=== PATIENT | male | born 1955 | race Caucasian/White ===

== ENCOUNTER 2021-07-27 14:03 | Emergency (ER) | payer MEDICARE ==
[2021-07-27] MEDS ORDERED: Sodium Chloride 0.9% 1000 ML 1,000 ML IV STA ×2 (14:43→17:10)
[2021-07-27] MEDS ORDERED: Zofran 4 MG/2 ML VIAL IV ONE (14:43)
--- NOTE | 2021-07-27 14:43 | ERPHSYRPT ---
- History of Present Illness Time Seen by Provider: 07/27/21 14:43 Historian: patient Exam Limitations: no limitations Physician History: This is a 66-year-old male with a history of hypertension and who has known Crohn's disease and is a patient of Dr. Varghese Bunn out of [facility] in [facility]. He presents with 1 week history of retching nausea and diarrhea. He had old antibiotics which he took for couple days but his symptoms did not improve. He has not seen a animal attendants and trainers in quite some time. He is not on any preventive Crohn's disease medication because it is so expensive. Patient denies chest pain. He denies shortness of breath. Timing/Duration: week(s) (1) Activities at Onset: none Abdominal Pain Onset Location: RLQ, LLQ Pain Radiation: no radiation Severity of Pain-Max: moderate Severity of Pain-Current: moderate Modifying Factors: Improves With: other (Nausea and diarrhea) Associated Symptoms: diarrhea, loss of appetite, nausea, No chest pain, No shortness of breath, No vomiting Previous symptoms: same symptoms as today, other (Same symptoms he has had in the distant past.) Allergies/Adverse Reactions: shellfish derived Allergy (Verified 07/27/21 14:52) Hives Home Medications: Amlodipine Besylate 10 mg PO DAILY 07/27/21 [History] Diazepam 5 mg [Valium 5 MG] 5 mg PO DAILY 07/27/21 [History] Metoprolol Tartrate 25 mg [Lopressor 25MG Tab] 25 mg PO STAT 07/27/21 [History] Travel Risk - International Travel Have you traveled outside of the country in past 3 weeks: No - Coronavirus Screening Are you exhibiting any of the following symptoms?: No Close contact with a COVID-19 positive Pt in past 14-21 Days: No - Vaccine Status Have you recieved a Covid-19 vaccination: No - Review of Systems Constitutional: No Symptoms Eyes: No Symptoms Ears, Nose, & Throat: No Symptoms Respiratory: No Symptoms Cardiac: No Symptoms Abdominal/Gastrointestinal: Abdominal Pain, Nausea, Diarrhea, No Vomiting Genitourinary Symptoms: No Symptoms Musculoskeletal: No Symptoms Skin: No Symptoms Neurological: No Symptoms Psychological: No Symptoms Endocrine: No Symptoms Hematologic/Lymphatic: No Symptoms Immunological/Allergic: No Symptoms All Other Systems: Reviewed and Negative - Past Medical History Pertinent Past Medical History: Yes - Nursing Vital Signs Nursing Vital Signs: Initial Vital Signs Temperature 97.3 F 07/27/21 14:44 Pulse Rate 100 H 07/27/21 14:44 Respiratory Rate 20 07/27/21 14:44 Blood Pressure 105/55 07/27/21 14:44 O2 Sat by Pulse Oximetry 96 07/27/21 14:44 Pain Scale Pain Intensity 6 - Physical Exam General Appearance: mild distress, alert, anxiety Eye Exam: PERRL/EOMI, eyes nml inspection Ears, Nose, Throat Exam: normal ENT inspection, moist mucous membranes Neck Exam: normal inspection, non-tender, supple, full range of motion Respiratory Exam: normal breath sounds, lungs clear, airway intact, No chest tenderness, No respiratory distress Cardiovascular Exam: regular rate/rhythm, normal heart sounds, normal peripheral pulses Gastrointestinal/Abdomen Exam: soft, normal bowel sounds, tenderness (Bilateral lower quadrants), guarding (Bilateral lower quadrants) Rectal Exam: not done Back Exam: normal inspection, normal range of motion, No CVA tenderness, No vertebral tenderness Extremity Exam: normal inspection, normal range of motion, pelvis stable Neurologic Exam: alert, oriented x 3, cooperative, net wpf developer II-XII nml as tested, normal mood/affect, nml cerebellar function, nml station & gait Skin Exam: normal color, warm, dry O2 Delivery: Room Air - Course Nursing assessment & vital signs reviewed: Yes Ordered Tests: Active Orders 24 hr Category Date Time Status IV Insertion STAT Care 07/27/21 14:43 Active ABDOMEN AND PELVIS W/0 CONTRAS [CT] Stat Exams 07/27/21 14:43 Taken AMYLASE Stat Lab 07/27/21 15:00 Completed CBC W DIFF Stat Lab 07/27/21 15:00 Completed CMP Stat Lab 07/27/21 15:00 Completed CULTURE,URINE Stat Lab 07/27/21 14:52 Received LIPASE Stat Lab 07/27/21 15:00 Completed Lactic Acid Stat Lab 07/27/21 15:00 Completed Lactic Acid Stat Lab 07/27/21 17:05 Completed UA W/RFX UR CULTURE Stat Lab 07/27/21 14:52 Completed Medication Summary Discontinued Medications Generic Name Dose Route Start Last Admin Trade Name Freq PRN Reason Stop Dose Admin Methylprednisolone Sodium 0 mg 07/27/21 19:26 Succinate 125 mg/ Sterile IV 07/27/21 19:27 Water 2 ml STAT ONE Hydromorphone HCl 1 mg 07/27/21 14:56 07/27/21 15:30 Hydromorphone 1 Mg/1ml Inj 1 Mg/Ml Syringe IV 07/27/21 14:57 1 mg STAT ONE Administration Hydromorphone HCl Confirm 07/27/21 15:29 Hydromorphone 1 Mg/1ml Inj 1 Mg/Ml Syringe Administered 07/27/21 15:30 Dose 1 mg .ROUTE .STK-MED ONE Hydromorphone HCl 1 mg 07/27/21 18:05 Hydromorphone 1 Mg/1ml Inj 1 Mg/Ml Syringe IV 07/27/21 18:06 STAT ONE Hydromorphone HCl Confirm 07/27/21 19:06 Hydromorphone 1 Mg/1ml Inj 1 Mg/Ml Syringe Administered 07/27/21 19:07 Dose 1 mg .ROUTE .STK-MED ONE Sodium Chloride 1,000 mls @ 999 mls/hr 07/27/21 14:43 07/27/21 16:39 Sodium Chloride 0.9% 1000 Ml IV 07/27/21 15:43 Infused .Q1H1M STA Infusion Sodium Chloride Confirm 07/27/21 15:29 Sodium Chloride 0.9% 1000 Ml Administered 07/27/21 15:30 Dose 1,000 mls @ ud .ROUTE .STK-MED ONE Potassium Chloride 20 meq in 100 mls @ 50 mls/hr 07/27/21 16:30 07/27/21 18:02 Potassium Chloride 20 Meq In Water 100ml IV 07/27/21 18:29 50 mls/hr STAT ONE Administration Levofloxacin/Dextrose 500 mg in 100 mls @ 100 mls/hr 07/27/21 16:33 Levofloxacin 500mg/100ml D5w IV 07/27/21 17:32 STAT STA Sodium Chloride 1,000 mls @ 999 mls/hr 07/27/21 17:10 07/27/21 19:33 Sodium Chloride 0.9% 1000 Ml IV 07/27/21 18:10 Infused .Q1H1M STA Infusion Sodium Chloride Confirm 07/27/21 17:34 Sodium Chloride 0.9% 1000 Ml Administered 07/27/21 17:35 Dose 1,000 mls @ ud .ROUTE .STK-MED ONE Potassium Chloride Confirm 07/27/21 17:34 Potassium Chloride 20 Meq In Water 100ml Administered 07/27/21 17:35 Dose 100 mls @ ud IV .STK-MED ONE Ondansetron HCl 4 mg 07/27/21 14:43 07/27/21 15:30 Ondansetron Hcl 4 Mg/2 Ml Vial IV 07/27/21 14:44 4 mg STAT ONE Administration Ondansetron HCl Confirm 07/27/21 15:29 Ondansetron Hcl 4 Mg/2 Ml Vial Administered 07/27/21 15:30 Dose 4 mg .ROUTE .STK-MED ONE Potassium Chloride 20 meq 07/27/21 16:30 07/27/21 18:01 Potassium Chloride 10 Meq Tablet PO 07/27/21 16:31 20 meq STAT ONE Administration Potassium Chloride Confirm 07/27/21 17:34 Potassium Chloride 10 Meq Tablet Administered 07/27/21 17:35 Dose 20 meq PO .STK-MED ONE Lab/Rad Data: Laboratory Result Diagrams 07/27/21 15:00 07/27/21 15:00 Laboratory Results 07/27/21 07/27/21 07/27/21 Range/Units 17:05 15:00 15:00 WBC (4.0-10.5) K/mm3 RBC (4.1-5.6) M/mm3 Hgb (12.5-18.0) gm/dl Hct (42-50) % MCV (78-100) fl MCH (26-32) pg MCHC (32-36) g/dl RDW (11.5-14.0) % Plt Count (150-450) K/mm3 MPV (7.5-11.0) fl Gran % (36.0-66.0) % Eos # (Auto) (0-0.5) Absolute Lymphs (auto) (1.0-4.6) Absolute Monos (auto) (0.0-1.3) Lymphocytes % (24.0-44.0) % Monocytes % (0.0-12.0) % Eosinophils % (0.00-5.0) % Basophils % (0.0-0.4) % Absolute Granulocytes (1.4-6.9) Basophils # (0-0.4) Sodium 138 (137-145) mmol/L Potassium 2.9 L* (3.5-5.1) mmol/L Chloride 102 (98-107) mmol/L Carbon Dioxide 22 (22-30) mmol/L Anion Gap 17.2 H (5-15) MEQ/L BUN 12 (9-20) mg/dL Creatinine 1.06 (0.66-1.25) mg/dL Estimated GFR > 60.0 ML/MIN Glucose 161 H (74-106) mg/dL Lactic Acid 1.6 2.1 H (0.4-2.0) Calcium 8.4 (8.4-10.2) mg/dL Total Bilirubin 2.10 H (0.2-1.3) mg/dL AST 21 (17-59) U/L ALT 13 (0-50) U/L Alkaline Phosphatase 77 (38-126) U/L Serum Total Protein 7.1 (6.3-8.2) g/dL Albumin 4.1 (3.5-5.0) g/dL Amylase 52 (30-110) U/L Lipase 96 (23-300) U/L Urine Color (YELLOW) Urine Appearance (CLEAR) Urine pH (5-6) Ur Specific Grundy (1.005-1.025) Urine Protein (Negative) Urine Ketones (NEGATIVE) Urine Blood (0-5) Hardy/ul Urine Nitrite (NEGATIVE) Urine Bilirubin (NEGATIVE) Urine Urobilinogen (0-1) mg/dL Ur Leukocyte Esterase (NEGATIVE) Urine WBC (Auto) (0-5) /HPF Urine RBC (Auto) (0-2) /HPF U Hyaline Cast (Auto) (0-2) /LPF U Epithel Cells (Auto) (FEW) /HPF Urine Bacteria (Auto) (NEGATIVE) /HPF Urine Mucus (Auto) (NEGATIVE) /HPF Urine Culture Reflexed (NO) Urine Glucose (NEGATIVE) mg/dL 07/27/21 07/27/21 Range/Units 15:00 14:52 WBC 14.5 H (4.0-10.5) K/mm3 RBC 4.39 (4.1-5.6) M/mm3 Hgb 15.6 (12.5-18.0) gm/dl Hct 45.5 (42-50) % MCV 103.6 H (78-100) fl MCH 35.5 H (26-32) pg MCHC 34.3 (32-36) g/dl RDW 13.8 (11.5-14.0) % Plt Count 169 (150-450) K/mm3 MPV 11.4 H (7.5-11.0) fl Gran % 81.0 H (36.0-66.0) % Eos # (Auto) 0.28 (0-0.5) Absolute Lymphs (auto) 1.87 (1.0-4.6) Absolute Monos (auto) 0.60 (0.0-1.3) Lymphocytes % 12.9 L (24.0-44.0) % Monocytes % 4.1 (0.0-12.0) % Eosinophils % 1.9 (0.00-5.0) % Basophils % 0.1 (0.0-0.4) % Absolute Granulocytes 11.74 H (1.4-6.9) Basophils # 0.02 (0-0.4) Sodium (137-145) mmol/L Potassium (3.5-5.1) mmol/L Chloride (98-107) mmol/L Carbon Dioxide (22-30) mmol/L Anion Gap (5-15) MEQ/L BUN (9-20) mg/dL Creatinine (0.66-1.25) mg/dL Estimated GFR ML/MIN Glucose (74-106) mg/dL Lactic Acid (0.4-2.0) Calcium (8.4-10.2) mg/dL Total Bilirubin (0.2-1.3) mg/dL AST (17-59) U/L ALT (0-50) U/L Alkaline Phosphatase (38-126) U/L Serum Total Protein (6.3-8.2) g/dL Albumin (3.5-5.0) g/dL Amylase (30-110) U/L Lipase (23-300) U/L Urine Color GAIL (YELLOW) Urine Appearance SLIGHTLY CLOUDY (CLEAR) Urine pH 5.0 (5-6) Ur Specific Grundy 1.020 (1.005-1.025) Urine Protein 100 (Negative) Urine Ketones NEGATIVE (NEGATIVE) Urine Blood NEGATIVE (0-5) Hardy/ul Urine Nitrite NEGATIVE (NEGATIVE) Urine Bilirubin NEGATIVE (NEGATIVE) Urine Urobilinogen NEGATIVE (0-1) mg/dL Ur Leukocyte Esterase MODERATE (NEGATIVE) Urine WBC (Auto) 6-10 (0-5) /HPF Urine RBC (Auto) 0-2 (0-2) /HPF U Hyaline Cast (Auto) 11-25 (0-2) /LPF U Epithel Cells (Auto) RARE (FEW) /HPF Urine Bacteria (Auto) RARE (NEGATIVE) /HPF Urine Mucus (Auto) SLIGHT (NEGATIVE) /HPF Urine Culture Reflexed YES (NO) Urine Glucose NEGATIVE (NEGATIVE) mg/dL - Progress Progress: improved, pain not gone completely, re-examined Progress Note: 07/27/21 19:49 CAT scan of the abdomen pelvis without contrast shows large and small bowel loop with fluid leveling. Ileus versus enterocolitis with a tiny amount of ascites present. Medical decision making: I recommend the patient be admitted into the hospital. Patient is refusing admission and does not want to be transferred. I reviewed with him the reasoning to admitted into the hospital including his low blood pressure, low potassium level, intra-abdominal findings on CAT scan, and improved ways to provide him pain control. He would also receive intravenous fluids. Patient is refusing. He understands that there is a risk of worsening condition including possible . He does not want to be admitted into or transferred to a hospital. Patient will still be treated as an outpatient. But he will need to sign an AMA form. He will do so. Counseled pt/family regarding: lab results, diagnosis, need for follow-up, rad results - Departure Departure Disposition: AMA Clinical Impression: Enterocolitis, Hypokalemia, Hypotension, Leukocytosis Condition: Fair Critical Care Time: Yes Critical Care Time(excluding separately billable procedures): Critical 75-104 mins Referrals: DOCTOR,NO FAMILY [Primary Care Provider] - Additional Instructions: Take all your medications as prescribed. Follow-up with your primary care physician and animal attendants and trainers for further management. Return to the emergency department if symptoms worsen. Follow-up with outpatient lab on 07/29/2021 to recheck your potassium level. Prescriptions: Ondansetron ODT 4 MG [Zofran Odt 4 mg] 4 mg PO Q6H PRN PRN #10 tablet PRN Reason: Vomiting Ciprofloxacin [Cipro 500 MG] 500 mg PO BID #14 tablet Metronidazole 500 mg [Flagyl 500 MG] 500 mg PO TID #21 tablet Hydrocodone/APAP 5/325 [[place] 5/325 mg] 1 each PO Q12H PRN #6 tablet MDD 2 PRN Reason: Pain
[2021-07-27] MEDS ORDERED: Hydromorphone 1 mg/ml Injection IV ONE ×2 (14:56→18:05)
[2021-07-27 15:07] LABS: Appearance SLIGHTLY CLOUDY (CLEAR); Bacteria RARE /HPF (NEGATIVE); Bilirubin NEGATIVE (NEGATIVE); Blood NEGATIVE Ery/ul (0-5); Epithelial Cells RARE /HPF (FEW); Glucose NEGATIVE (NEGATIVE); Ketones NEGATIVE (NEGATIVE); Leukocyte Esterase MODERATE (NEGATIVE); Mucus SLIGHT /HPF (NEGATIVE); Nitrite NEGATIVE (NEGATIVE); Protein,Urine Dip 100 (Negative); RBC 0-2 /HPF (0-2); Urobilinogen NEGATIVE mg/dL (0-1)
[2021-07-27 15:10] LABS: Absolute Neutrophil Ct (ANC) 11.74 (1.4-6.9); BASOPHIL % 0.1 % (0.0-0.4); Basophil (Absolute #) 0.02 (0-0.4); Eosinophil % 1.9 % (0.00-5.0); Eosinophil (Absolute #) 0.28 (0-0.5); Hematocrit 45.5 % (42-50); Hemoglobin 15.6 gm/dl (12.5-18.0); Lymphocyte (Absolute #) 1.87 (1.0-4.6); Lymphocytes % 12.9 % (24.0-44.0); Mean Cell Volume 103.6 fl (78-100); Mean Corpuscular Hemoglobin 35.5 pg (26-32); Mean Corpuscular Hgb Concent. 34.3 g/dl (32-36); Mean Platelet Volume 11.4 fl (7.5-11.0); Monocytes % 4.1 % (0.0-12.0); Platelet Count 169 K/mm3 (150-450); Red Blood Count 4.39 M/mm3 (4.1-5.6); Red Cell Distribution Width 13.8 % (11.5-14.0); White Blood Count 14.5 K/mm3 (4.0-10.5)
[2021-07-27 15:15] LABS: ALBUMIN 4.1 g/dL (3.5-5.0); ALKALINE PHOSPHATASE 77 U/L (38-126); AMYLASE 52 U/L (30-110); ANION GAP 17.2 MEQ/L (5-15); BLOOD UREA NITROGEN 12 mg/dL (9-20); CHLORIDE 102 mmol/L (98-107); Calcium 8.4 mg/dL (8.4-10.2); Carbon Dioxide 22 mmol/L (22-30); Creatinine 1 1.06 mg/dL (0.66-1.25); EST GLOMERULAR FILTRATION RATE > 60.0 ML/MIN; Glucose 161 mg/dL (74-106); LIPASE 96 U/L (23-300); SGOT/AST 21 U/L (17-59); SGPT/ALT 13 U/L (0-50); SODIUM 138 mmol/L (137-145); Total Protein 7.1 g/dL (6.3-8.2)
[2021-07-27 15:19] LABS: Potassium 2.9 mmol/L (3.5-5.1)
[2021-07-27] MEDS ORDERED: Hydromorphone 1 mg/ml Injection ONE ×2 (15:29→19:06)
[2021-07-27] MEDS ORDERED: Sodium Chloride 0.9% 1000 ML 1,000 ML ONE ×2 (15:29→17:34)
[2021-07-27] MEDS ORDERED: Zofran 4 MG/2 ML VIAL ONE (15:29)
[2021-07-27] MEDS ORDERED: Klor Con 10 MEQ PO ONE ×2 (16:30→17:34)
[2021-07-27] MEDS ORDERED: POTASSIUM CHLORIDE 20 mEq IN WATER 100ML 20 MEQ/100 ML BAG IV ONE (16:30)
[2021-07-27] MEDS ORDERED: Levofloxacin 500MG/100ML D5W 500 MG/100 ML BAG IV STA (16:33)
[2021-07-27] MEDS ORDERED: POTASSIUM CHLORIDE 20 mEq IN WATER 100ML 100 ML IV ONE (17:34)
[2021-07-27] MEDS ORDERED: solu-MEDROL 125 MG, Sterile H2O 10 ml 2 ML IV ONE ×2 (19:26)
[2021-07-27] MEDS ORDERED: Levofloxacin 250MG Tablet PO ONE (19:58)
[2021-07-27] MEDS ORDERED: Flagyl 500 MG PO ONE (20:00)
[2021-07-27] MEDS ORDERED: NORCO 5/325 MG PO ONE (20:01)
[2021-07-27] MEDS ORDERED: NORCO 5/325 MG ONE (20:12)
[2021-07-27] MEDS ORDERED: Levofloxacin 250MG Tablet ONE (20:12)
[2021-07-27] MEDS ORDERED: Flagyl 500 MG ONE (20:12)
[2021-07-27] MEDS ORDERED: solu-MEDROL ONE (20:12)
[2021-07-27 20:17] VITALS: BP 126/68; PULSE 84; O2SAT 97
--- NOTE | 2021-07-27 23:09 | XRAY ---
Indication: Nausea, vomiting, diarrhea. Multiple contiguous axial images obtained through the abdomen and pelvis without contrast. Comparison: None Lung bases are clear of infiltrate and effusion. Heart is not enlarged. Noncontrasted stomach and bowel loops appear nonobstructed. Mild uniformly fluid distended small and large bowel loops with mild bowel wall thickening and fluid leveling, ileus versus enterocolitis. Normal appendix. Minimal descending and sigmoid colonic diverticulosis. Mild fatty liver with tiny perihepatic fluid. No walled off fluid collection or free air. Remaining liver, gallbladder, pancreas, spleen, adrenal glands, kidneys, ureters, and bladder are unremarkable for noncontrast exam. Mild scattered aortoiliac calcifications without AAA. Osseous structures demonstrate mild osteopenia, mild multilevel thoracolumbar degenerative spondylosis, and L1/L2 Schmorl nodes. No ventral or inguinal hernias. Impression: 1. Mild fluid distended small and large bowel loops with bowel wall thickening and fluid leveling, ileus versus enterocolitis. 2. Incidental fatty liver with tiny perihepatic fluid, colonic diverticulosis, and chronic bony findings.
== END 2021-07-27 20:38 | disposition home or self-care (01) ==
LOC: ED 14:03
DX: K52.9 Noninfective gastroenteritis and colitis, unspecified (principal); E87.6 Hypokalemia; I95.9 Hypotension, unspecified; D72.829 Elevated white blood cell count, unspecified; I10 Essential (primary) hypertension; K50.90 Crohn's disease, unspecified, without complications; Z79.899 Other long term (current) drug therapy
CPT/HCPCS: 36000; 36415; 74176; 80053; 81001; 82150; 83605; 83690; 85025; 87086; 96360; 96361; 96374; 96375; 99285; 99291; 99292; J1170; J2405; J2930; J3480; A9270-GY

== ENCOUNTER 2022-03-12 12:47 | Emergency (ER) | payer MEDICARE ==
[2022-03-12 12:56] VITALS: BP 153/80; PULSE 80; O2SAT 98
--- NOTE | 2022-03-12 13:22 | ERPHSYRPT ---
- History of Present Illness Time Seen by Provider: 03/12/22 12:55 Source: patient Patient Subjective Stated Complaint: Pt states "There is something in my left ear. I can hear it and it moves every now and then." Triage Nursing Assessment: Pt presented alert and oriented X 3, skin pwd Pt ambulates with an upright steady gait, able to speak in clear full sentenecs pt in no apparent respiratory distress. pt has what appears to be a black scab or something noted in ear canal. Physician History: This is a 67-year-old white male who presents with concerned that there may be a bug/insect in his left ear. At 9 AM this morning he noticed what he thought was buzzing in his left ear and he is sensing this periodically. Timing/Duration: abrupt onset, this morning Severity: mild ENT Location: ear (L) Prearrival Treatment: no prearrival treatment Modifying Factors: Improves With: activity Associated Symptoms: ear pain (L) Allergies/Adverse Reactions: shellfish derived Allergy (Verified 07/27/21 14:52) Hives Home Medications: Amlodipine Besylate 10 mg PO DAILY 07/27/21 [History] Diazepam 5 mg [Valium 5 MG] 5 mg PO DAILY 07/27/21 [History] Metoprolol Tartrate 25 mg [Lopressor 25MG Tab] 25 mg PO STAT 07/27/21 [History] Hx Tetanus, Diphtheria Vaccination/Date Given: No Hx Influenza Vaccination/Date Given: No Hx Pneumococcal Vaccination/Date Given: No Immunizations Up to Date: Yes Travel Risk - International Travel Have you traveled outside of the country in past 3 weeks: No - Coronavirus Screening Are you exhibiting any of the following symptoms?: No Close contact with a COVID-19 positive Pt in past 14-21 Days: No - Vaccine Status Have you recieved a Covid-19 vaccination: No Drill Operator Automatic: Moderna - Vaccination Dates Date of 2cond Vaccination (if applicable): february - Review of Systems Constitutional: No Symptoms Eyes: No Symptoms Ears, Nose, & Throat: Hearing Changes (Left ear) Respiratory: No Symptoms Cardiac: No Symptoms Abdominal/Gastrointestinal: No Symptoms Genitourinary Symptoms: No Symptoms Musculoskeletal: No Symptoms Skin: No Symptoms Neurological: No Symptoms Psychological: No Symptoms Endocrine: No Symptoms Hematologic/Lymphatic: No Symptoms Immunological/Allergic: No Symptoms All Other Systems: Reviewed and Negative - Past Medical History Pertinent Past Medical History: Yes Cardiac History: Hypertension GI Medical History: Crohns Disease Psycho-Social History: Anxiety Other Medical History: crohns - Past Surgical History Past Surgical History: Yes Musculoskeletal: Orthopedic Surgery Other Surgical History: R ankle, colonoscopy - Social History Smoking Status: Current every day smoker How long have you smoked: 17 yo Exposure to second hand smoke: No Drug Use: none Patient Lives Alone: Yes - Nursing Vital Signs Nursing Vital Signs: Initial Vital Signs Temperature 98.0 F 03/12/22 12:52 Pulse Rate 80 03/12/22 12:52 Respiratory Rate 20 03/12/22 12:52 Blood Pressure 153/80 03/12/22 12:52 O2 Sat by Pulse Oximetry 98 03/12/22 12:52 Pain Scale Pain Intensity 0 - Physical Exam General Appearance: no apparent distress, alert, anxiety Eye Exam: bilateral eye: normal inspection, PERRL, EOMI Ear Exam: right ear: canal normal, left ear: foreign body (Cerumen in the left ear canal), bilateral ear: auricle normal, TM normal Nasal Exam: normal inspection Throat Exam: normal, No dental tenderness Neck Exam: normal inspection, non-tender, supple, full range of motion Cardiovascular/Respiratory Exam: chest non-tender, no respiratory distress Abdominal Exam: non-tender Neurologic Exam: alert, oriented x 3, cooperative, tin plater II-XII nml as tested, normal mood/affect, nml cerebellar function, nml station & gait Skin Exam: normal color, warm, dry SpO2 Interpretation: normal SpO2: 98 O2 Delivery: Room Air - Course Nursing assessment & vital signs reviewed: Yes - Progress Progress: improved Counseled pt/family regarding: diagnosis, need for follow-up - Departure Departure Disposition: Home Clinical Impression: Excessive cerumen in left ear canal Condition: Stable Critical Care Time: No Referrals: DOCTOR,NO FAMILY [Primary Care Provider] - Follow up/PCP as directed Additional Instructions: Follow-up with bear keeper if symptoms persist. May use [id number] Debrox or Cerumenex for persistent symptoms
== END 2022-03-12 13:44 | disposition home or self-care (01) ==
LOC: ED 12:47
DX: H61.22 Impacted cerumen, left ear (principal); H92.02 Otalgia, left ear; I10 Essential (primary) hypertension; Z72.0 Tobacco use; Z79.899 Other long term (current) drug therapy
CPT/HCPCS: 99283

== ENCOUNTER 2022-06-03 16:06 | Emergency (ER) | payer MEDICARE ==
[2022-06-03 17:27] LABS: Appearance CLEAR (CLEAR); Bilirubin NEGATIVE (NEGATIVE); Dipstick done @ ? MAIN LAB; Glucose NEGATIVE (NEGATIVE); Ketones NEGATIVE (NEGATIVE); Nitrite NEGATIVE (NEGATIVE); Ph 5.5 (5-6); Protein,Urine Dip TRACE (Negative); RBC NEGATIVE Ery/ul (0-5); Specific Gravity 1.025 (1.005-1.025); Urobilinogen 0.2 mg/dL (0-1)
[2022-06-03 17:28] LABS: Mucus SLIGHT /HPF (NEGATIVE); Urine Cultured Indicated? NO
[2022-06-03] MEDS ORDERED: Hydromorphone 1 mg/ml Injection IV ONE (18:27)
[2022-06-03] MEDS ORDERED: Zofran 4 MG/2 ML VIAL IV ONE (18:27)
--- NOTE | 2022-06-03 18:27 | ERPHSYRPT ---
<WILBUR JENSEN - Last Filed: 06/03/22 19:40> - History of Present Illness Historian: patient Exam Limitations: no limitations Patient Subjective Stated Complaint: C/O abdominal pain with N/V, diarrhea for the past 3 days. NO fevers. Triage Nursing Assessment: Patient ambulated back to ED without difficulties. He is alert and oriented. No SOB noted. Abdomen is large and round. No increased pain with palpation. Skin tone normal witha purple tent to nose. Timing/Duration: day(s) (2) Activities at Onset: none Quality: dullness Abdominal Pain Onset Location: RLQ, LLQ, suprapubic Pain Radiation: no radiation Severity of Pain-Max: moderate Severity of Pain-Current: moderate Modifying Factors: Improves With: nothing Associated Symptoms: denies symptoms Previous symptoms: recently seen, recently treated Hx Tetanus, Diphtheria Vaccination/Date Given: Yes Hx Influenza Vaccination/Date Given: No Hx Pneumococcal Vaccination/Date Given: No Immunizations Up to Date: Yes <GREGG ABRAHAM - Last Filed: 06/04/22 20:46> - History of Present Illness Time Seen by Provider: 06/03/22 16:30 Physician History: This is a 67 year-old gentleman denting to the ED for evaluation of abdominal pain for the past 2 days He says with abdominal pain is located in his lower abdomen, 5/10, aggravating or relieving factors, non radiating -Dates that he has had some sweats and chills. Denies noticing any fever -History of Crohn's disease, that he had a Crohn's flare about 5 months ago and was on antibiotics -He said he has been nauseous, vomiting x 1 today, has had 2 loose stools -Denies any recent antibiotic use/urinary symptoms. Having regular bowel movements - has no other complaints (GREGG ABRAHAM) Allergies/Adverse Reactions: shellfish derived Allergy (Verified 06/03/22 17:12) Hives Home Medications: Amlodipine Besylate 10 mg PO DAILY 07/27/21 [History] Diazepam 5 mg [Valium 5 MG] 5 mg PO DAILY 07/27/21 [History] Metoprolol Tartrate 25 mg [Lopressor 25MG Tab] 25 mg PO STAT 07/27/21 [History] Travel Risk - International Travel Have you traveled outside of the country in past 3 weeks: No - Coronavirus Screening Are you exhibiting any of the following symptoms?: Yes Symptoms: Vomiting/Diarrhea Close contact with a COVID-19 positive Pt in past 14-21 Days: No - Vaccine Status Have you recieved a Covid-19 vaccination: Yes Medical Coding Technician: Moderna - Vaccination Dates Date of 2cond Vaccination (if applicable): february Comment: 2021 <GREGG ABRAHAM - Last Filed: 06/04/22 20:46> - Review of Systems Constitutional: Chills, Fatigue, Night Sweats Eyes: No Symptoms Ears, Nose, & Throat: No Symptoms, No Ear Pain, No Sinus Drainage Respiratory: No Symptoms, No Cough, No Dyspnea on Exertion (FORD), No Wheezing Cardiac: No Symptoms Abdominal/Gastrointestinal: Abdominal Pain, Nausea, Vomiting, Diarrhea, No Constipation, No Hematemesis, No Hematochezia, No Appetite Changes Genitourinary Symptoms: No Symptoms Musculoskeletal: No Symptoms Skin: No Symptoms, No Cellulitis Neurological: No Symptoms, No Dizziness Psychological: No Symptoms Endocrine: No Symptoms Hematologic/Lymphatic: No Symptoms Immunological/Allergic: No Symptoms All Other Systems: Reviewed and Negative <GREGG ABRAHAM - Last Filed: 06/04/22 20:46> - Past Medical History Pertinent Past Medical History: Yes Cardiac History: Hypertension GI Medical History: Crohns Disease Psycho-Social History: Anxiety, Depression 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 - Past Surgical History Past Surgical History: Yes Musculoskeletal: Orthopedic Surgery Other Surgical History: R ankle, colonoscopy - Social History Smoking Status: Current every day smoker How long have you smoked: 17 yo Exposure to second hand smoke: No Drug Use: none Patient Lives Alone: Yes <GREGG ABRAHAM - Last Filed: 06/04/22 20:46> - Physical Exam General Appearance: no apparent distress Eye Exam: PERRL/EOMI, eyes nml inspection Ears, Nose, Throat Exam: normal ENT inspection, TMs normal, pharynx normal Neck Exam: normal inspection, non-tender, supple, full range of motion Respiratory Exam: normal breath sounds, lungs clear, No respiratory distress Cardiovascular Exam: regular rate/rhythm, normal heart sounds, normal peripheral pulses Gastrointestinal/Abdomen Exam: soft, tenderness (RLQ, LLQ, suprapubic) Rectal Exam: deferred Back Exam: normal inspection, No CVA tenderness, No vertebral tenderness Extremity Exam: normal inspection Neurologic Exam: alert, oriented x 3, cooperative Skin Exam: normal color Lymphatic Exam: No adenopathy SpO2 Interpretation: normal SpO2: 98 O2 Delivery: Room Air <GREGG ABRAHAM - Last Filed: 06/04/22 20:46> - Nursing Vital Signs Nursing Vital Signs: Initial Vital Signs Pulse Rate 94 H 06/03/22 16:07 Respiratory Rate 18 06/03/22 16:07 Blood Pressure 138/93 06/03/22 16:07 O2 Sat by Pulse Oximetry 98 06/03/22 16:07 Pain Scale Pain Intensity 9 - CT Exams Abdomen/Pelvis CT Interpretation: Tele-radiologist Report (CT scan shows several loops of nondilated gas and fluid-filled small bowel with mild wall thickening of the terminal ileum and minimal adjacent fat stranding most compatible with an infec tious inflammatory enteritis since this patient has a history of Crohn's disease that represents probably a flare), Other <WILBUR JENSEN - Last Filed: 06/03/22 19:40> Ordered Tests: Medication Summary Discontinued Medications Generic Name Dose Route Start Last Admin Trade Name Abdielq PRN Reason Stop Dose Admin Hydrocodone Bitart/Acetaminophen 2 tab 06/03/22 20:38 06/03/22 20:40 Hydrocodone/Apap 5/325 Mg Tablet PO 06/03/22 20:39 2 tab SENT HOME W/ PATIENT ONE Administration Hydrocodone Bitart/Acetaminophen Confirm 06/03/22 20:39 Hydrocodone/Apap 5/325 Mg Tablet Administered 06/03/22 20:40 Dose 2 tab .ROUTE .STK-MED ONE Methylprednisolone Sodium 0 mg 06/03/22 19:38 06/03/22 19:46 Succinate 125 mg/ Sterile IV 06/03/22 19:39 125 mg Water 2 ml STAT ONE Administration Hydromorphone HCl 1 mg 06/03/22 18:27 06/03/22 19:11 Hydromorphone 1 Mg/1ml Inj 1 Mg/Ml Syringe IV 06/03/22 18:28 1 mg STAT ONE Administration Hydromorphone HCl Confirm 06/03/22 19:01 Hydromorphone 1 Mg/1ml Inj 1 Mg/Ml Syringe Administered 06/03/22 19:02 Dose 1 mg .ROUTE .STK-MED ONE Sodium Chloride 1,000 mls @ 100 mls/hr 06/03/22 18:30 06/03/22 19:11 Sodium Chloride 0.9% 1000 Ml IV 07/03/22 18:29 100 mls/hr .Q10H MARIELY Administration Metronidazole 500 mg in 100 mls @ 200 mls/hr 06/03/22 19:39 06/03/22 20:46 Flagyl 500 Mg Ivpb IV 06/03/22 20:08 Infused STAT STA Infusion Metronidazole Confirm 06/03/22 19:41 Flagyl 500 Mg Ivpb Administered 06/03/22 19:42 Dose 500 mg in 100 mls @ ud IV .STK-MED ONE Sodium Chloride Confirm 06/03/22 19:01 Sodium Chloride 0.9% 1000 Ml Administered 06/03/22 19:02 Dose 1,000 mls @ ud .ROUTE .STK-MED ONE Methylprednisolone Sodium Succinate Confirm 06/03/22 19:41 Methylprednis Sod Succ 125 Mg/2 Ml Vial Administered 06/03/22 19:42 Dose 125 mg .ROUTE .STK-MED ONE Ondansetron HCl 4 mg 06/03/22 18:27 06/03/22 19:11 Ondansetron Hcl 4 Mg/2 Ml Vial IV 06/03/22 18:28 4 mg STAT ONE Administration Ondansetron HCl Confirm 06/03/22 19:01 Ondansetron Hcl 4 Mg/2 Ml Vial Administered 06/03/22 19:02 Dose 4 mg .ROUTE .STK-MED ONE Sterile Water Confirm 06/03/22 19:41 Water For Injection,Sterile 10 Ml Vial Administered 06/03/22 19:42 Dose 10 ml IJ .STK-MED ONE Lab/Rad Data: Laboratory Result Diagrams 06/03/22 18:45 06/03/22 18:45 Laboratory Results 06/03/22 06/03/22 06/03/22 Range/Units 18:47 18:45 18:45 WBC (4.0-10.5) x10^3/uL RBC (4.1-5.6) x10^6/uL Hgb (12.5-18.0) g/dL Hct (42-50) % MCV (78-100) fL MCH (26-32) pg MCHC (32-36) g/dL RDW (11.5-14.0) % Plt Count (150-450) x10^3/uL MPV (7.5-11.0) fL Gran % (36.0-66.0) % Immature Gran % (Auto) (0.00-0.4) % Nucleat RBC Rel Count (0.00-0.1) % Eos # (Auto) (0-0.5) x10^3/uL Immature Gran # (Auto) (0.00-0.03) x10^3u/L Absolute Lymphs (auto) (1.0-4.6) x10^3/uL Absolute Monos (auto) (0.0-1.3) x10^3/uL Absolute Nucleated RBC (0.00-0.01) x10^3u/L Lymphocytes % (24.0-44.0) % Monocytes % (0.0-12.0) % Eosinophils % (0.00-5.0) % Basophils % (0.0-0.4) % Absolute Granulocytes (1.4-6.9) x10^3/uL Basophils # (0-0.4) x10^3/uL Sodium 132 L (137-145) mmol/L Potassium 3.4 L (3.5-5.1) mmol/L Chloride 98 (98-107) mmol/L Carbon Dioxide 25 (22-30) mmol/L Anion Gap 13.3 (5-15) MEQ/L BUN 13 (9-20) mg/dL Creatinine 1.01 (0.66-1.25) mg/dL Estimated GFR > 60.0 ML/MIN Glucose 126 H (74-106) mg/dL Lactic Acid 1.6 (0.4-2.0) Calcium 9.0 (8.4-10.2) mg/dL Total Bilirubin 2.00 H (0.2-1.3) mg/dL AST 22 (17-59) U/L ALT 13 (0-50) U/L Alkaline Phosphatase 128 H (38-126) U/L Serum Total Protein 7.5 (6.3-8.2) g/dL Albumin 3.9 (3.5-5.0) g/dL Lipase 132 (23-300) U/L Urinalys Dipstick Clnc Urine Color (YELLOW) Urine Appearance (CLEAR) Urine pH (5-6) Ur Specific Bruce (1.005-1.025) POC Urine Protein Conf (Negative) Urine Ketones (NEGATIVE) Urine Nitrite (NEGATIVE) Urine Bilirubin (NEGATIVE) Urine Urobilinogen (0-1) mg/dL Urine Leukocytes (NEGATIVE) Urine WBC (Auto) (0-5) /HPF Urine RBC (Auto) (0-2) /HPF U Hyaline Cast (Auto) (0-2) /LPF U Epithel Cells (Auto) (FEW) /HPF Urine Bacteria (Auto) (NEGATIVE) /HPF Urine RBC (0-5) Hardy/ul Urine Mucus (Auto) (NEGATIVE) /HPF Ur Culture Indicated? Urine Glucose (NEGATIVE) mg/dL 06/03/22 06/03/22 Range/Units 18:45 17:04 WBC 10.6 H (4.0-10.5) x10^3/uL RBC 4.71 (4.1-5.6) x10^6/uL Hgb 17.4 (12.5-18.0) g/dL Hct 49.0 (42-50) % MCV 104.0 H (78-100) fL MCH 36.9 H (26-32) pg MCHC 35.5 (32-36) g/dL RDW 14.2 H (11.5-14.0) % Plt Count 181 (150-450) x10^3/uL MPV 10.3 (7.5-11.0) fL Gran % 68.4 H (36.0-66.0) % Immature Gran % (Auto) 0.6 H (0.00-0.4) % Nucleat RBC Rel Count 0.0 (0.00-0.1) % Eos # (Auto) 0.18 (0-0.5) x10^3/uL Immature Gran # (Auto) 0.06 H (0.00-0.03) x10^3u/L Absolute Lymphs (auto) 2.40 (1.0-4.6) x10^3/uL Absolute Monos (auto) 0.65 (0.0-1.3) x10^3/uL Absolute Nucleated RBC 0.00 (0.00-0.01) x10^3u/L Lymphocytes % 22.6 L (24.0-44.0) % Monocytes % 6.1 (0.0-12.0) % Eosinophils % 1.7 (0.00-5.0) % Basophils % 0.6 (0.0-0.4) % Absolute Granulocytes 7.25 H (1.4-6.9) x10^3/uL Basophils # 0.06 (0-0.4) x10^3/uL Sodium (137-145) mmol/L Potassium (3.5-5.1) mmol/L Chloride (98-107) mmol/L Carbon Dioxide (22-30) mmol/L Anion Gap (5-15) MEQ/L BUN (9-20) mg/dL Creatinine (0.66-1.25) mg/dL Estimated GFR ML/MIN Glucose (74-106) mg/dL Lactic Acid (0.4-2.0) Calcium (8.4-10.2) mg/dL Total Bilirubin (0.2-1.3) mg/dL AST (17-59) U/L ALT (0-50) U/L Alkaline Phosphatase (38-126) U/L Serum Total Protein (6.3-8.2) g/dL Albumin (3.5-5.0) g/dL Lipase (23-300) U/L Urinalys Dipstick Clnc MAIN LAB Urine Color DARK YELLOW (YELLOW) Urine Appearance CLEAR (CLEAR) Urine pH 5.5 (5-6) Ur Specific Bruce 1.025 (1.005-1.025) POC Urine Protein Conf TRACE (Negative) Urine Ketones NEGATIVE (NEGATIVE) Urine Nitrite NEGATIVE (NEGATIVE) Urine Bilirubin NEGATIVE (NEGATIVE) Urine Urobilinogen 0.2 (0-1) mg/dL Urine Leukocytes NEGATIVE (NEGATIVE) Urine WBC (Auto) 3-5 (0-5) /HPF Urine RBC (Auto) NONE (0-2) /HPF U Hyaline Cast (Auto) 11-25 (0-2) /LPF U Epithel Cells (Auto) NONE (FEW) /HPF Urine Bacteria (Auto) NONE (NEGATIVE) /HPF Urine RBC NEGATIVE (0-5) Hardy/ul Urine Mucus (Auto) SLIGHT (NEGATIVE) /HPF Ur Culture Indicated? NO Urine Glucose NEGATIVE (NEGATIVE) mg/dL - Progress Progress: improved <MANSHIP,WILBUR - Last Filed: 06/03/22 19:40> <GREGG ABRAHAM - Last Filed: 06/04/22 20:46> - Progress Progress Note: 06/03/22 19:19 This is a 67-year-old patient presenting to the ED for evaluation of abdominal pain. She had an IV line was established, IV fluid hydration initiated given mild tachycardia on arrival, and was given a shot of Dilaudid along with Zofran Labs have been ordered and are pending at this time. Has been transferred to Dr. Jensen at time of shift change. Discussed the case in detail with him. 06/04/22 20:45 (GREGG ABRAHAM) - Departure Departure Disposition: Home Critical Care Time: No <WILBUR JENSEN - Last Filed: 06/03/22 19:40> <GREGG ABRAHAM - Last Filed: 06/04/22 20:46> - Departure Clinical Impression: Crohn's disease Condition: Stable Referrals: DOCTOR,NO FAMILY [Primary Care Provider] - Follow up/PCP as directed Instructions: Crohn's Disease (DC) Prescriptions: Hydrocodone/Acetaminophen [Hydrocodone-Acetamin 5-325 mg] 1 tab PO Q6HPRN PRN 3 Days #12 tablet MDD 4 PRN Reason: Pain Prednisone 10 mg [Deltasone 10 mg] 10 mg PO TID #20 tablet Metronidazole 500 mg [Flagyl 500 MG] 500 mg PO TID #21 tablet
[2022-06-03] MEDS ORDERED: Sodium Chloride 0.9% 1000 ML 1,000 ML IV SCH (18:30)
[2022-06-03 18:48] LABS: Absolute Neutrophil Ct (ANC) 7.25 x10^3/uL (1.4-6.9); Basophil (Absolute #) 0.06 x10^3/uL (0-0.4); Eosinophil % 1.7 % (0.00-5.0); Eosinophil (Absolute #) 0.18 x10^3/uL (0-0.5); Hemoglobin 17.4 g/dL (12.5-18.0); Lymphocytes % 22.6 % (24.0-44.0); Mean Corpuscular Hemoglobin 36.9 pg (26-32); Mean Corpuscular Hgb Concent. 35.5 g/dL (32-36); Mean Platelet Volume 10.3 fL (7.5-11.0); Monocyte (Absolute #) 0.65 x10^3/uL (0.0-1.3); Monocytes % 6.1 % (0.0-12.0); Neutrophil % 68.4 % (36.0-66.0); Platelet Count 181 x10^3/uL (150-450); Red Blood Count 4.71 x10^6/uL (4.1-5.6); Red Cell Distribution Width 14.2 % (11.5-14.0); White Blood Count 10.6 x10^3/uL (4.0-10.5)
[2022-06-03] MEDS ORDERED: Zofran 4 MG/2 ML VIAL ONE (19:01)
[2022-06-03] MEDS ORDERED: Sodium Chloride 0.9% 1000 ML 1,000 ML ONE (19:01)
[2022-06-03] MEDS ORDERED: Hydromorphone 1 mg/ml Injection ONE (19:01)
[2022-06-03 19:06] LABS: ALBUMIN 3.9 g/dL (3.5-5.0); ALKALINE PHOSPHATASE 128 U/L (38-126); ANION GAP 13.3 MEQ/L (5-15); BLOOD UREA NITROGEN 13 mg/dL (9-20); CHLORIDE 98 mmol/L (98-107); Carbon Dioxide 25 mmol/L (22-30); Creatinine 1 1.01 mg/dL (0.66-1.25); EST GLOMERULAR FILTRATION RATE > 60.0 ML/MIN; Glucose 126 mg/dL (74-106); Potassium 3.4 mmol/L (3.5-5.1); SGOT/AST 22 U/L (17-59); SGPT/ALT 13 U/L (0-50); SODIUM 132 mmol/L (137-145); Total Protein 7.5 g/dL (6.3-8.2)
[2022-06-03] MEDS ORDERED: solu-MEDROL 125 MG, Sterile H2O 10 ml 2 ML IV ONE ×2 (19:38)
[2022-06-03] MEDS ORDERED: FLAGYL 500 MG IVPB 500 MG/100 ML BAG IV STA (19:39)
[2022-06-03] MEDS ORDERED: FLAGYL 500 MG IVPB 500 MG/100 ML BAG IV ONE (19:41)
[2022-06-03] MEDS ORDERED: solu-MEDROL ONE (19:41)
[2022-06-03] MEDS ORDERED: Sterile H2O 10 ml IJ ONE (19:41)
[2022-06-03 20:16] VITALS: BP 142/107; PULSE 92
[2022-06-03] MEDS ORDERED: NORCO 5/325 MG PO ONE (20:38)
[2022-06-03] MEDS ORDERED: NORCO 5/325 MG ONE (20:39)
--- NOTE | 2022-06-04 10:20 | XRAY ---
Exam: CT of the abdomen and pelvis without IV contrast from 06/03/2022. CTDI: 11.24 mGy Comparison: CT of the abdomen and pelvis without IV contrast from 07/27/2021. Indication: 67-year-old male with lower abdominal pain and generalized abdominal pain; history of Crohn's disease and colitis. Technique: Non-IV contrast axial images were obtained through the abdomen and pelvis. Reconstructed coronal and sagittal images were created and reviewed. No oral contrast was given. Findings: The CT proposal coordinator image reveals diffuse prominence of the small bowel which appears upper normal in caliber. Scattered colonic gas is seen to the level of the rectum. The visualized lung bases are clear. There is a suggestion of a minimal hiatal hernia. Some coronary vascular calcification is seen on the right. Evaluation of the solid organs is limited without the use of IV contrast. With this limitation in mind, the liver appears of normal size and reveals no gross mass or intrahepatic biliary duct distention. The gallbladder is mildly distended and reveals no dense calcifications within it. The spleen is not enlarged. I believe there is a small splenule located anterior laterally on axial image #19. No focal splenic mass is seen. The pancreas appears unremarkable. I cannot exclude a tiny low-attenuation right adrenal adenoma on axial image #21. This is unchanged from 07/27/2021. Otherwise, the adrenal glands appear unremarkable. The kidneys appear of average size and reveal no calculi or hydronephrosis. The ureters are normal in diameter and reveal no ureterolith. No obvious renal mass is seen. Moderate atherosclerotic vascular calcification is seen within the abdominal aorta and bilateral iliac artery branches including the common femoral arteries. No abdominal aortic aneurysm or abnormal retroperitoneal lymphadenopathy is seen. No free intraperitoneal air or ventral abdominal wall hernia is seen. A mild amount of fluid is seen within the stomach lumen. I again note mild generalized small bowel prominence with scattered air-fluid levels. There appears to be some bowel wall thickening at the level of the terminal ileum within the right lower quadrant with adjacent stranding of the surrounding fat. This is suggestive of infectious or inflammatory enteritis. The appendix appears unremarkable. Nondilated colon is seen containing some scattered intraluminal fluid, likely secondary to diarrhea. There is minimal diverticulosis within the descending colon and proximal sigmoid colon. No pelvic mass or abnormal pelvic lymphadenopathy is seen. The urinary bladder reveals an apparent 2.4 cm x 2.1 cm diverticulum arising from the left posterior lateral margin of the urinary bladder representing no change. Otherwise, the urinary bladder appears unremarkable.. There is no free intraperitoneal fluid. The seminal vesicles and prostate gland reveal no significant abnormality. A few scattered calcified phleboliths are seen within the lower pelvis on each side of midline. Moderate vascular calcification is seen within the iliac arteries and common femoral arteries. The skeleton reveals no acute fracture or aggressive bone lesion. There is mild facet joint arthropathy at L3-L4, left greater than right. Marked bilateral L4-L5 and L5-S1 facet joint arthropathy is seen. There is minimal loss of the anterior vertebral body height of L1 which I believe is unchanged. Schmorl's nodes are seen within the anterior aspect of the superior vertebral endplates of both the L1 and L2 representing no change. Minimal vacuum disc phenomena is seen at T10-T11 and T11-T12. Moderate vertebral endplate spurring is seen within the lower thoracic spine and upper lumbar spine. Impression: 1. Abnormal bowel gas pattern with scattered fluid leveling within both small bowel and colon. In addition, there is a suggestion of some bowel wall thickening within the terminal ileum with adjacent increased attenuation of the peritoneal fat suggesting infectious/inflammatory enteritis at this level. Fluid leveling within the colon is likely due to a diarrheal state. 2. Normal appendix. 3. Minimal diverticulosis within the descending colon and proximal sigmoid colon. 4. I again see an uncomplicated diverticulum adjacent to the left posterior lateral margin of the urinary bladder. 5. Minimal hiatal hernia, tiny stable right adrenal gland adenoma, and moderate atherosclerotic vascular disease are seen. 6. Skeletal findings, as discussed above. These findings are stable.
[2022-06-04 20:46] VITALS: O2SAT 98
== END 2022-06-03 20:48 | disposition home or self-care (01) ==
LOC: ED 16:06
DX: K50.90 Crohn's disease, unspecified, without complications (principal); R10.30 Lower abdominal pain, unspecified; R11.2 Nausea with vomiting, unspecified; R19.7 Diarrhea, unspecified; I10 Essential (primary) hypertension; Z72.0 Tobacco use; Z79.899 Other long term (current) drug therapy; Z79.891 Long term (current) use of opiate analgesic; Z79.52 Long term (current) use of systemic steroids
CPT/HCPCS: 36415; 74176; 80053; 81015; 83605; 83690; 85025; 87040; 96365; 96374; 96375; 99284; J1170; J2405; J2930; A9270-GY

== ENCOUNTER 2022-06-04 20:34 | Observation (INO) | payer MEDICARE ==
[2022-06-04] MEDS ORDERED: MORPHINE SULFATE 4 MG INJ IV ONE (21:32)
[2022-06-04] MEDS ORDERED: Sodium Chloride 0.9% 1000 ML 1,000 ML ONE (21:39)
[2022-06-04] MEDS ORDERED: MORPHINE SULFATE 4 MG INJ ONE (21:39)
[2022-06-04 21:40] LABS: INFLUENZA A NEGATIVE (NEGATIVE); INFLUENZA B NEGATIVE (NEGATIVE); RESPIRATORY SYNCTIAL VIRUS NEGATIVE (Negative); SARS-CoV-2 Xpert Express NEGATIVE (NEGATIVE)
[2022-06-04] MEDS ORDERED: Zofran 4 MG/2 ML VIAL IV ONE (21:40)
[2022-06-04] MEDS ORDERED: Zofran 4 MG/2 ML VIAL ONE (21:40)
[2022-06-04] MEDS ORDERED: Sodium Chloride 0.9% 1000 ML 1,000 ML IV SCH (21:45)
[2022-06-04 21:55] LABS: Absolute Neutrophil Ct (ANC) 10.35 x10^3/uL (1.4-6.9); Basophil (Absolute #) 0.02 x10^3/uL (0-0.4); Eosinophil % 0.3 % (0.00-5.0); Eosinophil (Absolute #) 0.04 x10^3/uL (0-0.5); Hematocrit 43.8 % (42-50); Lymphocyte (Absolute #) 2.12 x10^3/uL (1.0-4.6); Lymphocytes % 15.8 % (24.0-44.0); Mean Cell Volume 107.6 fL (78-100); Mean Corpuscular Hemoglobin 36.9 pg (26-32); Mean Corpuscular Hgb Concent. 34.2 g/dL (32-36); Mean Platelet Volume 10.1 fL (7.5-11.0); Monocyte (Absolute #) 0.82 x10^3/uL (0.0-1.3); Monocytes % 6.1 % (0.0-12.0); Platelet Count 182 x10^3/uL (150-450); Red Blood Count 4.07 x10^6/uL (4.1-5.6); Red Cell Distribution Width 14.6 % (11.5-14.0); White Blood Count 13.4 x10^3/uL (4.0-10.5)
[2022-06-04 22:17] LABS: ALBUMIN 3.6 g/dL (3.5-5.0); ALKALINE PHOSPHATASE 109 U/L (38-126); ANION GAP 10.1 MEQ/L (5-15); BLOOD UREA NITROGEN 13 mg/dL (9-20); CHLORIDE 100 mmol/L (98-107); Calcium 8.8 mg/dL (8.4-10.2); Carbon Dioxide 28 mmol/L (22-30); Creatinine 1 0.71 mg/dL (0.66-1.25); EST GLOMERULAR FILTRATION RATE > 60.0 ML/MIN; Glucose 127 mg/dL (74-106); LIPASE 153 U/L (23-300); Potassium 3.6 mmol/L (3.5-5.1); SGOT/AST 19 U/L (17-59); SGPT/ALT 12 U/L (0-50); SODIUM 134 mmol/L (137-145); Total Protein 6.7 g/dL (6.3-8.2)
[2022-06-04] MEDS ORDERED: Levofloxacin 500MG/100ML D5W 500 MG/100 ML BAG IV STA (23:26)
[2022-06-04] MEDS ORDERED: FLAGYL 500 MG IVPB 500 MG/100 ML BAG IV STA (23:26)
[2022-06-04] MEDS ORDERED: Levofloxacin 500MG/100ML D5W 500 MG/100 ML BAG IV ONE (23:29)
[2022-06-04] MEDS ORDERED: FLAGYL 500 MG IVPB 500 MG/100 ML BAG IV ONE (23:29)
--- NOTE | 2022-06-04 23:37 | ERPHSYRPT ---
- History of Present Illness Time Seen by Provider: 06/04/22 20:45 Historian: patient Exam Limitations: no limitations Patient Subjective Stated Complaint: pt states he has abdominal pain and has had it since 4 days ago, states he was here in er yesterday and was diagnosed with exhaserbation of crohn's disease, states he did not have money to roller picker his meds and is still having abdominal pain. Triage Nursing Assessment: pt is alert and oriented, states he has pain in lower abdoman that he rates as 8/10 Physician History: Patient is a 67-year-old male with a history of Crohn's colitis presents to our ED for evaluation of abdominal pain. Patient was in our ED yesterday for the same. He was diagnosed with a Crohn's flareup. Patient was advised hospitalization but patient declined. Patient was discharged home with home medications. Patient has not picked up his medications as he states he has no money. Patient's abdominal pain has been ongoing for approximately 4 days. Symptoms are mild to moderate in intensity. No specific worsening improving factors. No trauma. No nausea or vomiting. No fever. Patient states pain today is the same as it was yesterday however he is here because the pain has no t improving. Patient voices no other complaints or concerns at this time. Portions of this note were created with voice recognition technology. There may be grammatical, spelling, punctuation or sound alike errors Timing/Duration: day(s) (4 days) Activities at Onset: none Quality: aching Abdominal Pain Onset Location: periumbilical Pain Radiation: no radiation Severity of Pain-Max: moderate Severity of Pain-Current: mild Modifying Factors: Improves With: palpation Associated Symptoms: denies symptoms Previous symptoms: same symptoms as today Allergies/Adverse Reactions: shellfish derived Allergy (Verified 06/03/22 17:12) Hives Home Medications: Amlodipine Besylate 10 mg PO DAILY 07/27/21 [History] Diazepam 5 mg [Valium 5 MG] 5 mg PO DAILY 07/27/21 [History] Metoprolol Tartrate 25 mg [Lopressor 25MG Tab] 25 mg PO STAT 07/27/21 [History] Hx Tetanus, Diphtheria Vaccination/Date Given: Yes Hx Influenza Vaccination/Date Given: No Hx Pneumococcal Vaccination/Date Given: No Travel Risk - International Travel Have you traveled outside of the country in past 3 weeks: No - Coronavirus Screening Are you exhibiting any of the following symptoms?: No Close contact with a COVID-19 positive Pt in past 14-21 Days: No - Vaccine Status Have you recieved a Covid-19 vaccination: Yes [employer]: Moderna - Vaccination Dates Date of 2cond Vaccination (if applicable): unknown - Review of Systems Constitutional: No Symptoms, No Fever, No Chills Eyes: No Symptoms Ears, Nose, & Throat: No Symptoms Respiratory: No Symptoms, No Cough, No Dyspnea Cardiac: No Symptoms, No Chest Pain, No Edema, No Syncope Abdominal/Gastrointestinal: No Symptoms, No Abdominal Pain, No Nausea, No Vomiting, No Diarrhea Genitourinary Symptoms: No Symptoms, No Dysuria Musculoskeletal: No Symptoms, No Back Pain, No Neck Pain Skin: No Symptoms, No Rash Neurological: No Symptoms, No Dizziness, No Focal Weakness, No Sensory Changes Psychological: No Symptoms Endocrine: No Symptoms Hematologic/Lymphatic: No Symptoms Immunological/Allergic: No Symptoms All Other Systems: Reviewed and Negative - Past Medical History Pertinent Past Medical History: Yes Cardiac History: Hypertension GI Medical History: Crohns Disease Psycho-Social History: Anxiety, Depression 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 - Past Surgical History Past Surgical History: Yes Musculoskeletal: Orthopedic Surgery Other Surgical History: R ankle, colonoscopy - Social History Smoking Status: Current every day smoker How long have you smoked: 17 yo Exposure to second hand smoke: No Drug Use: none Patient Lives Alone: Yes - Nursing Vital Signs Nursing Vital Signs: Initial Vital Signs Temperature 96.9 F 06/04/22 20:38 Respiratory Rate 18 06/04/22 20:38 Blood Pressure 150/87 06/04/22 20:38 O2 Sat by Pulse Oximetry 97 06/04/22 20:38 Pain Scale Pain Intensity 2 - Physical Exam General Appearance: no apparent distress, alert Eye Exam: PERRL/EOMI, eyes nml inspection Ears, Nose, Throat Exam: normal ENT inspection, TMs normal, pharynx normal, moist mucous membranes Neck Exam: normal inspection, non-tender, supple, full range of motion Respiratory Exam: normal breath sounds, lungs clear, airway intact, No chest tenderness, No respiratory distress Cardiovascular Exam: regular rate/rhythm, normal heart sounds, normal peripheral pulses Gastrointestinal/Abdomen Exam: soft, other (Periumbilical tenderness. Overlying soft tissue intact. No signs of trauma. Hypoactive bowel sounds), No tenderness, No mass, No guarding Back Exam: normal inspection, normal range of motion, No CVA tenderness, No vertebral tenderness Extremity Exam: normal inspection, normal range of motion, pelvis stable Neurologic Exam: alert, oriented x 3, cooperative, normal mood/affect, nml cerebellar function, sensation nml, No motor deficits Skin Exam: normal color, warm, dry Lymphatic Exam: No adenopathy SpO2 Interpretation: normal SpO2: 95 O2 Delivery: Room Air - Course Nursing assessment & vital signs reviewed: Yes Ordered Tests: Active Orders 24 hr Category Date Time Status IV Insertion STAT Care 06/04/22 21:32 Active CBC W DIFF Stat Lab 06/04/22 21:50 Completed CMP Stat Lab 06/04/22 21:50 Completed LIPASE Stat Lab 06/04/22 21:50 Completed TROPONIN Q4H Lab 06/04/22 21:50 Completed TROPONIN Q4H Lab 06/05/22 01:45 Ordered TROPONIN Q4H Lab 06/05/22 05:45 Ordered Transfer Order Routine Transfer 06/04/22 Ordered Medication Summary Generic Name Dose Route Start Last Admin Trade Name Freq PRN Reason Stop Dose Admin Sodium Chloride 1,000 mls @ 100 mls/hr 06/04/22 21:45 06/04/22 21:42 Sodium Chloride 0.9% 1000 Ml IV 07/04/22 21:44 100 mls/hr .Q10H MARIELY Administration Levofloxacin/Dextrose 500 mg in 100 mls @ 100 mls/hr 06/04/22 23:26 Levofloxacin 500mg/100ml D5w IV 06/05/22 00:25 STAT STA Metronidazole 500 mg in 100 mls @ 200 mls/hr 06/04/22 23:26 Flagyl 500 Mg Ivpb IV 06/04/22 23:55 STAT STA Discontinued Medications Generic Name Dose Route Start Last Admin Trade Name Freq PRN Reason Stop Dose Admin Morphine Sulfate 4 mg 06/04/22 21:32 06/04/22 21:42 Morphine Sulfate 4 Mg/Ml Injection IV 06/04/22 21:33 4 mg STAT ONE Administration Morphine Sulfate Confirm 06/04/22 21:39 Morphine Sulfate 4 Mg/Ml Injection Administered 06/04/22 21:40 Dose 4 mg .ROUTE .STK-MED ONE Ondansetron HCl 4 mg 06/04/22 21:40 06/04/22 21:42 Ondansetron Hcl 4 Mg/2 Ml Vial IV 06/04/22 21:41 4 mg STAT ONE Administration Ondansetron HCl Confirm 06/04/22 21:40 Ondansetron Hcl 4 Mg/2 Ml Vial Administered 06/04/22 21:41 Dose 4 mg .ROUTE .STK-MED ONE Lab/Rad Data: Laboratory Result Diagrams 06/04/22 21:50 06/04/22 21:50 Laboratory Results 06/04/22 06/04/22 06/04/22 Range/Units 21:50 21:50 21:50 WBC 13.4 H (4.0-10.5) x10^3/uL RBC 4.07 L (4.1-5.6) x10^6/uL Hgb 15.0 (12.5-18.0) g/dL Hct 43.8 (42-50) % MCV 107.6 H (78-100) fL MCH 36.9 H (26-32) pg MCHC 34.2 (32-36) g/dL RDW 14.6 H (11.5-14.0) % Plt Count 182 (150-450) x10^3/uL MPV 10.1 (7.5-11.0) fL Gran % 77.0 H (36.0-66.0) % Immature Gran % (Auto) 0.7 H (0.00-0.4) % Nucleat RBC Rel Count 0.0 (0.00-0.1) % Eos # (Auto) 0.04 (0-0.5) x10^3/uL Immature Gran # (Auto) 0.09 H (0.00-0.03) x10^3u/L Absolute Lymphs (auto) 2.12 (1.0-4.6) x10^3/uL Absolute Monos (auto) 0.82 (0.0-1.3) x10^3/uL Absolute Nucleated RBC 0.00 (0.00-0.01) x10^3u/L Lymphocytes % 15.8 L (24.0-44.0) % Monocytes % 6.1 (0.0-12.0) % Eosinophils % 0.3 (0.00-5.0) % Basophils % 0.1 (0.0-0.4) % Absolute Granulocytes 10.35 H (1.4-6.9) x10^3/uL Basophils # 0.02 (0-0.4) x10^3/uL Sodium 134 L (137-145) mmol/L Potassium 3.6 (3.5-5.1) mmol/L Chloride 100 (98-107) mmol/L Carbon Dioxide 28 (22-30) mmol/L Anion Gap 10.1 (5-15) MEQ/L BUN 13 (9-20) mg/dL Creatinine 0.71 (0.66-1.25) mg/dL Estimated GFR > 60.0 ML/MIN Glucose 127 H (74-106) mg/dL Calcium 8.8 (8.4-10.2) mg/dL Total Bilirubin 1.60 H (0.2-1.3) mg/dL AST 19 (17-59) U/L ALT 12 (0-50) U/L Alkaline Phosphatase 109 (38-126) U/L Troponin I < 0.012 (0.000-0.034) ng/mL Serum Total Protein 6.7 (6.3-8.2) g/dL Albumin 3.6 (3.5-5.0) g/dL Lipase 153 (23-300) U/L Influenza Type A Ag (NEGATIVE) Influenza Type B Ag (NEGATIVE) RSV (PCR) (Negative) SARS-CoV-2 (PCR) (NEGATIVE) 06/04/22 Range/Units 21:01 WBC (4.0-10.5) x10^3/uL RBC (4.1-5.6) x10^6/uL Hgb (12.5-18.0) g/dL Hct (42-50) % MCV (78-100) fL MCH (26-32) pg MCHC (32-36) g/dL RDW (11.5-14.0) % Plt Count (150-450) x10^3/uL MPV (7.5-11.0) fL Gran % (36.0-66.0) % Immature Gran % (Auto) (0.00-0.4) % Nucleat RBC Rel Count (0.00-0.1) % Eos # (Auto) (0-0.5) x10^3/uL Immature Gran # (Auto) (0.00-0.03) x10^3u/L Absolute Lymphs (auto) (1.0-4.6) x10^3/uL Absolute Monos (auto) (0.0-1.3) x10^3/uL Absolute Nucleated RBC (0.00-0.01) x10^3u/L Lymphocytes % (24.0-44.0) % Monocytes % (0.0-12.0) % Eosinophils % (0.00-5.0) % Basophils % (0.0-0.4) % Absolute Granulocytes (1.4-6.9) x10^3/uL Basophils # (0-0.4) x10^3/uL Sodium (137-145) mmol/L Potassium (3.5-5.1) mmol/L Chloride (98-107) mmol/L Carbon Dioxide (22-30) mmol/L Anion Gap (5-15) MEQ/L BUN (9-20) mg/dL Creatinine (0.66-1.25) mg/dL Estimated GFR ML/MIN Glucose (74-106) mg/dL Calcium (8.4-10.2) mg/dL Total Bilirubin (0.2-1.3) mg/dL AST (17-59) U/L ALT (0-50) U/L Alkaline Phosphatase (38-126) U/L Troponin I (0.000-0.034) ng/mL Serum Total Protein (6.3-8.2) g/dL Albumin (3.5-5.0) g/dL Lipase (23-300) U/L Influenza Type A Ag NEGATIVE (NEGATIVE) Influenza Type B Ag NEGATIVE (NEGATIVE) RSV (PCR) NEGATIVE (Negative) SARS-CoV-2 (PCR) NEGATIVE (NEGATIVE) - Progress Progress: improved Progress Note: Patient reassessed. Pain improved. We did not repeat the CAT scan as he had a CAT scan performed yesterday. Work-up reveals a mild leukocytosis. Cipro Flagyl administered. Case discussed with who excepts admission to observation. Plan of care discussed with patient. He agrees to admission at [facility] for further evaluation and treatment. Portions of this note were created with voice recognition technology. There may be grammatical, spelling, punctuation or sound alike errors 06/04/22 23:[address] Willem Will see patient in: hospital (observation) Counseled pt/family regarding: lab results, diagnosis, rad results - Departure Departure Disposition: Observation Clinical Impression: Enteritis, Abdominal pain, Leukocytosis Condition: Stable Critical Care Time: No Referrals: LEILANI ATKINS MD [Primary Care Provider] - Follow up/PCP as directed
[2022-06-05] MEDS: Sodium Chloride 0.9% 1000 ML 1,000 ML IV SCH ×2 (00:54→07:38)
[2022-06-05] MEDS: MORPHINE SULFATE 4 MG INJ IV PRN ×2 (01:55→07:38)
[2022-06-05] MEDS: FLAGYL 500 MG IVPB 500 MG/100 ML BAG IV SCH ×2 (05:19→07:28)
[2022-06-05 05:21] LABS: Absolute Neutrophil Ct (ANC) 6.35 x10^3/uL (1.4-6.9); Basophil (Absolute #) 0.03 x10^3/uL (0-0.4); Eosinophil % 0.9 % (0.00-5.0); Eosinophil (Absolute #) 0.09 x10^3/uL (0-0.5); Hematocrit 41.1 % (42-50); Hemoglobin 13.9 g/dL (12.5-18.0); Lymphocyte (Absolute #) 2.74 x10^3/uL (1.0-4.6); Lymphocytes % 27.9 % (24.0-44.0); Mean Cell Volume 109.3 fL (78-100); Mean Corpuscular Hgb Concent. 33.8 g/dL (32-36); Mean Platelet Volume 10.5 fL (7.5-11.0); Monocyte (Absolute #) 0.55 x10^3/uL (0.0-1.3); Monocytes % 5.6 % (0.0-12.0); Neutrophil % 64.8 % (36.0-66.0); Platelet Count 155 x10^3/uL (150-450); Red Blood Count 3.76 x10^6/uL (4.1-5.6); White Blood Count 9.8 x10^3/uL (4.0-10.5)
[2022-06-05 05:23] LABS: ALBUMIN 3.2 g/dL (3.5-5.0); ALKALINE PHOSPHATASE 83 U/L (38-126); ANION GAP 9.9 MEQ/L (5-15); BLOOD UREA NITROGEN 11 mg/dL (9-20); CHLORIDE 100 mmol/L (98-107); Calcium 8.1 mg/dL (8.4-10.2); Carbon Dioxide 27 mmol/L (22-30); Creatinine 1 0.74 mg/dL (0.66-1.25); EST GLOMERULAR FILTRATION RATE > 60.0 ML/MIN; Glucose 165 mg/dL (74-106); Potassium 3.2 mmol/L (3.5-5.1); SGOT/AST 20 U/L (17-59); SGPT/ALT 13 U/L (0-50); SODIUM 134 mmol/L (137-145)
[2022-06-05 07:13] VITALS: O2SAT 95
[2022-06-05] MEDS ORDERED: OXYCODONE-ACETAMINOPHEN 10-325 PO PRN (09:45)
[2022-06-05] MEDS ORDERED: Zestril 20 MG PO SCH (10:00)
[2022-06-05] MEDS ORDERED: Valium 5 MG PO SCH (10:00)
[2022-06-05] MEDS ORDERED: Lopressor 25MG Tab PO SCH (10:00)
[2022-06-05 11:27] VITALS: BP 101/58; PULSE 49
[2022-06-05] MEDS ORDERED: FLAGYL 500 MG IVPB 500 MG/100 ML BAG IV SCH (12:00)
--- NOTE | 2022-06-05 17:36 | PCM.SSS ---
History of Present Illness - Chief Complaint Chief Complaint: c/o abdominal pain for 1-2 days History of Present Illness: is a 67 year old male.with a history of Crohn's colitis presents to our ED for evaluation of abdominal pain. Patient was in our ED yesterday for the same. He was diagnosed with a Crohn's flareup. Patient was advised hospitalization but patient declined. Patient was discharged home with home medications. Patient has not picked up his medications as he states he has no money. Patient's abdominal pain has been ongoing for approximately 4 days. Symptoms are mild to moderate in intensity. No specific worsening improving factors. No trauma. No nausea or vomiting. No fever. Patient states pain today is the same as it was yesterday however he is here because the pain has not improving. Patient voices no other complaints or concerns at this time. Timing/Duration: day(s) (4 days) Activities at Onset: none Quality: aching Abdominal Pain Onset Location: periumbilical Pain Radiation: no radiation Severity of Pain-Max: moderate Severity of Pain-Current: mild Modifying Factors: Improves With: palpation Associated Symptoms: denies symptoms Previous symptoms: same symptoms as today - Review of Systems Constitutional: No Fever, No Chills Eyes: No Symptoms Ears, Nose, & Throat: No Symptoms Respiratory: No Cough, No Short Of Breath Cardiac: No Chest Pain, No Edema, No Syncope Abdominal/Gastrointestinal: Abdominal Pain, Nausea, Vomiting, Diarrhea Genitourinary Symptoms: No Dysuria Musculoskeletal: No Back Pain, No Neck Pain Skin: No Rash Neurological: No Dizziness, No Focal Weakness, No Sensory Changes Psychological: No Symptoms Endocrine: No Symptoms Hematologic/Lymphatic: No Symptoms Immunological/Allergic: No Symptoms Medications & Allergies Home Medications: Home Medication List Diazepam 5 mg [Valium 5 MG] 5 mg PO DAILY 07/27/21 [History Confirmed 06/05/22] Metoprolol Tartrate 25 mg [Lopressor 25MG Tab] 25 mg PO DAILY 07/27/21 [History Confirmed 06/05/22] Lisinopril 20 mg [Zestril 20 MG] 40 mg PO DAILY 06/05/22 [History Confirmed 06/05/22] Metronidazole 500 mg [Flagyl 500 MG] 500 mg PO TID #21 tablet 06/05/22 [Rx] Oxycodone / APAP 10/325 mg [Oxycodone-Acetaminophen 10-325] 1 tab PO TID PRN 06/05/22 [History Confirmed 06/05/22] Allergies/Adverse Reactions: Allergies Allergy/AdvReac Type Severity Reaction Status Date / Time shellfish derived Allergy Hives Verified 06/05/22 00:59 - Past Medical History Past Medical History: Yes Neurological History: No Pertinent History ENT History: No Pertinent History Cardiac History: Hypertension Respiratory History: No Pertinent History Endocrine Medical History: No Pertinent History Musculoskelatal History: Fractures GI Medical History: Crohns Disease History: No Pertinent History Pyscho-Social History: Anxiety, Depression Male Reproductive Disorders: No Pertinent History Comment: 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 - Past Surgical History Past Surgical History: Yes Neuro Surgical History: No Pertinent History Cardiac History: No Pertinent History Respiratory Surgery: No Pertinent History GI Surgical History: No Pertinent History Genitourinary Surgical Hx: No Pertinent History Musculskeletal Surgical Hx: Orthopedic Surgery Male Surgical History: No Pertinent History Other Surgical History: R ankle, colonoscopy - Social History Smoking Status: Current every day smoker How long have you smoked: 48 years Exposure to second hand smoke: No Alcohol: None Drug Use: none - Physical Exam Vital Signs: Vital Signs - 24 hr Temp Pulse Resp BP BP Pulse Ox 06/05/22 11:26 98.0 F 49 L 16 101/58 95 06/05/22 07:13 98.6 F 82 16 128/68 95 06/05/22 04:00 97.1 F 52 L 20 103/64 94 L 06/05/22 01:06 97.3 F 75 20 132/82 93 L 06/05/22 00:22 71 18 111/72 95 06/04/22 23:40 95 06/04/22 23:06 87 18 148/91 95 06/04/22 21:50 89 18 171/105 95 06/04/22 20:38 96.9 F 18 150/87 97 General Appearance: no apparent distress, alert Neurologic Exam: alert, oriented x 3, cooperative, normal mood/affect, nml cerebellar function, nml station & gait, sensation nml, No motor deficits Eye Exam: PERRL/EOMI, eyes nml inspection Ears, Nose, Throat Exam: normal ENT inspection, TMs normal, pharynx normal, moist mucous membranes Neck Exam: normal inspection, non-tender, supple, full range of motion Respiratory Exam: normal breath sounds, lungs clear, No respiratory distress Cardiovascular Exam: regular rate/rhythm, normal heart sounds, normal peripheral pulses Gastrointestinal/Abdomen Exam: soft, normal bowel sounds, No tenderness, No mass Back Exam: normal inspection, normal range of motion, No CVA tenderness, No vertebral tenderness Extremity Exam: normal inspection, normal range of motion, pelvis stable Skin Exam: normal color, warm, dry, No rash Lymphatic Exam: No adenopathy Results - Labs Lab/Micro Results: Lab Results-Last 24 Hours 06/04/22 06/04/22 06/04/22 Range/Units 21:01 21:50 21:50 WBC 13.4 H (4.0-10.5) x10^3/uL RBC 4.07 L (4.1-5.6) x10^6/uL Hgb 15.0 (12.5-18.0) g/dL Hct 43.8 (42-50) % MCV 107.6 H (78-100) fL MCH 36.9 H (26-32) pg MCHC 34.2 (32-36) g/dL RDW 14.6 H (11.5-14.0) % Plt Count 182 (150-450) x10^3/uL MPV 10.1 (7.5-11.0) fL Gran % 77.0 H (36.0-66.0) % Immature Gran % (Auto) 0.7 H (0.00-0.4) % Nucleat RBC Rel Count 0.0 (0.00-0.1) % Eos # (Auto) 0.04 (0-0.5) x10^3/uL Immature Gran # (Auto) 0.09 H (0.00-0.03) x10^3u/L Absolute Lymphs (auto) 2.12 (1.0-4.6) x10^3/uL Absolute Monos (auto) 0.82 (0.0-1.3) x10^3/uL Absolute Nucleated RBC 0.00 (0.00-0.01) x10^3u/L Lymphocytes % 15.8 L (24.0-44.0) % Monocytes % 6.1 (0.0-12.0) % Eosinophils % 0.3 (0.00-5.0) % Basophils % 0.1 (0.0-0.4) % Absolute Granulocytes 10.35 H (1.4-6.9) x10^3/uL Basophils # 0.02 (0-0.4) x10^3/uL Sodium 134 L (137-145) mmol/L Potassium 3.6 (3.5-5.1) mmol/L Chloride 100 (98-107) mmol/L Carbon Dioxide 28 (22-30) mmol/L Anion Gap 10.1 (5-15) MEQ/L BUN 13 (9-20) mg/dL Creatinine 0.71 (0.66-1.25) mg/dL Estimated GFR > 60.0 ML/MIN Glucose 127 H (74-106) mg/dL Calcium 8.8 (8.4-10.2) mg/dL Total Bilirubin 1.60 H (0.2-1.3) mg/dL AST 19 (17-59) U/L ALT 12 (0-50) U/L Alkaline Phosphatase 109 (38-126) U/L Troponin I (0.000-0.034) ng/mL Serum Total Protein 6.7 (6.3-8.2) g/dL Albumin 3.6 (3.5-5.0) g/dL Lipase 153 (23-300) U/L Influenza Type A Ag NEGATIVE (NEGATIVE) Influenza Type B Ag NEGATIVE (NEGATIVE) RSV (PCR) NEGATIVE (Negative) SARS-CoV-2 (PCR) NEGATIVE (NEGATIVE) 06/04/22 06/05/22 06/05/22 Range/Units 21:50 01:51 04:58 WBC (4.0-10.5) x10^3/uL RBC (4.1-5.6) x10^6/uL Hgb (12.5-18.0) g/dL Hct (42-50) % MCV (78-100) fL MCH (26-32) pg MCHC (32-36) g/dL RDW (11.5-14.0) % Plt Count (150-450) x10^3/uL MPV (7.5-11.0) fL Gran % (36.0-66.0) % Immature Gran % (Auto) (0.00-0.4) % Nucleat RBC Rel Count (0.00-0.1) % Eos # (Auto) (0-0.5) x10^3/uL Immature Gran # (Auto) (0.00-0.03) x10^3u/L Absolute Lymphs (auto) (1.0-4.6) x10^3/uL Absolute Monos (auto) (0.0-1.3) x10^3/uL Absolute Nucleated RBC (0.00-0.01) x10^3u/L Lymphocytes % (24.0-44.0) % Monocytes % (0.0-12.0) % Eosinophils % (0.00-5.0) % Basophils % (0.0-0.4) % Absolute Granulocytes (1.4-6.9) x10^3/uL Basophils # (0-0.4) x10^3/uL Sodium (137-145) mmol/L Potassium (3.5-5.1) mmol/L Chloride (98-107) mmol/L Carbon Dioxide (22-30) mmol/L Anion Gap (5-15) MEQ/L BUN (9-20) mg/dL Creatinine (0.66-1.25) mg/dL Estimated GFR ML/MIN Glucose (74-106) mg/dL Calcium (8.4-10.2) mg/dL Total Bilirubin (0.2-1.3) mg/dL AST (17-59) U/L ALT (0-50) U/L Alkaline Phosphatase (38-126) U/L Troponin I < 0.012 < 0.012 < 0.012 (0.000-0.034) ng/mL Serum Total Protein (6.3-8.2) g/dL Albumin (3.5-5.0) g/dL Lipase (23-300) U/L Influenza Type A Ag (NEGATIVE) Influenza Type B Ag (NEGATIVE) RSV (PCR) (Negative) SARS-CoV-2 (PCR) (NEGATIVE) 06/05/22 06/05/22 Range/Units 04:58 04:58 WBC 9.8 (4.0-10.5) x10^3/uL RBC 3.76 L (4.1-5.6) x10^6/uL Hgb 13.9 (12.5-18.0) g/dL Hct 41.1 L (42-50) % MCV 109.3 H (78-100) fL MCH 37.0 H (26-32) pg MCHC 33.8 (32-36) g/dL RDW 15.0 H (11.5-14.0) % Plt Count 155 (150-450) x10^3/uL MPV 10.5 (7.5-11.0) fL Gran % 64.8 (36.0-66.0) % Immature Gran % (Auto) 0.5 H (0.00-0.4) % Nucleat RBC Rel Count 0.0 (0.00-0.1) % Eos # (Auto) 0.09 (0-0.5) x10^3/uL Immature Gran # (Auto) 0.05 H (0.00-0.03) x10^3u/L Absolute Lymphs (auto) 2.74 (1.0-4.6) x10^3/uL Absolute Monos (auto) 0.55 (0.0-1.3) x10^3/uL Absolute Nucleated RBC 0.00 (0.00-0.01) x10^3u/L Lymphocytes % 27.9 (24.0-44.0) % Monocytes % 5.6 (0.0-12.0) % Eosinophils % 0.9 (0.00-5.0) % Basophils % 0.3 (0.0-0.4) % Absolute Granulocytes 6.35 (1.4-6.9) x10^3/uL Basophils # 0.03 (0-0.4) x10^3/uL Sodium 134 L (137-145) mmol/L Potassium 3.2 L (3.5-5.1) mmol/L Chloride 100 (98-107) mmol/L Carbon Dioxide 27 (22-30) mmol/L Anion Gap 9.9 (5-15) MEQ/L BUN 11 (9-20) mg/dL Creatinine 0.74 (0.66-1.25) mg/dL Estimated GFR > 60.0 ML/MIN Glucose 165 H (74-106) mg/dL Calcium 8.1 L (8.4-10.2) mg/dL Total Bilirubin 1.20 (0.2-1.3) mg/dL AST 20 (17-59) U/L ALT 13 (0-50) U/L Alkaline Phosphatase 83 (38-126) U/L Troponin I (0.000-0.034) ng/mL Serum Total Protein 6.0 L (6.3-8.2) g/dL Albumin 3.2 L (3.5-5.0) g/dL Lipase (23-300) U/L Influenza Type A Ag (NEGATIVE) Influenza Type B Ag (NEGATIVE) RSV (PCR) (Negative) SARS-CoV-2 (PCR) (NEGATIVE) Assessment/Plan (1) Enteritis Status: Resolved Assessment & Plan: Chief Complaint Diagnosis Crohn's Disease Allergies Allergy/AdvReac Type Severity Reaction Status Date / Time shellfish derived Allergy Hives Verified 06/05/22 00:59 Vital Signs (Last 24 hours) Temp Pulse Resp BP BP Pulse Ox 06/05/22 11:26 98.0 F 49 L 16 101/58 95 06/05/22 07:13 98.6 F 82 16 128/68 95 06/05/22 04:00 97.1 F 52 L 20 103/64 94 L 06/05/22 01:06 97.3 F 75 20 132/82 93 L 06/05/22 00:22 71 18 111/72 95 06/04/22 23:40 95 06/04/22 23:06 87 18 148/91 95 06/04/22 21:50 89 18 171/105 95 06/04/22 20:38 96.9 F 18 150/87 97 Home Medications Medication Instructions Recorded Confirmed Last Taken Type Lisinopril 20 mg [Zestril 20 40 mg PO DAILY 06/05/22 06/05/22 06/04/22 10:00 History MG] Metronidazole 500 mg [Flagyl 500 mg PO TID #21 tablet 06/05/22 Unknown Rx 500 MG] Oxycodone / APAP 10/325 mg 1 tab PO TID PRN 06/05/22 06/05/22 06/04/22 10:00 History [Oxycodone-Acetaminophen 10-325] Current Medications Discontinued Medications Generic Name Dose Route Start Last Admin Trade Name Freq PRN Reason Stop Dose Admin Diazepam 5 mg 06/05/22 10:00 06/05/22 09:56 Diazepam 5 Mg Tablet PO 07/05/22 09:59 5 mg DAILY MARIELY Administration Sodium Chloride 1,000 mls @ 100 mls/hr 06/04/22 21:45 06/04/22 21:42 Sodium Chloride 0.9% 1000 Ml IV 07/04/22 21:44 100 mls/hr .Q10H MARIELY Administration Levofloxacin/Dextrose 500 mg in 100 mls @ 100 mls/hr 06/04/22 23:26 06/04/22 23:39 Levofloxacin 500mg/100ml D5w IV 06/05/22 00:25 100 mls/hr STAT STA 100 mls/hr Administration Metronidazole 500 mg in 100 mls @ 200 mls/hr 06/04/22 23:26 06/04/22 23:31 Flagyl 500 Mg Ivpb IV 06/04/22 23:55 200 mls/hr STAT STA 200 mls/hr Administration Levofloxacin/Dextrose Confirm 06/04/22 23:29 Levofloxacin 500mg/100ml D5w Administered 06/04/22 23:30 Dose 500 mg in 100 mls @ ud IV .STK-MED ONE Metronidazole Confirm 06/04/22 23:29 Flagyl 500 Mg Ivpb Administered 06/04/22 23:30 Dose 500 mg in 100 mls @ ud IV .STK-MED ONE Sodium Chloride Confirm 06/04/22 21:39 Sodium Chloride 0.9% 1000 Ml Administered 06/04/22 21:40 Dose 1,000 mls @ ud .ROUTE .STK-MED ONE Sodium Chloride 1,000 mls @ 100 mls/hr 06/05/22 00:47 06/05/22 07:38 Sodium Chloride 0.9% 1000 Ml IV 07/05/22 00:46 100 mls/hr .Q10H MARIELY Administration Levofloxacin/Dextrose 500 mg in 100 mls @ 100 mls/hr 06/05/22 22:00 Levofloxacin 500mg/100ml D5w IV 07/05/22 21:59 Q24H22 MARIELY Metronidazole 500 mg in 100 mls @ 200 mls/hr 06/05/22 00:47 06/05/22 07:28 Flagyl 500 Mg Ivpb IV 07/05/22 00:46 Not Given Q6HT MARIELY Metronidazole 500 mg in 100 mls @ 200 mls/hr 06/05/22 12:00 06/05/22 11:26 Flagyl 500 Mg Ivpb IV 07/05/22 11:59 200 mls/hr Q6HT MARIELY Administration Lisinopril 40 mg 06/05/22 10:00 06/05/22 09:56 Lisinopril 20 Mg Tablet PO 07/05/22 09:59 40 mg DAILY MARIELY Administration Metoprolol Tartrate 25 mg 06/05/22 10:00 06/05/22 09:56 Metoprolol Tartrate 25 Mg Tab PO 07/05/22 09:59 25 mg DAILY MARIELY Administration Morphine Sulfate 4 mg 06/04/22 21:32 06/04/22 21:42 Morphine Sulfate 4 Mg/Ml Injection IV 06/04/22 21:33 4 mg STAT ONE Administration Morphine Sulfate Confirm 06/04/22 21:39 Morphine Sulfate 4 Mg/Ml Injection Administered 06/04/22 21:40 Dose 4 mg .ROUTE .STK-MED ONE Morphine Sulfate 4 mg 06/05/22 00:47 06/05/22 07:38 Morphine Sulfate 4 Mg/Ml Injection IV 06/10/22 00:46 4 mg Q4H PRN PRN Administration PAIN Ondansetron HCl 4 mg 06/04/22 21:40 06/04/22 21:42 Ondansetron Hcl 4 Mg/2 Ml Vial IV 06/04/22 21:41 4 mg STAT ONE Administration Ondansetron HCl Confirm 06/04/22 21:40 Ondansetron Hcl 4 Mg/2 Ml Vial Administered 06/04/22 21:41 Dose 4 mg .ROUTE .STK-MED ONE Oxycodone/Acetaminophen 1 tab 06/05/22 09:45 Oxycodone / Apap 10/325 Mg 1 Tablet PO 06/10/22 09:44 TID PRN PRN Intake & Output (Last 24 hours) 06/03/22 06/04/22 06/05/22 06/06/22 11:59 11:59 11:59 11:59 Intake Total 1541 480 Output Total 750 850 Balance 791 -370 Weight 87 kg Laboratory Results (Last 24 hours) 06/05/22 06/05/22 06/05/22 04:58 04:58 04:58 WBC 9.8 RBC 3.76 L Hgb 13.9 Hct 41.1 L MCV 109.3 H MCH 37.0 H MCHC 33.8 RDW 15.0 H Plt Count 155 MPV 10.5 Gran % 64.8 Immature Gran % (Auto) 0.5 H Nucleat RBC Rel Count 0.0 Eos # (Auto) 0.09 Immature Gran # (Auto) 0.05 H Absolute Lymphs (auto) 2.74 Absolute Monos (auto) 0.55 Absolute Nucleated RBC 0.00 Lymphocytes % 27.9 Monocytes % 5.6 Eosinophils % 0.9 Basophils % 0.3 Absolute Granulocytes 6.35 Basophils # 0.03 Sodium 134 L Potassium 3.2 L Chloride 100 Carbon Dioxide 27 Anion Gap 9.9 BUN 11 Creatinine 0.74 Estimated GFR > 60.0 Glucose 165 H Calcium 8.1 L Total Bilirubin 1.20 AST 20 ALT 13 Alkaline Phosphatase 83 Troponin I < 0.012 Serum Total Protein 6.0 L Albumin 3.2 L Lipase Influenza Type A Ag Influenza Type B Ag RSV (PCR) SARS-CoV-2 (PCR) 06/05/22 06/04/22 06/04/22 01:51 21:50 21:50 WBC RBC Hgb Hct MCV MCH MCHC RDW Plt Count MPV Gran % Immature Gran % (Auto) Nucleat RBC Rel Count Eos # (Auto) Immature Gran # (Auto) Absolute Lymphs (auto) Absolute Monos (auto) Absolute Nucleated RBC Lymphocytes % Monocytes % Eosinophils % Basophils % Absolute Granulocytes Basophils # Sodium 134 L Potassium 3.6 Chloride 100 Carbon Dioxide 28 Anion Gap 10.1 BUN 13 Creatinine 0.71 Estimated GFR > 60.0 Glucose 127 H Calcium 8.8 Total Bilirubin 1.60 H AST 19 ALT 12 Alkaline Phosphatase 109 Troponin I < 0.012 < 0.012 Serum Total Protein 6.7 Albumin 3.6 Lipase 153 Influenza Type A Ag Influenza Type B Ag RSV (PCR) SARS-CoV-2 (PCR) 06/04/22 06/04/22 21:50 21:01 WBC 13.4 H RBC 4.07 L Hgb 15.0 Hct 43.8 MCV 107.6 H MCH 36.9 H MCHC 34.2 RDW 14.6 H Plt Count 182 MPV 10.1 Gran % 77.0 H Immature Gran % (Auto) 0.7 H Nucleat RBC Rel Count 0.0 Eos # (Auto) 0.04 Immature Gran # (Auto) 0.09 H Absolute Lymphs (auto) 2.12 Absolute Monos (auto) 0.82 Absolute Nucleated RBC 0.00 Lymphocytes % 15.8 L Monocytes % 6.1 Eosinophils % 0.3 Basophils % 0.1 Absolute Granulocytes 10.35 H Basophils # 0.02 Sodium Potassium Chloride Carbon Dioxide Anion Gap BUN Creatinine Estimated GFR Glucose Calcium Total Bilirubin AST ALT Alkaline Phosphatase Troponin I Serum Total Protein Albumin Lipase Influenza Type A Ag NEGATIVE Influenza Type B Ag NEGATIVE RSV (PCR) NEGATIVE SARS-CoV-2 (PCR) NEGATIVE Orders (Last 24 hours) Category Date Time Status Up With Assistance ROUTINE Activity 06/05/22 00:47 Completed Code Status Order ROUTINE Care 06/05/22 00:47 Completed IV Care Q6H Care 06/05/22 00:47 Completed IV Insertion STAT Care 06/04/22 21:[address] in Observation ROUTINE Care 06/05/22 00:47 Completed Telemetry q6h Care 06/05/22 00:47 Completed Pharmacy Stock Clerk/Discharge Plan ROUTINE Cons 06/05/22 10:00 Completed Clear Liquid Diet 06/05/22 Breakfast Completed House Regular Diet Diet 06/05/22 Lunch Completed Discharge Routine Discharge 06/05/22 Ordered CBC W DIFF AM.LAB Lab 06/05/22 04:58 Completed CBC W DIFF Stat Lab 06/04/22 21:50 Completed CMP AM.LAB Lab 06/05/22 04:58 Completed CMP Stat Lab 06/04/22 21:50 Completed COVID/FLU/RSV Panel Stat Lab 06/04/22 21:01 Completed LIPASE Stat Lab 06/04/22 21:50 Completed TROPONIN Q4H Lab 06/04/22 21:50 Completed TROPONIN Q4H Lab 06/05/22 01:51 Completed TROPONIN Q4H Lab 06/05/22 04:58 Completed Diazepam 5 mg [Valium 5 MG] Med 06/05/22 10:00 Discontinued 5 mg PO DAILY Levofloxacin [Levofloxacin 500MG/100ML D5W] Med 06/05/22 22:00 Discontinued 500 mg in 100 ml IV Q24H22 Levofloxacin [Levofloxacin 500MG/100ML D5W] Med 06/04/22 23:26 Discontinued 500 mg in 100 ml IV STAT Levofloxacin [Levofloxacin 500MG/100ML D5W] Med 06/04/22 23:29 Discontinued 500 mg in 100 ml IV UD Lisinopril 20 mg [Zestril 20 MG] Med 06/05/22 10:00 Discontinued 40 mg PO DAILY Metoprolol Tartrate 25 mg [Lopressor 25MG Tab] Med 06/05/22 10:00 Discon tinued 25 mg PO DAILY Metronidazole 500 mg Premix [Flagyl 500 mg Ivpb] Med 06/05/22 00:47 D iscontinued 500 mg in 100 ml IV Q6HT Metronidazole 500 mg Premix [Flagyl 500 mg Ivpb] Med 06/05/22 12:00 Discontinued 500 mg in 100 ml IV Q6HT Metronidazole 500 mg Premix [Flagyl 500 mg Ivpb] Med 06/04/22 23:26 Discontinued 500 mg in 100 ml IV STAT Metronidazole 500 mg Premix [Flagyl 500 mg Ivpb] Med 06/04/22 23:29 Discontinued 500 mg in 100 ml IV UD Morphine Sulfate 4 mg Inj Med 06/04/22 21:39 Discontinued 4 mg .ROUTE .STK-MED ONE Morphine Sulfate 4 mg Inj Med 06/05/22 00:47 Discontinued 4 mg IV Q4H PRN PRN Morphine Sulfate 4 mg Inj Med 06/04/22 21:32 Discontinued 4 mg IV STAT ONE NaCl 0.9% 1000 ml [Sodium Chloride 0.9% 1000 ML] 1,000 Med 06/04/22 21:39 Discontinued ml .ROUTE UD NaCl 0.9% 1000 ml [Sodium Chloride 0.9% 1000 ML] 1,000 Med 06/04/22 21:45 Discontinued ml IV 100 mls/hr NaCl 0.9% 1000 ml [Sodium Chloride 0.9% 1000 ML] 1,000 Med 06/05/22 00:47 Discontinued ml IV 100 mls/hr Ondansetron HCl 4 mg/2 ml [Zofran 4 MG/2 ML VIAL] Med 06/04/22 21:40 Discontinued 4 mg .ROUTE .STK-MED ONE Ondansetron HCl 4 mg/2 ml [Zofran 4 MG/2 ML VIAL] Med 06/04/22 21:40 Discontinued 4 mg IV STAT ONE Oxycodone / APAP 10/325 mg [Oxycodone-Acetaminophen Med 06/05/22 09:45 Discontinued 10-325] 1 tab PO TID PRN PRN Smoking Cessation Education ONCE RT 06/05/22 02:00 Completed Patient Care Notes (Last 24 hours) 06/05/22 01:41 Nursing Note by Aletha Maciel Pt refused telemetry. Initialized on 06/05/22 01:41 - END OF NOTE Doing much better. Will D/C home Code(s): K52.9 - NONINFECTIVE GASTROENTERITIS AND COLITIS, UNSPECIFIED (2) Abdominal pain Status: Acute Qualifiers: Abdominal location: generalized Qualified Code(s): R10.84 - Generalized abdominal pain Code(s): R10.9 - UNSPECIFIED ABDOMINAL PAIN (3) Crohn's disease Status: Chronic Qualifiers: Gastrointestinal tract location: small and large intestine Digestive disease complication type: without complication Qualified Code(s): K50.80 - Crohn's disease of both small and large intestine without complications Code(s): K50.90 - CROHN'S DISEASE, UNSPECIFIED, WITHOUT COMPLICATIONS Hospital Summary - Hospital Course Hospital Course: Chief Complaint Diagnosis Crohn's Disease Allergies Allergy/AdvReac Type Severity Reaction Status Date / Time shellfish derived Allergy Hives Verified 06/05/22 00:59 Vital Signs (Last 24 hours) Temp Pulse Resp BP BP Pulse Ox 06/05/22 11:26 98.0 F 49 L 16 101/58 95 06/05/22 07:13 98.6 F 82 16 128/68 95 06/05/22 04:00 97.1 F 52 L 20 103/64 94 L 06/05/22 01:06 97.3 F 75 20 132/82 93 L 06/05/22 00:22 71 18 111/72 95 06/04/22 23:40 95 06/04/22 23:06 87 18 148/91 95 06/04/22 21:50 89 18 171/105 95 06/04/22 20:38 96.9 F 18 150/87 97 Home Medications Medication Instructions Recorded Confirmed Last Taken Type Lisinopril 20 mg [Zestril 20 40 mg PO DAILY 06/05/22 06/05/22 06/04/22 10:00 History MG] Metronidazole 500 mg [Flagyl 500 mg PO TID #21 tablet 06/05/22 Unknown Rx 500 MG] Oxycodone / APAP 10/325 mg 1 tab PO TID PRN 06/05/22 06/05/22 06/04/22 10:00 History [Oxycodone-Acetaminophen 10-325] Current Medications Discontinued Medications Generic Name Dose Route Start Last Admin Trade Name Kasey PRN Reason Stop Dose Admin Diazepam 5 mg 06/05/22 10:00 06/05/22 09:56 Diazepam 5 Mg Tablet PO 07/05/22 09:59 5 mg DAILY MARIELY Administration Sodium Chloride 1,000 mls @ 100 mls/hr 06/04/22 21:45 06/04/22 21:42 Sodium Chloride 0.9% 1000 Ml IV 07/04/22 21:44 100 mls/hr .Q10H MARIELY Administration Levofloxacin/Dextrose 500 mg in 100 mls @ 100 mls/hr 06/04/22 23:26 06/04/22 23:39 Levofloxacin 500mg/100ml D5w IV 06/05/22 00:25 100 mls/hr STAT STA 100 mls/hr Administration Metronidazole 500 mg in 100 mls @ 200 mls/hr 06/04/22 23:26 06/04/22 23:31 Flagyl 500 Mg Ivpb IV 06/04/22 23:55 200 mls/hr STAT STA 200 mls/hr Administration Levofloxacin/Dextrose Confirm 06/04/22 23:29 Levofloxacin 500mg/100ml D5w Administered 06/04/22 23:30 Dose 500 mg in 100 mls @ ud IV .STK-MED ONE Metronidazole Confirm 06/04/22 23:29 Flagyl 500 Mg Ivpb Administered 06/04/22 23:30 Dose 500 mg in 100 mls @ ud IV .STK-MED ONE Sodium Chloride Confirm 06/04/22 21:39 Sodium Chloride 0.9% 1000 Ml Administered 06/04/22 21:40 Dose 1,000 mls @ ud .ROUTE .STK-MED ONE Sodium Chloride 1,000 mls @ 100 mls/hr 06/05/22 00:47 06/05/22 07:38 Sodium Chloride 0.9% 1000 Ml IV 07/05/22 00:46 100 mls/hr .Q10H MARIELY Administration Levofloxacin/Dextrose 500 mg in 100 mls @ 100 mls/hr 06/05/22 22:00 Levofloxacin 500mg/100ml D5w IV 07/05/22 21:59 Q24H22 [facility] Metronidazole 500 mg in 100 mls @ 200 mls/hr 06/05/22 00:47 06/05/22 07:28 Flagyl 500 Mg Ivpb IV 07/05/22 00:46 Not Given Q6HT MARIELY Metronidazole 500 mg in 100 mls @ 200 mls/hr 06/05/22 12:00 06/05/22 11:26 Flagyl 500 Mg Ivpb IV 07/05/22 11:59 200 mls/hr Q6HT MARIELY Administration Lisinopril 40 mg 06/05/22 10:00 06/05/22 09:56 Lisinopril 20 Mg Tablet PO 07/05/22 09:59 40 mg DAILY MARIELY Administration Metoprolol Tartrate 25 mg 06/05/22 10:00 06/05/22 09:56 Metoprolol Tartrate 25 Mg Tab PO 07/05/22 09:59 25 mg DAILY MARIELY Administration Morphine Sulfate 4 mg 06/04/22 21:32 06/04/22 21:42 Morphine Sulfate 4 Mg/Ml Injection IV 06/04/22 21:33 4 mg STAT ONE Administration Morphine Sulfate Confirm 06/04/22 21:39 Morphine Sulfate 4 Mg/Ml Injection Administered 06/04/22 21:40 Dose 4 mg .ROUTE .STK-MED ONE Morphine Sulfate 4 mg 06/05/22 00:47 06/05/22 07:38 Morphine Sulfate 4 Mg/Ml Injection IV 06/10/22 00:46 4 mg Q4H PRN PRN Administration PAIN Ondansetron HCl 4 mg 06/04/22 21:40 06/04/22 21:42 Ondansetron Hcl 4 Mg/2 Ml Vial IV 06/04/22 21:41 4 mg STAT ONE Administration Ondansetron HCl Confirm 06/04/22 21:40 Ondansetron Hcl 4 Mg/2 Ml Vial Administered 06/04/22 21:41 Dose 4 mg .ROUTE .STK-MED ONE Oxycodone/Acetaminophen 1 tab 06/05/22 09:45 Oxycodone / Apap 10/325 Mg 1 Tablet PO 06/10/22 09:44 TID PRN PRN Intake & Output (Last 24 hours) 06/03/22 06/04/22 06/05/22 06/06/22 11:59 11:59 11:59 11:59 Intake Total 1541 480 Output Total 750 850 Balance 791 -370 Weight 87 kg Laboratory Results (Last 24 hours) 06/05/22 06/05/22 06/05/22 04:58 04:58 04:58 WBC 9.8 RBC 3.76 L Hgb 13.9 Hct 41.1 L MCV 109.3 H MCH 37.0 H MCHC 33.8 RDW 15.0 H Plt Count 155 MPV 10.5 Gran % 64.8 Immature Gran % (Auto) 0.5 H Nucleat RBC Rel Count 0.0 Eos # (Auto) 0.09 Immature Gran # (Auto) 0.05 H Absolute Lymphs (auto) 2.74 Absolute Monos (auto) 0.55 Absolute Nucleated RBC 0.00 Lymphocytes % 27.9 Monocytes % 5.6 Eosinophils % 0.9 Basophils % 0.3 Absolute Granulocytes 6.35 Basophils # 0.03 Sodium 134 L Potassium 3.2 L Chloride 100 Carbon Dioxide 27 Anion Gap 9.9 BUN 11 Creatinine 0.74 Estimated GFR > 60.0 Glucose 165 H Calcium 8.1 L Total Bilirubin 1.20 AST 20 ALT 13 Alkaline Phosphatase 83 Troponin I < 0.012 Serum Total Protein 6.0 L Albumin 3.2 L Lipase Influenza Type A Ag Influenza Type B Ag RSV (PCR) SARS-CoV-2 (PCR) 06/05/22 06/04/22 06/04/22 01:51 21:50 21:50 WBC RBC Hgb Hct MCV MCH MCHC RDW Plt Count MPV Gran % Immature Gran % (Auto) Nucleat RBC Rel Count Eos # (Auto) Immature Gran # (Auto) Absolute Lymphs (auto) Absolute Monos (auto) Absolute Nucleated RBC Lymphocytes % Monocytes % Eosinophils % Basophils % Absolute Granulocytes Basophils # Sodium 134 L Potassium 3.6 Chloride 100 Carbon Dioxide 28 Anion Gap 10.1 BUN 13 Creatinine 0.71 Estimated GFR > 60.0 Glucose 127 H Calcium 8.8 Total Bilirubin 1.60 H AST 19 ALT 12 Alkaline Phosphatase 109 Troponin I < 0.012 < 0.012 Serum Total Protein 6.7 Albumin 3.6 Lipase 153 Influenza Type A Ag Influenza Type B Ag RSV (PCR) SARS-CoV-2 (PCR) 06/04/22 06/04/22 21:50 21:01 WBC 13.4 H RBC 4.07 L Hgb 15.0 Hct 43.8 MCV 107.6 H MCH 36.9 H MCHC 34.2 RDW 14.6 H Plt Count 182 MPV 10.1 Gran % 77.0 H Immature Gran % (Auto) 0.7 H Nucleat RBC Rel Count 0.0 Eos # (Auto) 0.04 Immature Gran # (Auto) 0.09 H Absolute Lymphs (auto) 2.12 Absolute Monos (auto) 0.82 Absolute Nucleated RBC 0.00 Lymphocytes % 15.8 L Monocytes % 6.1 Eosinophils % 0.3 Basophils % 0.1 Absolute Granulocytes 10.35 H Basophils # 0.02 Sodium Potassium Chloride Carbon Dioxide Anion Gap BUN Creatinine Estimated GFR Glucose Calcium Total Bilirubin AST ALT Alkaline Phosphatase Troponin I Serum Total Protein Albumin Lipase Influenza Type A Ag NEGATIVE Influenza Type B Ag NEGATIVE RSV (PCR) NEGATIVE SARS-CoV-2 (PCR) NEGATIVE Orders (Last 24 hours) Category Date Time Status Up With Assistance ROUTINE Activity 06/05/22 00:47 Completed Code Status Order ROUTINE Care 06/05/22 00:47 Completed IV Care Q6H Care 06/05/22 00:47 Completed IV Insertion STAT Care 06/04/22 21:[address] in Observation ROUTINE Care 06/05/22 00:47 Completed Telemetry q6h Care 06/05/22 00:47 Completed Pharmacy Stock Clerk/Discharge Plan ROUTINE Cons 06/05/22 10:00 Completed Clear Liquid Diet 06/05/22 Breakfast Completed House Regular Diet Diet 06/05/22 Lunch Completed Discharge Routine Discharge 06/05/22 Ordered CBC W DIFF AM.LAB Lab 06/05/22 04:58 Completed CBC W DIFF Stat Lab 06/04/22 21:50 Completed CMP AM.LAB Lab 06/05/22 04:58 Completed CMP Stat Lab 06/04/22 21:50 Completed COVID/FLU/RSV Panel Stat Lab 06/04/22 21:01 Completed LIPASE Stat Lab 06/04/22 21:50 Completed TROPONIN Q4H Lab 06/04/22 21:50 Completed TROPONIN Q4H Lab 06/05/22 01:51 Completed TROPONIN Q4H Lab 06/05/22 04:58 Completed Diazepam 5 mg [Valium 5 MG] Med 06/05/22 10:00 Discontinued 5 mg PO DAILY Levofloxacin [Levofloxacin 500MG/100ML D5W] Med 06/05/22 22:00 Discontinued 500 mg in 100 ml IV Q24H22 Levofloxacin [Levofloxacin 500MG/100ML D5W] Med 06/04/22 23:26 Discontinued 500 mg in 100 ml IV STAT Levofloxacin [Levofloxacin 500MG/100ML D5W] Med 06/04/22 23:29 Discontinued 500 mg in 100 ml IV UD Lisinopril 20 mg [Zestril 20 MG] Med 06/05/22 10:00 Discontinued 40 mg PO DAILY Metoprolol Tartrate 25 mg [Lopressor 25MG Tab] Med 06/05/22 10:00 Discontinued 25 mg PO DAILY Metronidazole 500 mg Premix [Flagyl 500 mg Ivpb] Med 06/05/22 00:47 Discontinued 500 mg in 100 ml IV Q6HT Metronidazole 500 mg Premix [Flagyl 500 mg Ivpb] Med 06/05/22 12:00 Discontinued 500 mg in 100 ml IV Q6HT Metronidazole 500 mg Premix [Flagyl 500 mg Ivpb] Med 06/04/22 23:26 Discontinued 500 mg in 100 ml IV STAT Metronidazole 500 mg Premix [Flagyl 500 mg Ivpb] Med 06/04/22 23:29 Discontin ued 500 mg in 100 ml IV UD Morphine Sulfate 4 mg Inj Med 06/04/22 21:39 Discontinued 4 mg .ROUTE .STK-MED ONE Morphine Sulfate 4 mg Inj Med 06/05/22 00:47 Discontinued 4 mg IV Q4H PRN PRN Morphine Sulfate 4 mg Inj Med 06/04/22 21:32 Discontinued 4 mg IV STAT ONE NaCl 0.9% 1000 ml [Sodium Chloride 0.9% 1000 ML] 1,000 Med 06/04/22 21:39 Discontinued ml .ROUTE UD NaCl 0.9% 1000 ml [Sodium Chloride 0.9% 1000 ML] 1,000 Med 06/04/22 21:45 Disc ontinued ml IV 100 mls/hr NaCl 0.9% 1000 ml [Sodium Chloride 0.9% 1000 ML] 1,000 Med 06/05/22 00:47 Discontinued ml IV 100 mls/hr Ondansetron HCl 4 mg/2 ml [Zofran 4 MG/2 ML VIAL] Med 06/04/22 21:40 Discontinued 4 mg .ROUTE .STK-MED ONE Ondansetron HCl 4 mg/2 ml [Zofran 4 MG/2 ML VIAL] Med 06/04/22 21:40 Discontinued 4 mg IV STAT ONE Oxycodone / APAP 10/325 mg [Oxycodone-Acetaminophen Med 06/05/22 09:45 Discontinued 10-325] 1 tab PO TID PRN PRN Smoking Cessation Education ONCE RT 06/05/22 02:00 Completed Patient Care Notes (Last 24 hours) 06/05/22 01:41 Nursing Note by Aletha Maciel Pt refused telemetry. Initialized on 06/05/22 01:41 - END OF NOTE - Vitals & Intake/Output Vital Signs: Vital Signs Temperature 98.0 F 06/05/22 11:26 Pulse Rate 49 L 06/05/22 11:26 Respiratory Rate 16 06/05/22 11:26 Blood Pressure 101/58 06/05/22 11:26 O2 Sat by Pulse Oximetry 95 06/05/22 11:26 Intake & Output: Intake & Output 06/03/22 06/04/22 06/05/22 06/06/22 11:59 11:59 11:59 11:59 Intake Total 1541 480 Output Total 750 850 Balance 791 -370 Weight 87 kg - Lab Result Diagrams: 06/05/22 04:58 06/05/22 04:58 Lab Results-Last 24 Hrs: Lab Results-Last 24 Hours 06/04/22 06/04/22 06/04/22 Range/Units 21:01 21:50 21:50 WBC 13.4 H (4.0-10.5) x10^3/uL RBC 4.07 L (4.1-5.6) x10^6/uL Hgb 15.0 (12.5-18.0) g/dL Hct 43.8 (42-50) % MCV 107.6 H (78-100) fL MCH 36.9 H (26-32) pg MCHC 34.2 (32-36) g/dL RDW 14.6 H (11.5-14.0) % Plt Count 182 (150-450) x10^3/uL MPV 10.1 (7.5-11.0) fL Gran % 77.0 H (36.0-66.0) % Immature Gran % (Auto) 0.7 H (0.00-0.4) % Nucleat RBC Rel Count 0.0 (0.00-0.1) % Eos # (Auto) 0.04 (0-0.5) x10^3/uL Immature Gran # (Auto) 0.09 H (0.00-0.03) x10^3u/L Absolute Lymphs (auto) 2.12 (1.0-4.6) x10^3/uL Absolute Monos (auto) 0.82 (0.0-1.3) x10^3/uL Absolute Nucleated RBC 0.00 (0.00-0.01) x10^3u/L Lymphocytes % 15.8 L (24.0-44.0) % Monocytes % 6.1 (0.0-12.0) % Eosinophils % 0.3 (0.00-5.0) % Basophils % 0.1 (0.0-0.4) % Absolute Granulocytes 10.35 H (1.4-6.9) x10^3/uL Basophils # 0.02 (0-0.4) x10^3/uL Sodium 134 L (137-145) mmol/L Potassium 3.6 (3.5-5.1) mmol/L Chloride 100 (98-107) mmol/L Carbon Dioxide 28 (22-30) mmol/L Anion Gap 10.1 (5-15) MEQ/L BUN 13 (9-20) mg/dL Creatinine 0.71 (0.66-1.25) mg/dL Estimated GFR > 60.0 ML/MIN Glucose 127 H (74-106) mg/dL Calcium 8.8 (8.4-10.2) mg/dL Total Bilirubin 1.60 H (0.2-1.3) mg/dL AST 19 (17-59) U/L ALT 12 (0-50) U/L Alkaline Phosphatase 109 (38-126) U/L Troponin I (0.000-0.034) ng/mL Serum Total Protein 6.7 (6.3-8.2) g/dL Albumin 3.6 (3.5-5.0) g/dL Lipase 153 (23-300) U/L Influenza Type A Ag NEGATIVE (NEGATIVE) Influenza Type B Ag NEGATIVE (NEGATIVE) RSV (PCR) NEGATIVE (Negative) SARS-CoV-2 (PCR) NEGATIVE (NEGATIVE) 06/04/22 06/05/22 06/05/22 Range/Units 21:50 01:51 04:58 WBC (4.0-10.5) x10^3/uL RBC (4.1-5.6) x10^6/uL Hgb (12.5-18.0) g/dL Hct (42-50) % MCV (78-100) fL MCH (26-32) pg MCHC (32-36) g/dL RDW (11.5-14.0) % Plt Count (150-450) x10^3/uL MPV (7.5-11.0) fL Gran % (36.0-66.0) % Immature Gran % (Auto) (0.00-0.4) % Nucleat RBC Rel Count (0.00-0.1) % Eos # (Auto) (0-0.5) x10^3/uL Immature Gran # (Auto) (0.00-0.03) x10^3u/L Absolute Lymphs (auto) (1.0-4.6) x10^3/uL Absolute Monos (auto) (0.0-1.3) x10^3/uL Absolute Nucleated RBC (0.00-0.01) x10^3u/L Lymphocytes % (24.0-44.0) % Monocytes % (0.0-12.0) % Eosinophils % (0.00-5.0) % Basophils % (0.0-0.4) % Absolute Granulocytes (1.4-6.9) x10^3/uL Basophils # (0-0.4) x10^3/uL Sodium (137-145) mmol/L Potassium (3.5-5.1) mmol/L Chloride (98-107) mmol/L Carbon Dioxide (22-30) mmol/L Anion Gap (5-15) MEQ/L BUN (9-20) mg/dL Creatinine (0.66-1.25) mg/dL Estimated GFR ML/MIN Glucose (74-106) mg/dL Calcium (8.4-10.2) mg/dL Total Bilirubin (0.2-1.3) mg/dL AST (17-59) U/L ALT (0-50) U/L Alkaline Phosphatase (38-126) U/L Troponin I < 0.012 < 0.012 < 0.012 (0.000-0.034) ng/mL Serum Total Protein (6.3-8.2) g/dL Albumin (3.5-5.0) g/dL Lipase (23-300) U/L Influenza Type A Ag (NEGATIVE) Influenza Type B Ag (NEGATIVE) RSV (PCR) (Negative) SARS-CoV-2 (PCR) (NEGATIVE) 06/05/22 06/05/22 Range/Units 04:58 04:58 WBC 9.8 (4.0-10.5) x10^3/uL RBC 3.76 L (4.1-5.6) x10^6/uL Hgb 13.9 (12.5-18.0) g/dL Hct 41.1 L (42-50) % MCV 109.3 H (78-100) fL MCH 37.0 H (26-32) pg MCHC 33.8 (32-36) g/dL RDW 15.0 H (11.5-14.0) % Plt Count 155 (150-450) x10^3/uL MPV 10.5 (7.5-11.0) fL Gran % 64.8 (36.0-66.0) % Immature Gran % (Auto) 0.5 H (0.00-0.4) % Nucleat RBC Rel Count 0.0 (0.00-0.1) % Eos # (Auto) 0.09 (0-0.5) x10^3/uL Immature Gran # (Auto) 0.05 H (0.00-0.03) x10^3u/L Absolute Lymphs (auto) 2.74 (1.0-4.6) x10^3/uL Absolute Monos (auto) 0.55 (0.0-1.3) x10^3/uL Absolute Nucleated RBC 0.00 (0.00-0.01) x10^3u/L Lymphocytes % 27.9 (24.0-44.0) % Monocytes % 5.6 (0.0-12.0) % Eosinophils % 0.9 (0.00-5.0) % Basophils % 0.3 (0.0-0.4) % Absolute Granulocytes 6.35 (1.4-6.9) x10^3/uL Basophils # 0.03 (0-0.4) x10^3/uL Sodium 134 L (137-145) mmol/L Potassium 3.2 L (3.5-5.1) mmol/L Chloride 100 (98-107) mmol/L Carbon Dioxide 27 (22-30) mmol/L Anion Gap 9.9 (5-15) MEQ/L BUN 11 (9-20) mg/dL Creatinine 0.74 (0.66-1.25) mg/dL Estimated GFR > 60.0 ML/MIN Glucose 165 H (74-106) mg/dL Calcium 8.1 L (8.4-10.2) mg/dL Total Bilirubin 1.20 (0.2-1.3) mg/dL AST 20 (17-59) U/L ALT 13 (0-50) U/L Alkaline Phosphatase 83 (38-126) U/L Troponin I (0.000-0.034) ng/mL Serum Total Protein 6.0 L (6.3-8.2) g/dL Albumin 3.2 L (3.5-5.0) g/dL Lipase (23-300) U/L Influenza Type A Ag (NEGATIVE) Influenza Type B Ag (NEGATIVE) RSV (PCR) (Negative) SARS-CoV-2 (PCR) (NEGATIVE) - Procedures and Test Procedures and Tests throughout Hospitalization: Therapy Orders & Screens 06/05/22 02:00 Smoking Cessation Education ONCE Comment: Diagnosis: Crohn's Disease Smoking Status: Current every day smoker How long have you smoked: 48 years Have you smoked in the past 12 months: Yes Approximately how many cigarettes per day: 20 Do you dip or chew tobacco: No - Discharge Discharge Date: 06/05/22 Disposition: Home, Self-Care Condition: Stable Prescriptions: New Metronidazole 500 mg [Flagyl 500 MG] 500 mg PO TID #21 tablet Continue Metoprolol Tartrate 25 mg [Lopressor 25MG Tab] 25 mg PO DAILY Diazepam 5 mg [Valium 5 MG] 5 mg PO DAILY Lisinopril 20 mg [Zestril 20 MG] 40 mg PO DAILY Oxycodone / APAP 10/325 mg [Oxycodone-Acetaminophen 10-325] 1 tab PO TID PRN Instructions: Inflammatory Bowel Disease (DC) Follow up with: LEILANI ATKINS MD [Primary Care Provider] - 07/01/22 10:45 am (keep follow- up appt ) Forms: Discharge Instructions
[2022-06-05] MEDS ORDERED: Levofloxacin 500MG/100ML D5W 500 MG/100 ML BAG IV SCH (22:00)
== END 2022-06-05 14:10 | disposition home or self-care (01) ==
LOC: ED 20:34 → MED SURG 06-05 00:45
PROVIDERS: ADMIT General Practice; ATTEND General Practice
DX: K52.9 Noninfective gastroenteritis and colitis, unspecified (principal); R10.84 Generalized abdominal pain; K50.80 Crohn's disease of both small and large intestine without complications; I10 Essential (primary) hypertension; Z72.0 Tobacco use; Z79.899 Other long term (current) drug therapy; Z20.828 Contact with and (suspected) exposure to other viral communicable diseases
CPT/HCPCS: 0241U; 36000; 36415; 80053; 83690; 84484; 85025; 96365; 96368; 96374; 96375; 99284; G0378; J1956; J2270; J2405; A9270-GY

== ENCOUNTER 2022-06-30 07:45 | Emergency (ER) | payer MEDICARE ==
[2022-06-30] MEDS ORDERED: Zofran 4 MG/2 ML VIAL IV ONE (08:06)
[2022-06-30] MEDS ORDERED: Sodium Chloride 0.9% 1000 ML 1,000 ML IV STA (08:06)
[2022-06-30] MEDS ORDERED: MORPHINE SULFATE 4 MG INJ IV ONE ×2 (08:06→10:03)
--- NOTE | 2022-06-30 08:09 | ERPHSYRPT ---
- History of Present Illness Time Seen by Provider: 06/30/22 07:54 Historian: patient Exam Limitations: no limitations Patient Subjective Stated Complaint: abd pain, NVD Triage Nursing Assessment: pt to ED c/o abd pain and NVD after eating chickfila yesterday. states "I started getting the poopies and dry hieving, I couldn't finish it all." reports 8/10 abd pain at this time. reports hx chron's disease. also reports having this same issues 3 weeks ago, which lasted for 3 days at that time. LBM this am, loose. emesis x 1 this am. doctors appt with pcp tomorrow Physician History: 67 years old male with history of Crohn's disease presented in the ER with chief complaint of lower abdominal pain with nausea vomiting and diarrhea since yesterday. Patient reported he was eating [employer] sandwich and started to h ave urge for defecation and later on started dry heaving. Since then he is having multiple episodes of nonprojectile, nonbilious vomiting without hematemesis. Also having loose stool without hematochezia. Abdominal pain is more in the lower abdomen without any significant aggravating or relieving factors. Reports having similar symptoms almost 3 weeks ago. No fever or chills reported. Timing/Duration: yesterday, intermittent, sudden, worse Activities at Onset: other (eating) Quality: sharpness Abdominal Pain Onset Location: RLQ, LLQ Pain Radiation: no radiation Severity of Pain-Max: severe Severity of Pain-Current: moderate Modifying Factors: Improves With: nothing Associated Symptoms: diarrhea, nausea, vomiting Previous symptoms: same symptoms as today Allergies/Adverse Reactions: shellfish derived Allergy (Verified 06/05/22 00:59) Hives Home Medications: Diazepam 5 mg [Valium 5 MG] 5 mg PO DAILY 07/27/21 [History] Metoprolol Tartrate 25 mg [Lopressor 25MG Tab] 25 mg PO DAILY 07/27/21 [History] Lisinopril 20 mg [Zestril 20 MG] 40 mg PO DAILY 06/05/22 [History] Oxycodone / APAP 10/325 mg [Oxycodone-Acetaminophen 10-325] 1 tab PO TID PRN 06/05/22 [History] Hx Tetanus, Diphtheria Vaccination/Date Given: Yes Hx Influenza Vaccination/Date Given: No Hx Pneumococcal Vaccination/Date Given: No Immunizations Up to Date: No Travel Risk - International Travel Have you traveled outside of the country in past 3 weeks: No - Coronavirus Screening Are you exhibiting any of the following symptoms?: Yes Symptoms: Vomiting/Diarrhea Close contact with a COVID-19 positive Pt in past 14-21 Days: No - Vaccine Status Have you recieved a Covid-19 vaccination: Yes 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 - Vaccination Dates Date of 2cond Vaccination (if applicable): unknown - Review of Systems Constitutional: Fatigue, Weakness Eyes: No Symptoms Ears, Nose, & Throat: No Symptoms Respiratory: No Symptoms Cardiac: No Symptoms Abdominal/Gastrointestinal: Abdominal Pain, Nausea, Vomiting, Diarrhea Genitourinary Symptoms: No Symptoms Musculoskeletal: Arthralgias Skin: No Symptoms Neurological: No Symptoms Psychological: No Symptoms Endocrine: No Symptoms Hematologic/Lymphatic: No Symptoms - Past Medical History Pertinent Past Medical History: Yes Neurological History: No Pertinent History ENT History: No Pertinent History Cardiac History: Hypertension Respiratory History: No Pertinent History Endocrine Medical History: No Pertinent History Musculoskeletal History: Fractures GI Medical History: Crohns Disease History: No Pertinent History Psycho-Social History: Anxiety, Depression Male Reproductive Disorders: No Pertinent History 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 - Past Surgical History Past Surgical History: Yes Neuro Surgical History: No Pertinent History Cardiac: No Pertinent History Respiratory: No Pertinent History Gastrointestinal: No Pertinent History Genitourinary: No Pertinent History Musculoskeletal: Orthopedic Surgery Male Surgical History: No Pertinent History Other Surgical History: R ankle, colonoscopy - Social History Smoking Status: Current every day smoker How long have you smoked: 48 years Exposure to second hand smoke: No Drug Use: none Patient Lives Alone: Yes - Nursing Vital Signs Nursing Vital Signs: Initial Vital Signs Temperature 97.2 F 06/30/22 07:52 Pulse Rate 85 06/30/22 07:52 Respiratory Rate 18 06/30/22 07:52 Blood Pressure 166/107 06/30/22 07:52 O2 Sat by Pulse Oximetry 99 06/30/22 07:52 Pain Scale Pain Intensity 8 - Physical Exam General Appearance: no apparent distress, alert Eye Exam: PERRL/EOMI Ears, Nose, Throat Exam: normal ENT inspection Neck Exam: normal inspection, supple, full range of motion Respiratory Exam: normal breath sounds, lungs clear Cardiovascular Exam: regular rate/rhythm, normal heart sounds Gastrointestinal/Abdomen Exam: soft, normal bowel sounds, tenderness (Lower abdomen) Back Exam: normal inspection, normal range of motion Extremity Exam: normal inspection, normal range of motion Neurologic Exam: alert, oriented x 3, cooperative Skin Exam: normal color SpO2 Interpretation: normal SpO2: 99 O2 Delivery: Room Air Ordered Tests: Active Orders 24 hr Category Date Time Status IV Insertion STAT Care 06/30/22 08:06 Active NPO (ED) STAT Care 06/30/22 08:06 Active ABDOMEN AND PELVIS W/0 CONTRAS [CT] Stat Exams 06/30/22 08:23 Taken CBC W DIFF Stat Lab 06/30/22 08:00 Completed CMP Stat Lab 06/30/22 08:00 Completed LIPASE Stat Lab 06/30/22 08:00 Completed UA W/RFX CULTURE Stat Lab 06/30/22 08:08 Completed Medication Summary Discontinued Medications Generic Name Dose Route Start Last Admin Trade Name Abdielq PRN Reason Stop Dose Admin Methylprednisolone Sodium 0 mg 06/30/22 10:02 Succinate 125 mg/ Sterile IV 06/30/22 10:03 Water 2 ml STAT ONE Sodium Chloride 1,000 mls @ 999 mls/hr 06/30/22 08:06 06/30/22 09:58 Sodium Chloride 0.9% 1000 Ml IV 06/30/22 09:06 Infused .Q1H1M STA Infusion Sodium Chloride Confirm 06/30/22 08:11 Sodium Chloride 0.9% 1000 Ml Administered 06/30/22 08:12 Dose 1,000 mls @ ud .ROUTE .STK-MED ONE Morphine Sulfate 4 mg 06/30/22 08:06 06/30/22 08:11 Morphine Sulfate 4 Mg/Ml Injection IV 06/30/22 08:07 4 mg STAT ONE Administration Morphine Sulfate Confirm 06/30/22 08:11 Morphine Sulfate 4 Mg/Ml Injection Administered 06/30/22 08:12 Dose 4 mg .ROUTE .STK-MED ONE Morphine Sulfate 4 mg 06/30/22 10:03 Morphine Sulfate 4 Mg/Ml Injection IV 06/30/22 10:04 STAT ONE Morphine Sulfate Confirm 06/30/22 10:03 Morphine Sulfate 4 Mg/Ml Injection Administered 06/30/22 10:04 Dose 4 mg .ROUTE .STK-MED ONE Ondansetron HCl 4 mg 06/30/22 08:06 06/30/22 08:11 Ondansetron Hcl 4 Mg/2 Ml Vial IV 06/30/22 08:07 4 mg STAT ONE Administration Ondansetron HCl Confirm 06/30/22 08:11 Ondansetron Hcl 4 Mg/2 Ml Vial Administered 06/30/22 08:12 Dose 4 mg .ROUTE .STK-MED ONE Lab/Rad Data: Laboratory Result Diagrams 06/30/22 08:00 06/30/22 08:00 Laboratory Results 06/30/22 06/30/22 06/30/22 Range/Units 08:08 08:00 08:00 WBC 10.1 (4.0-10.5) x10^3/uL RBC 3.77 L (4.1-5.6) x10^6/uL Hgb 14.1 (12.5-18.0) g/dL Hct 40.5 L (42-50) % MCV 107.4 H (78-100) fL MCH 37.4 H (26-32) pg MCHC 34.8 (32-36) g/dL RDW 13.5 (11.5-14.0) % Plt Count 117 L (150-450) x10^3/uL MPV 11.5 H (7.5-11.0) fL Gran % 78.6 H (36.0-66.0) % Immature Gran % (Auto) 0.7 H (0.00-0.4) % Nucleat RBC Rel Count 0.0 (0.00-0.1) % Eos # (Auto) 0.01 (0-0.5) x10^3/uL Immature Gran # (Auto) 0.07 H (0.00-0.03) x10^3u/L Absolute Lymphs (auto) 1.64 (1.0-4.6) x10^3/uL Absolute Monos (auto) 0.41 (0.0-1.3) x10^3/uL Absolute Nucleated RBC 0.00 (0.00-0.01) x10^3u/L Lymphocytes % 16.3 L (24.0-44.0) % Monocytes % 4.1 (0.0-12.0) % Eosinophils % 0.1 (0.00-5.0) % Basophils % 0.2 (0.0-0.4) % Absolute Granulocytes 7.90 H (1.4-6.9) x10^3/uL Basophils # 0.02 (0-0.4) x10^3/uL Sodium 136 L (137-145) mmol/L Potassium 4.0 (3.5-5.1) mmol/L Chloride 101 (98-107) mmol/L Carbon Dioxide 29 (22-30) mmol/L Anion Gap 10.2 (5-15) MEQ/L BUN 8 L (9-20) mg/dL Creatinine 0.57 L (0.66-1.25) mg/dL Estimated GFR > 60.0 ML/MIN Glucose 147 H (74-106) mg/dL Calcium 9.1 (8.4-10.2) mg/dL Total Bilirubin 2.50 H (0.2-1.3) mg/dL AST 49 (17-59) U/L ALT 23 (0-50) U/L Alkaline Phosphatase 97 (38-126) U/L Serum Total Protein 7.4 (6.3-8.2) g/dL Albumin 4.1 (3.5-5.0) g/dL Lipase 127 (23-300) U/L Urinalys Dipstick Clnc MAIN LAB Urine Color DARK YELLOW (YELLOW) Urine Appearance CLEAR (CLEAR) Urine pH 6.5 (5-6) Ur Specific [place] 1.025 (1.005-1.025) POC Urine Protein Conf TRACE (Negative) Urine Ketones NEGATIVE (NEGATIVE) Urine Nitrite NEGATIVE (NEGATIVE) Urine Bilirubin SMALL (NEGATIVE) Urine Urobilinogen 4 (0-1) mg/dL Urine Leukocytes NEGATIVE (NEGATIVE) Urine WBC (Auto) NONE (0-5) /HPF Urine RBC (Auto) NONE (0-2) /HPF U Epithel Cells (Auto) NONE (FEW) /HPF Urine Bacteria (Auto) NONE (NEGATIVE) /HPF Urine RBC NEGATIVE (0-5) Hardy/ul Urine Mucus (Auto) SLIGHT (NEGATIVE) /HPF Ur Culture Indicated? NO Urine Glucose NEGATIVE (NEGATIVE) mg/dL - Progress Progress: improved Progress Note: 06/30/22 10:03 Is given fluids along with symptomatic treatment for pain and nausea, on reevaluation feeling better. Has normal white count, chemistries grossly unremarkable except for total bili of 2.5 but his bili normally runs around 2. CT abdomen pelvis showed some changes consistent with cirrhosis and findings of colitis which I believe is inflammatory. Given a dose of Solu-Medrol in here and continue with steroids and also give Zofran to use as needed to go home. Discussed signs symptoms of worsening needing return to ER which he seems understanding. Counseled pt/family regarding: lab results, diagnosis, need for follow-up, abelardo sullivan - Departure Departure Disposition: Home Clinical Impression: Crohn's disease, Enterocolitis Condition: Stable Critical Care Time: No Referrals: LEILANI ATKINS MD [Primary Care Provider] - Follow up/PCP as directed (1-2 days for reevaluation) Instructions: Crohn's Disease in Adults Additional Instructions: Take Tylenol as needed. Follow-up with primary care for reevaluation. Also need follow-up with GI for further evaluation. Return to ER for worsening abdominal pain, nausea vomiting diarrhea etc. Prescriptions: Prednisone 20 mg [Deltasone 20 mg] 60 mg PO DAILY 5 Days #15 tablet Ondansetron ODT 4 MG [Zofran Odt 4 mg] 1 ea PO QIDPRN PRN #7 tablet PRN Reason: n/v
[2022-06-30] MEDS ORDERED: MORPHINE SULFATE 4 MG INJ ONE ×2 (08:11→10:03)
[2022-06-30] MEDS ORDERED: Sodium Chloride 0.9% 1000 ML 1,000 ML ONE (08:11)
[2022-06-30] MEDS ORDERED: Zofran 4 MG/2 ML VIAL ONE (08:11)
[2022-06-30 08:20] LABS: Basophil (Absolute #) 0.02 x10^3/uL (0-0.4); Eosinophil % 0.1 % (0.00-5.0); Eosinophil (Absolute #) 0.01 x10^3/uL (0-0.5); Hematocrit 40.5 % (42-50); Hemoglobin 14.1 g/dL (12.5-18.0); Lymphocyte (Absolute #) 1.64 x10^3/uL (1.0-4.6); Lymphocytes % 16.3 % (24.0-44.0); Mean Cell Volume 107.4 fL (78-100); Mean Corpuscular Hemoglobin 37.4 pg (26-32); Mean Corpuscular Hgb Concent. 34.8 g/dL (32-36); Mean Platelet Volume 11.5 fL (7.5-11.0); Monocyte (Absolute #) 0.41 x10^3/uL (0.0-1.3); Monocytes % 4.1 % (0.0-12.0); Neutrophil % 78.6 % (36.0-66.0); Platelet Count 117 x10^3/uL (150-450); Red Blood Count 3.77 x10^6/uL (4.1-5.6); Red Cell Distribution Width 13.5 % (11.5-14.0); White Blood Count 10.1 x10^3/uL (4.0-10.5)
[2022-06-30 08:22] LABS: Appearance CLEAR (CLEAR); Bilirubin SMALL (NEGATIVE); Glucose NEGATIVE (NEGATIVE); Ketones NEGATIVE (NEGATIVE); Mucus SLIGHT /HPF (NEGATIVE); Ph 6.5 (5-6); RBC NEGATIVE Ery/ul (0-5); Specific Gravity 1.025 (1.005-1.025)
[2022-06-30 08:23] LABS: Dipstick done @ ? MAIN LAB; Nitrite NEGATIVE (NEGATIVE); Protein,Urine Dip TRACE (Negative); Urine Cultured Indicated? NO; Urobilinogen 4 mg/dL (0-1)
[2022-06-30 08:26] LABS: ALBUMIN 4.1 g/dL (3.5-5.0); ALKALINE PHOSPHATASE 97 U/L (38-126); ANION GAP 10.2 MEQ/L (5-15); BLOOD UREA NITROGEN 8 mg/dL (9-20); CHLORIDE 101 mmol/L (98-107); Calcium 9.1 mg/dL (8.4-10.2); Carbon Dioxide 29 mmol/L (22-30); Creatinine 1 0.57 mg/dL (0.66-1.25); EST GLOMERULAR FILTRATION RATE > 60.0 ML/MIN; Glucose 147 mg/dL (74-106); LIPASE 127 U/L (23-300); SGOT/AST 49 U/L (17-59); SGPT/ALT 23 U/L (0-50); SODIUM 136 mmol/L (137-145); Total Protein 7.4 g/dL (6.3-8.2)
[2022-06-30] MEDS ORDERED: solu-MEDROL 125 MG, Sterile H2O 10 ml 2 ML IV ONE ×2 (10:02)
[2022-06-30 10:08] VITALS: O2SAT 99
[2022-06-30] MEDS ORDERED: Sterile H2O 10 ml IJ ONE (10:27)
[2022-06-30] MEDS ORDERED: solu-MEDROL ONE (10:27)
[2022-06-30 10:39] VITALS: BP 123/94; PULSE 77
--- NOTE | 2022-06-30 19:47 | XRAY ---
Indication: Pelvic pain, vomiting, and diarrhea. Multiple contiguous axial images obtained through the abdomen and pelvis without contrast. Comparison: June 03, 2022 Lung bases clear. Heart not enlarged. Again small hiatal hernia. Noncontrasted stomach and bowel loops appear nonobstructed with normal appendix. Again mild sigmoid diverticulosis without diverticulitis and mild fatty liver. No free fluid/air. Remaining liver, gallbladder, pancreas, spleen, adrenal glands, kidneys, ureters, and bladder appear unremarkable for noncontrast exam. There remains mild scattered aortoiliac calcifications without AAA. Osseous structures intact again with osteopenia, mild/moderate degenerative changes throughout the thoracolumbar spine, and L1/L5 Schmorl nodes. Impression: 1. Again small hiatal hernia, sigmoid diverticulosis, fatty liver, arteriosclerotic disease, and chronic bony findings. 2. Remaining CT abdomen/pelvis without contrast exam is negative. Comment: Preliminary interpretation made by C. No critical discrepancy.
== END 2022-06-30 10:54 | disposition home or self-care (01) ==
LOC: ED 07:45
DX: K50.90 Crohn's disease, unspecified, without complications (principal); K52.9 Noninfective gastroenteritis and colitis, unspecified; R11.2 Nausea with vomiting, unspecified; R10.30 Lower abdominal pain, unspecified; I10 Essential (primary) hypertension; Z72.0 Tobacco use; Z79.891 Long term (current) use of opiate analgesic; Z79.899 Other long term (current) drug therapy; Z79.52 Long term (current) use of systemic steroids
CPT/HCPCS: 36000; 36415; 74176; 80053; 81015; 83690; 85025; 96374; 96375; 96376; 99284; J2270; J2405; J2930

== ENCOUNTER 2023-03-04 21:00 | Emergency (ER) | payer MEDICARE ==
--- NOTE | 2023-03-04 21:09 | ERPHSYRPT ---
- History of Present Illness Time Seen by Provider: 03/04/23 21:08 Historian: patient Exam Limitations: no limitations Physician History: This 68-year-old white male patient has a history of Crohn's disease, hypertension, as well as anxiety/depression and cirrhosis. He began having some flank pain yesterday and worsened today. He took Valium a couple of times a day thinking that would help with back spasms but it did not help his pain. He does have oxycodone at home but he did not take any of that because he did not want to mix the oxycodone with the Valium. Patient states he has been urinating fine. He has had no diarrhea. He denies chest pain and he denies shortness of breath. He has no history of ureteral stones. Patient states he has not fallen or suffered any trauma to his back. His brother is in the waiting room. He has a ride home if he requires 1. Patient states he has no abdominal pain Timing/Duration: yesterday, worse Quality: aching Abdominal Pain Onset Location: flank (Bilateral) Pain Radiation: no radiation Severity of Pain-Max: moderate Severity of Pain-Current: moderate Modifying Factors: Improves With: nothing Associated Symptoms: back, No chest pain, No diarrhea, No nausea, No neck pain, No shortness of breath, No vomiting Previous symptoms: same symptoms as today (May be a few years ago but not r ecent) Allergies/Adverse Reactions: shellfish derived Allergy (Verified 03/04/23 21:05) Hives Home Medications: Diazepam 5 mg [Valium 5 MG] 5 mg PO DAILY 07/27/21 [History] Metoprolol Tartrate 25 mg [Lopressor 25MG Tab] 25 mg PO DAILY 07/27/21 [History] Lisinopril 20 mg [Zestril 20 MG] 40 mg PO DAILY 06/05/22 [History] Oxycodone / APAP 10/325 mg [Oxycodone-Acetaminophen 10-325] 1 tab PO TID PRN 06/05/22 [History] Hx Tetanus, Diphtheria Vaccination/Date Given: Yes Hx Influenza Vaccination/Date Given: No Hx Pneumococcal Vaccination/Date Given: No Travel Risk - International Travel Have you traveled outside of the country in past 3 weeks: No - Coronavirus Screening Are you exhibiting any of the following symptoms?: No Close contact with a COVID-19 positive Pt in past 14-21 Days: No - Vaccine Status Have you recieved a Covid-19 vaccination: Yes 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: 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 - Vaccination Dates Date of 2cond Vaccination (if applicable): unknown - Review of Systems Constitutional: No Symptoms Eyes: No Symptoms Ears, Nose, & Throat: No Symptoms Respiratory: No Symptoms Cardiac: No Symptoms Abdominal/Gastrointestinal: No Symptoms Genitourinary Symptoms: Flank Pain (Bilateral) Musculoskeletal: No Symptoms Skin: No Symptoms Neurological: No Symptoms Psychological: No Symptoms Endocrine: No Symptoms Hematologic/Lymphatic: No Symptoms Immunological/Allergic: No Symptoms All Other Systems: Reviewed and Negative - Past Medical History Pertinent Past Medical History: Yes Neurological History: No Pertinent History ENT History: No Pertinent History Cardiac History: Hypertension Respiratory History: No Pertinent History Endocrine Medical History: No Pertinent History Musculoskeletal History: Fractures GI Medical History: Crohns Disease History: No Pertinent History Psycho-Social History: Anxiety, Depression Male Reproductive Disorders: No Pertinent History 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 - Past Surgical History Past Surgical History: Yes Neuro Surgical History: No Pertinent History Cardiac: No Pertinent History Respiratory: No Pertinent History Gastrointestinal: No Pertinent History Genitourinary: No Pertinent History Musculoskeletal: Orthopedic Surgery Male Surgical History: No Pertinent History Other Surgical History: R ankle, colonoscopy - Social History Smoking Status: Current every day smoker How long have you smoked: 48 years Exposure to second hand smoke: No Drug Use: none Patient Lives Alone: Yes - Nursing Vital Signs Nursing Vital Signs: Initial Vital Signs Temperature 97.2 F 03/04/23 21:07 Pulse Rate 85 03/04/23 21:07 Respiratory Rate 18 03/04/23 21:07 Blood Pressure 186/105 03/04/23 21:07 O2 Sat by Pulse Oximetry 97 03/04/23 21:07 Pain Scale Pain Intensity 7 - Physical Exam General Appearance: no apparent distress, alert, anxiety Eye Exam: PERRL/EOMI, eyes nml inspection Ears, Nose, Throat Exam: normal ENT inspection, moist mucous membranes Neck Exam: normal inspection, non-tender, supple, full range of motion Respiratory Exam: normal breath sounds, lungs clear, No chest tenderness, No respiratory distress, No airway intact Cardiovascular Exam: regular rate/rhythm, normal heart sounds, normal peripheral pulses Gastrointestinal/Abdomen Exam: soft, normal bowel sounds, No tenderness Rectal Exam: not done Back Exam: normal inspection, normal range of motion, CVA tenderness (Bilateral), No vertebral tenderness Extremity Exam: normal inspection, normal range of motion, pelvis stable Neurologic Exam: alert, oriented x 3, cooperative, panelboard tank pumper II-XII nml as tested, normal mood/affect, nml cerebellar function, nml station & gait, sensation nml Skin Exam: normal color, warm, dry Lymphatic Exam: No adenopathy SpO2 Interpretation: normal O2 Delivery: Room Air - Course Nursing assessment & vital signs reviewed: Yes Ordered Tests: Active Orders 24 hr Category Date Time Status IV Insertion STAT Care 03/04/23 21:16 Active ABDOMEN AND PELVIS W/0 CONTRAS [CT] Stat Exams 03/04/23 21:16 Taken AMYLASE Stat Lab 03/04/23 21:13 Completed CBC W DIFF Stat Lab 03/04/23 21:13 Completed CMP Stat Lab 03/04/23 21:13 Completed LIPASE Stat Lab 03/04/23 21:13 Completed UA W/RFX UR CULTURE Stat Lab 03/04/23 21:59 Completed Medication Summary Generic Name Dose Route Start Last Admin Trade Name Freq PRN Reason Stop Dose Admin Sodium Chloride 1,000 mls @ 100 mls/hr 03/04/23 21:30 03/04/23 21:22 Sodium Chloride 0.9% 1000 Ml IV 04/03/23 21:29 100 mls/hr .Q10H MARIELY Administration Discontinued Medications Generic Name Dose Route Start Last Admin Trade Name Freq PRN Reason Stop Dose Admin Hydromorphone HCl 1 mg 03/04/23 21:16 03/04/23 21:22 Hydromorphone 1 Mg/1ml Inj IV 03/04/23 21:17 1 mg STAT ONE Administration Hydromorphone HCl Confirm 03/04/23 21:19 Hydromorphone 1 Mg/1ml Inj Administered 03/04/23 21:20 Dose 1 mg .ROUTE .STK-MED ONE Hydromorphone HCl 0.5 mg 03/04/23 22:35 03/04/23 22:41 Hydromorphone 1 Mg/1ml Inj IV 03/04/23 22:36 0.5 mg STAT ONE Administration Hydromorphone HCl Confirm 03/04/23 22:40 Hydromorphone 1 Mg/1ml Inj Administered 03/04/23 22:41 Dose 1 mg .ROUTE .STK-MED ONE Ondansetron HCl 4 mg 03/04/23 21:16 03/04/23 21:22 Ondansetron Hcl 4 Mg/2 Ml Vial IV 03/04/23 21:17 4 mg STAT ONE Administration Ondansetron HCl Confirm 03/04/23 21:19 Ondansetron Hcl 4 Mg/2 Ml Vial Administered 03/04/23 21:20 Dose 4 mg .ROUTE .STK-MED ONE Lab/Rad Data: Laboratory Result Diagrams 03/04/23 21:13 03/04/23 21:13 Laboratory Results 03/04/23 03/04/23 03/04/23 Range/Units 21:59 21:13 21:13 WBC 8.1 (4.0-10.5) x10^3/uL RBC 5.10 (4.1-5.6) x10^6/uL Hgb 18.6 H (12.5-18.0) g/dL Hct 54.7 H (42-50) % MCV 107.3 H (78-100) fL MCH 36.5 H (26-32) pg MCHC 34.0 (32-36) g/dL RDW 13.0 (11.5-14.0) % Plt Count 203 (150-450) x10^3/uL MPV 10.9 (7.5-11.0) fL Gran % 78.1 H (36.0-66.0) % Immature Gran % (Auto) 0.2 (0.00-0.4) % Nucleat RBC Rel Count 0.0 (0.00-0.1) % Eos # (Auto) 0.09 (0-0.5) x10^3/uL Immature Gran # (Auto) 0.02 (0.00-0.03) x10^3u/L Absolute Lymphs (auto) 1.10 (1.0-4.6) x10^3/uL Absolute Monos (auto) 0.52 (0.0-1.3) x10^3/uL Absolute Nucleated RBC 0.00 (0.00-0.01) x10^3u/L Lymphocytes % 13.6 L (24.0-44.0) % Monocytes % 6.4 (0.0-12.0) % Eosinophils % 1.1 (0.00-5.0) % Basophils % 0.6 (0.0-0.4) % Absolute Granulocytes 6.30 (1.4-6.9) x10^3/uL Basophils # 0.05 (0-0.4) x10^3/uL Sodium 137 (137-145) mmol/L Potassium 3.9 (3.5-5.1) mmol/L Chloride 97 L (98-107) mmol/L Carbon Dioxide 28 (22-30) mmol/L Anion Gap 15.4 H (5-15) MEQ/L BUN 7 L (9-20) mg/dL Creatinine 0.61 L (0.66-1.25) mg/dL Estimated GFR > 60.0 ML/MIN Glucose 139 H (74-106) mg/dL Calcium 9.5 (8.4-10.2) mg/dL Total Bilirubin 1.50 H (0.2-1.3) mg/dL AST 32 (17-59) U/L ALT 18 (0-50) U/L Alkaline Phosphatase 186 H (38-126) U/L Serum Total Protein 8.6 H (6.3-8.2) g/dL Albumin 4.4 (3.5-5.0) g/dL Amylase 75 (30-110) U/L Lipase 74 (23-300) U/L Urine Color Yellow (Yellow) Urine Appearance Clear (Clear) Urine pH 8.0 (4.6-8.0) Ur Specific [place] 1.010 (1.005-1.030) Urine Protein Trace A (Negative) Urine Glucose (UA) Negative (Negative) mg/dL Urine Ketones Negative (Negative) Urine Blood Negative (Negative) Urine Nitrite Negative (Negative) Urine Bilirubin Negative (Negative) Urine Urobilinogen 0.2 (0.2) mg/dL Ur Leukocyte Esterase Negative (Negative) U Hyaline Cast (Auto) NONE SEEN (0-2) /LPF Urine Microscopic RBC 0-2 (0-5) /HPF Urine Microscopic WBC 0-2 (0-5) /HPF Ur Epithelial Cells None Seen (None Seen) /HPF Urine Bacteria None Seen (None Seen) /HPF Urine Culture Reflexed NO (NO) - Progress Progress: improved, pain not gone completely Progress Note: 03/04/23 23:02 CAT scan of the abdomen pelvis shows rectal wall thickening, proctitis versus malignancy. In addition there is a new but remote loss of height L2 fracture. This patient has medical issues of moderate complexity. The level of complexity and the work-up performed is based on the review of the patient's past medical history, review of the patient's medication list, review of the patient's drug allergy list, history present illness and physical findings on examination. The work-up includes a urinalysis, CBC, CMP, amylase, lipase and CT scan of the abdomen pelvis. We placed an intravenous line and provided the patient with intravenous normal saline solution, Zofran, and Dilaudid pain medicine. I reviewed the results of the above work-up. Patient has either proctitis or possible rectal malignancy. The patient does have a history of Crohn's disease. He will be given a prescription for Cipro and Flagyl and prednisone for home. Patient has oxycodone at home and he will not require any other narcotic medication for pain for home. Patient needs to follow-up with his primary care provider for referral to either general surgeon or union carpenter for endoscopy. Counseled pt/family regarding: lab results, diagnosis, need for follow-up, rad results Medical Desision Making - Diagnostic Testing Diagnostic test were ordered, analyzed, and reviewed by me: Yes Radiological Interpretation: Reviewed by me, Teleradiologist Report - Risk of complications The pt has a mod risk of morbidity or mortality based on: Need for prescription drug management - Departure Departure Disposition: Home Clinical Impression: Proctitis, Lumbar compression fracture Condition: Stable Critical Care Time: No Referrals: LEILANI ATKINS MD [Primary Care Provider] - Follow up/PCP as directed Additional Instructions: Drink plenty of fluids. Take your medication as prescribed. Use your oxycodone pain medicine as prescribed. Follow-up with your primary care provider tomorrow, 03/05/2023 for further evaluation management. Prescriptions: Ciprofloxacin [Cipro 500 MG] 500 mg PO BID #14 tablet Prednisone 10 mg [Deltasone 10 mg] 10 mg PO TID #12 tablet Metronidazole 500 mg [Flagyl 500 MG] 500 mg PO TID #21 tablet
[2023-03-04] MEDS ORDERED: Hydromorphone 1 mg/ml Injection IV ONE ×2 (21:16→22:35)
[2023-03-04] MEDS ORDERED: Zofran 4 MG/2 ML VIAL IV ONE (21:16)
[2023-03-04] MEDS ORDERED: Zofran 4 MG/2 ML VIAL ONE (21:19)
[2023-03-04] MEDS ORDERED: Hydromorphone 1 mg/ml Injection ONE ×2 (21:19→22:40)
[2023-03-04] MEDS ORDERED: Sodium Chloride 0.9% 1000 ML 1,000 ML ONE (21:19)
[2023-03-04] MEDS ORDERED: Sodium Chloride 0.9% 1000 ML 1,000 ML IV SCH (21:30)
[2023-03-04 21:58] LABS: BASOPHIL % 0.6 % (0.0-0.4); Basophil (Absolute #) 0.05 x10^3/uL (0-0.4); Eosinophil % 1.1 % (0.00-5.0); Eosinophil (Absolute #) 0.09 x10^3/uL (0-0.5); Hematocrit 54.7 % (42-50); Hemoglobin 18.6 g/dL (12.5-18.0); IMMATURE GRAN # 0.02 x10^3u/L (0.00-0.03); IMMATURE GRAN % 0.2 % (0.00-0.4); Lymphocytes % 13.6 % (24.0-44.0); Mean Cell Volume 107.3 fL (78-100); Mean Corpuscular Hemoglobin 36.5 pg (26-32); Mean Platelet Volume 10.9 fL (7.5-11.0); Monocyte (Absolute #) 0.52 x10^3/uL (0.0-1.3); Monocytes % 6.4 % (0.0-12.0); Neutrophil % 78.1 % (36.0-66.0); Platelet Count 203 x10^3/uL (150-450); White Blood Count 8.1 x10^3/uL (4.0-10.5)
[2023-03-04 22:11] LABS: ALBUMIN 4.4 g/dL (3.5-5.0); ALKALINE PHOSPHATASE 186 U/L (38-126); AMYLASE 75 U/L (30-110); ANION GAP 15.4 MEQ/L (5-15); BLOOD UREA NITROGEN 7 mg/dL (9-20); CHLORIDE 97 mmol/L (98-107); Calcium 9.5 mg/dL (8.4-10.2); Carbon Dioxide 28 mmol/L (22-30); Creatinine 1 0.61 mg/dL (0.66-1.25); EST GLOMERULAR FILTRATION RATE > 60.0 ML/MIN; Glucose 139 mg/dL (74-106); LIPASE 74 U/L (23-300); Potassium 3.9 mmol/L (3.5-5.1); SGOT/AST 32 U/L (17-59); SGPT/ALT 18 U/L (0-50); SODIUM 137 mmol/L (137-145); Total Protein 8.6 g/dL (6.3-8.2)
[2023-03-04 22:14] LABS: Appearance Clear (Clear); Bacteria None Seen /HPF (None Seen); Bilirubin Negative (Negative); Blood Negative (Negative); Epithelial Cells None Seen /HPF (None Seen); Glucose, Urine Negative (Negative); Hyaline Casts NONE SEEN /LPF (0-2); Ketones Negative (Negative); Leukocyte Esterase Negative (Negative); Nitrite Negative (Negative); Protein,Urine Dip Trace (Negative); RBC 0-2 /HPF (0-5); Urobilinogen 0.2 mg/dL (0.2); WBC 0-2 /HPF (0-5)
[2023-03-04 22:28] LABS: ADD URINE CULTURE? NO (NO)
[2023-03-04] MEDS ORDERED: Levofloxacin 500 MG Tablet PO ONE (23:08)
[2023-03-04] MEDS ORDERED: Flagyl 500 MG PO ONE (23:08)
[2023-03-04] MEDS ORDERED: solu-MEDROL 120 MG, Sterile H2O 10 ml 1 ML IV STA ×2 (23:09)
[2023-03-04] MEDS ORDERED: Sterile H2O 10 ml IJ ONE (23:15)
[2023-03-04] MEDS ORDERED: Flagyl 500 MG ONE (23:15)
[2023-03-04] MEDS ORDERED: Levofloxacin 500 MG Tablet ONE (23:15)
[2023-03-04] MEDS ORDERED: solu-MEDROL ONE (23:16)
[2023-03-04] MEDS ORDERED: ENALAPRILAT 2.5 MG INJECTION IV ONE ×2 (23:30→23:32)
[2023-03-05] MEDS ORDERED: TRANDATE 20 MG/4 ML SYRINGE IV ONE ×2 (00:21)
[2023-03-05 01:05] VITALS: O2SAT 93
[2023-03-05 01:29] VITALS: BP 187/91; PULSE 77
--- NOTE | 2023-03-05 08:53 | XRAY ---
Indication: Bilateral flank pain. Nausea and vomiting. Multiple contiguous axial images obtained through the abdomen and pelvis without contrast. Comparison: June 30, 2022 Lung bases demonstrates minimal dependent atelectasis. Heart borderline enlarged. Stable small hiatal hernia. Noncontrasted stomach and bowel loops nonobstructed again with normal appendix. There remains minimal sigmoid diverticulosis without diverticulitis. Distal rectum demonstrates new moderate circumferential wall thickening with minimal stranding favoring proctitis. Malignancy not completely excluded. Stable small left urinary bladder diverticulum. No free fluid/air. Remaining liver, gallbladder, pancreas, spleen, adrenal glands, kidneys, ureters, and bladder are unremarkable for noncontrast exam. Again mild scattered aortoiliac calcifications without AAA. Osseous structures intact again with osteopenia, mild/moderate degenerative changes throughout visualized spine, minimal dextroscoliosis, and L1/L5 Schmorl nodes. Superior endplate L2 demonstrates new remote appearing endplate fracture with approximately 25-50% height loss but no spinal canal/foraminal encroachment. Impression: 1. New distal rectal circumferential wall thickening with stranding favoring proctitis. Malignancy not completely excluded. 2. New finding remote L2 endplate fracture. 3. Again chronic findings including hiatal hernia, sigmoid diverticulosis, urinary bladder diverticulum, arteriosclerotic disease, and chronic bony findings.
== END 2023-03-05 01:37 | disposition home or self-care (01) ==
LOC: ED 21:00
DX: K62.89 Other specified diseases of anus and rectum (principal); M48.56XA Collapsed vertebra, not elsewhere classified, lumbar region, initial encounter for fracture; R10.9 Unspecified abdominal pain; I10 Essential (primary) hypertension; Z79.52 Long term (current) use of systemic steroids; Z79.891 Long term (current) use of opiate analgesic; Z79.899 Other long term (current) drug therapy; Z72.0 Tobacco use
CPT/HCPCS: 36000; 36415; 74176; 80053; 81001; 82150; 83690; 85025; 96374; 96375; 99284; J1170; J2405; J2920; A9270-GY

== ENCOUNTER 2023-03-05 18:44 | Emergency (ER) | payer MEDICARE ==
[2023-03-05] MEDS ORDERED: Flagyl 500 MG PO ONE (19:40)
[2023-03-05] MEDS ORDERED: HYDROCODONE-ACETAMIN 10-325 MG PO STA (19:40)
[2023-03-05] MEDS ORDERED: Cipro 500 MG PO STA (19:41)
[2023-03-05] MEDS ORDERED: HYDROCODONE-ACETAMIN 10-325 MG ONE ×2 (19:43→20:10)
[2023-03-05] MEDS ORDERED: Flagyl 500 MG ONE ×2 (19:43→20:11)
[2023-03-05] MEDS ORDERED: Cipro 500 MG ONE ×2 (19:43→20:10)
[2023-03-05] MEDS ORDERED: HYDROCODONE-ACETAMIN 10-325 MG PO PRN (20:05)
--- NOTE | 2023-03-05 20:05 | ERPHSYRPT ---
- History of Present Illness Time Seen by Provider: 03/05/23 19:32 Source: patient Exam Limitations: no limitations Patient Subjective Stated Complaint: pt here for lower back pain today. he was seen yesterday here and given antibotics, he only filled one rx because he did not have money Triage Nursing Assessment: pt alert, resp easy, skin w.d.p. abd soft, denies any difficult with b/b. Physician History: 68-year-old male with history of Crohn's disease, cirrhosis, chronic back pain, was evaluated yesterday for back pain, nausea vomiting and was found out that he has proctitis, was started on Cipro and Flagyl along with steroids. Patient does take pain medications at home which she was supposed to take but today patient presented with increasing back pain because he could not find his pain medications. Patient thinks somebody took them from his home. He denies any increase in the diarrhea, no vomiting and no abdominal pain today. No fever or chills reported. Patient did not have many and has not filled this prescription although he has taken couple of doses of Cipro which she had from previous leftover prescription. Patient reports he will be able to slat pickler his prescription hopefully tomorrow. He denies any numbness tingling or weakness of lower extremities, no loss of bowel or bladder control, no perineal numbness. Back pain is similar to previous and does not involve any new trauma. He is hurting more because he is could not find his pain medications. Patient does not want any work-up done but want to have some pain medication along with antibiotics. Allergies/Adverse Reactions: shellfish derived Allergy (Verified 03/04/23 21:05) Hives Home Medications: Diazepam 5 mg [Valium 5 MG] 5 mg PO DAILY 07/27/21 [History] Metoprolol Tartrate 25 mg [Lopressor 25MG Tab] 25 mg PO DAILY 07/27/21 [History] Lisinopril 20 mg [Zestril 20 MG] 40 mg PO DAILY 06/05/22 [History] Oxycodone / APAP 10/325 mg [Oxycodone-Acetaminophen 10-325] 1 tab PO TID PRN 06/05/22 [History] Hx Tetanus, Diphtheria Vaccination/Date Given: Yes Hx Influenza Vaccination/Date Given: No Hx Pneumococcal Vaccination/Date Given: No Immunizations Up to Date: Yes Travel Risk - International Travel Have you traveled outside of the country in past 3 weeks: No - Coronavirus Screening Are you exhibiting any of the following symptoms?: No - Vaccine Status Have you recieved a Covid-19 vaccination: Yes Sample Examiner: Moderna - Vaccination Dates Date of 2cond Vaccination (if applicable): unknown - Review of Systems Constitutional: No Symptoms Eyes: No Symptoms Respiratory: No Symptoms Cardiac: No Symptoms Abdominal/Gastrointestinal: Nausea Genitourinary Symptoms: No Symptoms Musculoskeletal: Arthralgias, Back Pain Skin: No Symptoms Neurological: No Symptoms Endocrine: No Symptoms Hematologic/Lymphatic: No Symptoms - Past Medical History Pertinent Past Medical History: Yes Neurological History: No Pertinent History ENT History: No Pertinent History Cardiac History: Hypertension Respiratory History: No Pertinent History Endocrine Medical History: No Pertinent History Musculoskeletal History: Fractures GI Medical History: Crohns Disease History: No Pertinent History Psycho-Social History: Anxiety, Depression Male Reproductive Disorders: No Pertinent History 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 - Past Surgical History Past Surgical History: Yes Neuro Surgical History: No Pertinent History Cardiac: No Pertinent History Respiratory: No Pertinent History Gastrointestinal: No Pertinent History Genitourinary: No Pertinent History Musculoskeletal: Orthopedic Surgery Male Surgical History: No Pertinent History Other Surgical History: R ankle, colonoscopy - Social History Smoking Status: Current every day smoker How long have you smoked: 48 years Exposure to second hand smoke: No Drug Use: none Patient Lives Alone: Yes - Nursing Vital Signs Nursing Vital Signs: Initial Vital Signs Temperature 98.9 F 03/05/23 18:51 Pulse Rate 85 03/05/23 18:51 Blood Pressure 176/113 03/05/23 18:51 O2 Sat by Pulse Oximetry 97 03/05/23 18:51 Pain Scale Pain Intensity [Back] 9 Pain Intensity 9 - Physical Exam General Appearance: no apparent distress, alert Eye Exam: PERRL/EOMI Neck Exam: normal inspection, full range of motion Respiratory Exam: normal breath sounds, lungs clear Cardiovascular Exam: regular rate/rhythm, normal heart sounds Gastrointestinal/Abdomen Exam: soft, normal bowel sounds, No tenderness, No distention, No guarding Back Exam: normal inspection, decreased range of motion, muscle spasm, point tenderness, No vertebral tenderness Extremity Exam: normal inspection, normal range of motion Neurologic Exam: alert, oriented x 3, cooperative, museum preparator II-XII nml as tested, sensation nml, No motor deficits Skin Exam: normal color SpO2 Interpretation: normal SpO2: 97 O2 Delivery: Room Air Ordered Tests: Medication Summary Generic Name Dose Route Start Last Admin Trade Name Freq PRN Reason Stop Dose Admin Hydrocodone Bitart/Acetaminophen 1 tablet 03/05/23 20:05 03/05/23 20:11 Hydrocodone/Acetamin 10-325 Mg Tablet PO 03/10/23 20:04 1 tablet Q4H PRN PRN Administration PAIN Ciprofloxacin 500 mg 03/05/23 22:00 03/05/23 20:11 Ciprofloxacin 500 Mg Tablet PO 04/04/23 21:59 500 mg BID MARIELY Administration Metronidazole 500 mg 03/05/23 22:00 03/05/23 20:11 Metronidazole 500 Mg Tablet PO 04/04/23 21:59 500 mg TID MARIELY Administration Discontinued Medications Generic Name Dose Route Start Last Admin Trade Name Freq PRN Reason Stop Dose Admin Hydrocodone Bitart/Acetaminophen 1 tablet 03/05/23 19:40 03/05/23 19:43 Hydrocodone/Acetamin 10-325 Mg Tablet PO 03/05/23 19:41 1 tablet ONCE STA Administration Hydrocodone Bitart/Acetaminophen Confirm 03/05/23 19:43 Hydrocodone/Acetamin 10-325 Mg Tablet Administered 03/05/23 19:44 Dose 1 tablet .ROUTE .STK-MED ONE Ciprofloxacin 500 mg 03/05/23 19:41 03/05/23 19:43 Ciprofloxacin 500 Mg Tablet PO 03/05/23 19:42 500 mg ONCE STA Administration Ciprofloxacin Confirm 03/05/23 19:43 Ciprofloxacin 500 Mg Tablet Administered 03/05/23 19:44 Dose 500 mg .ROUTE .STK-MED ONE Metronidazole 500 mg 03/05/23 19:40 03/05/23 19:43 Metronidazole 500 Mg Tablet PO 03/05/23 19:41 500 mg STAT ONE Administration Metronidazole Confirm 03/05/23 19:43 Metronidazole 500 Mg Tablet Administered 03/05/23 19:44 Dose 500 mg .ROUTE .STK-MED ONE - Progress Progress: improved, pain not gone completely, re-examined Progress Note: 03/05/23 20:25 68-year-old male with history of Crohn's disease, cirrhosis, chronic back pain, was evaluated yesterday for back pain, nausea vomiting and was found out that he has proctitis, was started on Cipro and Flagyl along with steroids. Patient does take pain medications at home which she was supposed to take but today patient presented with increasing back pain because he could not find his pain medications. Patient thinks somebody took them from his home. He denies any increase in the diarrhea, no vomiting and no abdominal pain today. No fever or chills reported. Patient did not have many and has not filled this prescription although he has taken couple of doses of Cipro which she had from previous leftover prescription. Patient reports he will be able to slat pickler his prescription hopefully tomorrow. He denies any numbness tingling or weakness of lower extremities, no loss of bowel or bladder control, no perineal numbness. Back pain is similar to previous and does not involve any new trauma. He is hurting more because he is could not find his pain medications. Patient does not want any work-up done but want to have some pain medication along with antibiotics. He is given oral [place] 10, on reevaluation pain is better but not completely resolved but bearable. Patient is requesting pain medications to go home. Patient does get his pain medications regularly from pain management/primary care and [facility] but is thinking about going to Suboxone clinic. His pain management doctor would not be in the clinic until next Friday. Patient does understand that he probably have a contract with his primary pain management doctor and getting few pain pills from the ER would be a violation of his contract that could lead to getting fired from pain management practice but still wants few pain pills as patient says "I cannot stay with this back pain until next Friday". He is not confused or altered at all, abdominal exam is soft nontender, no cauda equina symptoms. Pain is similar to previous. I have also given him a dose of Cipro and Flagyl in here and will give 1 day doses to go home. Patient reports he will probably slat pickler his prescription tomorrow as he is hoping to have some money tomorrow. He is not in any distress, nontoxic appearance, vitally stable, do think that he would be okay without work-up today as he wished to do so. Discussed signs symptoms of worsening needing return to ER which he seems understanding. Stable for discharge. Counseled pt/family regarding: diagnosis, need for follow-up, smoking cessation Medical Desision Making - Social Determinants of Health Pt's dx & treatment plan are significantly limited by SDOH: financial hardships - Risk of complications The pt has a mod risk of morbidity or mortality based on: Need for prescription drug management - Departure Departure Disposition: Home Clinical Impression: Proctitis, Low back pain Condition: Stable Critical Care Time: No Referrals: LEILANI ATKINS MD [Primary Care Provider] - Follow up with PCP 1 day Instructions: Low Back Pain (DC) Additional Instructions: Continue with antibiotics and take pain medications as recommended. Follow-up with your primary care and pain management for reevaluation. Return to ER for intractable back pain, abdominal pain, intractable diarrhea/vomiting/fever chills. Also return to ER for numbness tingling weakness of lower extremities/loss of bowel or bladder control/perineal numbness. Prescriptions: Hydrocodone/Acetaminophen [Hydrocodone-Acetamin 7.5-325] 1 each PO Q6HPRN PRN 3 Days #12 tablet MDD 4 PRN Reason: Pain
[2023-03-05 20:43] VITALS: BP 163/108; PULSE 72; O2SAT 98
[2023-03-05] MEDS ORDERED: Cipro 500 MG PO SCH (22:00)
[2023-03-05] MEDS ORDERED: Flagyl 500 MG PO SCH (22:00)
== END 2023-03-05 20:43 | disposition home or self-care (01) ==
LOC: ED 18:44
DX: K62.89 Other specified diseases of anus and rectum (principal); M54.50 Low back pain, unspecified; I10 Essential (primary) hypertension; Z79.891 Long term (current) use of opiate analgesic; Z79.899 Other long term (current) drug therapy; Z72.0 Tobacco use
CPT/HCPCS: 99282; A9270-GY

== ENCOUNTER 2023-03-07 11:49 | Observation (INO) | payer MEDICARE ==
--- NOTE | 2023-03-07 12:42 | ERPHSYRPT ---
- History of Present Illness Historian: patient Exam Limitations: other (Poor historian) Patient Subjective Stated Complaint: pt return visit for co lower back for over a week now, states he is unable to sleep, took aleve. no bm for 3 days Triage Nursing Assessment: pt alert, resp easy, skin w/d/p. walked in, abd soft,no edema noted Physician History: 68 yo WM w h/o Crohn's disease presents w supra-pubic pain and lumbar pain x 4 days. It is his 3rd ER visit in the last 10 days. Pt is on cipro/flagyl for proctitis but has not filled his Rx for prednisone. Pain is described as an ache and 8/10 on scale. He has had nausea wo vomiting but has not has a BM x 3 days. Fever/melena/hematochezia/dysuria/hematuria are all denied. He smokes 1ppd and occasionally drinks alcohol. Dr. Atkins is his family MD, and he sees a GI specialist at [facility]. Timing/Duration: day(s) (3 days) Activities at Onset: rest Quality: aching Abdominal Pain Onset Location: suprapubic Pain Radiation: flank Severity of Pain-Max: severe Severity of Pain-Current: severe Modifying Factors: Improves With: nothing Associated Symptoms: back Previous symptoms: same symptoms as today Allergies/Adverse Reactions: shellfish derived Allergy (Verified 03/07/23 12:01) Hives Home Medications: Diazepam 5 mg [Valium 5 MG] 5 mg PO DAILY 07/27/21 [History] Metoprolol Tartrate 25 mg [Lopressor 25MG Tab] 25 mg PO DAILY 07/27/21 [History] Lisinopril 20 mg [Zestril 20 MG] 40 mg PO DAILY 06/05/22 [History] Oxycodone / APAP 10/325 mg [Oxycodone-Acetaminophen 10-325] 1 tab PO TID PRN 06/05/22 [History] Hx Tetanus, Diphtheria Vaccination/Date Given: Yes Hx Influenza Vaccination/Date Given: No Hx Pneumococcal Vaccination/Date Given: No Immunizations Up to Date: Yes Travel Risk - International Travel Have you traveled outside of the country in past 3 weeks: No - Coronavirus Screening Are you exhibiting any of the following symptoms?: No Close contact with a COVID-19 positive Pt in past 14-21 Days: No - Vaccine Status Have you recieved a Covid-19 vaccination: Yes 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 - Vaccination Dates Date of 2cond Vaccination (if applicable): unknown - Review of Systems Constitutional: No Symptoms Eyes: No Symptoms Ears, Nose, & Throat: No Symptoms Respiratory: No Symptoms Cardiac: Orthopnea Abdominal/Gastrointestinal: No Symptoms, Abdominal Pain, Constipation Genitourinary Symptoms: No Symptoms Musculoskeletal: No Symptoms Skin: No Symptoms Neurological: No Symptoms Psychological: No Symptoms Endocrine: No Symptoms Hematologic/Lymphatic: No Symptoms Immunological/Allergic: No Symptoms - Past Medical History Pertinent Past Medical History: Yes Neurological History: No Pertinent History ENT History: No Pertinent History Cardiac History: Hypertension Respiratory History: No Pertinent History Endocrine Medical History: No Pertinent History Musculoskeletal History: Fractures GI Medical History: Crohns Disease History: No Pertinent History Psycho-Social History: Anxiety, Depression Male Reproductive Disorders: No Pertinent History 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 - Past Surgical History Past Surgical History: Yes Neuro Surgical History: No Pertinent History Cardiac: No Pertinent History Respiratory: No Pertinent History Gastrointestinal: No Pertinent History Genitourinary: No Pertinent History Musculoskeletal: Orthopedic Surgery Male Surgical History: No Pertinent History Other Surgical History: R ankle, colonoscopy - Social History Smoking Status: Current every day smoker How long have you smoked: 48 years Exposure to second hand smoke: No Drug Use: none Patient Lives Alone: Yes - Nursing Vital Signs Nursing Vital Signs: Initial Vital Signs Temperature 98.0 F 03/07/23 12:09 Pulse Rate 57 L 03/07/23 12:09 Respiratory Rate 18 03/07/23 12:09 Blood Pressure 187/89 03/07/23 12:09 O2 Sat by Pulse Oximetry 99 03/07/23 12:09 Pain Scale Pain Intensity 9 Jb/hypertensive - Physical Exam General Appearance: no apparent distress Eye Exam: PERRL/EOMI, eyes nml inspection Ears, Nose, Throat Exam: normal ENT inspection, TMs normal, pharynx normal, moist mucous membranes Neck Exam: normal inspection, non-tender, supple, full range of motion, No meningismus, No mass, No Brudzinski, No Kernig's, No carotid bruit Respiratory Exam: normal breath sounds, lungs clear, airway intact, No respiratory distress Cardiovascular Exam: bradycardia, capillary refill <2 sec, No murmur Gastrointestinal/Abdomen Exam: soft, normal bowel sounds, tenderness (Mild supra-pubic TTP wo guarding or rebound) Back Exam: CVA tenderness (Mild B), vertebral tenderness (Mild L-spine TTP) Extremity Exam: normal inspection, normal range of motion, pelvis stable Neurologic Exam: alert, oriented x 3, cooperative, physical anthropologist II-XII nml as tested, normal mood/affect, nml cerebellar function, nml station & gait, sensation nml Skin Exam: normal color, warm, dry Lymphatic Exam: No adenopathy SpO2 Interpretation: normal SpO2: 99 O2 Delivery: Room Air Ordered Tests: Active Orders 24 hr Category Date Time Status Bedrest with BRP/BSC ROUTINE Activity 03/07/23 15:10 Ordered Code Status Order ROUTINE Care 03/07/23 15:09 Ordered IV Care Q6H Care 03/07/23 15:[address] in Observation ROUTINE Care 03/07/23 15:09 Ordered Vital Signs Q4H Care 03/07/23 15:09 Ordered Consult Surgery ROUTINE Cons 03/07/23 15:09 Ordered Clear Liquid Diet 03/08/23 Breakfast Ordered ABDOMEN AND PELVIS W/0 CONTRAS [CT] Stat Exams 03/07/23 13:48 Completed AMYLASE Stat Lab 03/07/23 12:49 Completed CBC W DIFF AM.LAB Lab 03/08/23 04:00 Ordered CBC W DIFF Stat Lab 03/07/23 12:49 Completed CMP AM.LAB Lab 03/08/23 04:00 Ordered CMP Stat Lab 03/07/23 12:49 Completed ESR [Erythrocyte Sedimentation Rate] Stat Lab 03/07/23 12:45 Completed LIPASE Stat Lab 03/07/23 12:49 Completed Lactic Acid Stat Lab 03/07/23 12:50 Completed UA W/RFX UR CULTURE Stat Lab 03/07/23 12:37 Completed Urine Triage Profile Stat Lab 03/07/23 12:37 Received Transfer Order Routine Transfer 03/07/23 Ordered Medication Summary Generic Name Dose Route Start Last Admin Trade Name Freq PRN Reason Stop Dose Admin Levofloxacin/Dextrose 750 mg in 150 mls @ 100 mls/hr 03/08/23 10:00 Levofloxacin 750mg/150ml D5w IV 04/07/23 09:59 Q24H10 MARIELY Metronidazole 500 mg in 100 mls @ 200 mls/hr 03/07/23 18:00 Flagyl 500 Mg Ivpb IV 04/06/23 17:59 Q6HT MARIELY Lactated Ringer's 1,000 mls @ 75 mls/hr 03/07/23 15:30 Lactated Ringers IV 04/06/23 15:29 .[id number] MARIELY Ondansetron HCl 4 mg 03/07/23 15:09 Ondansetron Hcl 4 Mg/2 Ml Vial IV 04/06/23 15:08 Q6H PRN PRN NAUSEA/VOMITING Pantoprazole Sodium 40 mg 03/08/23 10:00 Pantoprazole 40 Mg Vial IV 04/07/23 09:59 Q24H10 MARIELY Discontinued Medications Generic Name Dose Route Start Last Admin Trade Name Freq PRN Reason Stop Dose Admin Fentanyl Citrate 50 mcg 03/07/23 15:08 Fentanyl Citrate 100 Mcg/2 Ml* Vial IV 03/07/23 15:09 STAT ONE Ketorolac Tromethamine 15 mg 03/07/23 14:17 03/07/23 14:38 Ketorolac Tromethamine 30 Mg/Ml Inj IV 03/07/23 14:18 15 mg STAT ONE Administration Ketorolac Tromethamine Confirm 03/07/23 14:37 Ketorolac Tromethamine 30 Mg/Ml Inj Administered 03/07/23 14:38 Dose 30 mg .ROUTE .STK-MED ONE Ondansetron HCl 4 mg 03/07/23 15:08 Ondansetron Hcl 4 Mg/2 Ml Vial IV 03/07/23 15:09 STAT ONE Lab/Rad Data: Laboratory Result Diagrams 03/07/23 12:49 03/07/23 12:49 Laboratory Results 03/07/23 03/07/23 03/07/23 Range/Units 12:50 12:49 12:49 WBC 12.2 H (4.0-10.5) x10^3/uL RBC 4.97 (4.1-5.6) x10^6/uL Hgb 18.3 H (12.5-18.0) g/dL Hct 53.6 H (42-50) % MCV 107.8 H (78-100) fL MCH 36.8 H (26-32) pg MCHC 34.1 (32-36) g/dL RDW 13.1 (11.5-14.0) % Plt Count 218 (150-450) x10^3/uL MPV 10.2 (7.5-11.0) fL Gran % 80.4 H (36.0-66.0) % Immature Gran % (Auto) 0.7 H (0.00-0.4) % Nucleat RBC Rel Count 0.0 (0.00-0.1) % Eos # (Auto) 0.10 (0-0.5) x10^3/uL Immature Gran # (Auto) 0.08 H (0.00-0.03) x10^3u/L Absolute Lymphs (auto) 1.38 (1.0-4.6) x10^3/uL Absolute Monos (auto) 0.79 (0.0-1.3) x10^3/uL Absolute Nucleated RBC 0.00 (0.00-0.01) x10^3u/L Lymphocytes % 11.3 L (24.0-44.0) % Monocytes % 6.5 (0.0-12.0) % Eosinophils % 0.8 (0.00-5.0) % Basophils % 0.3 (0.0-0.4) % Absolute Granulocytes 9.83 H (1.4-6.9) x10^3/uL Basophils # 0.04 (0-0.4) x10^3/uL ESR (0-15) mm/hr Sodium 132 L (137-145) mmol/L Potassium 4.4 (3.5-5.1) mmol/L Chloride 96 L (98-107) mmol/L Carbon Dioxide 28 (22-30) mmol/L Anion Gap 12.7 (5-15) MEQ/L BUN 11 (9-20) mg/dL Creatinine 0.71 (0.66-1.25) mg/dL Estimated GFR > 60.0 ML/MIN Glucose 131 H (74-106) mg/dL Lactic Acid 1.4 (0.4-2.0) Calcium 9.1 (8.4-10.2) mg/dL Total Bilirubin 0.90 (0.2-1.3) mg/dL AST 31 (17-59) U/L ALT 16 (0-50) U/L Alkaline Phosphatase 126 (38-126) U/L Serum Total Protein 7.1 (6.3-8.2) g/dL Albumin 3.7 (3.5-5.0) g/dL Amylase 41 (30-110) U/L Lipase 160 (23-300) U/L Urine Color (Yellow) Urine Appearance (Clear) Urine pH (4.6-8.0) Ur Specific [place] (1.005-1.030) Urine Protein (Negative) Urine Glucose (UA) (Negative) mg/dL Urine Ketones (Negative) Urine Blood (Negative) Urine Nitrite (Negative) Urine Bilirubin (Negative) Urine Urobilinogen (0.2) mg/dL Ur Leukocyte Esterase (Negative) U Hyaline Cast (Auto) (0-2) /LPF Urine Microscopic RBC (0-5) /HPF Urine Microscopic WBC (0-5) /HPF Ur Epithelial Cells (None Seen) /HPF Urine Bacteria (None Seen) /HPF Urine Culture Reflexed (NO) 03/07/23 03/07/23 Range/Units 12:45 12:37 WBC (4.0-10.5) x10^3/uL RBC (4.1-5.6) x10^6/uL Hgb (12.5-18.0) g/dL Hct (42-50) % MCV (78-100) fL MCH (26-32) pg MCHC (32-36) g/dL RDW (11.5-14.0) % Plt Count (150-450) x10^3/uL MPV (7.5-11.0) fL Gran % (36.0-66.0) % Immature Gran % (Auto) (0.00-0.4) % Nucleat RBC Rel Count (0.00-0.1) % Eos # (Auto) (0-0.5) x10^3/uL Immature Gran # (Auto) (0.00-0.03) x10^3u/L Absolute Lymphs (auto) (1.0-4.6) x10^3/uL Absolute Monos (auto) (0.0-1.3) x10^3/uL Absolute Nucleated RBC (0.00-0.01) x10^3u/L Lymphocytes % (24.0-44.0) % Monocytes % (0.0-12.0) % Eosinophils % (0.00-5.0) % Basophils % (0.0-0.4) % Absolute Granulocytes (1.4-6.9) x10^3/uL Basophils # (0-0.4) x10^3/uL ESR 20 H (0-15) mm/hr Sodium (137-145) mmol/L Potassium (3.5-5.1) mmol/L Chloride (98-107) mmol/L Carbon Dioxide (22-30) mmol/L Anion Gap (5-15) MEQ/L BUN (9-20) mg/dL Creatinine (0.66-1.25) mg/dL Estimated GFR ML/MIN Glucose (74-106) mg/dL Lactic Acid (0.4-2.0) Calcium (8.4-10.2) mg/dL Total Bilirubin (0.2-1.3) mg/dL AST (17-59) U/L ALT (0-50) U/L Alkaline Phosphatase (38-126) U/L Serum Total Protein (6.3-8.2) g/dL Albumin (3.5-5.0) g/dL Amylase (30-110) U/L Lipase (23-300) U/L Urine Color Dark Yellow (Yellow) Urine Appearance Clear (Clear) Urine pH 6.5 (4.6-8.0) Ur Specific [place] 1.020 (1.005-1.030) Urine Protein Trace A (Negative) Urine Glucose (UA) Negative (Negative) mg/dL Urine Ketones 15 A (Negative) Urine Blood Negative (Negative) Urine Nitrite Negative (Negative) Urine Bilirubin Negative (Negative) Urine Urobilinogen 1.0 A (0.2) mg/dL Ur Leukocyte Esterase Negative (Negative) U Hyaline Cast (Auto) NONE SEEN (0-2) /LPF Urine Microscopic RBC 0-2 (0-5) /HPF Urine Microscopic WBC 0-2 (0-5) /HPF Ur Epithelial Cells None Seen (None Seen) /HPF Urine Bacteria None Seen (None Seen) /HPF Urine Culture Reflexed NO (NO) - Departure Departure Disposition: Observation Clinical Impression: Proctitis Condition: Stable Critical Care Time: No Referrals: LEILANI ATKINS MD [Primary Care Provider] - Follow up/PCP as directed
[2023-03-07 12:46] LABS: Appearance Clear (Clear); Bacteria None Seen /HPF (None Seen); Bilirubin Negative (Negative); Blood Negative (Negative); Epithelial Cells None Seen /HPF (None Seen); Glucose, Urine Negative (Negative); Hyaline Casts NONE SEEN /LPF (0-2); Ketones 15 (Negative); Leukocyte Esterase Negative (Negative); Nitrite Negative (Negative); Ph 6.5 (4.6-8.0); Protein,Urine Dip Trace (Negative); RBC 0-2 /HPF (0-5); WBC 0-2 /HPF (0-5)
[2023-03-07 12:50] LABS: Absolute Neutrophil Ct (ANC) 9.83 x10^3/uL (1.4-6.9); BASOPHIL % 0.3 % (0.0-0.4); Basophil (Absolute #) 0.04 x10^3/uL (0-0.4); Eosinophil % 0.8 % (0.00-5.0); Hematocrit 53.6 % (42-50); Hemoglobin 18.3 g/dL (12.5-18.0); IMMATURE GRAN # 0.08 x10^3u/L (0.00-0.03); IMMATURE GRAN % 0.7 % (0.00-0.4); Lymphocyte (Absolute #) 1.38 x10^3/uL (1.0-4.6); Lymphocytes % 11.3 % (24.0-44.0); Mean Cell Volume 107.8 fL (78-100); Mean Corpuscular Hemoglobin 36.8 pg (26-32); Mean Corpuscular Hgb Concent. 34.1 g/dL (32-36); Mean Platelet Volume 10.2 fL (7.5-11.0); Monocyte (Absolute #) 0.79 x10^3/uL (0.0-1.3); Monocytes % 6.5 % (0.0-12.0); Neutrophil % 80.4 % (36.0-66.0); Platelet Count 218 x10^3/uL (150-450); Red Blood Count 4.97 x10^6/uL (4.1-5.6); Red Cell Distribution Width 13.1 % (11.5-14.0); White Blood Count 12.2 x10^3/uL (4.0-10.5)
[2023-03-07 12:51] LABS: ADD URINE CULTURE? NO (NO)
[2023-03-07 13:10] LABS: ALBUMIN 3.7 g/dL (3.5-5.0); ALKALINE PHOSPHATASE 126 U/L (38-126); AMYLASE 41 U/L (30-110); ANION GAP 12.7 MEQ/L (5-15); BLOOD UREA NITROGEN 11 mg/dL (9-20); CHLORIDE 96 mmol/L (98-107); Calcium 9.1 mg/dL (8.4-10.2); Carbon Dioxide 28 mmol/L (22-30); Creatinine 1 0.71 mg/dL (0.66-1.25); EST GLOMERULAR FILTRATION RATE > 60.0 ML/MIN; Glucose 131 mg/dL (74-106); LIPASE 160 U/L (23-300); Potassium 4.4 mmol/L (3.5-5.1); SGOT/AST 31 U/L (17-59); SGPT/ALT 16 U/L (0-50); SODIUM 132 mmol/L (137-145); Total Protein 7.1 g/dL (6.3-8.2)
[2023-03-07] MEDS ORDERED: TORAdol 30 mg Injection IV ONE (14:17)
--- NOTE | 2023-03-07 14:29 | XRAY ---
Indication: Abdomen pain. Multiple contiguous axial images obtained through the abdomen and pelvis without contrast. Comparison: March 04, 2023 Lung bases again demonstrates minimal dependent atelectasis, borderline cardiomegaly, and small hiatal hernia. Noncontrasted stomach and bowel loops again nonobstructed with normal appearing appendix and minimal sigmoid diverticulosis. Stable distal rectal wall circumferential wall thickening with minimal stranding again possible proctitis versus malignancy. Again incidental small left urinary bladder diverticulum. No free fluid/air. Remaining liver, gallbladder, pancreas, spleen, adrenal glands, kidneys, ureters, and bladder are unremarkable for noncontrast exam. Stable mild scattered aortoiliac calcifications without AAA. Impression: No change compared to ER CT abdomen/pelvis 3 days ago. Again distal rectal circumferential wall thickening with stranding possibly proctitis versus malignancy. Chronic findings including hiatal hernia, sigmoid diverticulosis, urinary bladder diverticulum, and arteriosclerotic disease. No new abnormalities.
[2023-03-07] MEDS ORDERED: TORAdol 30 mg Injection ONE (14:37)
[2023-03-07] MEDS ORDERED: SUBLIMAZE 100 MCG/2 ML IV ONE (15:08)
[2023-03-07] MEDS ORDERED: Zofran 4 MG/2 ML VIAL IV ONE (15:08)
[2023-03-07] MEDS ORDERED: Zofran 4 MG/2 ML VIAL IV PRN (15:09)
[2023-03-07] MEDS ORDERED: SUBLIMAZE 100 MCG/2 ML IV PRN (15:14)
[2023-03-07] MEDS: FLAGYL 500 MG IVPB 500 MG/100 ML BAG IV SCH (15:24)
[2023-03-07] MEDS: Lactated Ringers 1,000 ML IV SCH (15:59)
[2023-03-07] MEDS: LEVOFLOXACIN 750MG/150ML D5W 750 MG/150 ML BAG IV SCH (16:36)
[2023-03-07] MEDS ORDERED: Valium 5 MG PO PRN (16:48)
[2023-03-07] MEDS: solu-MEDROL 60 MG, Sterile H2O 10 ml 2 ML IV SCH ×4 (17:47→20:56)
[2023-03-07] MEDS: PROTONIX 40 MG IV IV SCH (17:47)
[2023-03-07] MEDS: OXYCODONE-ACETAMINOPHEN 10-325 PO PRN ×2 (18:17→23:16)
[2023-03-07 20:10] LABS: Amphetamine,Urine NEGATIVE (NEGATIVE); Barbiturate,Urine NEGATIVE (NEGATIVE); Cocaine,Urine NEGATIVE (NEGATIVE); Methadone,Urine NEGATIVE (NEGATIVE); Opiate,Urine POSITIVE (NEGATIVE); PCP,Urine NEGATIVE (NEGATIVE); THC,Urine NEGATIVE (NEGATIVE)
[2023-03-07 20:55] LABS: Benzodiazepine,Urine POSITIVE (NEGATIVE)
[2023-03-07] MEDS: TORAdol 30 mg Injection IV PRN (20:55)
[2023-03-08] MEDS: FLAGYL 500 MG IVPB 500 MG/100 ML BAG IV SCH ×4 (00:21→17:29)
[2023-03-08] MEDS: OXYCODONE-ACETAMINOPHEN 10-325 PO PRN ×4 (05:45→22:54)
[2023-03-08] MEDS: Lactated Ringers 1,000 ML IV SCH (05:45)
[2023-03-08] MEDS: solu-MEDROL 60 MG, Sterile H2O 10 ml 2 ML IV SCH ×6 (05:46→22:54)
[2023-03-08 05:49] LABS: Absolute Neutrophil Ct (ANC) 7.82 x10^3/uL (1.4-6.9); BASOPHIL % 0.1 % (0.0-0.4); Basophil (Absolute #) 0.01 x10^3/uL (0-0.4); Eosinophil % 0.3 % (0.00-5.0); Eosinophil (Absolute #) 0.03 x10^3/uL (0-0.5); Hematocrit 52.6 % (42-50); Hemoglobin 17.9 g/dL (12.5-18.0); IMMATURE GRAN # 0.06 x10^3u/L (0.00-0.03); IMMATURE GRAN % 0.7 % (0.00-0.4); Lymphocyte (Absolute #) 0.63 x10^3/uL (1.0-4.6); Lymphocytes % 7.3 % (24.0-44.0); Mean Cell Volume 107.6 fL (78-100); Mean Corpuscular Hemoglobin 36.6 pg (26-32); Mean Platelet Volume 10.4 fL (7.5-11.0); Monocyte (Absolute #) 0.09 x10^3/uL (0.0-1.3); Neutrophil % 90.6 % (36.0-66.0); Platelet Count 228 x10^3/uL (150-450); Red Blood Count 4.89 x10^6/uL (4.1-5.6); Red Cell Distribution Width 13.2 % (11.5-14.0); White Blood Count 8.6 x10^3/uL (4.0-10.5)
[2023-03-08 06:29] LABS: ALBUMIN 3.8 g/dL (3.5-5.0); ALKALINE PHOSPHATASE 110 U/L (38-126); ANION GAP 13.6 MEQ/L (5-15); BLOOD UREA NITROGEN 15 mg/dL (9-20); CHLORIDE 96 mmol/L (98-107); Calcium 8.5 mg/dL (8.4-10.2); Carbon Dioxide 25 mmol/L (22-30); Creatinine 1 0.68 mg/dL (0.66-1.25); EST GLOMERULAR FILTRATION RATE > 60.0 ML/MIN; Glucose 191 mg/dL (74-106); Potassium 4.6 mmol/L (3.5-5.1); SGOT/AST 25 U/L (17-59); SGPT/ALT 17 U/L (0-50); SODIUM 130 mmol/L (137-145); Total Protein 7.3 g/dL (6.3-8.2)
[2023-03-08] MEDS: LEVOFLOXACIN 750MG/150ML D5W 750 MG/150 ML BAG IV SCH (09:20)
[2023-03-08] MEDS: PROTONIX 40 MG IV IV SCH (09:21)
[2023-03-08] MEDS: TORAdol 30 mg Injection IV PRN ×2 (09:21→16:48)
[2023-03-08] MEDS: Lopressor 50 MG PO SCH (09:21)
--- NOTE | 2023-03-08 15:03 | PCM.HP ---
History of Present Illness - Chief Complaint Chief Complaint: proctitis History of Present Illness: is a 68 year old male Crohn's disease presents w supra-pubic pain and lumbar pain x 4 days. It is his 3rd ER visit in the last 10 days. Pt is on cipro/flagyl for proctitis but has not filled his Rx for prednisone. Pain is described as an ache and 8/10 on scale. He has had nausea wo vomiting but has not has a BM x 3 days. Patient denies fever/melena/hematochezia/dysuria/hematuria . He smokes 1ppd and occasionally drinks alcohol. Dr. Bunn is his family MD, and he sees a GI specialist at [facility]. Medications & Allergies Home Medications: Home Medication List Diazepam 5 mg [Valium 5 MG] 5 mg PO Q8HPRN PRN 07/27/21 [History Confirmed 03/07/23] Oxycodone / APAP 10/325 mg [Oxycodone-Acetaminophen 10-325] 1 tab PO Q8HP RN PRN 06/05/22 [History Confirmed 03/07/23] Ciprofloxacin [Cipro 500 MG] 500 mg PO BID #14 tablet 03/04/23 [Rx Confirmed 03/07/23] Metronidazole 500 mg [Flagyl 500 MG] 500 mg PO TID #21 tablet 03/04/23 [Rx Confirmed 03/07/23] Prednisone 10 mg [Deltasone 10 mg] 10 mg PO TID #12 tablet 03/04/23 [Rx Confirmed 03/07/23] Metoprolol Tartrate 50 mg [Lopressor 50 MG] 100 mg PO DAILY 03/07/23 [History Confirmed 03/07/23] Ketorolac Trometh 10 mg Tab [TORAdol 10 MG TABLET] 10 mg PO BID PRN 3 Days #6 tablet 03/09/23 [Rx] Levofloxacin [Levofloxacin 500 MG Tablet] 500 mg PO DAILY 3 Days #3 tablet 03/09/23 [Rx] Allergies/Adverse Reactions: Allergies Allergy/AdvReac Type Severity Reaction Status Date / Time shellfish derived Allergy Hives Verified 03/07/23 12:01 - Past Medical History Past Medical History: Yes Neurological History: No Pertinent History ENT History: No Pertinent History Cardiac History: Hypertension Respiratory History: No Pertinent History Endocrine Medical History: No Pertinent History Musculoskelatal History: Fractures GI Medical History: Crohns Disease, Other History: No Pertinent History Pyscho-Social History: Anxiety, Depression Male Reproductive Disorders: No Pertinent History Comment: Proctitis; 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 - Past Surgical History Past Surgical History: Yes Neuro Surgical History: No Pertinent History Cardiac History: No Pertinent History Respiratory Surgery: No Pertinent History GI Surgical History: No Pertinent History Genitourinary Surgical Hx: No Pertinent History Musculskeletal Surgical Hx: Orthopedic Surgery Male Surgical History: No Pertinent History Other Surgical History: R ankle, colonoscopy - Social History Smoking Status: Current every day smoker How long have you smoked: 49 years Exposure to second hand smoke: No Alcohol: Weekly Drug Use: none - Physical Exam Vital Signs: Vital Signs - 24 hr Temp Pulse Resp BP Pulse Ox 03/08/23 11:33 97.8 F 63 17 175/89 97 03/08/23 06:53 97.1 F 65 18 163/91 96 03/08/23 04:00 97.8 F 58 L 18 126/79 96 03/08/23 00:00 98.0 F 53 L 18 139/71 93 L 03/07/23 20:00 97.4 F 56 L 17 168/86 97 03/07/23 16:44 97.8 F 57 L 18 183/99 96 03/07/23 15:15 99 Results - Labs Lab/Micro Results: Lab Results-Last 24 Hours 03/07/23 03/08/23 03/08/23 Range/Units 12:37 05:30 05:30 WBC 8.6 (4.0-10.5) x10^3/uL RBC 4.89 (4.1-5.6) x10^6/uL Hgb 17.9 (12.5-18.0) g/dL Hct 52.6 H (42-50) % MCV 107.6 H (78-100) fL MCH 36.6 H (26-32) pg MCHC 34.0 (32-36) g/dL RDW 13.2 (11.5-14.0) % Plt Count 228 (150-450) x10^3/uL MPV 10.4 (7.5-11.0) fL Gran % 90.6 H (36.0-66.0) % Immature Gran % (Auto) 0.7 H (0.00-0.4) % Nucleat RBC Rel Count 0.0 (0.00-0.1) % Eos # (Auto) 0.03 (0-0.5) x10^3/uL Immature Gran # (Auto) 0.06 H (0.00-0.03) x10^3u/L Absolute Lymphs (auto) 0.63 L (1.0-4.6) x10^3/uL Absolute Monos (auto) 0.09 (0.0-1.3) x10^3/uL Absolute Nucleated RBC 0.00 (0.00-0.01) x10^3u/L Lymphocytes % 7.3 L (24.0-44.0) % Monocytes % 1.0 (0.0-12.0) % Eosinophils % 0.3 (0.00-5.0) % Basophils % 0.1 (0.0-0.4) % Absolute Granulocytes 7.82 H (1.4-6.9) x10^3/uL Basophils # 0.01 (0-0.4) x10^3/uL Sodium 130 L (137-145) mmol/L Potassium 4.6 (3.5-5.1) mmol/L Chloride 96 L (98-107) mmol/L Carbon Dioxide 25 (22-30) mmol/L Anion Gap 13.6 (5-15) MEQ/L BUN 15 (9-20) mg/dL Creatinine 0.68 (0.66-1.25) mg/dL Estimated GFR > 60.0 ML/MIN Glucose 191 H (74-106) mg/dL Calcium 8.5 (8.4-10.2) mg/dL Total Bilirubin 0.90 (0.2-1.3) mg/dL AST 25 (17-59) U/L ALT 17 (0-50) U/L Alkaline Phosphatase 110 (38-126) U/L Serum Total Protein 7.3 (6.3-8.2) g/dL Albumin 3.8 (3.5-5.0) g/dL Urine Opiates Level POSITIVE (NEGATIVE) Ur Methadone NEGATIVE (NEGATIVE) Urine Barbiturates NEGATIVE (NEGATIVE) Ur Phencyclidine (PCP) NEGATIVE (NEGATIVE) Urine Amphetamine NEGATIVE (NEGATIVE) U Benzodiazepine Level POSITIVE (NEGATIVE) Urine Cocaine NEGATIVE (NEGATIVE) Urine Marijuana (THC) NEGATIVE (NEGATIVE) - Radiology Impressions Radiology Exams & Impressions: Radiology Procedures Category Date Time Status ABDOMEN AND PELVIS W/0 CONTRAS [CT] Stat Exams 03/07/23 13:48 Completed
[2023-03-08] MEDS: Sodium Chloride 0.9% 1000 ML 1,000 ML IV SCH (15:47)
[2023-03-09] MEDS: FLAGYL 500 MG IVPB 500 MG/100 ML BAG IV SCH ×3 (00:55→11:20)
[2023-03-09] MEDS: Sodium Chloride 0.9% 1000 ML 1,000 ML IV SCH (02:48)
[2023-03-09] MEDS: TORAdol 30 mg Injection IV PRN ×2 (02:53→11:53)
[2023-03-09] MEDS: solu-MEDROL 60 MG, Sterile H2O 10 ml 2 ML IV SCH ×2 (05:47)
[2023-03-09] MEDS: OXYCODONE-ACETAMINOPHEN 10-325 PO PRN ×2 (09:37→14:29)
[2023-03-09] MEDS: Lopressor 50 MG PO SCH (09:38)
[2023-03-09] MEDS: PROTONIX 40 MG IV IV SCH (09:38)
[2023-03-09] MEDS: LEVOFLOXACIN 750MG/150ML D5W 750 MG/150 ML BAG IV SCH (09:39)
[2023-03-09 11:41] VITALS: BP 167/84; PULSE 84; O2SAT 94
--- NOTE | 2023-03-09 14:52 | PCM.DCORD ---
- Discharge Disposition: Home, Self-Care Condition: Stable Prescriptions: New Levofloxacin [Levofloxacin 500 MG Tablet] 500 mg PO DAILY 3 Days #3 tablet Ketorolac Trometh 10 mg Tab [TORAdol 10 MG TABLET] 10 mg PO BID PRN 3 Days #6 tablet PRN Reason: Pain Continue Diazepam 5 mg [Valium 5 MG] 5 mg PO Q8HPRN PRN PRN Reason: Anxiety Oxycodone / APAP 10/325 mg [Oxycodone-Acetaminophen 10-325] 1 tab PO Q8HPRN PRN PRN Reason: Pain Ciprofloxacin [Cipro 500 MG] 500 mg PO BID #14 tablet Prednisone 10 mg [Deltasone 10 mg] 10 mg PO TID #12 tablet Metronidazole 500 mg [Flagyl 500 MG] 500 mg PO TID #21 tablet Metoprolol Tartrate 50 mg [Lopressor 50 MG] 100 mg PO DAILY Instructions: Colitis, Rock Diet Follow up with: LEILANI ATKINS MD [Primary Care Provider] - Call for Appointment
--- NOTE | 2023-03-09 14:57 | PCM.NOTE ---
Date and Time: 03/09/23 1452 Subjective Assessment: Patient states his abdominal pain is gone and he had a big BM today brown no red or black stool(left it in toilet fo me to see)States he ate a good breakfast of biscuits and gravy and denies and nausea . Patient states that he lives at home with his brother and [id number]. His PCP is Dr Bunn and he will call for an appt. Dr Bunn prescribes his Oxycodone and inspect shows he had Rx 02/21/23 for #90. He takes this for chronic back pain. Objective Exam General Appearance: no apparent distress Neurologic Exam: alert, oriented x 3, cooperative, normal mood/affect Skin Exam: normal color, warm, dry Neck Exam: normal inspection Cardiovascular Exam: regular rate/rhythm Gastrointestinal/Abdomen Exam: soft, normal bowel sounds (nontender) OBJECTIVE DATA Vital Signs: Vital Signs - 24 hr Temp Pulse Resp BP Pulse Ox 03/09/23 11:35 97.9 F 84 16 167/84 94 L 03/09/23 06:41 97.6 F 50 L 16 162/74 97 03/09/23 03:51 97.9 F 53 L 16 143/67 92 L 03/09/23 00:00 97.5 F 57 L 19 167/75 95 03/08/23 19:33 98.1 F 71 17 122/66 98 03/08/23 16:00 97.3 F 65 17 145/73 95 Pain Assessment - Last Documented Pain Intensity 4 Pain Scale Used 0-10 Pain Scale Intake and Output: Intake & Output 03/07/23 03/08/23 03/09/23 03/10/23 11:59 11:59 11:59 11:59 Intake Total 20143 240 Output Total 226 2525 Balance 1540 1038 240 Weight 87.997 kg Assessment/Plan (1) Proctitis Status: Resolved Assessment & Plan: Patient is followed by GI at [facility] and has follow up. Code(s): K62.89 - OTHER SPECIFIED DISEASES OF ANUS AND RECTUM (2) Crohn's disease Status: Chronic Qualifiers: Code(s): K50.90 - CROHN'S DISEASE, UNSPECIFIED, WITHOUT COMPLICATIONS (3) Abdominal pain Status: Resolved Qualifiers: Abdominal location: generalized Qualified Code(s): R10.84 - Generalized abdominal pain Code(s): R10.9 - UNSPECIFIED ABDOMINAL PAIN (4) Chronic back pain Status: Chronic Qualifiers: Back pain location: low back pain Code(s): M54.9 - DORSALGIA, UNSPECIFIED; G89.29 - OTHER CHRONIC PAIN
--- NOTE | 2023-03-11 12:11 | CONS ---
CONSULT DATE: 03/07/2023 HISTORY: This is a 68-year-old apparently Dr. Bunn is his family doctor. He came into the emergency room for some lower back pain, suprapubic pain for a few days. He is on Cipro and Flagyl but did not fill his prednisone prescription. He denies any bloody stools. He does have history of Crohn's. Apparently he has GI specialist at [facility]. PAST MEDICAL HISTORY: Hypertension, Crohn's. Anxiety. Depression. PAST SURGICAL HISTORY: Right ankle surgery. He had colonoscopy in the past. No abdominal surgery. He had melanoma of the back. HOME MEDICATIONS: Metoprolol, lisinopril, oxycodone. ALLERGIES: NKDA. SHELLFISH (HIVES). FAMILY HISTORY: Negative in regards to this problem. SOCIAL HISTORY: Smoker. No alcohol abuse. REVIEW OF SYSTEMS: Fourteen systems reviewed pertinent for lumbar back pain, a lit bit of chronic obstructive pulmonary disease. He denies any rectal bleeding. LAB DATA AND TESTS: Liver function test, amylase and lipase are pending. White count 12, hemoglobin 18, PLT 218,000. PHYSICAL EXAMINATION: Temperature 98F, pulse 57, blood pressure 187/89. O2 saturation 99% on room air. GENERAL: No acute distress. HEENT: Sclera nonicteric. EOMI. Oropharynx moist mucous membranes. NECK: No JVD. CHEST: Equal excursion, nonlabored breathing. CVS: Regular rate and rhythm. ABDOMEN: Soft. No peritoneal signs. EXTREMITIES: No edema. No cyanosis. NEURO: Alert, moving extremities grossly symmetrically. PSYCH: Appropriate mood and affect. SKIN: Dry. IMPRESSION: A 68-year-old with lumbar pain, suprapubic pain, history of Crohn's disease and a little bit of proctitis. He has not had bloody stools. He is nontoxic. He does not need emergent surgical intervention. He is not taking Crohn's medication. He needs to follow up with his GI doctor who will likely want to do his endoscopy and follow up his treatment with them again. He does not need acute general surgical intervention here. He is to follow up with his medical physician when stable. He needs to do at least a follow up with his GI specialist at [facility] for his Crohn's disease. Again, no emergent surgery or endoscopy necessary here. Continue medical management. Follow up with GI specialist.
== END 2023-03-09 14:45 | disposition home or self-care (01) ==
LOC: ED 11:49 → MED SURG 15:36
PROVIDERS: ADMIT Family Medicine; ATTEND Family Medicine
DX: K62.89 Other specified diseases of anus and rectum (principal); K50.90 Crohn's disease, unspecified, without complications; R10.9 Unspecified abdominal pain; M54.9 Dorsalgia, unspecified; I10 Essential (primary) hypertension; Z72.0 Tobacco use; Z79.899 Other long term (current) drug therapy; Z20.828 Contact with and (suspected) exposure to other viral communicable diseases; Z85.820 Personal history of malignant melanoma of skin
CPT/HCPCS: 36415; 74176; 80053; 80307; 81001; 82150; 83605; 83690; 85025; 85652; 96374; 96375; 99284; G0378; J1885; J1956; J2405; J2930; J3010; A9270-GY

== ENCOUNTER 2023-03-11 14:02 | Emergency (ER) | payer MEDICARE ==
[2023-03-11 14:17] VITALS: PULSE 98; O2SAT 97
--- NOTE | 2023-03-11 14:36 | ERPHSYRPT ---
- History of Present Illness Time Seen by Provider: 03/11/23 14:30 Source: patient Exam Limitations: no limitations Patient Subjective Stated Complaint: pt here for pain to lower back, pt has had multi visits for the same issue this month. 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 He has had 2 CAT scans which show the same findings which including old/remote L2 fracture, rectal wall thickeningproctitis versus malignancy. He has a history of Crohn's disease, hypertension, anxiety, depression and cirrhosis. He has a primary care provider who has an office in [facility]. He has a GI specialist who has not followed up with since he has been diagnosed with the above issue of rectal wall thickening proctitis versus malignancy. He has been told to follow-up with both his primary care provider and the GI specialist. He was given a prescription by his primary care provider on 02/21/2023 which she told me today he takes 3 oxycodone pain pills a day. On 02/21/2023 he received a prescription for 90 of those pills. However, he states he cannot find that prescription. He was recently admitted and discharged into the hospital for the same issue here at [facility]. Admission date was 03/07/2023 and discharge date was 03/09/2023. He is here today because he is still having the low back pain and thinks he was discharged too soon. There have been no other changes in his condition since he was discharged from the hospital. He denies chest pain. He denies shortness of breath. He does not have significant abdominal pain. He h as had no urinary incontinence. He has had no bowel incontinence. He does not have any numbness down to his feet. Method of Injury: other (No injury) Back Pain Location: lumbar spine Severity of Pain-Max: moderate Severity of Pain-Current: moderate Modifying Factors: Improves With: movement Associated Symptoms: lower back pain, No urinary incontinence, No loss of bowel control, No constipation, No problems urinating, No numbness in legs/feet Previous symptoms: same symptoms as today, recently seen, recent hospitalizat ion, recently treated Allergies/Adverse Reactions: shellfish derived Allergy (Verified 03/11/23 14:13) Hives Home Medications: Diazepam 5 mg [Valium 5 MG] 5 mg PO Q8HPRN PRN 07/27/21 [History] Metoprolol Tartrate 50 mg [Lopressor 50 MG] 100 mg PO DAILY 03/07/23 [History] Hx Tetanus, Diphtheria Vaccination/Date Given: No Hx Influenza Vaccination/Date Given: No Hx Pneumococcal Vaccination/Date Given: No Immunizations Up to Date: Yes Travel Risk - International Travel Have you traveled outside of the country in past 3 weeks: No - Coronavirus Screening Are you exhibiting any of the following symptoms?: No Close contact with a COVID-19 positive Pt in past 14-21 Days: No - Vaccine Status Have you recieved a Covid-19 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: 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 - Vaccination Dates Date of 2cond Vaccination (if applicable): unknown - Review of Systems Constitutional: No Symptoms Eyes: No Symptoms Ears, Nose, & Throat: No Symptoms Respiratory: No Symptoms Cardiac: No Symptoms Abdominal/Gastrointestinal: No Symptoms Genitourinary Symptoms: No Symptoms Musculoskeletal: Back Pain Skin: No Symptoms Neurological: No Symptoms Psychological: No Symptoms Endocrine: No Symptoms Hematologic/Lymphatic: No Symptoms Immunological/Allergic: No Symptoms All Other Systems: Reviewed and Negative - Past Medical History Pertinent Past Medical History: Yes Neurological History: No Pertinent History ENT History: No Pertinent History Cardiac History: Hypertension Respiratory History: No Pertinent History Endocrine Medical History: No Pertinent History Musculoskeletal History: Fractures GI Medical History: Crohns Disease, Other History: No Pertinent History Psycho-Social History: Anxiety, Depression Male Reproductive Disorders: No Pertinent History Other Medical History: Proctitis; 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 - Past Surgical History Past Surgical History: Yes Neuro Surgical History: No Pertinent History Cardiac: No Pertinent History Respiratory: No Pertinent History Gastrointestinal: No Pertinent History Genitourinary: No Pertinent History Musculoskeletal: Orthopedic Surgery Male Surgical History: No Pertinent History Other Surgical History: R ankle, colonoscopy - Social History Smoking Status: Current every day smoker How long have you smoked: 49 years Exposure to second hand smoke: No Drug Use: none Patient Lives Alone: No - Nursing Vital Signs Nursing Vital Signs: Initial Vital Signs Temperature 97.4 F 03/11/23 14:17 Pulse Rate 98 H 03/11/23 14:17 Respiratory Rate 18 03/11/23 14:17 Blood Pressure 131/90 03/11/23 14:17 O2 Sat by Pulse Oximetry 97 03/11/23 14:17 Pain Scale Pain Intensity [Back] 9 Pain Intensity 9 - Physical Exam General Appearance: no apparent distress, alert, anxiety, obese Eye Exam: PERRL/EOMI, eyes nml inspection Ears, Nose, Throat Exam: normal ENT inspection, moist mucous membranes Neck Exam: normal inspection, non-tender, supple, full range of motion Respiratory Exam: normal breath sounds, lungs clear, airway intact, No chest tenderness, No respiratory distress Cardiovascular Exam: regular rate/rhythm, normal heart sounds, normal peripheral pulses Gastrointestinal Exam: soft, normal bowel sounds, No tenderness Rectal Exam: not done Back Exam: normal inspection, normal range of motion, No CVA tenderness, No vertebral tenderness Extremity Exam: normal inspection, normal range of motion, pelvis stable Neurologic Exam: alert, oriented x 3, cooperative, lead designer II-XII nml as tested, normal mood/affect, nml cerebellar function, nml station & gait, sensation nml Skin Exam: normal color, warm, dry Lymphatic Exam: No adenopathy SpO2 Interpretation: normal SpO2: 97 O2 Delivery: Room Air Ordered Tests: Active Orders 24 hr Category Date Time Status CBC W DIFF Stat Lab 03/11/23 15:02 Completed CMP Stat Lab 03/11/23 15:16 Completed Medication Summary Discontinued Medications Generic Name Dose Route Start Last Admin Trade Name Freq PRN Reason Stop Dose Admin Hydromorphone HCl 1 mg 03/11/23 15:40 Hydromorphone 1 Mg/1ml Inj IM 03/11/23 15:41 STAT ONE Ondansetron HCl 4 mg 03/11/23 15:40 Zofran 4 Mg/Udtablet Orally Disintegrating PO 03/11/23 15:41 STAT ONE Lab/Rad Data: Laboratory Result Diagrams 03/11/23 15:02 03/11/23 15:16 Laboratory Results 03/11/23 03/11/23 Range/Units 15:16 15:02 WBC 9.9 (4.0-10.5) x10^3/uL RBC 5.07 (4.1-5.6) x10^6/uL Hgb 18.5 H (12.5-18.0) g/dL Hct 53.5 H (42-50) % MCV 105.5 H (78-100) fL MCH 36.5 H (26-32) pg MCHC 34.6 (32-36) g/dL RDW 12.7 (11.5-14.0) % Plt Count 208 (150-450) x10^3/uL MPV 10.7 (7.5-11.0) fL Gran % 69.7 H (36.0-66.0) % Immature Gran % (Auto) 0.5 H (0.00-0.4) % Nucleat RBC Rel Count 0.0 (0.00-0.1) % Eos # (Auto) 0.18 (0-0.5) x10^3/uL Immature Gran # (Auto) 0.05 H (0.00-0.03) x10^3u/L Absolute Lymphs (auto) 1.70 (1.0-4.6) x10^3/uL Absolute Monos (auto) 1.04 (0.0-1.3) x10^3/uL Absolute Nucleated RBC 0.00 (0.00-0.01) x10^3u/L Lymphocytes % 17.2 L (24.0-44.0) % Monocytes % 10.5 (0.0-12.0) % Eosinophils % 1.8 (0.00-5.0) % Basophils % 0.3 (0.0-0.4) % Absolute Granulocytes 6.90 (1.4-6.9) x10^3/uL Basophils # 0.03 (0-0.4) x10^3/uL Sodium 135 L (137-145) mmol/L Potassium 3.4 L (3.5-5.1) mmol/L Chloride 94 L (98-107) mmol/L Carbon Dioxide 33 H (22-30) mmol/L Anion Gap 10.9 (5-15) MEQ/L BUN 10 (9-20) mg/dL Creatinine 0.65 L (0.66-1.25) mg/dL Estimated GFR > 60.0 ML/MIN Glucose 147 H (74-106) mg/dL Calcium 8.4 (8.4-10.2) mg/dL Total Bilirubin 1.20 (0.2-1.3) mg/dL AST 27 (17-59) U/L ALT 25 (0-50) U/L Alkaline Phosphatase 118 (38-126) U/L Serum Total Protein 7.1 (6.3-8.2) g/dL Albumin 3.7 (3.5-5.0) g/dL - Progress Progress: improved, pain not gone completely Progress Note: 03/11/23 15:09 This patient's medical issue is 1 of low complexity today. The patient has had repeat work-up within the last 6 days including twice having undergone CT scans of the abdomen pelvis and 1 admission into the hospital from the emergency department. The patient has a diagnosis of a remote L2 fracture, rectal wall thickening either proctitis versus malignancy. He had some issues with obtaining the antibiotics which she should still be taking and he says he is. He also states power he cannot find a prescription of oxycodone that was written for him by his primary care provider for 30-day supply. He specifically states that he takes the medicine 3 times a day. Inspect shows that the patient received 90 tablets on 02/21/2023. Patient has vital signs today that are stable. We will obtain lab work-up and if his labs are stable, I will not repeat the CAT scan of the abdomen pelvis. I will give him a dose of hydromorphone and Zofran. He will then be discharged to home and he is to follow-up specifically with his primary care provider tomorrow and GI specialist tomorrow. He is to call both of them and obtain appointment within 3 days. 03/11/23 15:42 Patient's laboratory data is stable. There are no acute emergent findings on his blood work today. Patient has chronic back pain from a remote L2 fracture which he was told to follow-up with his primary care provider to manage. He also has rectal wall thickening that is either proctitis or malignancy. He was told to follow-up with his primary care provider and a GI specialist. He is hemodynamically stable today. His laboratory work-up today is stable. He can be discharged to home to follow-up as above. Counseled pt/family regarding: lab results, diagnosis, need for follow-up Medical Desision Making - External Record(s) Reviewed Records reviewed as a part of evaluation & management: Inpatient - Diagnostic Testing Diagnostic test were ordered, analyzed, and reviewed by me: Yes - Departure Departure Disposition: Home Clinical Impression: Back pain Condition: Stable Critical Care Time: No Referrals: LEILANI ATKINS MD [Primary Care Provider] - Follow up/PCP as directed Additional Instructions: Continue your medication as prescribed. Follow-up with your primary care provider today by phone to make arranges for a follow-up visit within the next 3 days. Call your GI specialist today to make arranges for follow-up appointment within the next 3 days.
[2023-03-11 15:15] LABS: BASOPHIL % 0.3 % (0.0-0.4); Basophil (Absolute #) 0.03 x10^3/uL (0-0.4); Eosinophil % 1.8 % (0.00-5.0); Eosinophil (Absolute #) 0.18 x10^3/uL (0-0.5); Hematocrit 53.5 % (42-50); Hemoglobin 18.5 g/dL (12.5-18.0); IMMATURE GRAN # 0.05 x10^3u/L (0.00-0.03); IMMATURE GRAN % 0.5 % (0.00-0.4); Lymphocytes % 17.2 % (24.0-44.0); Mean Cell Volume 105.5 fL (78-100); Mean Corpuscular Hemoglobin 36.5 pg (26-32); Mean Corpuscular Hgb Concent. 34.6 g/dL (32-36); Mean Platelet Volume 10.7 fL (7.5-11.0); Monocyte (Absolute #) 1.04 x10^3/uL (0.0-1.3); Monocytes % 10.5 % (0.0-12.0); Neutrophil % 69.7 % (36.0-66.0); Platelet Count 208 x10^3/uL (150-450); Red Blood Count 5.07 x10^6/uL (4.1-5.6); Red Cell Distribution Width 12.7 % (11.5-14.0); White Blood Count 9.9 x10^3/uL (4.0-10.5)
[2023-03-11 15:25] LABS: ALBUMIN 3.7 g/dL (3.5-5.0); ALKALINE PHOSPHATASE 118 U/L (38-126); ANION GAP 10.9 MEQ/L (5-15); BLOOD UREA NITROGEN 10 mg/dL (9-20); CHLORIDE 94 mmol/L (98-107); Calcium 8.4 mg/dL (8.4-10.2); Carbon Dioxide 33 mmol/L (22-30); Creatinine 1 0.65 mg/dL (0.66-1.25); EST GLOMERULAR FILTRATION RATE > 60.0 ML/MIN; Glucose 147 mg/dL (74-106); Potassium 3.4 mmol/L (3.5-5.1); SGOT/AST 27 U/L (17-59); SGPT/ALT 25 U/L (0-50); SODIUM 135 mmol/L (137-145); Total Protein 7.1 g/dL (6.3-8.2)
[2023-03-11] MEDS ORDERED: Hydromorphone 1 mg/ml Injection IM ONE (15:40)
[2023-03-11] MEDS ORDERED: ZOFRAN ODT 4 MG PO ONE (15:40)
[2023-03-11] MEDS ORDERED: ZOFRAN ODT 4 MG ONE (15:42)
[2023-03-11] MEDS ORDERED: Hydromorphone 1 mg/ml Injection ONE (15:43)
[2023-03-11 15:50] VITALS: BP 145/106
== END 2023-03-11 15:59 | disposition home or self-care (01) ==
LOC: ED 14:02
DX: M54.50 Low back pain, unspecified (principal); I10 Essential (primary) hypertension; Z79.891 Long term (current) use of opiate analgesic; Z79.899 Other long term (current) drug therapy; Z72.0 Tobacco use
CPT/HCPCS: 36415; 80053; 85025; 96372; 99283; J1170; Q0162

== ENCOUNTER 2023-08-03 09:35 | Observation (INO) | payer MEDICARE ==
[2023-08-03] MEDS ORDERED: Sodium Chloride 0.9% 1000 ML 1,000 ML IV STA (10:08)
[2023-08-03] MEDS ORDERED: Zofran 4 MG/2 ML VIAL IV ONE (10:08)
[2023-08-03] MEDS ORDERED: MORPHINE SULFATE 2 MG INJ IV ONE (10:08)
--- NOTE | 2023-08-03 10:10 | ERPHSYRPT ---
- History of Present Illness Time Seen by Provider: 08/03/23 09:55 Historian: patient Exam Limitations: no limitations Patient Subjective Stated Complaint: Diarrhea Triage Nursing Assessment: Patient ambulated back to ED and transferred self to bed. Patient A+O x3. Patient's skin pink, warm and dry. Patient complains of abdominal pain 8/10 and diarrhea that started last night. Abdomen soft and round with BS X 4. Patient states one month ago he was hospitalized for C-Diff for 3 days at [facility]. Physician History: The patient presents with a history of recent C. diff infection, which was treated last month with oral Vancomycin and Flagyl. The diarrhea had improved, and the patient had started to have solid bowel movements. However, the patient reports that the diarrhea has returned and has been experiencing it since yesterday evening. The patient has not been on any antibiotics since the initial treatment for C. diff. The patient also reports the onset of a cough, congestion, and an upset stomach since yesterday evening. They have been experiencing diarrhea and dry heaving but have not vomited. There has been no blood in the diarrhea. The patient reports generalized abdominal pain, which is not localized to any specific area. They have a history of Crohn's disease, with their last colonoscopy performed ap proximately a year ago. The patient has not had any recent flare-ups of Crohn's disease and has not had any abdominal surgeries. He takes no daily medications for his Crohn's disease. The patient consumes alcohol occasionally, about twice a week, but not in large quantities. They have not experienced any chest pain or difficulty breathing, and the primary concern is abdominal pain. The patient was last able to keep food down yesterday morning but has been able to drink fluids. There is no repo rted swelling in the legs, testicle pain, penile discharge, or burning during urination. The patient has not had any fevers and is allergic to shellfish. Timing/Duration: yesterday Activities at Onset: rest Quality: sharpness Abdominal Pain Onset Location: generalized abdomen Pain Radiation: no radiation Severity of Pain-Max: severe Severity of Pain-Current: moderate Associated Symptoms: diarrhea, loss of appetite, nausea, No back, No chest pain, No diaphoresis, No fever/chills, No headache, No rash, No shortness of breath, No testicular pain, No vomiting Previous symptoms: same symptoms as today, recent hospitalization, recently treated Allergies/Adverse Reactions: shellfish derived Allergy (Verified 08/03/23 09:49) Hives Home Medications: Diazepam 5 mg [Valium 5 MG] 5 mg PO Q8HPRN PRN 07/27/21 [History] Allopurinol 100 mg [Zyloprim 100 mg] 100 mg PO DAILY 08/03/23 [History] Amlodipine Besylate [Norvasc] 10 mg PO DAILY 08/03/23 [History] Losartan Potassium 50 mg [Cozaar 50 MG] 50 mg PO DAILY 08/03/23 [History] Oxycodone / APAP 10/325 mg [Oxycodone-Acetaminophen 10-325] 1 tab PO Q8HPRN PRN 08/03/23 [History] Potassium Chloride Tab* [Klor Con] 10 meq PO DAILY 08/03/23 [History] Sildenafil Citrate [Viagra] 50 mg PO DAILY PRN PRN 08/03/23 [History] Hx Tetanus, Diphtheria Vaccination/Date Given: No Hx Influenza Vaccination/Date Given: No Hx Pneumococcal Vaccination/Date Given: No Immunizations Up to Date: Yes Travel Risk - International Travel Have you traveled outside of the country in past 3 weeks: No - Coronavirus Screening Are you exhibiting any of the following symptoms?: No Close contact with a COVID-19 positive Pt in past 14-21 Days: No - Vaccine Status Have you recieved a Covid-19 vaccination: No Patents Examiner: Unknown - Vaccination Dates Dates if Unknown: na - Review of Systems All Other Systems: Reviewed and Negative (As per HPI) - Past Medical History Pertinent Past Medical History: Yes Neurological History: No Pertinent History ENT History: No Pertinent History Cardiac History: Hypertension Respiratory History: No Pertinent History Endocrine Medical History: No Pertinent History Musculoskeletal History: Fractures GI Medical History: Crohns Disease, Other History: No Pertinent History Psycho-Social History: Anxiety, Depression Male Reproductive Disorders: No Pertinent History Other Medical History: Proctitis; 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 - Past Surgical History Past Surgical History: Yes Neuro Surgical History: No Pertinent History Cardiac: No Pertinent History Respiratory: No Pertinent History Gastrointestinal: No Pertinent History Genitourinary: No Pertinent History Musculoskeletal: Orthopedic Surgery Male Surgical History: No Pertinent History Other Surgical History: R ankle, colonoscopy - Social History Smoking Status: Never smoker How long have you smoked: years Exposure to second hand smoke: No Drug Use: none Patient Lives Alone: No - Nursing Vital Signs Nursing Vital Signs: Initial Vital Signs Temperature 96.7 F 08/03/23 09:52 Pulse Rate 105 H 08/03/23 09:52 Respiratory Rate 18 08/03/23 09:52 Blood Pressure 117/89 08/03/23 09:52 O2 Sat by Pulse Oximetry 97 08/03/23 09:52 Pain Scale Pain Intensity 8 - Physical Exam SpO2: 97 Comments: 08/04/23 20:35 General: Mild distress. Awake and conversant. Pale appearing Eyes: Normal conjunctiva, anicteric. Round symmetric pupils. ENT: Hearing grossly intact. No nasal discharge. Neck: Neck is supple. No masses or thyromegaly. Respiratory: Respirations are non-labored. No wheezing. Abdomen: Soft, non-distended, TTP suprapubic, LLQ, RUQ, no guarding, no rebound, no rigidity, Neg Zapata Skin: Warm. No rashes or ulcers. Psych: Alert and oriented. Cooperative, Appropriate mood and affect, Normal judgment. CV: No lower extremity edema. MSK: Normal ambulation. No clubbing or cyanosis. Neuro: Sensation and CN II-XII grossly normal. - Course EKG Interpreted by Me: RATE (91), Sinus Rhythm, Right Bundle Branch Block, Other (QTc 471) - CT Exams Abdomen/Pelvis CT Interpretation: Tele-radiologist Report (small hiatal hernia, mild fat stranding along the mesenteric border with fluid attenuation in wall of ascending and transverse colon concerning for inflammatory pathology, diverticular disease w/o diverticulitis, thickened gallbladder johnson, mild periheptic and pelvic ascites) Ordered Tests: Medication Summary Generic Name Dose Route Start Last Admin Trade Name Freq PRN Reason Stop Dose Admin Acetaminophen 325 mg 08/03/23 15:14 Acetaminophen 325 Mg Tablet PO 09/02/23 15:13 Q4H PRN PRN PAIN, FEVER, HEADACHE Albuterol/Ipratropium 3 ml 08/03/23 15:14 Ipratropium/Albuterol Sulfate 3 Ml Ampul.Neb IH 09/02/23 15:13 Q6HPRN PRN SHORTNESS OF BREATH/WHEEZING Allopurinol 100 mg 08/04/23 10:00 08/04/23 08:40 Allopurinol 100 Mg Tablet PO 09/03/23 09:59 100 mg DAILY MARIELY Administration Amlodipine Besylate 10 mg 08/04/23 10:00 08/04/23 08:39 Amlodipine Besylate 5 Mg Tablet PO 09/03/23 09:59 10 mg DAILY MARIELY Administration Enoxaparin Sodium 40 mg 08/04/23 10:00 08/04/23 08:40 Enoxaparin Sodium 40 Mg/0.4 Ml Syringe SQ 09/03/23 09:59 40 mg DAILY MARIELY Administration Hydralazine HCl 5 mg 08/03/23 16:37 Hydralazine Hcl 20 Mg/Ml Vial IV 09/02/23 16:36 [id number] PRN HYPERTENSION Sodium Chloride 1,000 mls @ 100 mls/hr 08/03/23 15:15 08/04/23 11:34 Sodium Chloride 0.9% 1000 Ml IV 09/02/23 15:14 100 mls/hr .Q10H MARIELY Administration Piperacillin Sod/Tazobactam 100 mls @ 200 mls/hr 08/04/23 09:00 08/04/23 16:04 Sod 3.375 gm/ Sodium Chloride IV 08/07/23 08:59 200 mls/hr Q6H MARIELY Administration Losartan Potassium 50 mg 08/04/23 10:00 08/04/23 08:39 Losartan Potassium 50 Mg Tablet PO 09/03/23 09:59 50 mg DAILY MARIELY Administration Nicotine 21 mg 08/04/23 10:00 08/04/23 10:46 Nicotine 21 Mg/Patch Patch TOP 09/03/23 09:59 21 mg Q24H10 MARIELY Administration Ondansetron HCl 4 mg 08/03/23 15:14 Ondansetron Hcl 4 Mg/2 Ml Vial IV 09/02/23 15:13 Q6H PRN PRN NAUSEA/VOMITING Oxycodone/Acetaminophen 1 tab 08/03/23 16:59 08/04/23 17:11 Oxycodone / Apap 10/325 Mg 1 Tablet PO 08/08/23 16:58 1 tab Q4H PRN PRN Administration PAIN Pantoprazole Sodium 20 mg 08/04/23 14:11 08/04/23 16:04 Pantoprazole 20 Mg Tab PO 09/03/23 14:10 20 mg DAILY MARIELY Administration Discontinued Medications Generic Name Dose Route Start Last Admin Trade Name Kasey PRN Reason Stop Dose Admin Methylprednisolone Sodium 0 mg 08/03/23 10:11 08/03/23 10:44 Succinate 125 mg/ Sterile IV 08/03/23 10:12 125 mg Water 2 ml STAT ONE Administration Sodium Chloride 1,000 mls @ 999 mls/hr 08/03/23 10:08 08/03/23 12:04 Sodium Chloride 0.9% 1000 Ml IV 08/03/23 11:08 Infused .Q1H1M STA Infusion Sodium Chloride Confirm 08/03/23 10:41 Sodium Chloride 0.9% 1000 Ml Administered 08/03/23 10:42 Dose 1,000 mls @ ud .ROUTE .STK-MED ONE Ceftriaxone Sodium/Dextrose 2 g in 50 mls @ 100 mls/hr 08/03/23 12:44 08/03/23 13:35 Rocephin 2 Gm-D5w 50ml Bag IV 08/03/23 13:13 Infused STAT STA Infusion Metronidazole 500 mg in 100 mls @ 200 mls/hr 08/03/23 12:45 08/03/23 14:07 Flagyl 500 Mg Ivpb IV 08/03/23 13:14 Infused STAT STA Infusion Ceftriaxone Sodium/Dextrose Confirm 08/03/23 12:57 Rocephin 2 Gm-D5w 50ml Bag Administered 08/03/23 12:58 Dose 2 g in 50 mls @ ud IV .STK-MED ONE Metronidazole Confirm 08/03/23 13:35 Flagyl 500 Mg Ivpb Administered 08/03/23 13:36 Dose 500 mg in 100 mls @ ud IV .STK-MED ONE Piperacillin Sod/Tazobactam 100 mls @ 200 mls/hr 08/03/23 18:00 08/03/23 18:10 Sod 3.375 gm/ Sodium Chloride IV 08/06/23 17:59 200 mls/hr Q6HT MARIELY Administration Metronidazole 500 mg in 100 mls @ 200 mls/hr 08/03/23 18:00 08/03/23 17:34 Flagyl 500 Mg Ivpb IV 09/02/23 17:59 200 mls/hr Q6HT MARIELY Administration Metronidazole 500 mg in 100 mls @ 200 mls/hr 08/04/23 12:00 08/04/23 11:34 Flagyl 500 Mg Ivpb IV 09/03/23 11:59 200 mls/hr Q6HT MARIELY Administration Magnesium Oxide 400 mg 08/04/23 08:06 08/04/23 08:39 Magnesium Oxide 400 Mg Tablet PO 08/04/23 08:07 400 mg ONCE ONE Administration Methylprednisolone Sodium Succinate Confirm 08/03/23 10:41 Methylprednis Sod Succ 125 Mg/2 Ml Vial Administered 08/03/23 10:42 Dose 125 mg .ROUTE .STK-MED ONE Morphine Sulfate 2 mg 08/03/23 10:08 08/03/23 10:44 Morphine Sulfate 2 Mg/Ml Inj IV 08/03/23 10:09 2 mg STAT ONE Administration Morphine Sulfate Confirm 08/03/23 10:41 Morphine Sulfate 2 Mg/Ml Inj Administered 08/03/23 10:42 Dose 2 mg .ROUTE .STK-MED ONE Morphine Sulfate 4 mg 08/03/23 11:21 08/03/23 11:27 Morphine Sulfate 4 Mg/Ml Injection IV 08/03/23 11:22 4 mg STAT ONE Administration Morphine Sulfate Confirm 08/03/23 11:25 Morphine Sulfate 4 Mg/Ml Injection Administered 08/03/23 11:26 Dose 4 mg .ROUTE .STK-MED ONE Ondansetron HCl 4 mg 08/03/23 10:08 08/03/23 10:44 Ondansetron Hcl 4 Mg/2 Ml Vial IV 08/03/23 10:09 4 mg STAT ONE Administration Ondansetron HCl Confirm 08/03/23 10:41 Ondansetron Hcl 4 Mg/2 Ml Vial Administered 08/03/23 10:42 Dose 4 mg .ROUTE .STK-MED ONE Oxycodone/Acetaminophen 1 tab 08/03/23 15:17 08/03/23 16:16 Oxycodone / Apap 10/325 Mg 1 Tablet PO 08/08/23 15:16 1 tab Q8HPRN PRN Administration PAIN Potassium Chloride 20 meq 08/03/23 16:15 08/03/23 22:02 Potassium Chloride Tab 10 Meq Tab PO 08/03/23 22:16 20 meq Q2H MARIELY Administration Sterile Water Confirm 08/03/23 10:41 Water For Injection,Sterile 10 Ml Vial Administered 08/03/23 10:42 Dose 10 ml IJ .STK-MED ONE Vancomycin HCl 125 mg 08/03/23 18:29 08/03/23 22:02 Vancomycin Hcl 125 Mg Capsule PO 08/13/23 18:28 125 mg QID MARIELY Administration Lab/Rad Data: Laboratory Result Diagrams 08/03/23 10:20 08/03/23 14:07 Laboratory Results 08/03/23 08/03/23 08/03/23 Range/Units 14:07 14:07 13:20 WBC (4.0-10.5) x10^3/uL RBC (4.1-5.6) x10^6/uL Hgb (12.5-18.0) g/dL Hct (42-50) % MCV (78-100) fL MCH (26-32) pg MCHC (32-36) g/dL RDW (11.5-14.0) % Plt Count (150-450) x10^3/uL MPV (7.5-11.0) fL Gran % (36.0-66.0) % Immature Gran % (Auto) (0.00-0.4) % Nucleat RBC Rel Count (0.00-0.1) % Eos # (Auto) (0-0.5) x10^3/uL Immature Gran # (Auto) (0.00-0.03) x10^3u/L Absolute Lymphs (auto) (1.0-4.6) x10^3/uL Absolute Monos (auto) (0.0-1.3) x10^3/uL Absolute Nucleated RBC (0.00-0.01) x10^3u/L Lymphocytes % (24.0-44.0) % Monocytes % (0.0-12.0) % Eosinophils % (0.00-5.0) % Basophils % (0.0-0.4) % Absolute Granulocytes (1.4-6.9) x10^3/uL Basophils # (0-0.4) x10^3/uL ESR (0-15) mm/hr Sodium (137-145) mmol/L Potassium 3.2 L (3.5-5.1) mmol/L Chloride (98-107) mmol/L Carbon Dioxide (22-30) mmol/L Anion Gap (5-15) MEQ/L BUN (9-20) mg/dL Creatinine (0.66-1.25) mg/dL Estimated GFR ML/MIN Glucose (74-106) mg/dL Lactic Acid (0.4-2.0) Calcium (8.4-10.2) mg/dL Magnesium 1.6 (1.6-2.3) mg/dL Total Bilirubin (0.2-1.3) mg/dL AST (17-59) U/L ALT (0-50) U/L Alkaline Phosphatase (38-126) U/L Troponin I < 0.012 (0.000-0.034) ng/mL Serum Total Protein (6.3-8.2) g/dL Albumin (3.5-5.0) g/dL Lipase (23-300) U/L Urine Color Yellow (Yellow) Urine Appearance Clear (Clear) Urine pH 5.5 (4.6-8.0) Ur Specific Vernon >=1.030 A (1.005-1.030) Urine Protein Trace A (Negative) Urine Glucose (UA) Negative (Negative) mg/dL Urine Ketones Negative (Negative) Urine Blood Negative (Negative) Urine Nitrite Negative (Negative) Urine Bilirubin Negative (Negative) Urine Urobilinogen 0.2 (0.2) mg/dL Ur Leukocyte Esterase Negative (Negative) U Hyaline Cast (Auto) 3-5 A (0-2) /LPF Urine Microscopic RBC 0-2 (0-5) /HPF Urine Microscopic WBC 0-2 (0-5) /HPF Ur Epithelial Cells Rare (None Seen) /HPF Urine Bacteria None Seen (None Seen) /HPF Urine Culture Reflexed NO (NO) 08/03/23 08/03/23 08/03/23 Range/Units 10:27 10:20 10:20 WBC (4.0-10.5) x10^3/uL RBC (4.1-5.6) x10^6/uL Hgb (12.5-18.0) g/dL Hct (42-50) % MCV (78-100) fL MCH (26-32) pg MCHC (32-36) g/dL RDW (11.5-14.0) % Plt Count (150-450) x10^3/uL MPV (7.5-11.0) fL Gran % (36.0-66.0) % Immature Gran % (Auto) (0.00-0.4) % Nucleat RBC Rel Count (0.00-0.1) % Eos # (Auto) (0-0.5) x10^3/uL Immature Gran # (Auto) (0.00-0.03) x10^3u/L Absolute Lymphs (auto) (1.0-4.6) x10^3/uL Absolute Monos (auto) (0.0-1.3) x10^3/uL Absolute Nucleated RBC (0.00-0.01) x10^3u/L Lymphocytes % (24.0-44.0) % Monocytes % (0.0-12.0) % Eosinophils % (0.00-5.0) % Basophils % (0.0-0.4) % Absolute Granulocytes (1.4-6.9) x10^3/uL Basophils # (0-0.4) x10^3/uL ESR (0-15) mm/hr Sodium 137 (137-145) mmol/L Potassium 3.1 L (3.5-5.1) mmol/L Chloride 106 (98-107) mmol/L Carbon Dioxide 21 L (22-30) mmol/L Anion Gap 13.2 (5-15) MEQ/L BUN 7 L (9-20) mg/dL Creatinine 0.55 L (0.66-1.25) mg/dL Estimated GFR > 60.0 ML/MIN Glucose 189 H (74-106) mg/dL Lactic Acid 2.0 (0.4-2.0) Calcium 8.5 (8.4-10.2) mg/dL Magnesium (1.6-2.3) mg/dL Total Bilirubin 1.50 H (0.2-1.3) mg/dL AST 26 (17-59) U/L ALT 14 (0-50) U/L Alkaline Phosphatase 157 H (38-126) U/L Troponin I < 0.012 (0.000-0.034) ng/mL Serum Total Protein 6.4 (6.3-8.2) g/dL Albumin 3.3 L (3.5-5.0) g/dL Lipase 95 (23-300) U/L Urine Color (Yellow) Urine Appearance (Clear) Urine pH (4.6-8.0) Ur Specific Vernon (1.005-1.030) Urine Protein (Negative) Urine Glucose (UA) (Negative) mg/dL Urine Ketones (Negative) Urine Blood (Negative) Urine Nitrite (Negative) Urine Bilirubin (Negative) Urine Urobilinogen (0.2) mg/dL Ur Leukocyte Esterase (Negative) U Hyaline Cast (Auto) (0-2) /LPF Urine Microscopic RBC (0-5) /HPF Urine Microscopic WBC (0-5) /HPF Ur Epithelial Cells (None Seen) /HPF Urine Bacteria (None Seen) /HPF Urine Culture Reflexed (NO) 08/03/23 08/03/23 Range/Units 10:20 10:11 WBC 13.6 H (4.0-10.5) x10^3/uL RBC 4.35 (4.1-5.6) x10^6/uL Hgb 15.2 (12.5-18.0) g/dL Hct 46.0 (42-50) % MCV 105.7 H (78-100) fL MCH 34.9 H (26-32) pg MCHC 33.0 (32-36) g/dL RDW 14.5 H (11.5-14.0) % Plt Count 212 (150-450) x10^3/uL MPV 10.9 (7.5-11.0) fL Gran % 83.1 H (36.0-66.0) % Immature Gran % (Auto) 0.6 H (0.00-0.4) % Nucleat RBC Rel Count 0.0 (0.00-0.1) % Eos # (Auto) 0.01 (0-0.5) x10^3/uL Immature Gran # (Auto) 0.08 H (0.00-0.03) x10^3u/L Absolute Lymphs (auto) 1.16 (1.0-4.6) x10^3/uL Absolute Monos (auto) 1.00 (0.0-1.3) x10^3/uL Absolute Nucleated RBC 0.00 (0.00-0.01) x10^3u/L Lymphocytes % 8.5 L (24.0-44.0) % Monocytes % 7.3 (0.0-12.0) % Eosinophils % 0.1 (0.00-5.0) % Basophils % 0.4 (0.0-0.4) % Absolute Granulocytes 11.32 H (1.4-6.9) x10^3/uL Basophils # 0.06 (0-0.4) x10^3/uL ESR 17 H (0-15) mm/hr Sodium (137-145) mmol/L Potassium (3.5-5.1) mmol/L Chloride (98-107) mmol/L Carbon Dioxide (22-30) mmol/L Anion Gap (5-15) MEQ/L BUN (9-20) mg/dL Creatinine (0.66-1.25) mg/dL Estimated GFR ML/MIN Glucose (74-106) mg/dL Lactic Acid (0.4-2.0) Calcium (8.4-10.2) mg/dL Magnesium (1.6-2.3) mg/dL Total Bilirubin (0.2-1.3) mg/dL AST (17-59) U/L ALT (0-50) U/L Alkaline Phosphatase (38-126) U/L Troponin I (0.000-0.034) ng/mL Serum Total Protein (6.3-8.2) g/dL Albumin (3.5-5.0) g/dL Lipase (23-300) U/L Urine Color (Yellow) Urine Appearance (Clear) Urine pH (4.6-8.0) Ur Specific Vernon (1.005-1.030) Urine Protein (Negative) Urine Glucose (UA) (Negative) mg/dL Urine Ketones (Negative) Urine Blood (Negative) Urine Nitrite (Negative) Urine Bilirubin (Negative) Urine Urobilinogen (0.2) mg/dL Ur Leukocyte Esterase (Negative) U Hyaline Cast (Auto) (0-2) /LPF Urine Microscopic RBC (0-5) /HPF Urine Microscopic WBC (0-5) /HPF Ur Epithelial Cells (None Seen) /HPF Urine Bacteria (None Seen) /HPF Urine Culture Reflexed (NO) - Progress Progress: improved Progress Note: -VS unremarkable -Overall sick appearing. No abnormal cardiopulmonary findings. Moderate abdominal ttp. No guarding. Surgical process seems possible given the exam and presentation. History and exam doesnt suggest AAA so no indication for CTA. Could be a benign cause of pain although dangerous pathology needs to be ruled out first -CT abd/pelv shows signs of possible inflammatory process as well as thickened gallbladder johnson. Neg Zapata sign, gallbladder pathology seems less likely at this time with more concern for Crohns flare. SoluMedrol, Rocephin and Flagyl given. Labs WBC 13.6, Lactate 2.0, T Bili 1.5, Lipase 95, ESR 17, Troponin neg Discussed case with Dr. Arik Wade who agrees that Crohns seems more likely vs gallbladder at this time. He agrees to consult on the case to evaluate the patient tomorrow. Discussed at 1242. Discussed admission with Dr. Acharya at 1302. Admit for observation. Discussed with Dr.: Sg (1242, agree to consult on patient. ), Other (Cristine Acharya) Will see patient in: hospital (observation) Counseled pt/family regarding: lab results, diagnosis, rad results Medical Desision Making - Discussion of managment Care discussed with:: specialist Reviewed:: Test results Agreed on:: Treatment plan, place in obs Will see patient: in hospital - Diagnostic Testing Diagnostic test were ordered, analyzed, and reviewed by me: Yes Radiological Interpretation: Interpreted by me, Reviewed by me, Teleradiologist Report - Risk of complications The pt has a mod risk of morbidity or mortality based on: Need for prescription drug management The pt has a high risk of morbidity or mortality based on: Decision regarding hospitilization or escalation of hosp level of care - Departure Departure Disposition: Observation Clinical Impression: Crohn's disease, Leukocytosis, Hypokalemia, Thickening of wall of gallbladder, Generalized abdominal pain, Total bilirubin, elevated Condition: Stable Critical Care Time: No
[2023-08-03] MEDS ORDERED: solu-MEDROL 125 MG, Sterile H2O 10 ml 2 ML IV ONE ×2 (10:11)
[2023-08-03 10:23] LABS: Absolute Neutrophil Ct (ANC) 11.32 x10^3/uL (1.4-6.9); BASOPHIL % 0.4 % (0.0-0.4); Basophil (Absolute #) 0.06 x10^3/uL (0-0.4); Eosinophil % 0.1 % (0.00-5.0); Eosinophil (Absolute #) 0.01 x10^3/uL (0-0.5); Hemoglobin 15.2 g/dL (12.5-18.0); IMMATURE GRAN # 0.08 x10^3u/L (0.00-0.03); IMMATURE GRAN % 0.6 % (0.00-0.4); Lymphocyte (Absolute #) 1.16 x10^3/uL (1.0-4.6); Lymphocytes % 8.5 % (24.0-44.0); Mean Cell Volume 105.7 fL (78-100); Mean Corpuscular Hemoglobin 34.9 pg (26-32); Mean Platelet Volume 10.9 fL (7.5-11.0); Monocytes % 7.3 % (0.0-12.0); Neutrophil % 83.1 % (36.0-66.0); Platelet Count 212 x10^3/uL (150-450); Red Blood Count 4.35 x10^6/uL (4.1-5.6); Red Cell Distribution Width 14.5 % (11.5-14.0); White Blood Count 13.6 x10^3/uL (4.0-10.5)
[2023-08-03 10:34] LABS: ALBUMIN 3.3 g/dL (3.5-5.0); ALKALINE PHOSPHATASE 157 U/L (38-126); ANION GAP 13.2 MEQ/L (5-15); BLOOD UREA NITROGEN 7 mg/dL (9-20); CHLORIDE 106 mmol/L (98-107); Calcium 8.5 mg/dL (8.4-10.2); Carbon Dioxide 21 mmol/L (22-30); Creatinine 1 0.55 mg/dL (0.66-1.25); EST GLOMERULAR FILTRATION RATE > 60.0 ML/MIN; Glucose 189 mg/dL (74-106); LIPASE 95 U/L (23-300); Potassium 3.1 mmol/L (3.5-5.1); SGOT/AST 26 U/L (17-59); SGPT/ALT 14 U/L (0-50); SODIUM 137 mmol/L (137-145); Total Protein 6.4 g/dL (6.3-8.2)
[2023-08-03] MEDS ORDERED: Sodium Chloride 0.9% 1000 ML 1,000 ML ONE (10:41)
[2023-08-03] MEDS ORDERED: MORPHINE SULFATE 2 MG INJ ONE (10:41)
[2023-08-03] MEDS ORDERED: solu-MEDROL ONE (10:41)
[2023-08-03] MEDS ORDERED: Sterile H2O 10 ml IJ ONE (10:41)
[2023-08-03] MEDS ORDERED: Zofran 4 MG/2 ML VIAL ONE (10:41)
--- NOTE | 2023-08-03 11:19 | XRAY ---
CLINICAL HISTORY:abd pain, n/v, recent c diff COMPARISON:None. TECHNIQUE:CT scan of the abdomen and pelvis without intravenous contrast administration was performed. Coronal and sagittal reconstructions were also obtained. FINDINGS: A small axial hiatus hernia is noted. The stomach appears unremarkable. There is mild diffuse fat stranding along the mesenteric border of distal small bowel loops with fluid attenuation in the wall of the ascending colon and transverse colon loops. Limited evaluation of bowel wall enhancement pattern on non-contrast study. There are few small diverticula seen at the sigmoid colon with no signs of diverticulitis. No evidence of small bowel obstruction. No signs of appendicitis. The liver is of average size, regular contour and homogeneous texture with no focal lesion could be detected on non-contrast basis. No intra hepatic biliary radical dilatation. The GB shows a thickened wall with no hyperdense stones inside. The spleen is of average size and shape with homogeneous parenchyma and no focal lesion could be noted on non-contrast basis. Both kidneys are of normal size, shape and parenchymal thickness with no stones, back pressure changes or space occupying lesions on non-contrast basis. The other retroperitoneal structures including the pancreas and adrenal glands are grossly within normal limits. No significant lymph gustavo enlargement. Mild perihepatic and pelvic ascitic fluid. The prostate is of average size and shape. Inadequate filling of the urinary bladder with no stones, masses, or diverticula. Vascular calcificaiton is noted. Bone window settings showed reduced osseous mineralization, L1, L2 and L5 partial compression fractures, no evidence of destructive lesions. Lung window settings showed normal appearance of both basal lung segments. IMPRESSION: 1. Small axial hiatus hernia. 2. Mild fat stranding along the mesenteric border or distal small bowel loops with fluid attenuation in wall of ascending and transverse colon, allowing for limited evaluation of bowel wall enhancement pattern on this non-contrast study, possibility of inflammatory pathology in the distal ileum, ascending and transverse colon loops is to be considered. 3. Diverticular disease of the colon with no signs of diverticulitis. 4. Thickened GB johnson. US is advised. 5. Mild perihepatic and pelvic ascites. 6. Rest of findings are detailed above. Electronically Signed by: Cheyenne Cowart MD. (08/03/2023 10:17:37 HEEL SEATER)
[2023-08-03] MEDS ORDERED: MORPHINE SULFATE 4 MG INJ IV ONE (11:21)
[2023-08-03] MEDS ORDERED: MORPHINE SULFATE 4 MG INJ ONE (11:25)
[2023-08-03] MEDS ORDERED: ROCEPHIN 2 Gm-D5w 50ML BAG** 2 G/50 ML IVPB IV STA (12:44)
[2023-08-03] MEDS ORDERED: FLAGYL 500 MG IVPB 500 MG/100 ML BAG IV STA (12:45)
[2023-08-03] MEDS ORDERED: ROCEPHIN 2 Gm-D5w 50ML BAG** 2 G/50 ML IVPB IV ONE (12:57)
[2023-08-03] MEDS ORDERED: FLAGYL 500 MG IVPB 500 MG/100 ML BAG IV ONE (13:35)
--- NOTE | 2023-08-03 15:01 | PCM.HP ---
History of Present Illness - Chief Complaint Chief Complaint: Crohns exacerbation Date: 08/03/23 History of Present Illness: is a 68 year old male with a pmhx of HTN, Crohns disease, anxiety, and melanoma who presents 08/03/23 with complaints of abdominal pain that is diffuse, and cramping in characteristic, rating 8/10 on numerical pain scale. He also endorses nausea, vomiting, and watery diarrhea for two days (greater than five stools yesterday). Patient states he had CDiff approximately one month ago and was prescribed a course of vancomycin. Denies fever,cough, sob, cp, HANSEN, dizziness. In ED, patient hypertensive and tachycardic. CT demonstrates ild fat stranding along the mesenteric border or distal small bowel loops with fluid attenuation in wall of ascending and transverse colon, diverticular disease of the colon with no signs of diverticulitis, thickened GB johnson, mild perihepatic, and pelvic ascites. Lab findings remarkable for leukocytosis with wbc at 13.6, hypokalemia at 3.1, co2 at 21, total bili at 1.5, alk phos at 157, ESR 17. EKG:RATE (91), Sinus Rhythm, Right Bundle Branch Block, Other (QTc 471). Patient given Flagyl, morphine, zofran, ceftriaxone, solu-medrol, and IVF bolus. - Review of Systems Constitutional: Fatigue Eyes: No Symptoms Ears, Nose, & Throat: No Symptoms Respiratory: No Symptoms Cardiac: No Symptoms Abdominal/Gastrointestinal: Abdominal Pain, Nausea, Vomiting, Diarrhea (BM > 5 watery stools 08/02/23) Genitourinary Symptoms: No Symptoms Musculoskeletal: No Symptoms Skin: No Symptoms Neurological: No Symptoms Psychological: No Symptoms Endocrine: No Symptoms Hematologic/Lymphatic: No Symptoms Immunological/Allergic: No Symptoms Medications & Allergies Home Medications: Home Medication List Diazepam 5 mg [Valium 5 MG] 5 mg PO Q8HPRN PRN 07/27/21 [History Confirmed 08/03/23] Allopurinol 100 mg [Zyloprim 100 mg] 100 mg PO DAILY 08/03/23 [History Confirmed 08/03/23] Amlodipine Besylate [Norvasc] 10 mg PO DAILY 08/03/23 [History Confirmed 08/03/23] Losartan Potassium 50 mg [Cozaar 50 MG] 50 mg PO DAILY 08/03/23 [History Confirmed 08/03/23] Oxycodone / APAP 10/325 mg [Oxycodone-Acetaminophen 10-325] 1 tab PO Q8HPRN PRN 08/03/23 [History Confirmed 08/03/23] Potassium Chloride Tab* [Klor Con] 10 meq PO DAILY 08/03/23 [History Confirmed 08/03/23] Sildenafil Citrate [Viagra] 50 mg PO DAILY PRN PRN 08/03/23 [History Confirmed 08/03/23] Allergies/Adverse Reactions: Allergies Allergy/AdvReac Type Severity Reaction Status Date / Time shellfish derived Allergy Hives Verified 08/03/23 09:49 - Past Medical History Past Medical History: Yes Neurological History: No Pertinent History ENT History: No Pertinent History Cardiac History: Hypertension Respiratory History: No Pertinent History Endocrine Medical History: No Pertinent History Musculoskelatal History: Fractures GI Medical History: Crohns Disease, Other History: No Pertinent History Pyscho-Social History: Anxiety, Depression Male Reproductive Disorders: No Pertinent History Comment: Proctitis; 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 pt is poor historian - Past Surgical History Past Surgical History: Yes Neuro Surgical History: No Pertinent History Cardiac History: No Pertinent History Respiratory Surgery: No Pertinent History GI Surgical History: No Pertinent History Genitourinary Surgical Hx: No Pertinent History Musculskeletal Surgical Hx: Orthopedic Surgery Male Surgical History: No Pertinent History Other Surgical History: R ankle, colonoscopy - Social History Smoking Status: Current every day smoker How long have you smoked: years Exposure to second hand smoke: No Alcohol: Weekly Drug Use: none - Physical Exam Vital Signs: Vital Signs - 24 hr Temp Pulse Resp BP BP Pulse Ox 08/03/23 14:26 99.0 F 103 H 18 167/99 97 08/03/23 14:00 96 H 158/110 97 08/03/23 13:30 165/107 96 08/03/23 13:04 97 08/03/23 13:00 162/117 98 08/03/23 12:30 97 H 19 177/108 97 08/03/23 12:00 162/102 96 08/03/23 11:30 169/112 96 08/03/23 11:16 162/97 97 08/03/23 11:00 155/107 94 L 08/03/23 10:52 97 H 18 158/103 96 08/03/23 09:52 96.7 F 105 H 18 117/89 97 General Appearance: no apparent distress Neurologic Exam: alert, oriented x 3, cooperative Eye Exam: PERRL/EOMI Ears, Nose, Throat Exam: normal ENT inspection Neck Exam: normal inspection Respiratory Exam: crackles/rales (BLL fine crackles) Gastrointestinal/Abdomen Exam: soft, normal bowel sounds, tenderness Rectal Exam: deferred Back Exam: normal inspection Extremity Exam: normal inspection Skin Exam: normal color Results - Labs Lab/Micro Results: Lab Results-Last 24 Hours 08/03/23 08/03/23 08/03/23 Range/Units 10:11 10:20 10:20 WBC 13.6 H (4.0-10.5) x10^3/uL RBC 4.35 (4.1-5.6) x10^6/uL Hgb 15.2 (12.5-18.0) g/dL Hct 46.0 (42-50) % MCV 105.7 H (78-100) fL MCH 34.9 H (26-32) pg MCHC 33.0 (32-36) g/dL RDW 14.5 H (11.5-14.0) % Plt Count 212 (150-450) x10^3/uL MPV 10.9 (7.5-11.0) fL Gran % 83.1 H (36.0-66.0) % Immature Gran % (Auto) 0.6 H (0.00-0.4) % Nucleat RBC Rel Count 0.0 (0.00-0.1) % Eos # (Auto) 0.01 (0-0.5) x10^3/uL Immature Gran # (Auto) 0.08 H (0.00-0.03) x10^3u/L Absolute Lymphs (auto) 1.16 (1.0-4.6) x10^3/uL Absolute Monos (auto) 1.00 (0.0-1.3) x10^3/uL Absolute Nucleated RBC 0.00 (0.00-0.01) x10^3u/L Lymphocytes % 8.5 L (24.0-44.0) % Monocytes % 7.3 (0.0-12.0) % Eosinophils % 0.1 (0.00-5.0) % Basophils % 0.4 (0.0-0.4) % Absolute Granulocytes 11.32 H (1.4-6.9) x10^3/uL Basophils # 0.06 (0-0.4) x10^3/uL ESR 17 H (0-15) mm/hr Sodium 137 (137-145) mmol/L Potassium 3.1 L (3.5-5.1) mmol/L Chloride 106 (98-107) mmol/L Carbon Dioxide 21 L (22-30) mmol/L Anion Gap 13.2 (5-15) MEQ/L BUN 7 L (9-20) mg/dL Creatinine 0.55 L (0.66-1.25) mg/dL Estimated GFR > 60.0 ML/MIN Glucose 189 H (74-106) mg/dL Lactic Acid (0.4-2.0) Calcium 8.5 (8.4-10.2) mg/dL Total Bilirubin 1.50 H (0.2-1.3) mg/dL AST 26 (17-59) U/L ALT 14 (0-50) U/L Alkaline Phosphatase 157 H (38-126) U/L Troponin I (0.000-0.034) ng/mL Serum Total Protein 6.4 (6.3-8.2) g/dL Albumin 3.3 L (3.5-5.0) g/dL Lipase 95 (23-300) U/L 08/03/23 08/03/23 Range/Units 10:20 10:27 WBC (4.0-10.5) x10^3/uL RBC (4.1-5.6) x10^6/uL Hgb (12.5-18.0) g/dL Hct (42-50) % MCV (78-100) fL MCH (26-32) pg MCHC (32-36) g/dL RDW (11.5-14.0) % Plt Count (150-450) x10^3/uL MPV (7.5-11.0) fL Gran % (36.0-66.0) % Immature Gran % (Auto) (0.00-0.4) % Nucleat RBC Rel Count (0.00-0.1) % Eos # (Auto) (0-0.5) x10^3/uL Immature Gran # (Auto) (0.00-0.03) x10^3u/L Absolute Lymphs (auto) (1.0-4.6) x10^3/uL Absolute Monos (auto) (0.0-1.3) x10^3/uL Absolute Nucleated RBC (0.00-0.01) x10^3u/L Lymphocytes % (24.0-44.0) % Monocytes % (0.0-12.0) % Eosinophils % (0.00-5.0) % Basophils % (0.0-0.4) % Absolute Granulocytes (1.4-6.9) x10^3/uL Basophils # (0-0.4) x10^3/uL ESR (0-15) mm/hr Sodium (137-145) mmol/L Potassium (3.5-5.1) mmol/L Chloride (98-107) mmol/L Carbon Dioxide (22-30) mmol/L Anion Gap (5-15) MEQ/L BUN (9-20) mg/dL Creatinine (0.66-1.25) mg/dL Estimated GFR ML/MIN Glucose (74-106) mg/dL Lactic Acid 2.0 (0.4-2.0) Calcium (8.4-10.2) mg/dL Total Bilirubin (0.2-1.3) mg/dL AST (17-59) U/L ALT (0-50) U/L Alkaline Phosphatase (38-126) U/L Troponin I < 0.012 (0.000-0.034) ng/mL Serum Total Protein (6.3-8.2) g/dL Albumin (3.5-5.0) g/dL Lipase (23-300) U/L - Radiology Impressions Radiology Exams & Impressions: Radiology Procedures Category Date Time Status ABDOMEN AND PELVIS W/0 CONTRAS [CT] Stat Exams 08/03/23 10:09 Completed - Other Procedures and Tests Respiratory Therapy 08/03/23 14:43 Smoking Cessation Education ONCE Assessment/Plan (1) Crohn's disease Current Visit: Yes Status: Chronic Qualifiers: Assessment & Plan: -Crohn's flare vs other gastrointestinal etiology -Patient poor historian on whether he has had similar symptoms with previous flares -CT demonstrates possible inflammatory etiology in the distal ileum, ascending, and transverse colon loops -Fluid resuscitation -Analgesics -Avoid antidiarrheal -VTE prophylaxis -obtain CDiff, stool studies -Zosyn/Flagyl for now Code(s): K50.90 - CROHN'S DISEASE, UNSPECIFIED, WITHOUT COMPLICATIONS (2) Generalized abdominal pain Current Visit: Yes Status: Acute Assessment & Plan: -see above Code(s): R10.84 - GENERALIZED ABDOMINAL PAIN (3) Hypokalemia Current Visit: Yes Status: Acute Assessment & Plan: -replenish per potassium protocol Code(s): E87.6 - HYPOKALEMIA (4) Leukocytosis Current Visit: Yes Status: Acute Assessment & Plan: -Consider reactive cause vs infection, will continue to trend Code(s): D72.829 - ELEVATED WHITE BLOOD CELL COUNT, UNSPECIFIED (5) Thickening of wall of gallbladder Current Visit: Yes Status: Acute Assessment & Plan: -Abdominal US, possible surgery consult/HIDA pending results Code(s): K82.8 - OTHER SPECIFIED DISEASES OF GALLBLADDER (6) Total bilirubin, elevated Current Visit: Yes Status: Acute Assessment & Plan: -see crohns Code(s): R17 - UNSPECIFIED JAUNDICE (7) Nausea & vomiting Current Visit: Yes Status: Acute Assessment & Plan: -anit-emetics prn, NPO, ADAT Code(s): R11.2 - NAUSEA WITH VOMITING, UNSPECIFIED (8) Diarrhea Current Visit: Yes Status: Acute Assessment & Plan: -see Crohn's Code(s): R19.7 - DIARRHEA, UNSPECIFIED (9) Hypertension Current Visit: Yes Status: Acute Assessment & Plan: -Resume home meds Code(s): I10 - ESSENTIAL (PRIMARY) HYPERTENSION
[2023-08-03] MEDS ORDERED: TYLENOL 325 MG PO PRN (15:14)
[2023-08-03] MEDS ORDERED: Zofran 4 MG/2 ML VIAL IV PRN (15:14)
[2023-08-03] MEDS ORDERED: DUONEB 0.5-3 MG/3 ml Neb IH PRN (15:14)
[2023-08-03] MEDS ORDERED: OXYCODONE-ACETAMINOPHEN 10-325 PO PRN (15:17)
[2023-08-03] MEDS: Sodium Chloride 0.9% 1000 ML 1,000 ML IV SCH (16:11)
[2023-08-03] MEDS: Klor Con PO SCH ×4 (16:24→22:02)
[2023-08-03] MEDS ORDERED: APRESOLINE 20 MG/ML INJ IV PRN (16:37)
[2023-08-03 17:14] LABS: MAGNESIUM 1.6 mg/dL (1.6-2.3); Potassium 3.2 mmol/L (3.5-5.1)
--- NOTE | 2023-08-03 17:51 | XRAY ---
CLINICAL HISTORY:shortness of breath COMPARISON:None. TECHNIQUE:X-ray of the chest, PA, and lateral 2 views. FINDINGS: Subtle hazy densities are seen in both lower lung zones. Normal configuration of the mediastinum. The terrell are normal in size and position. The cardiac shadow is enlarged. The bony thorax is unremarkable. The costophrenic and cardiophrenic angles are clear. IMPRESSION: 1. Probable infiltrates in both lower zones. Clinical correlation and follow-up is suggested. 2. Cardiomegaly. 3. CT scan of the chest is also suggested if clinically warranted. Electronically Signed by: Cheyenne Cowart MD. (08/03/2023 16:49:48 TELEGRAPH INSPECTOR)
[2023-08-03] MEDS ORDERED: PIPERACILLIN/TAZOBACTAM 3.375 GM in Sodium Chloride 100ML MINI-BAG PLUS 100 ML IV SCH (18:00)
[2023-08-03] MEDS ORDERED: FLAGYL 500 MG IVPB 500 MG/100 ML BAG IV SCH (18:00)
[2023-08-03 18:07] LABS: 027 TOX PROD PRESUMPTIVE NEGATIVE (NEGATIVE)
[2023-08-03 18:19] LABS: TOXIGENIC C. DIFF ORG POSITIVE (NEGATIVE)
[2023-08-03] MEDS: VANCOMYCIN HCL CAPSULE PO SCH ×2 (18:40→22:02)
--- NOTE | 2023-08-03 19:30 | PCM.CONS ---
History of Present Illness - Reason for Consult Chief Complaint: Crohns exacerbation Requesting Provider: JOSEMANUEL BOOKER MD Consulting Provider: ABHIJIT ESTRADA MD History of Present Illness: is a 68 year old male. hx per chart review and d/w pt pt not the best recollection regarding his medical hx. states that around 2 months ago he went to local hospital then got transferred he thinks to [place] for additional workup. thought it was a crohns flare but actually he was prescribed vancomycin but apparently he still has about 30 of those pills and didn't erally take it. developed diarrhea, 7x diarrhea just last night. worsened pain. so to ED. workup with cecal/ileal thickening possible donte thickening. admitted stool c diff sent and that came back positive now. pain is a little better right this moment. but lots of fecal urgency will have accidents with this c diff. last c scope 1 year ago normal per pt at ? [place]. dx with crohns age 51. but he states he has never been on medication for it as it wasn't that bad. about twice a year he will get some diarrhea and abdominal cramping which then spontaneously resolves but that he was told he has crohns around 17 years ago. did have polyps on the c scope before this last one. "History of Present Illness - Chief Complaint Chief Complaint: Crohns exacerbation Date: 08/03/23 History of Present Illness: is a 68 year old male with a pmhx of HTN, Crohns disease, anxiety, and melanoma who presents 08/03/23 with complaints of abdominal pain that is diffuse, and cramping in characteristic, rating 8/10 on numerical pain scale. He also endorses nausea, vomiting, and watery diarrhea for two days (greater than five stools yesterday). Patient states he had CDiff approximately one month ago and was prescribed a course of vancomycin. Denies fever,cough, sob, cp, HANSEN, dizziness. In ED, patient hypertensive and tachycardic. CT demonstrates ild fat stranding along the mesenteric border or distal small bowel loops with fluid attenuation in wall of ascending and transverse colon, diverticular disease of the colon with no signs of diverticulitis, thickened GB johnson, mild perihepatic, and pelvic ascites. Lab findings remarkable for leukocytosis with wbc at 13.6, hypokalemia at 3.1, co2 at 21, total bili at 1.5, alk phos at 157, ESR 17. EKG:RATE (91), Sinus Rhythm, Right Bundle Branch Block, Other (QTc 471). Patient given Flagyl, morphine, zofran, ceftriaxone, solu-medrol, and IVF bolus. - Review of Systems Constitutional: Fatigue Eyes: No Symptoms Ears, Nose, & Throat: No Symptoms Respiratory: No Symptoms Cardiac: No Symptoms Abdominal/Gastrointestinal: Abdominal Pain, Nausea, Vomiting, Diarrhea (BM > 5 watery stools 08/02/23) Genitourinary Symptoms: No Symptoms Musculoskeletal: No Symptoms Skin: No Symptoms Neurological: No Symptoms Psychological: No Symptoms Endocrine: No Symptoms Hematologic/Lymphatic: No Symptoms Immunological/Allergic: No Symptoms Medications & Allergies Home Medications: Home Medication List Diazepam 5 mg [Valium 5 MG] 5 mg PO Q8HPRN PRN 07/27/21 [History Confirmed 08/03/23] Allopurinol 100 mg [Zyloprim 100 mg] 100 mg PO DAILY 08/03/23 [History Confirmed 08/03/23] Amlodipine Besylate [Norvasc] 10 mg PO DAILY 08/03/23 [History Confirmed 08/03/23] Losartan Potassium 50 mg [Cozaar 50 MG] 50 mg PO DAILY 08/03/23 [History Confirmed 08/03/23] Oxycodone / APAP 10/325 mg [Oxycodone-Acetaminophen 10-325] 1 tab PO Q8HPRN PRN 08/03/23 [History Confirmed 08/03/23] Potassium Chloride Tab* [Klor Con] 10 meq PO DAILY 08/03/23 [History Confirmed 08/03/23] Sildenafil Citrate [Viagra] 50 mg PO DAILY PRN PRN 08/03/23 [History Confirmed 08/03/23] Allergies/Adverse Reactions: Allergies Allergy/AdvReac Type Severity Reaction Status Date / Time shellfish derived Allergy Hives Verified 08/03/23 09:49 - Past Medical History Past Medical History: Yes Neurological History: No Pertinent History ENT History: No Pertinent History Cardiac History: Hypertension Respiratory History: No Pertinent History Endocrine Medical History: No Pertinent History Musculoskelatal History: Fractures GI Medical History: Crohns Disease, Other History: No Pertinent History Pyscho-Social History: Anxiety, Depression Male Reproductive Disorders: No Pertinent History Comment: Proctitis; 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 pt is poor historian - Past Surgical History Past Surgical History: Yes Neuro Surgical History: No Pertinent History Cardiac History: No Pertinent History Respiratory Surgery: No Pertinent History GI Surgical History: No Pertinent History Genitourinary Surgical Hx: No Pertinent History Musculskeletal Surgical Hx: Orthopedic Surgery Male Surgical History: No Pertinent History Other Surgical History: R ankle, colonoscopy - Social History Smoking Status: Current every day smoker How long have you smoked: years Exposure to second hand smoke: No Alcohol: Weekly Drug Use: none" Medications & Allergies Home Medications: Home Medication List Diazepam 5 mg [Valium 5 MG] 5 mg PO Q8HPRN PRN 07/27/21 [History Confirmed 08/03/23] Allopurinol 100 mg [Zyloprim 100 mg] 100 mg PO DAILY 08/03/23 [History Confirmed 08/03/23] Amlodipine Besylate [Norvasc] 10 mg PO DAILY 08/03/23 [History Confirmed 08/03/23] Losartan Potassium 50 mg [Cozaar 50 MG] 50 mg PO DAILY 08/03/23 [History Confirmed 08/03/23] Oxycodone / APAP 10/325 mg [Oxycodone-Acetaminophen 10-325] 1 tab PO Q8HPRN PRN 08/03/23 [History Confirmed 08/03/23] Potassium Chloride Tab* [Klor Con] 10 meq PO DAILY 08/03/23 [History Confirmed 08/03/23] Sildenafil Citrate [Viagra] 50 mg PO DAILY PRN PRN 08/03/23 [History Confirmed 08/03/23] Allergies/Adverse Reactions: Allergies Allergy/AdvReac Type Severity Reaction Status Date / Time shellfish derived Allergy Hives Verified 08/03/23 09:49 - Past Medical History Past Medical History: Yes Neurological History: No Pertinent History ENT History: No Pertinent History Cardiac History: Hypertension Respiratory History: No Pertinent History Endocrine Medical History: No Pertinent History Musculoskelatal History: Fractures GI Medical History: Crohns Disease, Other History: No Pertinent History Pyscho-Social History: Anxiety, Depression Male Reproductive Disorders: No Pertinent History Comment: Proctitis; 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 pt is poor historian - Past Surgical History Past Surgical History: Yes Neuro Surgical History: No Pertinent History Cardiac History: No Pertinent History Respiratory Surgery: No Pertinent History GI Surgical History: No Pertinent History Genitourinary Surgical Hx: No Pertinent History Musculskeletal Surgical Hx: Orthopedic Surgery Male Surgical History: No Pertinent History Other Surgical History: R ankle, colonoscopy - Social History Smoking Status: Current every day smoker How long have you smoked: years Exposure to second hand smoke: No Alcohol: Weekly Drug Use: none - Physical Exam Vital Signs: Vital Signs - 24 hr Temp Pulse Resp BP BP Pulse Ox 08/03/23 18:15 88 16 95 08/03/23 16:01 96 H 18 97 08/03/23 16:00 99.0 F 96 H 18 167/99 97 08/03/23 15:59 97 08/03/23 14:26 99.0 F 103 H 18 167/99 97 08/03/23 14:00 96 H 158/110 97 08/03/23 13:30 165/107 96 08/03/23 13:04 97 08/03/23 13:00 162/117 98 08/03/23 12:30 97 H 19 177/108 97 08/03/23 12:00 162/102 96 08/03/23 11:30 169/112 96 08/03/23 11:16 162/97 97 08/03/23 11:00 155/107 94 L 08/03/23 10:52 97 H 18 158/103 96 08/03/23 09:52 96.7 F 105 H 18 117/89 97 General Appearance: no apparent distress Neurologic Exam: alert, oriented x 3 Eye Exam: eyes nml inspection, No scleral icterus Neck Exam: normal inspection Respiratory Exam: No respiratory distress Cardiovascular Exam: regular rate/rhythm Gastrointestinal/Abdomen Exam: soft, No tenderness, No distention, No guarding, No rebound Rectal Exam: deferred Extremity Exam: normal inspection Skin Exam: warm, dry Results - Labs Lab/Micro Results: Lab Results-Last 24 Hours 08/03/23 08/03/23 08/03/23 Range/Units 10:11 10:20 10:20 WBC 13.6 H (4.0-10.5) x10^3/uL RBC 4.35 (4.1-5.6) x10^6/uL Hgb 15.2 (12.5-18.0) g/dL Hct 46.0 (42-50) % MCV 105.7 H (78-100) fL MCH 34.9 H (26-32) pg MCHC 33.0 (32-36) g/dL RDW 14.5 H (11.5-14.0) % Plt Count 212 (150-450) x10^3/uL MPV 10.9 (7.5-11.0) fL Gran % 83.1 H (36.0-66.0) % Immature Gran % (Auto) 0.6 H (0.00-0.4) % Nucleat RBC Rel Count 0.0 (0.00-0.1) % Eos # (Auto) 0.01 (0-0.5) x10^3/uL Immature Gran # (Auto) 0.08 H (0.00-0.03) x10^3u/L Absolute Lymphs (auto) 1.16 (1.0-4.6) x10^3/uL Absolute Monos (auto) 1.00 (0.0-1.3) x10^3/uL Absolute Nucleated RBC 0.00 (0.00-0.01) x10^3u/L Lymphocytes % 8.5 L (24.0-44.0) % Monocytes % 7.3 (0.0-12.0) % Eosinophils % 0.1 (0.00-5.0) % Basophils % 0.4 (0.0-0.4) % Absolute Granulocytes 11.32 H (1.4-6.9) x10^3/uL Basophils # 0.06 (0-0.4) x10^3/uL ESR 17 H (0-15) mm/hr Sodium 137 (137-145) mmol/L Potassium 3.1 L (3.5-5.1) mmol/L Chloride 106 (98-107) mmol/L Carbon Dioxide 21 L (22-30) mmol/L Anion Gap 13.2 (5-15) MEQ/L BUN 7 L (9-20) mg/dL Creatinine 0.55 L (0.66-1.25) mg/dL Estimated GFR > 60.0 ML/MIN Glucose 189 H (74-106) mg/dL Lactic Acid (0.4-2.0) Calcium 8.5 (8.4-10.2) mg/dL Magnesium (1.6-2.3) mg/dL Total Bilirubin 1.50 H (0.2-1.3) mg/dL AST 26 (17-59) U/L ALT 14 (0-50) U/L Alkaline Phosphatase 157 H (38-126) U/L Troponin I (0.000-0.034) ng/mL Serum Total Protein 6.4 (6.3-8.2) g/dL Albumin 3.3 L (3.5-5.0) g/dL Lipase 95 (23-300) U/L C. difficile Screen (NEGATIVE) C.difficile 027-NAP1-B1 (NEGATIVE) 08/03/23 08/03/23 08/03/23 Range/Units 10:20 10:27 14:07 WBC (4.0-10.5) x10^3/uL RBC (4.1-5.6) x10^6/uL Hgb (12.5-18.0) g/dL Hct (42-50) % MCV (78-100) fL MCH (26-32) pg MCHC (32-36) g/dL RDW (11.5-14.0) % Plt Count (150-450) x10^3/uL MPV (7.5-11.0) fL Gran % (36.0-66.0) % Immature Gran % (Auto) (0.00-0.4) % Nucleat RBC Rel Count (0.00-0.1) % Eos # (Auto) (0-0.5) x10^3/uL Immature Gran # (Auto) (0.00-0.03) x10^3u/L Absolute Lymphs (auto) (1.0-4.6) x10^3/uL Absolute Monos (auto) (0.0-1.3) x10^3/uL Absolute Nucleated RBC (0.00-0.01) x10^3u/L Lymphocytes % (24.0-44.0) % Monocytes % (0.0-12.0) % Eosinophils % (0.00-5.0) % Basophils % (0.0-0.4) % Absolute Granulocytes (1.4-6.9) x10^3/uL Basophils # (0-0.4) x10^3/uL ESR (0-15) mm/hr Sodium (137-145) mmol/L Potassium (3.5-5.1) mmol/L Chloride (98-107) mmol/L Carbon Dioxide (22-30) mmol/L Anion Gap (5-15) MEQ/L BUN (9-20) mg/dL Creatinine (0.66-1.25) mg/dL Estimated GFR ML/MIN Glucose (74-106) mg/dL Lactic Acid 2.0 (0.4-2.0) Calcium (8.4-10.2) mg/dL Magnesium (1.6-2.3) mg/dL Total Bilirubin (0.2-1.3) mg/dL AST (17-59) U/L ALT (0-50) U/L Alkaline Phosphatase (38-126) U/L Troponin I < 0.012 < 0.012 (0.000-0.034) ng/mL Serum Total Protein (6.3-8.2) g/dL Albumin (3.5-5.0) g/dL Lipase (23-300) U/L C. difficile Screen (NEGATIVE) C.difficile 027-NAP1-B1 (NEGATIVE) 08/03/23 08/03/23 08/03/23 Range/Units 14:07 17:15 18:35 WBC (4.0-10.5) x10^3/uL RBC (4.1-5.6) x10^6/uL Hgb (12.5-18.0) g/dL Hct (42-50) % MCV (78-100) fL MCH (26-32) pg MCHC (32-36) g/dL RDW (11.5-14.0) % Plt Count (150-450) x10^3/uL MPV (7.5-11.0) fL Gran % (36.0-66.0) % Immature Gran % (Auto) (0.00-0.4) % Nucleat RBC Rel Count (0.00-0.1) % Eos # (Auto) (0-0.5) x10^3/uL Immature Gran # (Auto) (0.00-0.03) x10^3u/L Absolute Lymphs (auto) (1.0-4.6) x10^3/uL Absolute Monos (auto) (0.0-1.3) x10^3/uL Absolute Nucleated RBC (0.00-0.01) x10^3u/L Lymphocytes % (24.0-44.0) % Monocytes % (0.0-12.0) % Eosinophils % (0.00-5.0) % Basophils % (0.0-0.4) % Absolute Granulocytes (1.4-6.9) x10^3/uL Basophils # (0-0.4) x10^3/uL ESR (0-15) mm/hr Sodium (137-145) mmol/L Potassium 3.2 L (3.5-5.1) mmol/L Chloride (98-107) mmol/L Carbon Dioxide (22-30) mmol/L Anion Gap (5-15) MEQ/L BUN (9-20) mg/dL Creatinine (0.66-1.25) mg/dL Estimated GFR ML/MIN Glucose (74-106) mg/dL Lactic Acid (0.4-2.0) Calcium (8.4-10.2) mg/dL Magnesium 1.6 (1.6-2.3) mg/dL Total Bilirubin (0.2-1.3) mg/dL AST (17-59) U/L ALT (0-50) U/L Alkaline Phosphatase (38-126) U/L Troponin I < 0.012 (0.000-0.034) ng/mL Serum Total Protein (6.3-8.2) g/dL Albumin (3.5-5.0) g/dL Lipase (23-300) U/L C. difficile Screen POSITIVE (NEGATIVE) C.difficile 027-NAP1-B1 PRESUMPTIVE NEGATIVE (NEGATIVE) 08/03/23 Range/Units 18:36 WBC (4.0-10.5) x10^3/uL RBC (4.1-5.6) x10^6/uL Hgb (12.5-18.0) g/dL Hct (42-50) % MCV (78-100) fL MCH (26-32) pg MCHC (32-36) g/dL RDW (11.5-14.0) % Plt Count (150-450) x10^3/uL MPV (7.5-11.0) fL Gran % (36.0-66.0) % Immature Gran % (Auto) (0.00-0.4) % Nucleat RBC Rel Count (0.00-0.1) % Eos # (Auto) (0-0.5) x10^3/uL Immature Gran # (Auto) (0.00-0.03) x10^3u/L Absolute Lymphs (auto) (1.0-4.6) x10^3/uL Absolute Monos (auto) (0.0-1.3) x10^3/uL Absolute Nucleated RBC (0.00-0.01) x10^3u/L Lymphocytes % (24.0-44.0) % Monocytes % (0.0-12.0) % Eosinophils % (0.00-5.0) % Basophils % (0.0-0.4) % Absolute Granulocytes (1.4-6.9) x10^3/uL Basophils # (0-0.4) x10^3/uL ESR (0-15) mm/hr Sodium (137-145) mmol/L Potassium 3.5 (3.5-5.1) mmol/L Chloride (98-107) mmol/L Carbon Dioxide (22-30) mmol/L Anion Gap (5-15) MEQ/L BUN (9-20) mg/dL Creatinine (0.66-1.25) mg/dL Estimated GFR ML/MIN Glucose (74-106) mg/dL Lactic Acid (0.4-2.0) Calcium (8.4-10.2) mg/dL Magnesium (1.6-2.3) mg/dL Total Bilirubin (0.2-1.3) mg/dL AST (17-59) U/L ALT (0-50) U/L Alkaline Phosphatase (38-126) U/L Troponin I (0.000-0.034) ng/mL Serum Total Protein (6.3-8.2) g/dL Albumin (3.5-5.0) g/dL Lipase (23-300) U/L C. difficile Screen (NEGATIVE) C.difficile 027-NAP1-B1 (NEGATIVE) Microbiology 08/03/23 Unknown Stool Culture Result 1 - Final Stool Not Reportable Stool Culture Result 2 - Final Not Reportable Stool Culture Result 3 - Final Not Reportable Stool Culture Result 4 - Final Not Reportable Stool Culture Organism Suscept - Final Not Reportable Campylobacter Result 1 - Final Not Reportable Campylobacter Result 2 - Final Not Reportable Campylobactor Result 3 - Final Not Reportable Campylobacter Result 4 - Final Not Reportable Campylobactor Susceptibility - Final Not Reportable - Radiology Impressions Radiology Exams & Impressions: Radiology Procedures Category Date Time Status ABDOMEN AND PELVIS W/0 CONTRAS [CT] Stat Exams 08/03/23 10:09 Completed ABDOMINAL-LIMITED [US] Urgent Exams 08/04/23 15:21 Ordered CHEST 2 VIEWS (PA AND LAT) Stat Exams 08/03/23 15:14 Completed - Other Procedures and Tests Respiratory Therapy 08/04/23 07:00 Respiratory Therapy Assessment DAILY Assessment/Plan (1) Generalized abdominal pain Current Visit: Yes Status: Acute Assessment & Plan: 68yo yo male most consistent with persistent c diff, though he did not complete his course of oral vancomycin. having diarrhea, diffuse abdominal crampy pain. benign exam. leukcoytosis c diff positve ct images reviewed by me shows cecal thickening ?ileal thickening, ? donte thickening, mild ascites. though it is a limted contast scan. -treat the c diff. -wouldn't treat with steroids for possiblty of crohns flare. he hx of crohns is quite vague and nondefinitive. he has never been treated for crohns. -if he fails to respond to c diff treatment could consider repeat imaging/endoscopy. -US RUQ for completeness but this does not at all act like bilary disease. -call if any issues. will follow just peripherally. Code(s): R10.84 - GENERALIZED ABDOMINAL PAIN
[2023-08-03] MEDS: OXYCODONE-ACETAMINOPHEN 10-325 PO PRN (20:19)
[2023-08-04] MEDS: OXYCODONE-ACETAMINOPHEN 10-325 PO PRN ×6 (00:21→21:24)
[2023-08-04] MEDS: Sodium Chloride 0.9% 1000 ML 1,000 ML IV SCH ×3 (02:43→21:39)
[2023-08-04 04:33] LABS: Hematocrit 36.5 % (42-50); Hemoglobin 11.8 g/dL (12.5-18.0); Mean Cell Volume 107.7 fL (78-100); Mean Corpuscular Hemoglobin 34.8 pg (26-32); Mean Corpuscular Hgb Concent. 32.3 g/dL (32-36); Mean Platelet Volume 10.8 fL (7.5-11.0); Platelet Count 185 x10^3/uL (150-450); Red Blood Count 3.39 x10^6/uL (4.1-5.6); Red Cell Distribution Width 14.6 % (11.5-14.0); White Blood Count 10.5 x10^3/uL (4.0-10.5)
[2023-08-04 05:18] LABS: ALBUMIN 2.6 g/dL (3.5-5.0); ALKALINE PHOSPHATASE 97 U/L (38-126); ANION GAP 6.4 MEQ/L (5-15); BLOOD UREA NITROGEN 10 mg/dL (9-20); CHLORIDE 109 mmol/L (98-107); Calcium 7.8 mg/dL (8.4-10.2); Carbon Dioxide 24 mmol/L (22-30); Creatinine 1 0.61 mg/dL (0.66-1.25); EST GLOMERULAR FILTRATION RATE > 60.0 ML/MIN; Glucose 137 mg/dL (74-106); SGOT/AST 17 U/L (17-59); SGPT/ALT 12 U/L (0-50); SODIUM 136 mmol/L (137-145); Total Protein 5.3 g/dL (6.3-8.2)
[2023-08-04] MEDS ORDERED: MAG-OX 400 PO ONE (08:06)
[2023-08-04] MEDS: Cozaar 50 MG PO SCH (08:39)
[2023-08-04] MEDS: NORVASC 5 MG PO SCH (08:39)
[2023-08-04] MEDS: PIPERACILLIN/TAZOBACTAM 3.375 GM in Sodium Chloride 100ML MINI-BAG PLUS 100 ML IV SCH ×3 (08:39→20:31)
[2023-08-04] MEDS: ZYLOPRIM 100 MG PO SCH (08:40)
[2023-08-04] MEDS: ENOXAPARIN SODIUM SQ SCH (08:40)
[2023-08-04] MEDS ORDERED: NON-FORMULARY ITEM (Amlodipine Besylate [Norvasc] 10 MG Tablet) PO SCH (10:00)
[2023-08-04] MEDS: Nicoderm CQ 21 MG TOP SCH (10:46)
[2023-08-04] MEDS ORDERED: FLAGYL 500 MG IVPB 500 MG/100 ML BAG IV SCH (12:00)
[2023-08-04 13:28] LABS: Appearance Clear (Clear); Bacteria None Seen /HPF (None Seen); Bilirubin Negative (Negative); Blood Negative (Negative); Epithelial Cells Rare /HPF (None Seen); Glucose, Urine Negative (Negative); Ketones Negative (Negative); Leukocyte Esterase Negative (Negative); Nitrite Negative (Negative); Ph 5.5 (4.6-8.0); Protein,Urine Dip Trace (Negative); RBC 0-2 /HPF (0-5); Specific Gravity >=1.030 (1.005-1.030); Urobilinogen 0.2 mg/dL (0.2); WBC 0-2 /HPF (0-5)
[2023-08-04 13:37] LABS: ADD URINE CULTURE? NO (NO)
[2023-08-04] MEDS ORDERED: Nicoderm CQ 21 MG TOP SCH (14:00)
--- NOTE | 2023-08-04 14:00 | PCM.NOTE ---
Date and Time: 08/04/23 1353 Subjective Assessment: 08/03/23 is a 68 year old male with a pmhx of HTN, Crohns disease, anxiety, and melanoma who presents 08/03/23 with complaints of abdominal pain that is diffuse, and cramping in characteristic, rating 8/10 on numerical pain scale. He also endorses nausea, vomiting, and watery diarrhea for two days (greater than five stools yesterday). Patient states he had CDiff approximately one month ago and was prescribed a course of vancomycin. Denies fever,cough, sob, cp, HANSEN, dizziness. In ED, patient hypertensive and tachycardic. CT demonstrates mild fat stranding along the mesenteric border or distal small bowel loops with fluid attenuation in wall of ascending and transverse colon, diverticular disease of the colon with no signs of diverticulitis, thickened GB johnson, mild perihepatic, and pelvic ascites. Lab findings remarkable for leukocytosis with wbc at 13.6, hypokalemia at 3.1, co2 at 21, total bili at 1.5, alk phos at 157, ESR 17. EKG:RATE (91), Sinus Rhythm, Right Bundle Branch Block, Other (QTc 471). Patient given Flagyl, morphine, zofran, ceftriaxone, solu-medrol, and IVF bolus. 08/04/23 Pt sitting up in chair today. He is feeling much better but did have a loose stool in the bed. Discussed lab results. 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 Oral vancomycin stopped. Zosyn restarted. He is not having abd. pain, N/V today. Magnesium replaced. Dr. Wade evaluated and no surgery recommended at this time. Stool culture pending. Soft diet started. He is c/o some weakness. Pt ordered. CM to discuss HHC. - Review of Systems Constitutional: No Fever, No Chills Eyes: No Symptoms Ears, Nose, & Throat: No Symptoms Respiratory: No Cough, No Short Of Breath Cardiac: No Chest Pain, No Edema, No Syncope Abdominal/Gastrointestinal: Diarrhea, No Abdominal Pain, No Nausea, No Vomiting Genitourinary Symptoms: No Dysuria Musculoskeletal: No Back Pain, No Neck Pain Skin: No Rash Neurological: No Dizziness, No Focal Weakness, No Sensory Changes Psychological: No Symptoms Endocrine: No Symptoms Hematologic/Lymphatic: No Symptoms Immunological/Allergic: No Symptoms Objective Exam General Appearance: no apparent distress, alert Neurologic Exam: alert, oriented x 3, cooperative, normal mood/affect, nml cerebellar function, sensation nml, motor weakness, No motor deficits Skin Exam: normal color, warm, dry Eye Exam: PERRL, EOMI, eyes nml inspection Ears, Nose, Throat Exam: normal ENT inspection, pharynx normal, moist mucous membranes Neck Exam: normal inspection, non-tender, supple, full range of motion Respiratory Exam: normal breath sounds, lungs clear, No respiratory distress Cardiovascular Exam: regular rate/rhythm, normal heart sounds Gastrointestinal/Abdomen Exam: soft, No tenderness, No mass Extremity Exam: normal inspection, normal range of motion Back Exam: normal inspection, normal range of motion, No CVA tenderness, No vertebral tenderness Male Genitalia Exam: deferred Rectal Exam: deferred OBJECTIVE DATA Vital Signs: Vital Signs - 24 hr Temp Pulse Resp BP BP Pulse Ox 08/04/23 12:00 18 08/04/23 11:13 97.6 F 57 L 16 102/55 94 L 08/04/23 08:00 19 08/04/23 07:10 64 16 98 08/04/23 07:01 97.6 F 64 16 118/73 98 08/04/23 04:00 20 08/04/23 03:42 97.5 F 77 20 121/77 95 08/04/23 00:00 18 08/03/23 23:48 97.5 F 79 22 118/69 94 L 08/03/23 20:00 20 08/03/23 19:37 97.8 F 87 20 126/79 95 08/03/23 18:15 88 16 95 08/03/23 16:01 96 H 18 97 08/03/23 16:00 99.0 F 96 H 18 167/99 97 08/03/23 15:59 97 08/03/23 14:26 99.0 F 103 H 18 167/99 97 08/03/23 14:00 96 H 158/110 97 Pain Assessment - Last Documented Pain Intensity 5 Pain Scale Used 0-10 Pain Scale Intake and Output: Intake & Output 08/02/23 08/03/23 08/04/23 08/05/23 11:59 11:59 11:59 11:59 Intake Total 2584 480 Output Total 300 Balance 2284 480 Weight 81.647 kg 80.2 kg Lab Results: Lab Results-Last 24 Hours 08/03/23 08/03/23 08/03/23 Range/Units 13:20 14:07 14:07 WBC (4.0-10.5) x10^3/uL RBC (4.1-5.6) x10^6/uL Hgb (12.5-18.0) g/dL Hct (42-50) % MCV (78-100) fL MCH (26-32) pg MCHC (32-36) g/dL RDW (11.5-14.0) % Plt Count (150-450) x10^3/uL MPV (7.5-11.0) fL Sodium (137-145) mmol/L Potassium 3.2 L (3.5-5.1) mmol/L Chloride (98-107) mmol/L Carbon Dioxide (22-30) mmol/L Anion Gap (5-15) MEQ/L BUN (9-20) mg/dL Creatinine (0.66-1.25) mg/dL Estimated GFR ML/MIN Glucose (74-106) mg/dL Calcium (8.4-10.2) mg/dL Magnesium 1.6 (1.6-2.3) mg/dL Total Bilirubin (0.2-1.3) mg/dL AST (17-59) U/L ALT (0-50) U/L Alkaline Phosphatase (38-126) U/L Troponin I < 0.012 (0.000-0.034) ng/mL Serum Total Protein (6.3-8.2) g/dL Albumin (3.5-5.0) g/dL Urine Color Yellow (Yellow) Urine Appearance Clear (Clear) Urine pH 5.5 (4.6-8.0) Ur Specific [place] >=1.030 A (1.005-1.030) Urine Protein Trace A (Negative) Urine Glucose (UA) Negative (Negative) mg/dL Urine Ketones Negative (Negative) Urine Blood Negative (Negative) Urine Nitrite Negative (Negative) Urine Bilirubin Negative (Negative) Urine Urobilinogen 0.2 (0.2) mg/dL Ur Leukocyte Esterase Negative (Negative) U Hyaline Cast (Auto) 3-5 A (0-2) /LPF Urine Microscopic RBC 0-2 (0-5) /HPF Urine Microscopic WBC 0-2 (0-5) /HPF Ur Epithelial Cells Rare (None Seen) /HPF Urine Bacteria None Seen (None Seen) /HPF Urine Culture Reflexed NO (NO) C. difficile Screen (NEGATIVE) C.difficile 027-NAP1-B1 (NEGATIVE) 08/03/23 08/03/23 08/03/23 Range/Units 17:15 18:35 18:36 WBC (4.0-10.5) x10^3/uL RBC (4.1-5.6) x10^6/uL Hgb (12.5-18.0) g/dL Hct (42-50) % MCV (78-100) fL MCH (26-32) pg MCHC (32-36) g/dL RDW (11.5-14.0) % Plt Count (150-450) x10^3/uL MPV (7.5-11.0) fL Sodium (137-145) mmol/L Potassium 3.5 (3.5-5.1) mmol/L Chloride (98-107) mmol/L Carbon Dioxide (22-30) mmol/L Anion Gap (5-15) MEQ/L BUN (9-20) mg/dL Creatinine (0.66-1.25) mg/dL Estimated GFR ML/MIN Glucose (74-106) mg/dL Calcium (8.4-10.2) mg/dL Magnesium (1.6-2.3) mg/dL Total Bilirubin (0.2-1.3) mg/dL AST (17-59) U/L ALT (0-50) U/L Alkaline Phosphatase (38-126) U/L Troponin I < 0.012 (0.000-0.034) ng/mL Serum Total Protein (6.3-8.2) g/dL Albumin (3.5-5.0) g/dL Urine Color (Yellow) Urine Appearance (Clear) Urine pH (4.6-8.0) Ur Specific [place] (1.005-1.030) Urine Protein (Negative) Urine Glucose (UA) (Negative) mg/dL Urine Ketones (Negative) Urine Blood (Negative) Urine Nitrite (Negative) Urine Bilirubin (Negative) Urine Urobilinogen (0.2) mg/dL Ur Leukocyte Esterase (Negative) U Hyaline Cast (Auto) (0-2) /LPF Urine Microscopic RBC (0-5) /HPF Urine Microscopic WBC (0-5) /HPF Ur Epithelial Cells (None Seen) /HPF Urine Bacteria (None Seen) /HPF Urine Culture Reflexed (NO) C. difficile Screen POSITIVE (NEGATIVE) C.difficile 027-NAP1-B1 PRESUMPTIVE NEGATIVE (NEGATIVE) 08/04/23 08/04/23 08/04/23 Range/Units 04:15 04:15 04:15 WBC 10.5 (4.0-10.5) x10^3/uL RBC 3.39 L (4.1-5.6) x10^6/uL Hgb 11.8 L D (12.5-18.0) g/dL Hct 36.5 L (42-50) % MCV 107.7 H (78-100) fL MCH 34.8 H (26-32) pg MCHC 32.3 (32-36) g/dL RDW 14.6 H (11.5-14.0) % Plt Count 185 (150-450) x10^3/uL MPV 10.8 (7.5-11.0) fL Sodium 136 L (137-145) mmol/L Potassium 4.0 (3.5-5.1) mmol/L Chloride 109 H (98-107) mmol/L Carbon Dioxide 24 (22-30) mmol/L Anion Gap 6.4 (5-15) MEQ/L BUN 10 (9-20) mg/dL Creatinine 0.61 L (0.66-1.25) mg/dL Estimated GFR > 60.0 ML/MIN Glucose 137 H (74-106) mg/dL Calcium 7.8 L (8.4-10.2) mg/dL Magnesium 1.5 L (1.6-2.3) mg/dL Total Bilirubin 0.60 (0.2-1.3) mg/dL AST 17 (17-59) U/L ALT 12 (0-50) U/L Alkaline Phosphatase 97 (38-126) U/L Troponin I (0.000-0.034) ng/mL Serum Total Protein 5.3 L (6.3-8.2) g/dL Albumin 2.6 L (3.5-5.0) g/dL Urine Color (Yellow) Urine Appearance (Clear) Urine pH (4.6-8.0) Ur Specific [place] (1.005-1.030) Urine Protein (Negative) Urine Glucose (UA) (Negative) mg/dL Urine Ketones (Negative) Urine Blood (Negative) Urine Nitrite (Negative) Urine Bilirubin (Negative) Urine Urobilinogen (0.2) mg/dL Ur Leukocyte Esterase (Negative) U Hyaline Cast (Auto) (0-2) /LPF Urine Microscopic RBC (0-5) /HPF Urine Microscopic WBC (0-5) /HPF Ur Epithelial Cells (None Seen) /HPF Urine Bacteria (None Seen) /HPF Urine Culture Reflexed (NO) C. difficile Screen (NEGATIVE) C.difficile 027-NAP1-B1 (NEGATIVE) Radiology Exams: Radiology Procedures Category Date Time Status ABDOMEN AND PELVIS W/0 CONTRAS [CT] Stat Exams 08/03/23 10:09 Completed CHEST 2 VIEWS (PA AND LAT) Stat Exams 08/03/23 15:14 Completed Multi-Disciplinary Progress Notes: Multi-Disciplinary Progress Notes 08/04/23 09:46 Occupational Therapy Note by Irving(L#[id number])Rosalina OTR performed chart review and coordinated with Nursing and PT regarding patient status and Eval orders. Per IDT, patient doing "much better" and per chart review, no OT evaluation deemed medically necessary for the patient at this time. Discharge OT Eval order. OT will continue to coordinate with IDT and monitor patient throughout stay should his condition change. Initialized on 08/04/23 09:46 - END OF NOTE Assessment/Plan (1) Crohn's disease Current Visit: Yes Status: Chronic Qualifiers: Assessment & Plan: -Crohn's flare vs other gastrointestinal etiology -Patient poor historian on whether he has had similar symptoms with previous flares -CT demonstrates possible inflammatory etiology in the distal ileum, ascending, and transverse colon loops -Fluid resuscitation -Analgesics -Avoid antidiarrheal -VTE prophylaxis -obtain CDiff, stool studies -Zosyn IV Code(s): K50.90 - CROHN'S DISEASE, UNSPECIFIED, WITHOUT COMPLICATIONS (2) Diarrhea Current Visit: Yes Status: Acute Assessment & Plan: -see Crohn's Code(s): R19.7 - DIARRHEA, UNSPECIFIED (3) Generalized abdominal pain Current Visit: Yes Status: Acute Assessment & Plan: - resolved Code(s): R10.84 - GENERALIZED ABDOMINAL PAIN (4) Hypertension Current Visit: Yes Status: Acute Assessment & Plan: - stable - Continue home meds Code(s): I10 - ESSENTIAL (PRIMARY) HYPERTENSION (5) Hypokalemia Current Visit: Yes Status: Acute Assessment & Plan: - resolved Code(s): E87.6 - HYPOKALEMIA (6) Leukocytosis Current Visit: Yes Status: Acute Assessment & Plan: - resolved Code(s): D72.829 - ELEVATED WHITE BLOOD CELL COUNT, UNSPECIFIED (7) Nausea & vomiting Current Visit: Yes Status: Acute Assessment & Plan: - resolved - Prn Zofran Code(s): R11.2 - NAUSEA WITH VOMITING, UNSPECIFIED (8) Thickening of wall of gallbladder Current Visit: Yes Status: Acute Assessment & Plan: CT Abd./ Pelvis: 08/03/23 IMPRESSION: 1. Small axial hiatus hernia. 2. Mild fat stranding along the mesenteric border or distal small bowel loops with fluid attenuation in wall of ascending and transverse colon, allowing for limited evaluation of bowel wall enhancement pattern on this non-contrast study, possibility of inflammatory pathology in the distal ileum, ascending and transverse colon loops is to be considered. 3. Diverticular disease of the colon with no signs of diverticulitis. 4. Thickened GB johnson. US is advised. 5. Mild perihepatic and pelvic ascites. 6. Rest of findings are detailed above. -surgery consulted- Consult read and agree with plan of care - Abd US cancelled as no need for surgery per consult Code(s): K82.8 - OTHER SPECIFIED DISEASES OF GALLBLADDER (9) Total bilirubin, elevated Current Visit: Yes Status: Acute Assessment & Plan: - resolved VTE: Lovenox PPI: Protonix D/C plan: tomorrow Next of Kin: Fady Roseanne [phone] Code status: Full Code Code(s): R17 - UNSPECIFIED JAUNDICE
[2023-08-04] MEDS: Protonix 20MG Tablet PO SCH (16:04)
[2023-08-05] MEDS: OXYCODONE-ACETAMINOPHEN 10-325 PO PRN ×3 (02:44→14:02)
[2023-08-05] MEDS: PIPERACILLIN/TAZOBACTAM 3.375 GM in Sodium Chloride 100ML MINI-BAG PLUS 100 ML IV SCH ×2 (02:44→08:17)
[2023-08-05 05:07] VITALS: TEMP 97.1
[2023-08-05] MEDS: Sodium Chloride 0.9% 1000 ML 1,000 ML IV SCH (08:49)
[2023-08-05 09:33] VITALS: BP 107/58; PULSE 56; RESP 16; O2SAT 95
[2023-08-05] MEDS: ZYLOPRIM 100 MG PO SCH (09:34)
[2023-08-05] MEDS: ENOXAPARIN SODIUM SQ SCH (09:34)
[2023-08-05] MEDS: Cozaar 50 MG PO SCH (09:35)
[2023-08-05] MEDS: Nicoderm CQ 21 MG TOP SCH (09:35)
[2023-08-05] MEDS: Protonix 20MG Tablet PO SCH (09:35)
--- NOTE | 2023-08-05 11:33 | PCM.DS ---
Discharge Summary Date of Admission: 08/03/23 14:18 Date of Discharge: 08/05/23 Admitting Physician: JOSEMANUEL BOOKER MD Consults: Consults on Case 08/03/23 16:58 Consult Surgery ROUTINE Primary Care Provider: LEILANI ATKINS Allergies Allergies shellfish derived Allergy (Verified 08/03/23 09:49) [facility] Summary - Hospital Course Hospital Course: 08/03/23 is a 68 year old male with a pmhx of HTN, Crohns disease, anxiety, and melanoma who presents 08/03/23 with complaints of abdominal pain that is diffuse, and cramping in characteristic, rating 8/10 on numerical pain scale. He also endorses nausea, vomiting, and watery diarrhea for two days (greater than five stools yesterday). Patient states he had CDiff approximately one month ago and was prescribed a course of vancomycin. Denies fever,cough, sob, cp, HANSEN, dizziness. In ED, patient hypertensive and tachycardic. CT demonstrates mild fat stranding along the mesenteric border or distal small bowel loops with fluid attenuation in wall of ascending and transverse colon, diverticular disease of the colon with no signs of diverticulitis, thickened GB johnson, mild perihepatic, and pe lvic ascites. Lab findings remarkable for leukocytosis with wbc at 13.6, hypokalemia at 3.1, co2 at 21, total bili at 1.5, alk phos at 157, ESR 17. EKG:RATE (91), Sinus Rhythm, Right Bundle Branch Block, Other (QTc 471). Patient given Flagyl, morphine, zofran, ceftriaxone, solu-medrol, and IVF bolus. 08/04/23 Pt sitting up in chair today. He is feeling much better but did have a loose stool in the bed. Discussed lab results. 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 Oral vancomycin stopped. Zosyn restarted. He is not having abd. pain, N/V today. Magnesium replaced. Dr. Wade evaluated and no surgery recommended at this time. Stool culture pending. Soft diet started. He is c/o some weakness. Pt ordered. CM to discuss HHC. 08/05/23 Pt resting in bed. He has not had anymore loose stools. He has no abd. pain. He is feeling much better and would like to go home. He continues to have some weakness but able to work with PT and did well yesterday. He denies Cp,SOB, aBd. pain, N/V/D. - Vitals & Intake/Output Vital Signs: Vital Signs Temperature 97.1 F 08/05/23 07:18 Pulse Rate 56 L 08/05/23 09:32 Respiratory Rate 16 08/05/23 09:32 Blood Pressure 107/58 08/05/23 09:32 O2 Sat by Pulse Oximetry 95 08/05/23 09:32 Intake & Output: Intake & Output 08/02/23 08/03/23 08/04/23 08/05/23 11:59 11:59 11:59 11:59 Intake Total 2584 4754 Output Total 300 1000 Balance 2284 3754 Weight 81.647 kg 80.2 kg - Lab Result Diagrams: 08/04/23 04:15 08/04/23 04:15 Lab Results-Last 24 Hrs: Lab Results-Last 24 Hours 08/03/23 08/03/23 Range/Units 10:10 13:20 Hemoglobin A1c 5.3 (4.8-5.6) % Urine Color Yellow (Yellow) Urine Appearance Clear (Clear) Urine pH 5.5 (4.6-8.0) Ur Specific [place] >=1.030 A (1.005-1.030) Urine Protein Trace A (Negative) Urine Glucose (UA) Negative (Negative) mg/dL Urine Ketones Negative (Negative) Urine Blood Negative (Negative) Urine Nitrite Negative (Negative) Urine Bilirubin Negative (Negative) Urine Urobilinogen 0.2 (0.2) mg/dL Ur Leukocyte Esterase Negative (Negative) U Hyaline Cast (Auto) 3-5 A (0-2) /LPF Urine Microscopic RBC 0-2 (0-5) /HPF Urine Microscopic WBC 0-2 (0-5) /HPF Ur Epithelial Cells Rare (None Seen) /HPF Urine Bacteria None Seen (None Seen) /HPF Urine Culture Reflexed NO (NO) Micro Results-Entire Visit: Microbiology 08/03/23 14:07 Blood Culture - Preliminary Blood 08/03/23 13:51 Blood Culture - Preliminary Blood 08/03/23 22:00 Ova and Parasite Result 1 - Final Stool Not Reportable Ova and Parasite Result 2 - Final Not Reportable Ova and Parasite Result 3 - Final Not Reportable Ova and Parasite Result 4 - Final Not Reportable Antimicrobic Susceptibility - Final Not Reportable - Radiology Exams Ordered Rad Exams-Entire Visit: Radiology Procedures Category Date Time Status CHEST 2 VIEWS (PA AND LAT) Stat Exams 08/03/23 15:14 Completed - Procedures and Test Procedures and Tests throughout Hospitalization: Therapy Orders & Screens 08/03/23 14:43 Smoking Cessation Education ONCE Comment: Diagnosis: Crohns exacerbation Smoking Status: Current every day smoker How long have you smoked: years Have you smoked in the past 12 months: Yes Approximately how many cigarettes per day: 20 Do you dip or chew tobacco: No 08/03/23 15:14 PT Eval & Treat (MD Order) ONCE Reason for Eval:: weakness Diagnosis: Crohns exacerbation 08/04/23 07:00 Respiratory Therapy Assessment DAILY Comment: Diagnosis: Crohns exacerbation Discharge Exam General Appearance: no apparent distress, alert Neurologic Exam: alert, oriented x 3, cooperative, normal mood/affect, nml cerebellar function, sensation nml, No motor deficits Eye Exam: PERRL, EOMI, eyes nml inspection Ears, Nose, Throat Exam: normal ENT inspection, pharynx normal, moist mucous membranes Neck Exam: normal inspection, non-tender, supple, full range of motion Respiratory Exam: normal breath sounds, lungs clear, No respiratory distress Cardiovascular Exam: regular rate/rhythm, normal heart sounds Gastrointestinal/Abdomen Exam: soft, No tenderness, No mass Male Genitalia Exam: deferred Rectal Exam: deferred Back Exam: normal inspection, normal range of motion, No CVA tenderness, No vertebral tenderness Extremity Exam: normal inspection, normal range of motion Skin Exam: normal color, warm, dry Final Diagnosis/Problem List - Final Discharge Diagnosis/Problem (1) Crohn's disease Current Visit: Yes Status: Chronic Code(s): K50.90 - CROHN'S DISEASE, UNSPECIFIED, WITHOUT COMPLICATIONS (2) Diarrhea Current Visit: Yes Status: Acute Code(s): R19.7 - DIARRHEA, UNSPECIFIED (3) Generalized abdominal pain Current Visit: Yes Status: Acute Code(s): R10.84 - GENERALIZED ABDOMINAL PAIN (4) Hypertension Current Visit: Yes Status: Acute Code(s): I10 - ESSENTIAL (PRIMARY) HYPERTENSION (5) Hypokalemia Current Visit: Yes Status: Acute Code(s): E87.6 - HYPOKALEMIA (6) Leukocytosis Current Visit: Yes Status: Acute Code(s): D72.829 - ELEVATED WHITE BLOOD C ELL COUNT, UNSPECIFIED (7) Nausea & vomiting Current Visit: Yes Status: Acute Code(s): R11.2 - NAUSEA WITH VOMITING, UNSPECIFIED (8) Thickening of wall of gallbladder Current Visit: Yes Status: Acute Code(s): K82.8 - OTHER SPECIFIED DISEASES OF GALLBLADDER (9) Total bilirubin, elevated Current Visit: Yes Status: Acute Assessment & Plan: (1) Crohn's disease Current Visit: Yes Status: Chronic Qualifiers: Assessment & Plan: -Crohn's flare vs other gastrointestinal etiology -Patient poor historian on whether he has had similar symptoms with previous flares -CT demonstrates possible inflammatory etiology in the distal ileum, ascending, and transverse colon loops -Fluid resuscitation -Analgesics -Avoid antidiarrheal -VTE prophylaxis -obtain CDiff, stool studies -Zosyn IV 08/05 - Will dc with Cipro and flagyl Code(s): K50.90 - CROHN'S DISEASE, UNSPECIFIED, WITHOUT COMPLICATIONS (2) Diarrhea Current Visit: Yes Status: Acute Assessment & Plan: -see Crohn's Code(s): R19.7 - DIARRHEA, UNSPECIFIED (3) Generalized abdominal pain Current Visit: Yes Status: Acute Assessment & Plan: - resolved Code(s): R10.84 - GENERALIZED ABDOMINAL PAIN (4) Hypertension Current Visit: Yes Status: Acute Assessment & Plan: - stable - Continue home meds Code(s): I10 - ESSENTIAL (PRIMARY) HYPERTENSION (5) Hypokalemia Current Visit: Yes Status: Acute Assessment & Plan: - resolved Code(s): E87.6 - HYPOKALEMIA (6) Leukocytosis Current Visit: Yes Status: Acute Assessment & Plan: - resolved Code(s): D72.829 - ELEVATED WHITE BLOOD CELL COUNT, UNSPECIFIED (7) Nausea & vomiting Current Visit: Yes Status: Acute Assessment & Plan: - resolved - Prn Zofran Code(s): R11.2 - NAUSEA WITH VOMITING, UNSPECIFIED (8) Thickening of wall of gallbladder Current Visit: Yes Status: Acute Assessment & Plan: CT Abd./ Pelvis: 08/03/23 IMPRESSION: 1. Small axial hiatus hernia. 2. Mild fat stranding along the mesenteric border or distal small bowel loops with fluid attenuation in wall of ascending and transverse colon, allowing for limited evaluation of bowel wall enhancement pattern on this non-contrast study, possibility of inflammatory pathology in the distal ileum, ascending and transverse colon loops is to be considered. 3. Diverticular disease of the colon with no signs of diverticulitis. 4. Thickened GB johnson. US is advised. 5. Mild perihepatic and pelvic ascites. 6. Rest of findings are detailed above. -surgery consulted- Consult read and agree with plan of care - Abd US cancelled as no need for surgery per consult Code(s): K82.8 - OTHER SPECIFIED DISEASES OF GALLBLADDER (9) Total bilirubin, elevated Current Visit: Yes Status: Acute Assessment & Plan: - resolved Code(s): R17 - UNSPECIFIED JAUNDICE - Discharge Discharge Date: 08/05/23 Disposition: Home, Self-Care Condition: Stable Prescriptions: New Ciprofloxacin [Cipro 500 MG] 500 mg PO BID 7 Days #14 tablet metroNIDAZOLE [Metronidazole] 500 mg PO TID 7 Days #21 tablet Pantoprazole 20 mg [Protonix 20MG Tablet] 20 mg PO DAILY 30 Days #30 tablet Continue Diazepam 5 mg [Valium 5 MG] 5 mg PO Q8HPRN PRN PRN Reason: Anxiety Losartan Potassium 50 mg [Cozaar 50 MG] 50 mg PO DAILY Amlodipine Besylate [Norvasc] 10 mg PO DAILY Potassium Chloride Tab* [Klor Con] 10 meq PO DAILY Allopurinol 100 mg [Zyloprim 100 mg] 100 mg PO DAILY Oxycodone / APAP 10/325 mg [Oxycodone-Acetaminophen 10-325] 1 tab PO Q8HPRN PRN PRN Reason: Pain Sildenafil Citrate [Viagra] 50 mg PO DAILY PRN PRN PRN Reason: Erectile Dysfunction Additional Instructions: A REFERRAL WAS SENT TO OUR [facility] WORK[facility], [place]- SHE WILL CONTACT YOU TO SEE IF SHE CAN ASSIST IN GETTING YOU APPLIED FOR MEDICAID. A REFERRAL WAS ALSO SENT TO [facility] TO SEE IF THEY CAN ASSIST- THEIR PHONE NUMBER IS [phone] Follow up with: LEILANI ATKINS MD [Primary Care Provider] - 08/11/23 11:45 am ([facility]. )
[2023-08-05] MEDS: NORVASC 5 MG PO SCH (12:16)
== END 2023-08-05 14:23 | disposition home or self-care (01) ==
LOC: ED 09:35 → MED SURG 14:18
PROVIDERS: ADMIT Internal Medicine; ATTEND Internal Medicine
DX: K50.90 Crohn's disease, unspecified, without complications (principal); R10.84 Generalized abdominal pain; R19.7 Diarrhea, unspecified; I10 Essential (primary) hypertension; E87.6 Hypokalemia; D72.829 Elevated white blood cell count, unspecified; R11.2 Nausea with vomiting, unspecified; K82.8 Other specified diseases of gallbladder; R17 Unspecified jaundice; Z79.899 Other long term (current) drug therapy; Z86.19 Personal history of other infectious and parasitic diseases
CPT/HCPCS: 36000; 36415; 71046; 74176; 80053; 81001; 83036; 83605; 83690; 83735; 84132; 84484; 85025; 85027; 85652; 87040; 87045; 87046; 87177; 87209; 87328; 87329; 87427; 87493; 93005; 94760; 96365; 96374; 96375; 96376; 97161; 99285; G0378; Q3014; J0696; J1650; J2270; J2405; J2930; A9270-GY

== ENCOUNTER 2023-09-24 16:05 | Emergency (ER) | payer MEDICARE ==
[2023-09-24 16:18] VITALS: RESP 18; TEMP 98.6
--- NOTE | 2023-09-24 16:29 | ERPHSYRPT ---
- History of Present Illness Time Seen by Provider: 09/24/23 16:29 Source: patient Exam Limitations: no limitations Patient Subjective Stated Complaint: pt here for pain to right foot, he states he has hx of gout and is afraid he has a flare up. Triage Nursing Assessment: pt alert, walked in, resp easy, skin w/d/p. has swelling and redness to right great toe Physician History: This is a 68-year-old white male patient of Dr. Atkins who has a history of gout and presents with worsening right foot pain for 1 week. Patient states the pain improves when he is dangling the feet. There is a burning and cramping compone nt to this pain. Patient smokes cigarettes daily and has done so for many years. Patient has no history of diabetes. He has a history of hypertension, anxiety, depression and Crohn's disease. Method of Injury: other (No specific injury) Occurred: other (Symptoms worsening over the last week) Quality: burning, cramping Severity of Pain-Max: moderate Severity of Pain-Current: moderate Lower Extremities Pain: foot: right, 1st toe: right, 2nd toe: right, 3rd toe: right Modifying Factors: Improves With: other (Patient feels improvement in his pain when he is dangling the feet at the side of the bed) Associated Symptoms: none Allergies/Adverse Reactions: shellfish derived Allergy (Verified 09/24/23 16:15) Hives Home Medications: Diazepam 5 mg [Valium 5 MG] 5 mg PO Q8HPRN PRN 07/27/21 [History] Allopurinol 100 mg [Zyloprim 100 mg] 100 mg PO DAILY 08/03/23 [History] Amlodipine Besylate [Norvasc] 10 mg PO DAILY 08/03/23 [History] Losartan Potassium 50 mg [Cozaar 50 MG] 50 mg PO DAILY 08/03/23 [History] Oxycodone / APAP 10/325 mg [Oxycodone-Acetaminophen 10-325] 1 tab PO Q8HPRN PRN 08/03/23 [History] Potassium Chloride Tab* [Klor Con] 10 meq PO DAILY 08/03/23 [History] Sildenafil Citrate [Viagra] 50 mg PO DAILY PRN PRN 08/03/23 [History] Hx Tetanus, Diphtheria Vaccination/Date Given: No Hx Influenza Vaccination/Date Given: Yes Hx Pneumococcal Vaccination/Date Given: No Immunizations Up to Date: Yes Travel Risk - International Travel Have you traveled outside of the country in past 3 weeks: No - Coronavirus Screening Are you exhibiting any of the following symptoms?: No Close contact with a COVID-19 positive Pt in past 14-21 Days: No - Vaccine Status Have you recieved a Covid-19 vaccination: No Teacher Early Childhood Development: Unknown - Vaccination Dates Date of 2cond Vaccination (if applicable): 2020 Dates if Unknown: na - Review of Systems Constitutional: No Symptoms Eyes: No Symptoms Ears, Nose, & Throat: No Symptoms Respiratory: No Symptoms Cardiac: No Symptoms Abdominal/Gastrointestinal: No Symptoms Genitourinary Symptoms: No Symptoms Musculoskeletal: Other (Right foot pain) Skin: Other (Redness with mild, superficial eschar skin overlying right great toe with mild discoloration tip of toes #2 3 and 4 right foot) Neurological: No Symptoms Psychological: No Symptoms Endocrine: No Symptoms Hematologic/Lymphatic: No Symptoms Immunological/Allergic: No Symptoms All Other Systems: Reviewed and Negative - Past Medical History Pertinent Past Medical History: Yes Neurological History: No Pertinent History ENT History: No Pertinent History Cardiac History: Hypertension Respiratory History: No Pertinent History Endocrine Medical History: No Pertinent History Musculoskeletal History: Fractures GI Medical History: Crohns Disease, Other History: No Pertinent History Psycho-Social History: Anxiety, Depression Male Reproductive Disorders: No Pertinent History Other Medical History: Proctitis; 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 - Past Surgical History Past Surgical History: Yes Neuro Surgical History: No Pertinent History Cardiac: No Pertinent History Respiratory: No Pertinent History Gastrointestinal: No Pertinent History Genitourinary: No Pertinent History Musculoskeletal: Orthopedic Surgery Male Surgical History: No Pertinent History Other Surgical History: R ankle, colonoscopy - Social History Smoking Status: Current every day smoker How long have you smoked: years Exposure to second hand smoke: Yes Drug Use: none Patient Lives Alone: No - Nursing Vital Signs Nursing Vital Signs: Initial Vital Signs Temperature 98.6 F 09/24/23 16:18 Pulse Rate 75 09/24/23 16:18 Respiratory Rate 18 09/24/23 16:18 Blood Pressure 139/78 09/24/23 16:18 O2 Sat by Pulse Oximetry 95 09/24/23 16:18 Pain Scale Pain Intensity 0 - Physical Exam General Appearance: no apparent distress, alert, anxiety Eyes, Ears, Nose, Throat Exam: normal ENT inspection, moist mucous membranes Neck Exam: normal inspection, non-tender, supple, full range of motion Cardiovascular/Respiratory Exam: chest non-tender, no respiratory distress Gastrointestinal/Abdominal Exam: non-tender Back Exam: normal inspection, normal range of motion, vertebral tenderness, No CVA tenderness Hips Exam: bilateral: non-tender, normal inspection, normal range of motion, no evidence of injury Legs Exam: bilateral leg: non-tender, normal inspection, normal range of motion, no evidence of injury Knees Exam: bilateral knee: non-tender, normal inspection, normal range of motion, no evidence of injury Ankle Exam: bilateral ankle: non-tender, normal inspection, normal range of motion, no evidence of injury Foot Exam: right foot: pain, soft tissue tenderness (Right great toe digits 2 3 and 4), other (Mild, superficial eschar great toe with mild discoloration of toes 2 3 and 4), left foot: non-tender, normal inspection, no evidence of injury, bilateral foot: normal range of motion Neuro/Tendon Exam: normal motor functions, normal tendon functions, responds to pain Mental Status Exam: alert, oriented x 3, cooperative Skin Exam: other (See above right foot changes. No palpable pulse right foot dorsalis pedis or posterior tibial artery. However, dopplerable pulses in these areas.) SpO2 Interpretation: normal SpO2: 95 O2 Delivery: Room Air - Course Nursing assessment & vital signs reviewed: Yes - Progress Progress: unchanged Progress Note: 09/24/23 17:15 This patient's medical issue is 1 of low complexity. The level of complexity and the workup performed is based on review of the past medical history, review of the patient's medication list, review of drug allergy list, history present illness and physical findings on examination. Workup included physical exam and using the Doppler for determining vascular status of the patient's right foot. The patient does have blood flow down to his right foot. I am able to Doppler pulses of both the posterior tibial and dorsalis pedis arteries. However I do feel as though he likely has arterial insufficiency and he needs to be evaluated by his primary care provider as an outpatient and referred to a vascular surgeon. I will treat the skin changes that are present with antibiotic. I will remotely send a prescription of Levaquin to his pharmacy. Counseled pt/family regarding: diagnosis, need for follow-up Medical Desision Making - Diagnostic Testing Diagnostic test were ordered, analyzed, and reviewed by me: No - Risk of complications The pt has a mod risk of morbidity or mortality based on: Need for prescription drug management - Departure Departure Disposition: Home Clinical Impression: Arterial occlusive disease, Cellulitis of foot Condition: Stable Critical Care Time: No Referrals: LEILANI ATKINS MD [Primary Care Provider] - Follow up/PCP as directed Additional Instructions: Keep the right foot clean daily with soap and water. Take your antibiotics and your other medication as prescribed. Contact your primary care provider tomorrow, 09/25/2023 to make arrangements for follow-up appointment and/or referral to a vascular surgeon for further evaluation management. Prescriptions: Levofloxacin [Levaquin 500 MG Tablet] 500 mg PO DAILY #7 tablet
[2023-09-24 17:08] VITALS: BP 148/88; PULSE 86
[2023-09-24 17:14] VITALS: O2SAT 95
== END 2023-09-24 17:33 | disposition home or self-care (01) ==
LOC: ED 16:05
DX: L03.115 Cellulitis of right lower limb (principal); I77.9 Disorder of arteries and arterioles, unspecified; M79.671 Pain in right foot; I10 Essential (primary) hypertension; Z79.899 Other long term (current) drug therapy; Z72.0 Tobacco use
CPT/HCPCS: 99281

== ENCOUNTER 2023-10-05 09:26 | Emergency (ER) | payer MEDICARE ==
[2023-10-05 09:40] VITALS: RESP 18; TEMP 97.5
[2023-10-05] MEDS ORDERED: PERCOCET TABLET 5/325MG PO ONE ×3 (10:11→17:16)
[2023-10-05] MEDS ORDERED: PERCOCET TABLET 5/325MG ONE ×3 (10:16→17:29)
[2023-10-05 10:21] VITALS: PULSE 83
[2023-10-05 10:22] LABS: Absolute Neutrophil Ct (ANC) 4.12 x10^3/uL (1.4-6.9); BASOPHIL % 0.9 % (0.0-0.4); Basophil (Absolute #) 0.06 x10^3/uL (0-0.4); Eosinophil % 2.3 % (0.00-5.0); Eosinophil (Absolute #) 0.15 x10^3/uL (0-0.5); Hematocrit 41.3 % (42-50); Hemoglobin 13.6 g/dL (12.5-18.0); IMMATURE GRAN # 0.02 x10^3u/L (0.00-0.03); IMMATURE GRAN % 0.3 % (0.00-0.4); Lymphocyte (Absolute #) 1.57 x10^3/uL (1.0-4.6); Mean Corpuscular Hemoglobin 35.2 pg (26-32); Mean Corpuscular Hgb Concent. 32.9 g/dL (32-36); Mean Platelet Volume 10.2 fL (7.5-11.0); Monocyte (Absolute #) 0.61 x10^3/uL (0.0-1.3); Monocytes % 9.3 % (0.0-12.0); Neutrophil % 63.2 % (36.0-66.0); Platelet Count 244 x10^3/uL (150-450); Red Blood Count 3.86 x10^6/uL (4.1-5.6); Red Cell Distribution Width 13.8 % (11.5-14.0); White Blood Count 6.5 x10^3/uL (4.0-10.5)
[2023-10-05 10:35] LABS: ANION GAP 10.5 MEQ/L (5-15); Calcium 9.5 mg/dL (8.4-10.2); Creatinine 1 0.57 mg/dL (0.66-1.25); EST GLOMERULAR FILTRATION RATE 107.5 ML/MIN; Potassium 3.7 mmol/L (3.5-5.1); Total Protein 7.2 g/dL (6.3-8.2); Uric Acid 4.2 mg/dL (3.5-7.2)
[2023-10-05] MEDS ORDERED: NORCO 5/325 MG PO ONE (13:33)
[2023-10-05] MEDS ORDERED: CLINDAMYCIN-D5W 600 MG/50 ML*** 600 MG/50 ML BAG IV STA (13:34)
--- NOTE | 2023-10-05 13:40 | ERPHSYRPT ---
- History of Present Illness Time Seen by Provider: 10/05/23 09:56 Source: patient Exam Limitations: no limitations Patient Subjective Stated Complaint: pt here for right foot pain for over a week now, just finished antiboitcs, Triage Nursing Assessment: pt walked in with a limp. resp easy, skin w/d/p. pt has sloughing of skin to right great toe, swelling and redness to 4th and 5th great toe, Physician History: 68-year-old male with history of hypertension, hyperlipidemia, COPD, tobacco abuse, peripheral vascular disease who was recently evaluated in our ER for right foot/toe swelling, was diagnosed with arterial occlusion/cellulitis, finished course of antibiotics presented in the ER with worsening pain in the toes. Patient reported initially it was in the big toe now he has noticed for the last few weeks that off and on his second and third toe goes black/purple, has to put in front of a heater and color comes back. Patient also reports some pain and redness of the fourth toe and sharp shooting pain in the second and third toe and on the sole of the foot which is lately getting worse. Denies any leg pains or swelling. No fever or chills reported. Allergies/Adverse Reactions: shellfish derived Allergy (Verified 10/05/23 09:37) Hives Home Medications: Diazepam 5 mg [Valium 5 MG] 5 mg PO Q8HPRN PRN 07/27/21 [History] Allopurinol 100 mg [Zyloprim 100 mg] 100 mg PO DAILY 08/03/23 [History] Amlodipine Besylate [Norvasc] 10 mg PO DAILY 08/03/23 [History] Losartan Potassium 50 mg [Cozaar 50 MG] 50 mg PO DAILY 08/03/23 [History] Oxycodone / APAP 10/325 mg [Oxycodone-Acetaminophen 10-325] 1 tab PO Q8HPRN PRN 08/03/23 [History] Potassium Chloride Tab* [Klor Con] 10 meq PO DAILY 08/03/23 [History] Sildenafil Citrate [Viagra] 50 mg PO DAILY PRN PRN 08/03/23 [History] Hx Tetanus, Diphtheria Vaccination/Date Given: No Hx Influenza Vaccination/Date Given: Yes Hx Pneumococcal Vaccination/Date Given: No Immunizations Up to Date: Yes Travel Risk - International Travel Have you traveled outside of the country in past 3 weeks: No - Coronavirus Screening Are you exhibiting any of the following symptoms?: No Close contact with a COVID-19 positive Pt in past 14-21 Days: No - Vaccine Status Have you recieved a Covid-19 vaccination: No Jet Wiper: Unknown - Vaccination Dates Date of 2cond Vaccination (if applicable): 2020 Dates if Unknown: na - Review of Systems Constitutional: No Symptoms Eyes: No Symptoms Ears, Nose, & Throat: No Symptoms Respiratory: Cough, Dyspnea Cardiac: No Symptoms Abdominal/Gastrointestinal: No Symptoms Genitourinary Symptoms: No Symptoms Musculoskeletal: Arthralgias Skin: Cellulitis, Skin Lesions Neurological: No Symptoms Psychological: No Symptoms Endocrine: No Symptoms - Past Medical History Pertinent Past Medical History: Yes Neurological History: No Pertinent History ENT History: No Pertinent History Cardiac History: Hypertension Respiratory History: No Pertinent History Endocrine Medical History: No Pertinent History Musculoskeletal History: Fractures GI Medical History: Crohns Disease, Other History: No Pertinent History Psycho-Social History: Anxiety, Depression Male Reproductive Disorders: No Pertinent History Other Medical History: Proctitis; 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 - Past Surgical History Past Surgical History: Yes Neuro Surgical History: No Pertinent History Cardiac: No Pertinent History Respiratory: No Pertinent History Gastrointestinal: No Pertinent History Genitourinary: No Pertinent History Musculoskeletal: Orthopedic Surgery Male Surgical History: No Pertinent History Other Surgical History: R ankle, colonoscopy - Social History Smoking Status: Current every day smoker How long have you smoked: years Exposure to second hand smoke: Yes Drug Use: none Patient Lives Alone: No - Nursing Vital Signs Nursing Vital Signs: Initial Vital Signs Temperature 97.5 F 10/05/23 09:39 Pulse Rate 78 10/05/23 09:39 Respiratory Rate 18 10/05/23 09:39 Blood Pressure 151/93 10/05/23 09:39 O2 Sat by Pulse Oximetry 97 10/05/23 09:39 Pain Scale Pain Intensity 8 - Physical Exam General Appearance: no apparent distress, alert Eye Exam: PERRL/EOMI Ears, Nose, Throat Exam: normal ENT inspection Neck Exam: normal inspection, supple, full range of motion Respiratory Exam: normal breath sounds, lungs clear Cardiovascular Exam: regular rate/rhythm, normal heart sounds Gastrointestinal/Abdomen Exam: soft, normal bowel sounds, No tenderness Extremity Exam: normal range of motion Neurologic Exam: alert, oriented x 3, cooperative, treater II-XII nml as tested Skin Exam: abrasion, other SpO2 Interpretation: normal SpO2: 95 O2 Delivery: Room Air Ordered Tests: Active Orders 24 hr Category Date Time Status FOOT (MINIMUM 3 VIEWS) Stat Exams 10/05/23 10:01 Taken BLOOD CULTURE Stat Lab 10/05/23 13:43 Ordered CBC W DIFF Stat Lab 10/05/23 10:10 Completed CMP Stat Lab 10/05/23 10:10 Completed Lactic Acid Stat Lab 10/05/23 10:10 Completed PROCALCITONIN Stat Lab 10/05/23 10:10 Completed Uric Acid Stat Lab 10/05/23 10:10 Completed Medication Summary Discontinued Medications Generic Name Dose Route Start Last Admin Trade Name Freq PRN Reason Stop Dose Admin Hydrocodone Bitart/Acetaminophen 1 tab 10/05/23 13:33 10/05/23 14:47 Hydrocodone/Apap 5/325 1 Tab Tablet PO 10/05/23 13:34 Not Given STAT ONE Hydrocodone Bitart/Acetaminophen Confirm 10/05/23 14:43 Hydrocodone/Apap 5/325 1 Tab Tablet Administered 10/05/23 14:44 Dose 1 tab .ROUTE .STK-MED ONE Clindamycin HCl/Dextrose 600 mg in 50 mls @ 100 mls/hr 10/05/23 13:34 Clindamycin-D5w 600 Mg/50 Ml IV 10/05/23 14:03 STAT STA Oxycodone/Acetaminophen 2 tab 10/05/23 10:11 10/05/23 10:17 Oxycodone Hcl/Apap 5 Mg/325 Mg Tablet PO 10/05/23 10:12 2 tab STAT ONE Administration Oxycodone/Acetaminophen Confirm 10/05/23 10:16 Oxycodone Hcl/Apap 5 Mg/325 Mg Tablet Administered 10/05/23 10:17 Dose 2 tab .ROUTE .STK-MED ONE Oxycodone/Acetaminophen 1 tab 10/05/23 14:47 10/05/23 14:54 Oxycodone Hcl/Apap 5 Mg/325 Mg Tablet PO 10/05/23 14:48 1 tab STAT ONE Administration Oxycodone/Acetaminophen Confirm 10/05/23 14:51 Oxycodone Hcl/Apap 5 Mg/325 Mg Tablet Administered 10/05/23 14:52 Dose 1 tab .ROUTE .STK-MED ONE Oxycodone/Acetaminophen 1 tab 10/05/23 17:16 Oxycodone Hcl/Apap 5 Mg/325 Mg Tablet PO 10/05/23 17:17 STAT ONE Lab/Rad Data: Laboratory Result Diagrams 10/05/23 10:10 10/05/23 10:10 Laboratory Results 10/05/23 10/05/23 10/05/23 Range/Units 10:10 10:10 10:10 WBC (4.0-10.5) x10^3/uL RBC (4.1-5.6) x10^6/uL Hgb (12.5-18.0) g/dL Hct (42-50) % MCV (78-100) fL MCH (26-32) pg MCHC (32-36) g/dL RDW (11.5-14.0) % Plt Count (150-450) x10^3/uL MPV (7.5-11.0) fL Gran % (36.0-66.0) % Immature Gran % (Auto) (0.00-0.4) % Nucleat RBC Rel Count (0.00-0.1) % Eos # (Auto) (0-0.5) x10^3/uL Immature Gran # (Auto) (0.00-0.03) x10^3u/L Absolute Lymphs (auto) (1.0-4.6) x10^3/uL Absolute Monos (auto) (0.0-1.3) x10^3/uL Absolute Nucleated RBC (0.00-0.01) x10^3u/L Lymphocytes % (24.0-44.0) % Monocytes % (0.0-12.0) % Eosinophils % (0.00-5.0) % Basophils % (0.0-0.4) % Absolute Granulocytes (1.4-6.9) x10^3/uL Basophils # (0-0.4) x10^3/uL Sodium 139 (137-145) mmol/L Potassium 3.7 (3.5-5.1) mmol/L Chloride 109 H (98-107) mmol/L Carbon Dioxide 23 (22-30) mmol/L Anion Gap 10.5 (5-15) MEQ/L BUN 6 L (9-20) mg/dL Creatinine 0.57 L (0.66-1.25) mg/dL Estimated GFR 107.5 ML/MIN Glucose 95 (74-106) mg/dL Lactic Acid 0.9 (0.4-2.0) Uric Acid 4.2 (3.5-7.2) mg/dL Calcium 9.5 (8.4-10.2) mg/dL Total Bilirubin 1.00 (0.2-1.3) mg/dL AST 18 (17-59) U/L ALT 10 (0-50) U/L Alkaline Phosphatase 86 (38-126) U/L Serum Total Protein 7.2 (6.3-8.2) g/dL Albumin 4.0 (3.5-5.0) g/dL Procalcitonin 0.075 (0.030-0.080) ng/mL 10/05/23 Range/Units 10:10 WBC 6.5 (4.0-10.5) x10^3/uL RBC 3.86 L (4.1-5.6) x10^6/uL Hgb 13.6 (12.5-18.0) g/dL Hct 41.3 L (42-50) % MCV 107.0 H (78-100) fL MCH 35.2 H (26-32) pg MCHC 32.9 (32-36) g/dL RDW 13.8 (11.5-14.0) % Plt Count 244 (150-450) x10^3/uL MPV 10.2 (7.5-11.0) fL Gran % 63.2 (36.0-66.0) % Immature Gran % (Auto) 0.3 (0.00-0.4) % Nucleat RBC Rel Count 0.0 (0.00-0.1) % Eos # (Auto) 0.15 (0-0.5) x10^3/uL Immature Gran # (Auto) 0.02 (0.00-0.03) x10^3u/L Absolute Lymphs (auto) 1.57 (1.0-4.6) x10^3/uL Absolute Monos (auto) 0.61 (0.0-1.3) x10^3/uL Absolute Nucleated RBC 0.00 (0.00-0.01) x10^3u/L Lymphocytes % 24.0 (24.0-44.0) % Monocytes % 9.3 (0.0-12.0) % Eosinophils % 2.3 (0.00-5.0) % Basophils % 0.9 (0.0-0.4) % Absolute Granulocytes 4.12 (1.4-6.9) x10^3/uL Basophils # 0.06 (0-0.4) x10^3/uL Sodium (137-145) mmol/L Potassium (3.5-5.1) mmol/L Chloride (98-107) mmol/L Carbon Dioxide (22-30) mmol/L Anion Gap (5-15) MEQ/L BUN (9-20) mg/dL Creatinine (0.66-1.25) mg/dL Estimated GFR ML/MIN Glucose (74-106) mg/dL Lactic Acid (0.4-2.0) Uric Acid (3.5-7.2) mg/dL Calcium (8.4-10.2) mg/dL Total Bilirubin (0.2-1.3) mg/dL AST (17-59) U/L ALT (0-50) U/L Alkaline Phosphatase (38-126) U/L Serum Total Protein (6.3-8.2) g/dL Albumin (3.5-5.0) g/dL Procalcitonin (0.030-0.080) ng/mL - Progress Progress: pain not gone completely, re-examined Progress Note: 68-year-old is evaluated in the ER for right toes purple-black discoloration with pain and swelling. Patient was previously evaluated in this ER and was recommended outpatient follow-up with primary care and vascular surgery but he did not. Patient reports now it is getting worse and having hard time standing and off-and-on discoloration which responds to placing in front of the heat. He is given symptomatic treatment, feeling better on reevaluation. Normal white count, lactate and chemistries. Has swelling of the fourth toe with some erythema and given a dose of antibiotic as well. I believe patient has peripheral vascular disease/small vessel disease with dopplerable dorsalis pedis and posterior tibial and needs further evaluation with vascular surgery. Patient is allergic to contrast dye and cannot have runoff done. Ultrasound would not be a whole lot of yield given the fact that it involves very small distal vessels. I have discussed with Dr. López [facility] vascular surgery as no vascular surgery services are available at [place], recommended transfer center [facility] and admission to hospitalist service. I have discussed with Dr. Hrenández, reviewed history, workup and agreed with admission to hospitalist service. I have discussed plan of care, vascular surgery recommendations with patient and he is agreeable with transfer to [facility]. 10/05/23 1720Patient has a bed available at [facility] but no transportation is available. Patient does not want to be transported by air EMS. He is given the option to go there by POV but has no one available to take him up there. Patient does not want to stay in this ER anymore waiting for to be transfer. He wants to leave AGAINST MEDICAL ADVICE and would follow-up outpatient after holidays. I have discussed with patient in length about risk of leaving without definitive treatment would not only delay the diagnosis but also worsening of condition and may lead to gangrene of toes needing amputation which she understand but still wants to leave. I will give him a prescription of clindamycin to go home to help with cellulitis of fourth toe. Recommended outpatient follow-up in 2 days and return to ER for any worsening which she se ems understanding. Patient is ambulating in the ER without any limitations. Discussed with Dr.: Other (Dr. López vascular surgery, Dr. Hernández [id number]) Counseled pt/family regarding: lab results, diagnosis, need for follow-up Medical Desision Making - Discussion of managment Care discussed with:: specialist Reviewed:: Test results Agreed on:: Treatment plan Will see patient: in hospital - Diagnostic Testing Diagnostic test were ordered, analyzed, and reviewed by me: Yes - Risk of complications The pt has a high risk of morbidity or mortality based on: Need for major surgery in patient with known risk factors - Departure Departure Disposition: AMA Clinical Impression: Cellulitis of foot, Arterial occlusive disease Condition: Stable Critical Care Time: No Referrals: LEILANI ATKINS MD [Primary Care Provider] - Follow up with PCP 2 days Instructions: Peripheral Vascular (Arterial) Disease (DC) Additional Instructions: Keep it warm and dry. Follow-up with primary care for reevaluation and need referral for vascular surgery. Return to ER for increased swelling, discoloration, pain, fever chills etc. Prescriptions: clindamycin HCL [Clindamycin HCl] 300 mg PO QID 7 Days #28 cap
[2023-10-05] MEDS ORDERED: NORCO 5/325 MG ONE (14:43)
[2023-10-05 17:07] VITALS: BP 142/82
[2023-10-05 17:32] VITALS: O2SAT 95
--- NOTE | 2023-10-05 20:56 | XRAY ---
Indication: Pain and swelling. History gout. Comparison: None 3 nonweightbearing views right foot demonstrates marked osteopenia, moderate tarsal metatarsal degenerative changes, moderate 1st MTP bunion deformity, mild ankle degenerative changes, small cuboid accessory ossicle, and moderate scattered vascular calcifications. No other bony, articular, or soft tissue abnormalities.
== END 2023-10-05 17:48 | disposition left against medical advice (07) ==
LOC: ED 09:26
DX: I77.9 Disorder of arteries and arterioles, unspecified (principal); L03.115 Cellulitis of right lower limb; M79.671 Pain in right foot; I10 Essential (primary) hypertension; Z79.899 Other long term (current) drug therapy; Z72.0 Tobacco use
CPT/HCPCS: 36415; 73630; 80053; 83605; 84145; 84550; 85025; 87040; 99284; A9270-GY

== ENCOUNTER 2023-10-06 10:40 | Observation (INO) | payer MEDICARE ==
--- NOTE | 2023-10-06 11:19 | ERPHSYRPT ---
- History of Present Illness Time Seen by Provider: 10/06/23 11:15 Source: patient Exam Limitations: no limitations Patient Subjective Stated Complaint: C/O painful toes in right foot. Indicates that this started about 2 weeks ago. He thought it was gout in his big toe but then it spread to his other toes. Triage Nursing Assessment: Patient ambulated back to ER with unsteady gait; gaurding right foot due to pain in toes. He is alert and oriented. NO SOB. Top of 4th and 5th toes on right foot errythemia noted. The bottom of third, fourth, 5th toes are ashy in color and cool. All toes are very tender to touch. Patient is able to move/wiggle toes without difficulties. Physician History: C/O painful toes in right foot. Indicates that this started about 2 weeks ago. He thought it was gout in his big toe but then it spread to his other toes. gaurding right foot due to pain in toes. He is alert and oriented. NO SOB. Top of 4th and 5th toes on right foot errythemia noted. The bottom of third, fourth, 5th toes are ashy in color and cool. All toes are very tender to touch. Patient is able to move/wiggle toes without difficulties. Severity of Pain-Max: moderate Severity of Pain-Current: moderate Lower Extremities Pain: 3rd toe: right, 4th toe: right, 5th toe: right Allergies/Adverse Reactions: shellfish derived Allergy (Verified 10/06/23 11:03) Hives Home Medications: Diazepam 5 mg [Valium 5 MG] 5 mg PO Q8HPRN PRN 07/27/21 [History] Allopurinol 100 mg [Zyloprim 100 mg] 100 mg PO DAILY 08/03/23 [History] Amlodipine Besylate [Norvasc] 10 mg PO DAILY 08/03/23 [History] Losartan Potassium 50 mg [Cozaar 50 MG] 50 mg PO DAILY 08/03/23 [History] Oxycodone / APAP 10/325 mg [Oxycodone-Acetaminophen 10-325] 1 tab PO Q8HPRN PRN 08/03/23 [History] Potassium Chloride Tab* [Klor Con] 10 meq PO DAILY 08/03/23 [History] Sildenafil Citrate [Viagra] 50 mg PO DAILY PRN PRN 08/03/23 [History] Hx Tetanus, Diphtheria Vaccination/Date Given: Yes Hx Influenza Vaccination/Date Given: Yes Hx Pneumococcal Vaccination/Date Given: No Immunizations Up to Date: Yes Travel Risk - International Travel Have you traveled outside of the country in past 3 weeks: No - Coronavirus Screening Are you exhibiting any of the following symptoms?: No Close contact with a COVID-19 positive Pt in past 14-21 Days: No - Vaccine Status Have you recieved a Covid-19 vaccination: No Seed Expert: Unknown - Vaccination Dates Date of 2cond Vaccination (if applicable): 2020 Dates if Unknown: na - Review of Systems Constitutional: No Fever, No Chills Eyes: No Symptoms Ears, Nose, & Throat: No Symptoms Respiratory: No Cough, No Dyspnea Cardiac: No Chest Pain, No Edema, No Syncope Abdominal/Gastrointestinal: No Abdominal Pain, No Nausea, No Vomiting, No Diarrhea Genitourinary Symptoms: No Dysuria Musculoskeletal: No Back Pain, No Neck Pain Skin: Cellulitis (right foot), No Rash Neurological: No Dizziness, No Focal Weakness, No Sensory Changes Psychological: No Symptoms Endocrine: No Symptoms All Other Systems: Reviewed and Negative - Past Medical History Pertinent Past Medical History: Yes Neurological History: No Pertinent History ENT History: No Pertinent History Cardiac History: Hypertension Respiratory History: No Pertinent History Endocrine Medical History: No Pertinent History Musculoskeletal History: Fractures GI Medical History: Crohns Disease, Other History: No Pertinent History Psycho-Social History: Anxiety, Depression Male Reproductive Disorders: No Pertinent History Other Medical History: Proctitis; 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 - Past Surgical History Past Surgical History: Yes Neuro Surgical History: No Pertinent History Cardiac: No Pertinent History Respiratory: No Pertinent History Gastrointestinal: No Pertinent History Genitourinary: No Pertinent History Musculoskeletal: Orthopedic Surgery Male Surgical History: No Pertinent History Other Surgical History: R ankle, colonoscopy - Social History Smoking Status: Current every day smoker How long have you smoked: years Exposure to second hand smoke: Yes Drug Use: none Patient Lives Alone: Yes - Nursing Vital Signs Nursing Vital Signs: Initial Vital Signs Temperature 98.3 F 10/06/23 11:05 Pulse Rate 94 H 10/06/23 11:05 Respiratory Rate 18 10/06/23 11:05 Blood Pressure 157/99 10/06/23 11:05 O2 Sat by Pulse Oximetry 99 10/06/23 11:05 Pain Scale Pain Intensity [Right foot 9 toes] Pain Intensity 9 - Physical Exam General Appearance: alert Eyes, Ears, Nose, Throat Exam: moist mucous membranes Neck Exam: non-tender, supple Cardiovascular/Respiratory Exam: chest non-tender, normal breath sounds, regular rate/rhythm, no respiratory distress Gastrointestinal/Abdominal Exam: non-tender, guarding Back Exam: normal inspection, No vertebral tenderness Hips Exam: bilateral: non-tender Legs Exam: bilateral leg: non-tender Knees Exam: bilateral knee: non-tender Ankle Exam: bilateral ankle: non-tender Foot Exam: right foot: pain, soft tissue tenderness, swelling Neuro/Tendon Exam: normal sensation, normal motor functions Mental Status Exam: alert, oriented x 3, cooperative Skin Exam: normal color, warm, dry SpO2: 99 - Course Nursing assessment & vital signs reviewed: Yes - Progress Progress: unchanged, pain not gone completely Discussed with Dr.: Chalino, Other Counseled pt/family regarding: diagnosis Medical Desision Making - Risk of complications The pt has a high risk of morbidity or mortality based on: Need for major surgery in patient with known risk factors - Departure Departure Disposition: Observation Clinical Impression: Cellulitis of foot, Arterial occlusive disease, Cellulitis of right foot Hypertension Qualifiers: Hypertension type: primary hypertension Qualified Code(s): I10 - Essential (primary) hypertension Condition: Fair Critical Care Time: No Referrals: LEILANI ATKINS MD [Primary Care Provider] - Follow up/PCP as directed
[2023-10-06] MEDS ORDERED: Sodium Chloride 0.9% 1000 ML 1,000 ML IV STA (11:29)
[2023-10-06] MEDS ORDERED: TORAdol 30 mg Injection IV ONE ×2 (11:29→12:39)
[2023-10-06] MEDS ORDERED: TORAdol 30 mg Injection ONE (11:55)
[2023-10-06] MEDS ORDERED: Sodium Chloride 0.9% 1000 ML 1,000 ML ONE (11:55)
[2023-10-06] MEDS ORDERED: VANCOMYCIN 1.5 GRAM/300 ML BAG 1.5 GM/300 ML PIGGYBACK IV SCH (13:00)
--- NOTE | 2023-10-06 13:42 | PCM.HP ---
<DUARTE BLACKMON - Last Filed: 10/06/23 14:09> History of Present Illness - Chief Complaint Chief Complaint: right foot cellulitis Date: 10/06/23 History of Present Illness: is a 68 year old male with a pmhx of HTN, Crohns, gout, anxiety, melanoma to the back, presented to ED initially on 10/05/23 with complaints of right foot pain, erythema, and purplish/black discoloration to dorsal/palmar toe base of right foot. Patient was recommended transfer to [facility] for vasular surgery recommendations but then AMA. He has now presented to ED with the same complaints of right foot pain. Patient states that onset was approximately one week ago and pain has progressively gotten worse. He describes the pain as constant and sharp/aching/throbbing in characteristic. He rates the pain 10/10 on a numerical pain scale. Patient states nothing has relieved the pain other than slightly with his home [place]. He has been unable to ambulte and has been NWB secondary to severe pain. Upon examination, the right foot appears dusky at the base of his digits, with erythema/edema noted to the tips of all five digits. Patient denies fevers/chills. In ED patient slightly hypertensive but otherwise vitals are unremarkable. Right foot XRay with no acute findings. Patient started on zosyn/vanc, toradol/percet for pain, and IVF bolus. - Review of Systems Constitutional: No Symptoms Eyes: No Symptoms Ears, Nose, & Throat: No Symptoms Respiratory: No Symptoms Cardiac: No Symptoms Abdominal/Gastrointestinal: No Symptoms Genitourinary Symptoms: No Symptoms Musculoskeletal: Joint Pain (RLE at all five digits), Joint Swelling Skin: Other (redness/ discoloration to base of digits on dorsal/plantar of right foot) Neurological: No Symptoms Psychological: No Symptoms Endocrine: No Symptoms Hematologic/Lymphatic: No Symptoms Medications & Allergies Home Medications: Home Medication List Diazepam 5 mg [Valium 5 MG] 5 mg PO Q8HPRN PRN 07/27/21 [History Confirmed 10/06/23] Allopurinol 100 mg [Zyloprim 100 mg] 100 mg PO DAILY 08/03/23 [History C onfirmed 10/06/23] Amlodipine Besylate [Norvasc] 10 mg PO DAILY 08/03/23 [History Confirmed 10/06/23] Oxycodone / APAP 10/325 mg [Oxycodone-Acetaminophen 10-325] 1 tab PO Q8HPRN PRN 08/03/23 [History Confirmed 10/06/23] Potassium Chloride Tab* [Klor Con] 10 meq PO DAILY 08/03/23 [History Confirmed 10/06/23] Sildenafil Citrate [Viagra] 50 mg PO DAILY PRN PRN 08/03/23 [History Confirmed 10/06/23] clindamycin HCL [Clindamycin HCl] 300 mg PO QID 7 Days #28 cap 10/05/23 [Rx Confirmed 10/06/23] Allergies/Adverse Reactions: Allergies Allergy/AdvReac Type Severity Reaction Status Date / Time shellfish derived Allergy Hives Verified 10/06/23 11:03 - Past Medical History Past Medical History: Yes Neurological History: No Pertinent History ENT History: No Pertinent History Cardiac History: Hypertension Respiratory History: No Pertinent History Endocrine Medical History: No Pertinent History Musculoskelatal History: Fractures GI Medical History: Crohns Disease, Other History: No Pertinent History Pyscho-Social History: Anxiety, Depression Male Reproductive Disorders: No Pertinent History Comment: Proctitis; 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 - Past Surgical History Past Surgical History: Yes Neuro Surgical History: No Pertinent History Cardiac History: No Pertinent History Respiratory Surgery: No Pertinent History GI Surgical History: No Pertinent History Genitourinary Surgical Hx: No Pertinent History Musculskeletal Surgical Hx: Orthopedic Surgery Male Surgical History: No Pertinent History Other Surgical History: R ankle, colonoscopy, melanoma to back removed - Social History Smoking Status: Heavy tobacco smoker How long have you smoked: 40+ years Exposure to second hand smoke: Yes Alcohol: Rarely Drug Use: none - Physical Exam Vital Signs: Vital Signs - 24 hr Temp Pulse Resp BP BP Pulse Ox 10/06/23 13:08 98.1 F 92 H 16 169/90 93 L 10/06/23 12:44 79 17 174/113 100 10/06/23 12:40 86 23 100 10/06/23 12:30 85 23 100 10/06/23 12:20 88 22 100 10/06/23 12:10 87 20 100 10/06/23 12:00 91 H 18 100 10/06/23 11:50 95 H 26 H 99 10/06/23 11:40 91 H 24 10/06/23 11:31 94 H 20 99 10/06/23 11:19 99 10/06/23 11:05 98.3 F 94 H 18 157/99 99 10/06/23 11:01 93 H 18 157/99 98 General Appearance: no apparent distress Neurologic Exam: alert, oriented x 3, cooperative Eye Exam: PERRL/EOMI Ears, Nose, Throat Exam: normal ENT inspection Neck Exam: normal inspection Respiratory Exam: normal breath sounds, lungs clear Cardiovascular Exam: regular rate/rhythm, normal heart sounds Gastrointestinal/Abdomen Exam: soft, normal bowel sounds Rectal Exam: deferred Back Exam: normal inspection Extremity Exam: inflammation, joint swelling, swelling, other (erythema/edema/ discoloration to base of digits on dorsal/plantar of right foot) Skin Exam: other (erythema/duskiness to dorsal/planter bases of digits 1-5 right foot) Assessment/Plan (1) Cellulitis of foot Current Visit: Yes Status: Acute Assessment & Plan: -Cellulitis vs arterial occlusive diasease -Uric acid normal 10/05 -Failed Levaquin/ clindamycin -Will start on vanc/zosyn -XR of the right foot with no acute abnormalities -Arterial duplex ordered/ not available until tomorrow -Podiatry consult Code(s): L03.119 - CELLULITIS OF UNSPECIFIED PART OF LIMB (2) Arterial occlusive disease Current Visit: Yes Status: Acute Assessment & Plan: -RN notified to perform dorsalis pedal/ posterior tibial doppler for pulses -Arterial duplex ordered for the morning, would prefer CTA, will speak to radiology regarding shellfish allergy and possibility of premedication prior -Consider transfer pending results/need for vascular consult Code(s): I70.90 - UNSPECIFIED ATHEROSCLEROSIS (3) Smoker Current Visit: Yes Status: Acute Assessment & Plan: -Advised cessation -Nicotine patch Code(s): F17.200 - NICOTINE DEPENDENCE, UNSPECIFIED, UNCOMPLICATED (4) Hypertension Current Visit: Yes Status: Acute Qualifiers: Hypertension type: primary hypertension Qualified Code(s): I10 - Essential (primary) hypertension Assessment & Plan: -continue home meds, will add hydralazine for SBP > 180 DBP >100 Code(s): I10 - ESSENTIAL (PRIMARY) HYPERTENSION (5) History of gout Current Visit: Yes Status: Acute Assessment & Plan: -Does not appear to be in exacerbation -Uric acid levels wnl -Continue home allopurinol Code(s): Z87.39 - PERSONAL HISTORY OF DISEASES OF THE MS SYS AND CONN TISS <SYMONE FONG - Last Filed: 10/06/23 19:54> History of Present Illness - Chief Complaint History of Present Illness: is a 68 year old male. - Physical Exam Vital Signs: Vital Signs - 24 hr Temp Pulse Resp BP BP Pulse Ox 10/06/23 19:14 97.7 F 69 16 96/56 97 10/06/23 16:00 97.1 F 87 16 126/86 92 L 10/06/23 13:08 98.1 F 92 H 16 169/90 93 L 10/06/23 12:44 79 17 174/113 100 10/06/23 12:40 86 23 100 10/06/23 12:30 85 23 100 10/06/23 12:20 88 22 100 10/06/23 12:10 87 20 100 10/06/23 12:00 91 H 18 100 10/06/23 11:50 95 H 26 H 99 10/06/23 11:40 91 H 24 10/06/23 11:31 94 H 20 99 10/06/23 11:19 99 10/06/23 11:05 98.3 F 94 H 18 157/99 99 10/06/23 11:01 93 H 18 157/99 98 Results - Labs Lab/Micro Results: Lab Results-Last 24 Hours 10/06/23 10/06/23 10/06/23 Range/Units 14:46 15:10 15:10 WBC 6.5 (4.0-10.5) x10^3/uL RBC 3.56 L (4.1-5.6) x10^6/uL Hgb 12.6 (12.5-18.0) g/dL Hct 37.7 L (42-50) % MCV 105.9 H (78-100) fL MCH 35.4 H (26-32) pg MCHC 33.4 (32-36) g/dL RDW 13.2 (11.5-14.0) % Plt Count 223 (150-450) x10^3/uL MPV 9.9 (7.5-11.0) fL Sodium 135 L (137-145) mmol/L Potassium 3.2 L (3.5-5.1) mmol/L Chloride 106 (98-107) mmol/L Carbon Dioxide 23 (22-30) mmol/L Anion Gap 8.2 (5-15) MEQ/L BUN 6 L (9-20) mg/dL Creatinine 0.59 L (0.66-1.25) mg/dL Estimated GFR 106.3 ML/MIN Glucose 158 H (74-106) mg/dL Lactic Acid 1.9 (0.4-2.0) Calcium 8.6 (8.4-10.2) mg/dL Total Bilirubin 0.90 (0.2-1.3) mg/dL AST 17 (17-59) U/L ALT 11 (0-50) U/L Alkaline Phosphatase 68 (38-126) U/L Serum Total Protein 6.4 (6.3-8.2) g/dL Albumin 3.3 L (3.5-5.0) g/dL 10/06/ Range/Units 17:10 WBC (4.0-10.5) x10^3/uL RBC (4.1-5.6) x10^6/uL Hgb (12.5-18.0) g/dL Hct (42-50) % MCV (78-100) fL MCH (26-32) pg MCHC (32-36) g/dL RDW (11.5-14.0) % Plt Count (150-450) x10^3/uL MPV (7.5-11.0) fL Sodium (137-145) mmol/L Potassium 3.1 L (3.5-5.1) mmol/L Chloride (98-107) mmol/L Carbon Dioxide (22-30) mmol/L Anion Gap (5-15) MEQ/L BUN (9-20) mg/dL Creatinine (0.66-1.25) mg/dL Estimated GFR ML/MIN Glucose (74-106) mg/dL Lactic Acid (0.4-2.0) Calcium (8.4-10.2) mg/dL Total Bilirubin (0.2-1.3) mg/dL AST (17-59) U/L ALT (0-50) U/L Alkaline Phosphatase (38-126) U/L Serum Total Protein (6.3-8.2) g/dL Albumin (3.5-5.0) g/dL - Radiology Impressions Radiology Exams & Impressions: Radiology Procedures Category Date Time Status CTA LOWER EXTREMITY W CONTRAST [CT] Routine Exams 10/07/23 14:51 Ordered FREDA Encounter - FREDA Encounter Attestation FREDA Encounter Attestation: "IhavepersonallyseenJOLEEN Dee andhavediscussed pertinent aspects of their care with Duarte Diaz agree with the history, physical exam (any modifications based on my personal exam will be noted below), assessment, and plan as outlined in original note. Please see immediately below for my summary of findings and additional assessment and plan along with any meaningful corrections/explanations to the Subjective/Objective portions of the FREDA note will be noted." My portion of the encounter took place via telemedicine. -Patient was seen in the ER yesterday and was offered transfer to [facility] for vascular surgery evaluation but he left AMA. He again presents with pain and redness in distal right foot and toes. He has been treated with Levaquin and clindamycin in the past 2 ER visits that he has had. While there may be a component of cellulitis, I suspect this is likely a manifestation of his undiagnosed PAD. There is sharp demarcation of the redness on his toes and its not contiguous (as would be expected with cellulitis). There is a doppler pulse in the right dorsalis pedis and posterior tibial. Unfortunately imaging is not available today but I believe since the limb is not acutely ischemic, we can wait until the morning to imaging and then possibly pursue transfer. Start vanc/zosyn for cellulitis coverage.
[2023-10-06] MEDS: PIPERACILLIN/TAZOBACTAM 3.375 GM in Sodium Chloride 100ML MINI-BAG PLUS 100 ML IV SCH ×2 (14:19→17:28)
[2023-10-06] MEDS: VANCOMYCIN 1 GRAM/200 ML BAG 1 GM/200 ML PIGGYBACK IV SCH (14:52)
[2023-10-06] MEDS ORDERED: APRESOLINE 20 MG/ML INJ IV PRN (14:57)
[2023-10-06] MEDS: Nicoderm CQ 21 MG TOP SCH (15:11)
[2023-10-06] MEDS: PERCOCET TABLET 5/325MG PO PRN ×2 (15:12→19:52)
[2023-10-06 15:16] LABS: Hematocrit 37.7 % (42-50); Hemoglobin 12.6 g/dL (12.5-18.0); Mean Cell Volume 105.9 fL (78-100); Mean Corpuscular Hemoglobin 35.4 pg (26-32); Mean Corpuscular Hgb Concent. 33.4 g/dL (32-36); Mean Platelet Volume 9.9 fL (7.5-11.0); Platelet Count 223 x10^3/uL (150-450); Red Blood Count 3.56 x10^6/uL (4.1-5.6); Red Cell Distribution Width 13.2 % (11.5-14.0); White Blood Count 6.5 x10^3/uL (4.0-10.5)
[2023-10-06 15:30] LABS: ALBUMIN 3.3 g/dL (3.5-5.0); ANION GAP 8.2 MEQ/L (5-15); BILIRUBIN,TOTAL 0.9 mg/dL (0.2-1.3); Calcium 8.6 mg/dL (8.4-10.2); Creatinine 1 0.59 mg/dL (0.66-1.25); EST GLOMERULAR FILTRATION RATE 106.3 ML/MIN; Potassium 3.2 mmol/L (3.5-5.1); Total Protein 6.4 g/dL (6.3-8.2)
[2023-10-06] MEDS ORDERED: Klor Con PO ONE (15:47)
[2023-10-06] MEDS: Klor Con PO SCH ×3 (17:48→22:00)
[2023-10-06] MEDS ORDERED: DELTASONE 20 MG PO ONE (19:00)
[2023-10-06] MEDS: TYLENOL 325 MG PO PRN (19:52)
[2023-10-06] MEDS: Valium 5 MG PO PRN (21:59)
[2023-10-07] MEDS: PIPERACILLIN/TAZOBACTAM 3.375 GM in Sodium Chloride 100ML MINI-BAG PLUS 100 ML IV SCH ×3 (00:12→12:33)
[2023-10-07] MEDS: PERCOCET TABLET 5/325MG PO PRN ×4 (00:12→12:32)
[2023-10-07] MEDS: VANCOMYCIN 1 GRAM/200 ML BAG 1 GM/200 ML PIGGYBACK IV SCH ×2 (02:12→09:46)
[2023-10-07] MEDS ORDERED: DELTASONE 10 MG PO ONE (04:00)
[2023-10-07] MEDS ORDERED: PERCOCET TABLET 5/325MG ONE (04:06)
[2023-10-07] MEDS ORDERED: TYLENOL 325 MG ONE (04:06)
[2023-10-07] MEDS: TYLENOL 325 MG PO PRN ×2 (04:07→21:03)
[2023-10-07 05:17] LABS: Hematocrit 37.9 % (42-50); Hemoglobin 12.3 g/dL (12.5-18.0); Mean Cell Volume 108.3 fL (78-100); Mean Corpuscular Hemoglobin 35.1 pg (26-32); Mean Corpuscular Hgb Concent. 32.5 g/dL (32-36); Mean Platelet Volume 11.2 fL (7.5-11.0); Platelet Count 221 x10^3/uL (150-450); Red Cell Distribution Width 13.9 % (11.5-14.0); White Blood Count 4.4 x10^3/uL (4.0-10.5)
--- NOTE | 2023-10-07 05:24 | PCM.NOTE ---
Date and Time: 10/07/23 0523 Subjective Assessment: HPI: is a 68 year old male with a pmhx of HTN, Crohns, gout, anxiety, melanoma to the back, presented to ED initially on 10/05/23 with complaints of right foot pain, erythema, and purplish/black discoloration to dorsal/palmar toe base of right foot. Patient was recommended transfer to [facility] for vasular surgery recommendations but then AMA. He has now presented to ED with the same complaints of right foot pain. Patient states that onset was approximately one week ago and pain has progressively gotten worse. He describes the pain as constant and sharp/aching/throbbing in characteristic. He rates the pain 10/10 on a numerical pain scale. Patient states nothing has relieved the pain other than slightly with his home [place]. He has been unable to ambulate and has been NWB secondary to severe pain. Upon examination, the right foot appears dusky at the base of his digits, with erythema/edema noted to the tips of all five digits. Patient denies fevers/chills. 10/07: Met with patient bedside. Endorsed improvement of right foot pain now at 4/10. Upon exam right toe base and digits 1-5 appear to have worsening discoloration. DP +2. Slightly cooler to touch than left extremity. Dr. Grant has been consulted, arterial us ordered noting mild/moderate scattered arteriosclerotic disease right leg without critical stenosis/objection. Normal CHIQUITA.2. Left mid superficial femoral artery occlusion. Mild scattered arteriosclerotic disease remaining left leg. Normal CHIQUITA. Patient refused CTA with runoff, he did not want another IV. Discussed the importance of this imaging, patient still declines. Patient has been accepted to [facility] per Dr. Thornton. Transfer pending podiatry recommendation. - Review of Systems Constitutional: No Symptoms Eyes: No Symptoms Ears, Nose, & Throat: No Symptoms Respiratory: No Symptoms Cardiac: No Symptoms Abdominal/Gastrointestinal: No Symptoms Genitourinary Symptoms: No Symptoms Musculoskeletal: Joint Pain (Right foot/digits 1-5) Skin: No Symptoms Neurological: No Symptoms Psychological: No Symptoms Endocrine: No Symptoms Objective Exam General Appearance: no apparent distress Neurologic Exam: alert, oriented x 3, cooperative Skin Exam: other (erythema/purple/black discoloration to dorsal/planter bases of digits 1-5 right foot) Eye Exam: PERRL Ears, Nose, Throat Exam: normal ENT inspection Neck Exam: normal inspection Respiratory Exam: normal breath sounds, lungs clear Cardiovascular Exam: regular rate/rhythm, normal heart sounds Gastrointestinal/Abdomen Exam: soft, normal bowel sounds Extremity Exam: other (erythema/purple/black discoloration to dorsal/planter bases of digits 1-5 right foot) Back Exam: normal inspection OBJECTIVE DATA Vital Signs: Vital Signs - 24 hr Temp Pulse Resp BP BP Pulse Ox 10/07/23 04:00 97.4 F 67 16 149/74 95 10/07/23 00:00 97.6 F 76 16 136/75 95 10/06/23 19:14 97.7 F 69 16 96/56 97 10/06/23 16:00 97.1 F 87 16 126/86 92 L 10/06/23 13:08 98.1 F 92 H 16 169/90 93 L 10/06/23 12:44 79 17 174/113 100 10/06/23 12:40 86 23 100 10/06/23 12:30 85 23 100 10/06/23 12:20 88 22 100 10/06/23 12:10 87 20 100 10/06/23 12:00 91 H 18 100 10/06/23 11:50 95 H 26 H 99 10/06/23 11:40 91 H 24 10/06/23 11:31 94 H 20 99 10/06/23 11:19 99 10/06/23 11:05 98.3 F 94 H 18 157/99 99 10/06/23 11:01 93 H 18 157/99 98 Pain Assessment - Last Documented Pain Intensity [Right foot 9 toes] Pain Intensity 6 Pain Scale Used 0-10 Pain Scale Intake and Output: Intake & Output 10/04/23 10/05/23 10/06/23 10/07/23 11:59 11:59 11:59 11:59 Intake Total 720 Balance 720 Weight 76.8 kg 76.6 kg Lab Results: Lab Results-Last 24 Hours 10/06/23 10/06/23 10/06/23 Range/Units 14:46 15:10 15:10 WBC 6.5 (4.0-10.5) x10^3/uL RBC 3.56 L (4.1-5.6) x10^6/uL Hgb 12.6 (12.5-18.0) g/dL Hct 37.7 L (42-50) % MCV 105.9 H (78-100) fL MCH 35.4 H (26-32) pg MCHC 33.4 (32-36) g/dL RDW 13.2 (11.5-14.0) % Plt Count 223 (150-450) x10^3/uL MPV 9.9 (7.5-11.0) fL Sodium 135 L (137-145) mmol/L Potassium 3.2 L (3.5-5.1) mmol/L Chloride 106 (98-107) mmol/L Carbon Dioxide 23 (22-30) mmol/L Anion Gap 8.2 (5-15) MEQ/L BUN 6 L (9-20) mg/dL Creatinine 0.59 L (0.66-1.25) mg/dL Estimated GFR 106.3 ML/MIN Glucose 158 H (74-106) mg/dL Lactic Acid 1.9 (0.4-2.0) Calcium 8.6 (8.4-10.2) mg/dL Total Bilirubin 0.90 (0.2-1.3) mg/dL AST 17 (17-59) U/L ALT 11 (0-50) U/L Alkaline Phosphatase 68 (38-126) U/L Serum Total Protein 6.4 (6.3-8.2) g/dL Albumin 3.3 L (3.5-5.0) g/dL 10/06/23 10/07/23 Range/Units 17:10 04:14 WBC 4.4 (4.0-10.5) x10^3/uL RBC 3.50 L (4.1-5.6) x10^6/uL Hgb 12.3 L (12.5-18.0) g/dL Hct 37.9 L (42-50) % MCV 108.3 H (78-100) fL MCH 35.1 H (26-32) pg MCHC 32.5 (32-36) g/dL RDW 13.9 (11.5-14.0) % Plt Count 221 (150-450) x10^3/uL MPV 11.2 H (7.5-11.0) fL Sodium (137-145) mmol/L Potassium 3.1 L (3.5-5.1) mmol/L Chloride (98-107) mmol/L Carbon Dioxide (22-30) mmol/L Anion Gap (5-15) MEQ/L BUN (9-20) mg/dL Creatinine (0.66-1.25) mg/dL Estimated GFR ML/MIN Glucose (74-106) mg/dL Lactic Acid (0.4-2.0) Calcium (8.4-10.2) mg/dL Total Bilirubin (0.2-1.3) mg/dL AST (17-59) U/L ALT (0-50) U/L Alkaline Phosphatase (38-126) U/L Serum Total Protein (6.3-8.2) g/dL Albumin (3.5-5.0) g/dL Radiology Exams: Radiology Procedures Category Date Time Status CTA LOWER EXTREMITY W CONTRAST [CT] Routine Exams 10/07/23 14:51 Ordered Assessment/Plan (1) Cellulitis of foot Current Visit: Yes Status: Acute Assessment & Plan: -Cellulitis vs arterial occlusive diasease -Uric acid normal 10/05 -Failed Levaquin/ clindamycin -Will start on vanc/zosyn -XR of the right foot with no acute abnormalities -Arterial duplex ordered/ not available until tomorrow -Podiatry consult 10/07: -Most likely ischemia vs infection, there may be some component of cellulitis, will continue abx for now -Podiatry consult pending, has been accepted to [facility] pending podiatry recs -PT declines CTA w/runoff -Art duplex showing 1. Mild/moderate scattered arteriosclerotic disease right leg without critical stenosis/objection. Normal CHIQUITA. 2. Left mid superficial femoral artery occlusion. Mild scattered arteriosclerotic disease remaining left leg. Normal CHIQUITA. Code(s): L03.119 - CELLULITIS OF UNSPECIFIED PART OF LIMB (2) Arterial occlusive disease Current Visit: Yes Status: Acute Assessment & Plan: -RN notified to perform dorsalis pedal/ posterior tibial doppler for pulses -Arterial duplex ordered for the morning, would prefer CTA, will speak to radiology regarding shellfish allergy and possibility of premedication prior -Consider transfer pending results/need for vascular consult 10/07: -See cellulitis Code(s): I70.90 - UNSPECIFIED ATHEROSCLEROSIS (3) Smoker Current Visit: Yes Status: Acute Assessment & Plan: -Advised cessation -Nicotine patch Code(s): F17.200 - NICOTINE DEPENDENCE, UNSPECIFIED, UNCOMPLICATED (4) Hypertension Current Visit: Yes Status: Acute Qualifiers: Hypertension type: primary hypertension Qualified Code(s): I10 - Essential (primary) hypertension Assessment & Plan: -continue home meds, will add hydralazine for SBP > 180 DBP >100 Code(s): I10 - ESSENTIAL (PRIMARY) HYPERTENSION (5) History of gout Current Visit: Yes Status: Acute Assessment & Plan: -Does not appear to be in exacerbation -Uric acid levels wnl -Continue home allopurinol Code(s): Z87.39 - PERSONAL HISTORY OF DISEASES OF THE MS SYS AND CONN TISS Code(s): L03.119 - CELLULITIS OF UNSPECIFIED PART OF LIMB (2) Arterial occlusive disease Current Visit: Yes Status: Acute Code(s): I70.90 - UNSPECIFIED ATHEROSCLEROSIS (3) Smoker Current Visit: Yes Status: Acute Code(s): F17.200 - NICOTINE DEPENDENCE, UNSPECIFIED, UNCOMPLICATED (4) Hypertension Current Visit: Yes Status: Acute Qualifiers: Hypertension type: primary hypertension Qualified Code(s): I10 - Essential (primary) hypertension Code(s): I10 - ESSENTIAL (PRIMARY) HYPERTENSION (5) History of gout Current Visit: Yes Status: Acute Code(s): Z87.39 - PERSONAL HISTORY OF DISEASES OF THE MS SYS AND CONN TISS
[2023-10-07 05:26] LABS: ALBUMIN 3.4 g/dL (3.5-5.0); BILIRUBIN,TOTAL 0.6 mg/dL (0.2-1.3); Creatinine 1 0.62 mg/dL (0.66-1.25); EST GLOMERULAR FILTRATION RATE 104.8 ML/MIN; Total Protein 6.6 g/dL (6.3-8.2)
[2023-10-07 06:00] LABS: Potassium 5.1 mmol/L (3.5-5.1)
[2023-10-07] MEDS: Klor Con PO SCH (09:49)
[2023-10-07] MEDS: ZYLOPRIM 100 MG PO SCH (09:50)
[2023-10-07] MEDS: NORVASC 5 MG PO SCH (09:50)
[2023-10-07] MEDS ORDERED: DELTASONE 20 MG PO ONE (10:00)
[2023-10-07] MEDS ORDERED: BENADRYL 25 MG CAPSULE PO ONE (10:00)
[2023-10-07] MEDS ORDERED: DELTASONE 5 MG PO ONE (10:00)
[2023-10-07] MEDS ORDERED: NON-FORMULARY ITEM (Amlodipine Besylate [Norvasc] 10 MG Tablet) PO SCH (10:00)
--- NOTE | 2023-10-07 11:40 | XRAY ---
Indication: Peripheral vascular disease. Cellulitis. Two-dimensional sonogram and color Doppler imaging of the major arteries of the left and right leg performed. Comparison: None Examination of the right leg demonstrates mild scattered arteriosclerotic disease throughout the common femoral, deep femoral, mid to proximal superficial femoral, popliteal, and posterior tibial arteries without critical stenosis/objection. Greater disease in the distal superficial femoral artery. Widely patent dorsal pedal artery. Arterial waveforms are multiphasic in the common femoral, superficial femoral, and deep femoral arteries. Remaining popliteal, posterior tibial, and dorsal pedal arterial waveforms are monophasic. Right arm brachial pressure is 120. Right ankle pressure is 120. Ankle-brachial index is 1.0, normal. Examination of the left leg demonstrate mild scattered arteriosclerotic disease in the common femoral and deep femoral arteries. Greater significant disease seen in mid superficial femoral artery with occlusion. Reconstitution distal superficial femoral artery with mild scattered disease in the remaining femoral, popliteal, posterior tibial, and dorsal pedal arteries. Arterial waveforms are multiphasic in the common femoral and deep femoral arteries. Remaining distal superficial femoral, popliteal, posterior tibial, and dorsal pedal acute waveforms are monophasic. Left arm brachial pressure is 126. Left ankle pressure is 115. Ankle-brachial index is 0.91, normal. Impression: 1. Mild/moderate scattered arteriosclerotic disease right leg without critical stenosis/objection. Normal CHIQUITA. 2. Left mid superficial femoral artery occlusion. Mild scattered arteriosclerotic disease remaining left leg. Normal CHIQUITA. CTA abdominal aorta with bilateral runoff may yield further information.
[2023-10-07] MEDS: Valium 5 MG PO PRN ×2 (12:32→21:03)
[2023-10-07] MEDS: Nicoderm CQ 21 MG TOP SCH (13:55)
--- NOTE | 2023-10-07 15:57 | PCM.CONS ---
Podiatry HPI - Consult Date of Consultation Date: 10/07/23 Reason for Consult: PVD right foot pain Consulting Provider: ELISE SHAH DPM - [facility] History of Present Illness: is a 68 year old male with a pmhx of HTN, Crohns, gout, anxiety, melanoma to the back, presented to ED initially on 10/05/23 with complaints of right foot pain, erythema, and purplish/black discoloration to dorsal/palmar toe base of right foot. Patient was recommended transfer to [facility] for vasular surgery recommendations but then AMA. He has now presented to ED with the same complaints of right foot pain. Patient states that onset was approximately one week ago and pain has progressively gotten worse. He describes the pain as constant and sharp/aching/throbbing in characteristic. He rates the pain 10/10 on a numerical pain scale. Patient states nothing has relieved the pain other than slightly with his home [place]. He has been unable to ambulte and has been NWB secondary to severe pain. Upon examination, the right foot appears dusky at the base of his digits, with erythema/edema noted to the tips of all five digits. Patient denies fevers/chills. In ED patient slightly hypertensive but otherwise vitals are unremarkable. Right foot XRay with no acute findings. Patient started on zosyn/vanc, toradol/percet for pain, and IVF bolus. Assessment at bedside this afternoon with mottling/demarcation to plantar aspects of the right foot. Palpable pulses to DP and PT. Patient states pain worsening. Endorses being cigarette smoker and having a history of pain with colder weather to fingers and toes. Medications & Allergies Home Medications: Home Medication List Diazepam 5 mg [Valium 5 MG] 5 mg PO Q8HPRN PRN 07/27/21 [History Confirmed 10/06/23] Allopurinol 100 mg [Zyloprim 100 mg] 100 mg PO DAILY 08/03/23 [History Confirmed 10/06/23] Amlodipine Besylate [Norvasc] 10 mg PO DAILY 08/03/23 [History Confirmed 10/06/23] Oxycodone / APAP 10/325 mg [Oxycodone-Acetaminophen 10-325] 1 tab PO Q8HPRN PRN 08/03/23 [History Confirmed 10/06/23] Potassium Chloride Tab* [Klor Con] 10 meq PO DAILY 08/03/23 [History Confirmed 10/06/23] Sildenafil Citrate [Viagra] 50 mg PO DAILY PRN PRN 08/03/23 [History Confirmed 10/06/23] clindamycin HCL [Clindamycin HCl] 300 mg PO QID 7 Days #28 cap 10/05/23 [Rx Confirmed 10/06/23] Allergies/Adverse Reactions: Allergies Allergy/AdvReac Type Severity Reaction Status Date / Time shellfish derived Allergy Hives Verified 10/06/23 11:03 - Past Medical History Past Medical History: Yes Neurological History: No Pertinent History ENT History: No Pertinent History Cardiac History: Hypertension Respiratory History: No Pertinent History Endocrine Medical History: No Pertinent History Musculoskelatal History: Fractures GI Medical History: Crohns Disease, Other History: No Pertinent History Pyscho-Social History: Anxiety, Depression Male Reproductive Disorders: No Pertinent History Comment: Proctitis; 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 - Past Surgical History Past Surgical History: Yes Neuro Surgical History: No Pertinent History Cardiac History: No Pertinent History Respiratory Surgery: No Pertinent History GI Surgical History: No Pertinent History Genitourinary Surgical Hx: No Pertinent History Musculskeletal Surgical Hx: Orthopedic Surgery Male Surgical History: No Pertinent History Other Surgical History: R ankle, colonoscopy, melanoma to back removed - Social History Smoking Status: Heavy tobacco smoker How long have you smoked: 40+ years Exposure to second hand smoke: Yes Alcohol: Rarely Drug Use: none Physical Exam - General General Appearance: mild distress - Neuro Neurologic: Epicritic and protopathic (intact) - Vascular Peripheral Pulses: Posterior tibialis: 2+, Dorsalis-Pedis: 2+ Capillary Refill Time: < 3 seconds Hair Growth: Symmetrical and Bilateral Varicosities: Negtive Edema: None Skin: Supple, not atrophic (mottling/demarcation to the plantar aspect of the right foot laterally and toes 2-4 centrally.) - Muscular Digital Deformity: hammer toe - Narrative Narrative Physical Exam: Podiatry Physical Exam Results - Labs Lab/Micro Results: Lab Results-Last 24 Hours 10/06/23 10/07/23 10/07/23 Range/Units 17:10 04:14 04:14 WBC 4.4 (4.0-10.5) x10^3/uL RBC 3.50 L (4.1-5.6) x10^6/uL Hgb 12.3 L (12.5-18.0) g/dL Hct 37.9 L (42-50) % MCV 108.3 H (78-100) fL MCH 35.1 H (26-32) pg MCHC 32.5 (32-36) g/dL RDW 13.9 (11.5-14.0) % Plt Count 221 (150-450) x10^3/uL MPV 11.2 H (7.5-11.0) fL Sodium 134 L (137-145) mmol/L Potassium 3.1 L 5.1 D (3.5-5.1) mmol/L Chloride 110 H (98-107) mmol/L Carbon Dioxide 22 (22-30) mmol/L Anion Gap 8.0 (5-15) MEQ/L BUN 7 L (9-20) mg/dL Creatinine 0.62 L (0.66-1.25) mg/dL Estimated GFR 104.8 ML/MIN Glucose 184 H (74-106) mg/dL Calcium 9.0 (8.4-10.2) mg/dL Total Bilirubin 0.60 (0.2-1.3) mg/dL AST 16 L (17-59) U/L ALT 9 (0-50) U/L Alkaline Phosphatase 92 (38-126) U/L Serum Total Protein 6.6 (6.3-8.2) g/dL Albumin 3.4 L (3.5-5.0) g/dL - Radiology Impressions Radiology Exams & Impressions: Radiology Procedures Category Date Time Status ARTERIAL BILAT LOWER EXTREMITY [US] Stat Exams 10/07/23 09:43 Completed Assessment/Plan (1) Thromboangiitis obliterans (Buerger's disease) Current Visit: Yes Status: Acute Assessment & Plan: Initial patient examination evaluation Patient's clinical examination is likely consistent with a vasculitis with thrombolic manifestation to the right foot. Given patient's hypertension and significant history of cigarette smoking as well as Raynaud's high suspicion for thromboangiitis obliterans. Patient was informed of the potential for demarcation. Given patient does have palpable pulses likelihood of vascular intervention for successful treatment of insult is low and recommendation for local monitoring as patient requests to stay locally. Will consult with cardiology/peripheral vascular surgery locally for recommendations. At this time recommendations are for extensive blood work assessing patient's clotting factors consisting of factor V Leiden, factor VIII, PT/PTT/INR, fibrino gen, protein C, protein S, prothrombin factor II, Antithrombin activity, homocystine Sistine day sulfate nightly serum plasma, antineutrophil cytoplasmic antibody for assessment of potential pathological deficiencies. Smoking cessation recommended at this time as this is the only cure for resolution of symptoms however this may be too late for the patient's right foot we will continue to monitor at this time for demarcation. Recommendation for pentoxifylline 400 mg twice daily daily to increase peripheral blood flow. Patient would likely benefit from topical Nitro-Bid paste applications to the foot 3 times daily Xarelto 10 mg daily Percocet 10 mg every 6 Will monitor from an outpatient standpoint on discharge. Okay for DC at this time Code(s): I73.1 - THROMBOANGIITIS OBLITERANS [BUERGER'S DISEASE] (2) Acquired clotting factor deficiency Current Visit: Yes Status: Acute Code(s): D68.4 - ACQUIRED COAGULATION FACTOR DEFICIENCY (3) Raynaud's disease Current Visit: Yes Status: Acute Code(s): I73.00 - RAYNAUD'S SYNDROME WITHOUT GANGRENE (4) Smoker Current Visit: Yes Status: Acute Code(s): F17.200 - NICOTINE DEPENDENCE, UNSPECIFIED, UNCOMPLICATED
[2023-10-07 17:31] LABS: INR 0.96 (0.8-3.0); PROTIME 10.5 SECONDS (9.4-12.5); PTT 27.3 SECONDS (25.1-36.5)
[2023-10-07] MEDS: OXYCODONE-ACETAMINOPHEN 10-325 PO PRN (18:02)
[2023-10-07] MEDS: NITRO-BID 2% UD PACKETS TOP SCH (21:04)
[2023-10-07] MEDS: XARELTO 10 MG TABLET PO SCH (21:04)
[2023-10-08 04:04] VITALS: RESP 16
[2023-10-08 05:09] LABS: Hematocrit 33.1 % (42-50); Hemoglobin 10.7 g/dL (12.5-18.0); Mean Cell Volume 108.5 fL (78-100); Mean Corpuscular Hemoglobin 35.1 pg (26-32); Mean Corpuscular Hgb Concent. 32.3 g/dL (32-36); Mean Platelet Volume 11.2 fL (7.5-11.0); Platelet Count 231 x10^3/uL (150-450); Red Blood Count 3.05 x10^6/uL (4.1-5.6); White Blood Count 10.1 x10^3/uL (4.0-10.5)
[2023-10-08 05:19] LABS: ALBUMIN 2.8 g/dL (3.5-5.0); ANION GAP 6.6 MEQ/L (5-15); BILIRUBIN,TOTAL 0.2 mg/dL (0.2-1.3); Calcium 8.7 mg/dL (8.4-10.2); Creatinine 1 0.58 mg/dL (0.66-1.25); EST GLOMERULAR FILTRATION RATE 106.9 ML/MIN; Potassium 3.9 mmol/L (3.5-5.1); Total Protein 5.7 g/dL (6.3-8.2)
--- NOTE | 2023-10-08 05:29 | PCM.DS ---
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 Patient was recommended transfer to [facility] for vasular surgery recommendations but then AMA. He has now presented to ED with the same complaints of right foot pain. Patient states that onset was approximately one week ago and pain has progressively gotten worse. He describes the pain as constant and sharp/aching/throbbing in characteristic. He rates the pain 10/10 on a numerical pain scale. Patient states nothing has relieved the pain other than slightly with his home [place]. He has been unable to ambulte and has been NWB secondary to severe pain. Upon examination, the right foot appears dusky at the base of his digits, with erythema/edema noted to the tips of all five digits. Patient denies fevers/chills. In ED patient slightly hypertensive but otherwise vitals are unremarkable. Right foot XRay with no acute findings. Patient started on zosyn/vanc, toradol/percet for pain, and IVF bolus. Art duplex showing mild/moderate scattered arteriosclerotic disease right leg without critical stenosis/objection. Normal CHIQUITA. Left mid superficial femoral artery occlusion. Mild scattered arteriosclerotic disease remaining left leg. Normal CHIQUITA. Patient refused CTA of right foot. Podiatry consulted, clinical examination is likely consistent with a vasculitis with thrombolic manifestation to the right foot. Given patient's hypertension and significant history of cigarette smoking as well as Raynaud's high suspicion for thromboangiitis tish ranmarsha. Recommendations for extensive blood work assessing patient's clotting factors consisting of factor V Leiden, factor VIII, PT/PTT/INR, fibrinogen, protein C, protein S, prothrombin factor II, Antithrombin activity, homocystine Sistine day sulfate nightly serum plasma, antineutrophil cytoplasmic antibody for assessment of potential pathological deficiencies. As well as recommendations for treatment with pentoxifylline 400 mg twice daily daily to increase peripheral blood flow, topical Nitro-Bid paste applications to the foot 3 times daily, Xarelto 10 mg daily, and increase Percocet 10 mg every 6 hours. Smoking cessation recommended at this time as this is the only cure for resolution of symptoms however this may be too late for the patient's right foot. Patient stable for discharge with continued evaluation and workup OP with podiatry. Discharge Note New Diagnosis:Thromboangiitis obliterans (Buerger's Disease) New Medications:pentoxifylline 400 mg twice daily daily to increase peripheral blood flow, topical Nitro-Bid paste applications to the foot 3 times daily, Xarelto 10 mg daily, and increase Percocet 10 mg every 6 hours. Follow Up: Podiatry/pcp Latest Assessment & Plan # Thromboangiitis obliterans (Buerger's Disease) (1) Cellulitis of foot Current Visit: Yes Status: Acute Assessment & Plan: -Cellulitis vs arterial occlusive diasease -Uric acid normal 10/05 -Failed Levaquin/ clindamycin -Will start on vanc/zosyn -XR of the right foot with no acute abnormalities -Arterial duplex ordered/ not available until tomorrow -Podiatry consult 10/07: -Most likely ischemia vs infection, there may be some component of cellulitis, will continue abx for now -Podiatry consult pending, has been accepted to [facility] pending podiatry recs -PT declines CTA w/runoff -Art duplex showing 1. Mild/moderate scattered arteriosclerotic disease right leg without critical stenosis/objection. Normal CHIQUITA. 2. Left mid superficial femoral artery occlusion. Mild scattered arteriosclerotic disease remaining left leg. Normal CHIQUITA. Code(s): L03.119 - CELLULITIS OF UNSPECIFIED PART OF LIMB (2) Arterial occlusive disease Current Visit: Yes Status: Acute Assessment & Plan: -RN notified to perform dorsalis pedal/ posterior tibial doppler for pulses -Arterial duplex ordered for the morning, would prefer CTA, will speak to radiology regarding shellfish allergy and possibility of premedication prior -Consider transfer pending results/need for vascular consult 10/07: -See cellulitis Code(s): I70.90 - UNSPECIFIED ATHEROSCLEROSIS (3) Smoker Current Visit: Yes Status: Acute Assessment & Plan: -Advised cessation -Nicotine patch Code(s): F17.200 - NICOTINE DEPENDENCE, UNSPECIFIED, UNCOMPLICATED (4) Hypertension Current Visit: Yes Status: Acute Qualifiers: Hypertension type: primary hypertension Qualified Code(s): I10 - Essential (primary) hypertension Assessment & Plan: -continue home meds, will add hydralazine for SBP > 180 DBP >100 Code(s): I10 - ESSENTIAL (PRIMARY) HYPERTENSION (5) History of gout Current Visit: Yes Status: Acute Assessment & Plan: -Does not appear to be in exacerbation -Uric acid levels wnl -Continue home allopurinol Code(s): Z87.39 - PERSONAL HISTORY OF DISEASES OF THE MS SYS AND CONN TISS Code(s): L03.119 - CELLULITIS OF UNSPECIFIED PART OF LIMB I spent 35 minutes [id number] with the patient on the day of discharge performing discharge exam, discussing hospital stay and discharge instructions with patient and caregivers, preparation of discharge records, prescriptions & referral forms and addressing any questions/concerns the patient had as documented above. - Vitals & Intake/Output Vital Signs: Vital Signs Temperature 98.9 F 10/08/23 04:00 Pulse Rate 76 10/08/23 04:00 Respiratory Rate 16 10/08/23 04:00 Blood Pressure 125/74 10/08/23 04:00 O2 Sat by Pulse Oximetry 97 10/08/23 04:00 Intake & Output: Intake & Output 10/05/23 10/06/23 10/07/23 10/08/23 11:59 11:59 11:59 11:59 Intake Total 720 1336 Output Total 100 625 Balance 620 711 Weight 76.8 kg 76.6 kg - Lab Result Diagrams: 10/08/23 04:30 10/08/23 04:30 Lab Results-Last 24 Hrs: Lab Results-Last 24 Hours 10/07/23 10/07/23 10/08/23 Range/Units 04:14 16:34 04:30 WBC 10.1 (4.0-10.5) x10^3/uL RBC 3.05 L (4.1-5.6) x10^6/uL Hgb 10.7 L (12.5-18.0) g/dL Hct 33.1 L (42-50) % MCV 108.5 H (78-100) fL MCH 35.1 H (26-32) pg MCHC 32.3 (32-36) g/dL RDW 14.0 (11.5-14.0) % Plt Count 231 (150-450) x10^3/uL MPV 11.2 H (7.5-11.0) fL PT 10.5 (9.4-12.5) SECONDS INR 0.96 (0.8-3.0) APTT 27.3 (25.1-36.5) SECONDS Fibrinogen Activity 625 H (200-400) mg/dL Sodium 134 L (137-145) mmol/L Potassium 5.1 D (3.5-5.1) mmol/L Chloride 110 H (98-107) mmol/L Carbon Dioxide 22 (22-30) mmol/L Anion Gap 8.0 (5-15) MEQ/L BUN 7 L (9-20) mg/dL Creatinine 0.62 L (0.66-1.25) mg/dL Estimated GFR 104.8 ML/MIN Glucose 184 H (74-106) mg/dL Calcium 9.0 (8.4-10.2) mg/dL Total Bilirubin 0.60 (0.2-1.3) mg/dL AST 16 L (17-59) U/L ALT 9 (0-50) U/L Alkaline Phosphatase 92 (38-126) U/L Serum Total Protein 6.6 (6.3-8.2) g/dL Albumin 3.4 L (3.5-5.0) g/dL - Radiology Exams Ordered Rad Exams-Entire Visit: Radiology Procedures Category Date Time Status ARTERIAL BILAT LOWER EXTREMITY [US] Stat Exams 10/07/23 09:43 Completed ECHO W/2D AND DOPPLER [US] Routine Exams 10/08/23 15:57 Ordered Discharge Exam General Appearance: no apparent distress Neurologic Exam: alert, oriented x 3, cooperative Eye Exam: PERRL Ears, Nose, Throat Exam: normal ENT inspection Neck Exam: normal inspection Respiratory Exam: normal breath sounds, lungs clear Cardiovascular Exam: regular rate/rhythm, normal heart sounds Gastrointestinal/Abdomen Exam: soft, normal bowel sounds Male Genitalia Exam: deferred Rectal Exam: deferred Back Exam: normal inspection Extremity Exam: other ((erythema/purple/black discoloration to dorsal/planter bases of digits 1-5 right foot)) Skin Exam: other ((erythema/purple/black discoloration to dorsal/planter bases of digits 1-5 right foot)) Final Diagnosis/Problem List - Final Discharge Diagnosis/Problem (1) Buerger's disease Current Visit: Yes Status: Chronic Code(s): I73.1 - THROMBOANGIITIS OBLITERANS [BUERGER'S DISEASE] (2) Cellulitis of foot Current Visit: Yes Status: Ruled-out Code(s): L03.119 - CELLULITIS OF UNSPECIFIED PART OF LIMB (3) Arterial occlusive disease Current Visit: Yes Status: Chronic Code(s): I70.90 - UNSPECIFIED ATHEROSCLEROSIS (4) Smoker Current Visit: Yes Status: Chronic Code(s): F17.200 - NICOTINE DEPENDENCE, UNSPECIFIED, UNCOMPLICATED (5) Hypertension Current Visit: Yes Status: Chronic Code(s): I10 - ESSENTIAL (PRIMARY) HYPERTENSION (6) History of gout Current Visit: Yes Status: Chronic Code(s): Z87.39 - PERSONAL HISTORY OF DISEASES OF THE MS SYS AND CONN TISS (7) Acquired clotting factor deficiency Current Visit: Yes Status: Chronic Code(s): D68.4 - ACQUIRED COAGULATION FACTOR DEFICIENCY (8) Raynaud's disease Current Visit: Yes Status: Chronic Code(s): I73.00 - RAYNAUD'S SYNDROME WITHOUT GANGRENE - Discharge Disposition: Home, Self-Care Condition: Fair Prescriptions: New Pentoxifylline 400 mg PO BID 30 Days #60 tablet Nitroglycerin 2 %Ointment [Nitro-Bid 2% Ud Packets] 1 gm TD TID #90 packet Oxycodone HCl/Acetaminophen [Percocet 10-325 mg Tablet] 1 each PO Q6HPRN PRN 3 Days #12 tablet MDD 4 PRN Reason: Pain Rivaroxaban [Xarelto] 15 mg PO BID 21 Days #42 tablet Continue Diazepam 5 mg [Valium 5 MG] 5 mg PO Q8HPRN PRN PRN Reason: Anxiety Amlodipine Besylate [Norvasc] 10 mg PO DAILY Potassium Chloride Tab* [Klor Con] 10 meq PO DAILY Allopurinol 100 mg [Zyloprim 100 mg] 100 mg PO DAILY Oxycodone / APAP 10/325 mg [Oxycodone-Acetaminophen 10-325] 1 tab PO Q8HPRN PRN PRN Reason: Pain Sildenafil Citrate [Viagra] 50 mg PO DAILY PRN PRN PRN Reason: Erectile Dysfunction Discontinued clindamycin HCL [Clindamycin HCl] 300 mg PO QID 7 Days #28 cap Instructions: High Blood Pressure (DC), Peripheral Vascular (Arterial) Disease (DC) Follow up with: ELISE SHAH DPM [ACTIVE STAFF] - 10/15/23 2:00 pm LEILANI ATKINS MD [Primary Care Provider] - 11/10/23 11:00 am (lulú from office.)
[2023-10-08] MEDS: OXYCODONE-ACETAMINOPHEN 10-325 PO PRN ×3 (06:06→13:56)
[2023-10-08 08:24] VITALS: O2SAT 96
[2023-10-08] MEDS: Klor Con PO SCH (09:08)
[2023-10-08] MEDS: NORVASC 5 MG PO SCH (09:08)
[2023-10-08] MEDS: XARELTO 10 MG TABLET PO SCH (09:08)
[2023-10-08] MEDS: ZYLOPRIM 100 MG PO SCH (09:08)
[2023-10-08] MEDS: NITRO-BID 2% UD PACKETS TOP SCH (09:09)
[2023-10-08] MEDS: Valium 5 MG PO PRN (09:19)
[2023-10-08] MEDS ORDERED: TROUGH DRUG LEVELS IJ ONE (09:30)
[2023-10-08 12:30] VITALS: BP 135/72; PULSE 85; TEMP 97.2
[2023-10-09 09:21] LABS: Homocyst(e)ine 17.9 umol/L (0.0-17.2)
[2023-10-09 13:09] LABS: Cytoplasmic (C-ANCA) <1:20 titer (Neg:<1:20)
[2023-10-09 14:05] LABS: Perinuclear (P-ANCA) <1:20 titer (Neg:<1:20)
[2023-10-09 17:51] LABS: aPTT 24.7 sec (22.9-30.2)
[2023-10-10 09:24] LABS: Factor VIII Activity 205 % (56-140)
[2023-10-10 17:08] LABS: Protein C Antigen 109 % (60-150)
[2023-10-10 17:37] LABS: Protein S, Free 128 % (61-136); Protein S, Total 103 % (60-150)
== END 2023-10-08 14:53 | disposition home health service (06) ==
LOC: ED 10:40 → MED SURG 12:59
PROVIDERS: ADMIT Internal Medicine; ATTEND Internal Medicine
DX: I73.1 Thromboangiitis obliterans [Buerger's disease] (principal); L03.115 Cellulitis of right lower limb; I70.90 Unspecified atherosclerosis; F17.200 Nicotine dependence, unspecified, uncomplicated; I10 Essential (primary) hypertension; D68.4 Acquired coagulation factor deficiency; I73.00 Raynaud's syndrome without gangrene; Z79.899 Other long term (current) drug therapy; R60.0 Localized edema; C43.9 Malignant melanoma of skin, unspecified; Z87.39 Personal history of other diseases of the musculoskeletal system and connective tissue; Z79.01 Long term (current) use of anticoagulants; Z20.828 Contact with and (suspected) exposure to other viral communicable diseases
CPT/HCPCS: 36415; 80053; 81241; 83090; 83605; 84132; 85027; 85210; 85240; 85300; 85302; 85305; 85306; 85384; 85610; 85730; 86037; 93268; 93306; 93925; 96374; 99284; G0378; Q3014; 85732; J1885; A9270-GY; J3370

== ENCOUNTER 2023-10-16 08:01 | Emergency (ER) | payer MEDICARE ==
[2023-10-16 08:18] VITALS: BP 165/97; PULSE 97; TEMP 98.5; O2SAT 99
[2023-10-16] MEDS ORDERED: OXYCODONE-ACETAMINOPHEN 10-325 PO STA (08:25)
--- NOTE | 2023-10-16 08:39 | ERPHSYRPT ---
- History of Present Illness Time Seen by Provider: 10/16/23 08:24 Patient Subjective Stated Complaint: Pt c/o of right foot pain due to poor circulation Triage Nursing Assessment: Pt brought self to the ER, hypertensive, rates right foot pain as 07/22, pt was here 4 days ago for the same issue, pt is believed to have peripheral vascular disease and his right foot is not getting enough blood, pt/s 2-5 toes are turning black, pt returned to the ER with a Nitro bid patch on his foot from days ago, pt has an appt with Dr. Grant at 1000 today, pt requests pain medicine so he can go to the foot doctor and doesn't want any tests done at this time, pulse can barely be felt in the right foot Physician History: 68-year-old with multiple medical problems including heavy tobacco use, COPD, peripheral vascular disease with possible occlusion/thromboangitis obliterans th e right second through fifth toe presented with worsening pain. Patient was seen in the ER, was recommended to be transferred to [place] but left AMA. Later on patient was admitted here and podiatry was consulted, patient wished to stay locally and has appointment with podiatry today at 10 AM but ran out of his Percocet and wants some pain relief before he can go there. Patient has been applying Nitropaste with minimal relief. Does not want any further testing done today. He does not want to be transferred to vascular surgery. No fever or chills reported. Patient reports his pain gets better with warming his toes and color also improves. Allergies/Adverse Reactions: shellfish derived Allergy (Verified 10/16/23 08:20) Hives Home Medications: Diazepam 5 mg [Valium 5 MG] 5 mg PO Q8HPRN PRN 07/27/21 [History] Allopurinol 100 mg [Zyloprim 100 mg] 100 mg PO DAILY 08/03/23 [History] Amlodipine Besylate [Norvasc] 10 mg PO DAILY 08/03/23 [History] Oxycodone / APAP 10/325 mg [Oxycodone-Acetaminophen 10-325] 1 tab PO Q8HPRN PRN 08/03/23 [History] Potassium Chloride Tab* [Klor Con] 10 meq PO DAILY 08/03/23 [History] Sildenafil Citrate [Viagra] 50 mg PO DAILY PRN PRN 08/03/23 [History] Hx Tetanus, Diphtheria Vaccination/Date Given: Yes Hx Influenza Vaccination/Date Given: No Hx Pneumococcal Vaccination/Date Given: No Travel Risk - International Travel Have you traveled outside of the country in past 3 weeks: No - Coronavirus Screening Are you exhibiting any of the following symptoms?: No Close contact with a COVID-19 positive Pt in past 14-21 Days: No - Vaccine Status Have you recieved a Covid-19 vaccination: Yes Concreter: Unknown - Vaccination Dates Date of 2cond Vaccination (if applicable): 2020 Dates if Unknown: na - Review of Systems Constitutional: No Symptoms Ears, Nose, & Throat: No Symptoms Respiratory: Wheezing Cardiac: No Symptoms Abdominal/Gastrointestinal: No Symptoms Musculoskeletal: Joint Redness Skin: Skin Lesions Neurological: No Symptoms Endocrine: No Symptoms Hematologic/Lymphatic: No Symptoms - Past Medical History Pertinent Past Medical History: Yes Neurological History: No Pertinent History ENT History: No Pertinent History Cardiac History: Hypertension Respiratory History: No Pertinent History Endocrine Medical History: No Pertinent History Musculoskeletal History: Fractures GI Medical History: Crohns Disease, Other History: No Pertinent History Psycho-Social History: Anxiety, Depression Male Reproductive Disorders: No Pertinent History Other Medical History: Proctitis; 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 - Past Surgical History Past Surgical History: Yes Neuro Surgical History: No Pertinent History Cardiac: No Pertinent History Respiratory: No Pertinent History Gastrointestinal: No Pertinent History Genitourinary: No Pertinent History Musculoskeletal: Orthopedic Surgery Male Surgical History: No Pertinent History Other Surgical History: R ankle, colonoscopy, melanoma to back removed - Social History Smoking Status: Heavy tobacco smoker How long have you smoked: 40+ years Exposure to second hand smoke: Yes Drug Use: none Patient Lives Alone: Yes - Nursing Vital Signs Nursing Vital Signs: Initial Vital Signs Temperature 98.5 F 10/16/23 08:08 Pulse Rate 97 H 10/16/23 08:08 Blood Pressure 165/97 10/16/23 08:08 O2 Sat by Pulse Oximetry 99 10/16/23 08:08 Pain Scale Pain Intensity 10 - Physical Exam General Appearance: no apparent distress, alert Ears, Nose, Throat Exam: normal ENT inspection Neck Exam: normal inspection, full range of motion Respiratory Exam: wheezing, No respiratory distress Cardiovascular Exam: regular rate/rhythm, normal heart sounds Back Exam: normal inspection, normal range of motion Extremity Exam: normal range of motion, other (Right foot mild swelling distally with purple discoloration of second and third toe with blackening at the toe tips of second toe. Dorsalis pedis dopplerable.) Neurologic Exam: alert, oriented x 3, cooperative Skin Exam: normal color SpO2 Interpretation: normal SpO2: 99 O2 Delivery: Room Air Ordered Tests: Medication Summary Discontinued Medications Generic Name Dose Route Start Last Admin Trade Name Kasey PRN Reason Stop Dose Admin Oxycodone/Acetaminophen 1 tab 10/16/23 08:25 10/16/23 08:41 Oxycodone / Apap 10/325 Mg 1 Tablet PO 10/16/23 08:26 1 tab STAT STA Administration Oxycodone/Acetaminophen Confirm 10/16/23 08:40 Oxycodone / Apap 10/325 Mg 1 Tablet Administered 10/16/23 08:41 Dose 1 tab .ROUTE .Optini ONE - Progress Progress Note: 10/16/23 09:29 68-year-old with multiple medical problems including heavy tobacco use, COPD, peripheral vascular disease with possible occlusion/thromboangitis obliterans the right second through fifth toe presented with worsening pain. Patient was seen in the ER, was recommended to be transferred to [place] but left AMA. Later on patient was admitted here and podiatry was consulted, patient wished to stay locally and has appointment with podiatry today at 10 AM but ran out of his Percocet and wants some pain relief before he can go there. Patient has been applying Nitropaste with minimal relief. Does not want any further testing done today. He does not want to be transferred to vascular surgery. No fever or chills reported. Patient reports his pain gets better with warming his toes and color also improves. On exam patient has dusky purple discoloration of second and third toes with some blackening at the second toe tip. Mild swelling of distal foot. Dorsalis pedis is dopplerable. Since I saw this patient on the and it looks a little better as compared then. He does not want to be transferred, recommended continuing with Nitropaste and follow-up with podiatry today. He is given Percocet 10 and feeling better on reevaluation. Patient does understand that he might will end up losing his toes and waiting for line of demarcation appear ance as he has been told by podiatry. Counseled on smoking cessation. Counseled pt/family regarding: diagnosis, need for follow-up - Departure Departure Disposition: Home Clinical Impression: Arterial occlusive disease Condition: Stable Critical Care Time: No Referrals: LEILANI ATKINS MD [Primary Care Provider] - Follow up/PCP as directed Instructions: Peripheral Vascular (Arterial) Disease (DC) Additional Instructions: Keep appointment with podiatry today as scheduled. Follow-up with primary care and vascular surgery. Return to ER for worsening pain, redness, worsening of blackening, fever chills etc.
[2023-10-16] MEDS ORDERED: OXYCODONE-ACETAMINOPHEN 10-325 ONE (08:40)
== END 2023-10-16 09:32 | disposition home or self-care (01) ==
LOC: ED 08:01
DX: I77.9 Disorder of arteries and arterioles, unspecified (principal); M79.671 Pain in right foot; I10 Essential (primary) hypertension; Z79.891 Long term (current) use of opiate analgesic; Z79.899 Other long term (current) drug therapy; Z72.0 Tobacco use
CPT/HCPCS: 99281; A9270-GY

== ENCOUNTER 2023-10-30 10:58 | Observation (INO) | payer MEDICARE ==
[~2023-10-30 10:58] MED LIST: Marcaine Mpf 0.5% Vial 30 Ml ONE; Xylocaine 1% Vial 30 ML PF IJ ONE
[2023-10-30] MEDS ORDERED: Lactated Ringers 1,000 ML IV SCH (11:30)
[2023-10-30] MEDS ORDERED: CEFAZOLIN 2 GM-D5W BAG** 2 GM/50 ML ML IV SCH (11:30)
[2023-10-30] MEDS ORDERED: CEFAZOLIN 2 GM-D5W BAG** 2 GM/50 ML ML IV ONE (11:37)
[2023-10-30] MEDS ORDERED: Lactated Ringers 1,000 ML IV ONE (11:37)
[2023-10-30 11:40] LABS: Hematocrit 43.3 % (42-50); Hemoglobin 14.1 g/dL (12.5-18.0); Mean Cell Volume 107.4 fL (78-100); Mean Corpuscular Hgb Concent. 32.6 g/dL (32-36); Mean Platelet Volume 10.2 fL (7.5-11.0); Platelet Count 170 x10^3/uL (150-450); Red Blood Count 4.03 x10^6/uL (4.1-5.6); Red Cell Distribution Width 13.7 % (11.5-14.0); White Blood Count 8.8 x10^3/uL (4.0-10.5)
[2023-10-30 11:43] LABS: ALKALINE PHOSPHATASE 99 U/L (38-126); ANION GAP 9.5 MEQ/L (5-15); BLOOD UREA NITROGEN 9 mg/dL (9-20); CHLORIDE 103 mmol/L (98-107); Calcium 9.3 mg/dL (8.4-10.2); Carbon Dioxide 27 mmol/L (22-30); Creatinine 1 0.59 mg/dL (0.66-1.25); EST GLOMERULAR FILTRATION RATE 106.3 ML/MIN; ETHYL ALCOHOL < 10 mg/dL (0-10); Glucose 100 mg/dL (74-106); Potassium 3.4 mmol/L (3.5-5.1); SGOT/AST 16 U/L (17-59); SGPT/ALT 10 U/L (0-50); SODIUM 136 mmol/L (137-145); Total Protein 7.4 g/dL (6.3-8.2)
[2023-10-30 11:45] LABS: INR 1.01 (0.8-3.0); PTT 27.6 SECONDS (25.1-36.5)
[2023-10-30] MEDS ORDERED: Marcaine Mpf 0.5% Vial 30 Ml ONE (13:16)
[2023-10-30] MEDS ORDERED: Xylocaine 1% Vial 30 ML PF IJ ONE (13:17)
[2023-10-30] MEDS ORDERED: DIPRIVAN 200 MG/20 ML IV ONE ×2 (14:06→14:26)
[2023-10-30] MEDS ORDERED: Versed 2 MG/2 ML Injection ONE (14:07)
[2023-10-30] MEDS ORDERED: SUBLIMAZE 100 MCG/2 ML ONE ×2 (14:07→15:20)
[2023-10-30] MEDS ORDERED: PHENYLEPHRINE HCL ONE (14:38)
--- NOTE | 2023-10-30 15:30 | PCM.HP ---
History of Present Illness - Chief Complaint Chief Complaint: multiple toe amputation Date: 10/30/23 History of Present Illness: is a 68 year old male with PMHX of daily smoker, anxiety, HTN, Crohns, gout, melanoma to the back. He had surgery today with Dr. 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 He is laying in bed with foot elevated. Foot is wrapped. Pain is a 5/10. He reports he last drank 1/2 pint of whiskey 3 days ago. He drinks this QOD. He is wanting to quit drinking and smoking he reports. Discussed alcohol withdraw protocol. Also discussed pain meds and nicotine patch. He denies CP, SOB, abd. pain, N/V/D. - Review of Systems Constitutional: No Fever, No Chills Eyes: No Symptoms Ears, Nose, & Throat: No Symptoms Respiratory: No Cough, No Short Of Breath Cardiac: No Chest Pain, No Edema, No Syncope Abdominal/Gastrointestinal: No Abdominal Pain, No Nausea, No Vomiting, No Diarrhea Genitourinary Symptoms: No Dysuria Musculoskeletal: Other (right foot pain from surgery today), No Back Pain, No Neck Pain Skin: No Rash Neurological: No Dizziness, No Focal Weakness, No Sensory Changes Psychological: No Symptoms Endocrine: No Symptoms Hematologic/Lymphatic: No Symptoms Immunological/Allergic: No Symptoms Medications & Allergies Home Medications: Home Medication List Diazepam 5 mg [Valium 5 MG] 5 mg PO Q8HPRN PRN 07/27/21 [History Confirmed 10/24/23] Allopurinol 100 mg [Zyloprim 100 mg] 100 mg PO DAILY 08/03/23 [History Confirmed 10/24/23] Amlodipine Besylate [Norvasc] 10 mg PO DAILY 08/03/23 [History Confirmed 10/24/23] Potassium Chloride Tab* [Klor Con] 10 meq PO DAILY 08/03/23 [History Confirmed 10/24/23] Sildenafil Citrate [Viagra] 50 mg PO DAILY PRN PRN 08/03/23 [History Confirmed 10/24/23] Nitroglycerin [Nitro-Bid] 1 gm TD TID #1 misc 10/08/23 [Rx Confirmed 10/24/23] Oxycodone HCl/Acetaminophen [Percocet 10-325 mg Tablet] 1 each PO Q6HPRN PRN 3 Days #12 tablet MDD 4 10/08/23 [Rx Confirmed 10/24/23] Pentoxifylline 400 mg PO BID 30 Days #60 tablet 10/08/23 [Rx Confirmed 10/24/23] Rivaroxaban [Xarelto] 15 mg PO BID 21 Days #42 tablet 10/08/23 [Rx Confirmed 10/24/23] Hydralazine HCl 25 mg PO DAILY 10/24/23 [History Confirmed 10/24/23] Indomethacin 50 mg PO TID 10/24/23 [History Confirmed 10/24/23] Losartan Potassium 50 mg PO DAILY 10/24/23 [History Confirmed 10/24/23] Pantoprazole 20 mg [Protonix 20MG Tablet] 20 mg PO DAILY 10/24/23 [History Confirmed 10/24/23] Allergies/Adverse Reactions: Allergies Allergy/AdvReac Type Severity Reaction Status Date / Time shellfish derived Allergy Hives Verified 10/30/23 11:25 - Past Medical History Past Medical History: Yes Neurological History: No Pertinent History ENT History: No Pertinent History Cardiac History: Hypertension Respiratory History: No Pertinent History Endocrine Medical History: No Pertinent History Musculoskelatal History: Fractures GI Medical History: Crohns Disease, Other History: No Pertinent History Pyscho-Social History: Anxiety, Depression Male Reproductive Disorders: No Pertinent History Comment: Proctitis; 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, gout - Past Surgical History Past Surgical History: Yes Neuro Surgical History: No Pertinent History Cardiac History: No Pertinent History Respiratory Surgery: No Pertinent History GI Surgical History: No Pertinent History Genitourinary Surgical Hx: No Pertinent History Musculskeletal Surgical Hx: Orthopedic Surgery Male Surgical History: No Pertinent History Other Surgical History: R ankle, colonoscopy, melanoma to back removed - Social History Smoking Status: Current every day smoker How long have you smoked: 40+ years Exposure to second hand smoke: Yes Alcohol: Daily Drug Use: none - Physical Exam Vital Signs: Vital Signs - 24 hr Temp Pulse Resp BP Pulse Ox 10/30/23 11:36 98 F 83 18 161/104 97 10/30/23 11:19 98 F 83 18 161/104 97 General Appearance: no apparent distress, alert Neurologic Exam: alert, oriented x 3, cooperative, normal mood/affect, nml cerebellar function, nml station & gait, sensation nml, No motor deficits Eye Exam: PERRL/EOMI, eyes nml inspection Ears, Nose, Throat Exam: normal ENT inspection, TMs normal, pharynx normal, moist mucous membranes Neck Exam: normal inspection, non-tender, supple, full range of motion Respiratory Exam: normal breath sounds, lungs clear, No respiratory distress Cardiovascular Exam: regular rate/rhythm, normal heart sounds, normal peripheral pulses Gastrointestinal/Abdomen Exam: soft, normal bowel sounds, No tenderness, No mass Back Exam: normal inspection, normal range of motion, No CVA tenderness, No vertebral tenderness Extremity Exam: normal inspection, normal range of motion, pelvis stable Skin Exam: normal color, warm, dry, other (right foot wrapped), No rash Lymphatic Exam: No adenopathy Results - Labs Lab/Micro Results: Lab Results-Last 24 Hours 10/30/23 10/30/23 10/30/23 Range/Units 11:29 11:29 11:29 WBC 8.8 (4.0-10.5) x10^3/uL RBC 4.03 L (4.1-5.6) x10^6/uL Hgb 14.1 (12.5-18.0) g/dL Hct 43.3 (42-50) % MCV 107.4 H (78-100) fL MCH 35.0 H (26-32) pg MCHC 32.6 (32-36) g/dL RDW 13.7 (11.5-14.0) % Plt Count 170 (150-450) x10^3/uL MPV 10.2 (7.5-11.0) fL PT 11.0 (9.4-12.5) SECONDS INR 1.01 (0.8-3.0) APTT 27.6 (25.1-36.5) SECONDS Sodium 136 L (137-145) mmol/L Potassium 3.4 L (3.5-5.1) mmol/L Chloride 103 (98-107) mmol/L Carbon Dioxide 27 (22-30) mmol/L Anion Gap 9.5 (5-15) MEQ/L BUN 9 (9-20) mg/dL Creatinine 0.59 L (0.66-1.25) mg/dL Estimated GFR 106.3 ML/MIN Glucose 100 (74-106) mg/dL Calcium 9.3 (8.4-10.2) mg/dL Total Bilirubin 1.70 H (0.2-1.3) mg/dL AST 16 L (17-59) U/L ALT 10 (0-50) U/L Alkaline Phosphatase 99 (38-126) U/L Serum Total Protein 7.4 (6.3-8.2) g/dL Albumin 4.0 (3.5-5.0) g/dL Ethyl Alcohol < 10 (0-10) mg/dL - Radiology Impressions Radiology Exams & Impressions: Radiology Procedures Category Date Time Status FLUOROSCOPY UP TO 1 HR Routine Exams 10/30/23 10:58 Taken FOOT (MINIMUM 3 VIEWS) Routine Exams 10/30/23 10:58 Taken Assessment/Plan (1) Amputated toe of right foot Current Visit: Yes Status: Acute Assessment & Plan: - surgery today with podiatry for multiple toe amputations of right foot- 2nd and 3rd toe. - 2:2 blood clotting d/o which is being worked up OP- consider referral to hematology. - pain control - antibiotics gave prior to surgery- to be managed by podiatry - elevate affected extremity Code(s): S98.131A - COMPLETE TRAUMATIC AMPUTATION OF ONE RIGHT LESSER TOE, INIT (2) HTN (hypertension) Current Visit: Yes Status: Acute Assessment & Plan: - continue home meds Code(s): I10 - ESSENTIAL (PRIMARY) HYPERTENSION (3) History of gout Current Visit: No Status: Chronic Assessment & Plan: -Does not appear to be in exacerbation - will check uric acid levels -Continue home allopurinol Code(s): Z87.39 - PERSONAL HISTORY OF DISEASES OF THE MS SYS AND CONN TISS (4) Smoker Current Visit: No Status: Chronic Assessment & Plan: - Advised cessation to aide in healing - nicotine patch Code(s): F17.200 - NICOTINE DEPENDENCE, UNSPECIFIED, UNCOMPLICATED (5) Hypokalemia Current Visit: Yes Status: Acute Assessment & Plan: - K+ 3.4 replaced - trend - IVF with K+ Code(s): E87.6 - HYPOKALEMIA (6) Alcohol abuse Current Visit: Yes Status: Acute Assessment & Plan: - alcohol withdraw protocol - ETOH level on admission <10 VTE: Xarelto PPI: Protonix Next of kin: Fady Cronin [phone] Code status: Full Code(s): F10.10 - ALCOHOL ABUSE, UNCOMPLICATED
[2023-10-30] MEDS ORDERED: Klor Con PO ONE (15:44)
[2023-10-30] MEDS ORDERED: THERAGRAN MULTIVITAMIN PO ONE (15:45)
[2023-10-30] MEDS ORDERED: NORCO 5/325 MG PO PRN (15:55)
[2023-10-30] MEDS: Cozaar 50 MG PO SCH (16:29)
[2023-10-30] MEDS: Apresoline 25 MG TABLET PO SCH (16:29)
[2023-10-30] MEDS: Protonix 20MG Tablet PO SCH (16:29)
[2023-10-30] MEDS: OXYCODONE-ACETAMINOPHEN 10-325 PO PRN ×2 (16:29→22:35)
[2023-10-30] MEDS: NORVASC 5 MG PO SCH (16:29)
[2023-10-30] MEDS: Nicoderm CQ 21 MG TOP SCH (16:29)
[2023-10-30] MEDS: VITAMIN B-1 100 MG PO SCH (16:29)
[2023-10-30] MEDS: FOLATE 1 MG PO SCH (16:29)
[2023-10-30] MEDS: ZYLOPRIM 100 MG PO SCH (16:29)
[2023-10-30] MEDS: Sodium Chloride 0.9% W/ 20 mEq KCl/LITER 1,000 ML IV SCH (16:30)
[2023-10-30] MEDS ORDERED: MEDICATION INTERVENTION MC SCH (16:30)
--- NOTE | 2023-10-30 16:43 | XRAY ---
Indication: Right 2nd/3rd toe amputation. Intraoperative fluoroscopy provided for 4 seconds. Single digital spot image submitted for interpretation demonstrates total amputation 2nd/3rd toes. Correlate with intraoperative findings/report.
--- NOTE | 2023-10-30 16:48 | XRAY ---
4 seconds of fluoroscopy was used in surgery for a right second and third digit amputation.
[2023-10-30] MEDS ORDERED: APRESOLINE 20 MG/ML INJ IV ONE (19:26)
[2023-10-30] MEDS: VALIUM 10 MG/2 ML SYRINGE IV PRN (20:12)
[2023-10-30] MEDS: Vibramycin 100 MG PO SCH (20:12)
[2023-10-30] MEDS: XARELTO 10 MG TABLET PO SCH (20:20)
[2023-10-30] MEDS ORDERED: NON-FORMULARY ITEM (Pentoxifylline [Pentoxifylline] 400 MG Tablet.Er) PO SCH (22:00)
[2023-10-30] MEDS ORDERED: Indocin 25 MG PO SCH (22:00)
[2023-10-30] MEDS ORDERED: NITRO-BID 2% UD PACKETS TD SCH (22:00)
[2023-10-31] MEDS: VALIUM 10 MG/2 ML SYRINGE IV PRN (02:30)
[2023-10-31] MEDS: Sodium Chloride 0.9% W/ 20 mEq KCl/LITER 1,000 ML IV SCH ×2 (02:30→12:07)
[2023-10-31] MEDS: OXYCODONE-ACETAMINOPHEN 10-325 PO PRN ×3 (04:39→18:38)
[2023-10-31 05:04] LABS: Absolute Neutrophil Ct (ANC) 4.74 x10^3/uL (1.4-6.9); BASOPHIL % 0.5 % (0.0-0.4); Basophil (Absolute #) 0.04 x10^3/uL (0-0.4); Eosinophil (Absolute #) 0.25 x10^3/uL (0-0.5); Hematocrit 36.6 % (42-50); Hemoglobin 11.6 g/dL (12.5-18.0); IMMATURE GRAN # 0.09 x10^3u/L (0.00-0.03); IMMATURE GRAN % 1.1 % (0.00-0.4); Lymphocyte (Absolute #) 2.15 x10^3/uL (1.0-4.6); Lymphocytes % 25.8 % (24.0-44.0); Mean Cell Volume 108.9 fL (78-100); Mean Corpuscular Hemoglobin 34.5 pg (26-32); Mean Corpuscular Hgb Concent. 31.7 g/dL (32-36); Mean Platelet Volume 10.7 fL (7.5-11.0); Monocyte (Absolute #) 1.07 x10^3/uL (0.0-1.3); Monocytes % 12.8 % (0.0-12.0); Neutrophil % 56.8 % (36.0-66.0); Platelet Count 153 x10^3/uL (150-450); Red Blood Count 3.36 x10^6/uL (4.1-5.6); Red Cell Distribution Width 13.8 % (11.5-14.0); White Blood Count 8.3 x10^3/uL (4.0-10.5)
[2023-10-31 05:37] LABS: ANION GAP 9.3 MEQ/L (5-15); BILIRUBIN,TOTAL 0.9 mg/dL (0.2-1.3); Calcium 8.4 mg/dL (8.4-10.2); Creatinine 1 0.66 mg/dL (0.66-1.25); EST GLOMERULAR FILTRATION RATE 102.8 ML/MIN; Potassium 4.1 mmol/L (3.5-5.1); Total Protein 5.9 g/dL (6.3-8.2); Uric Acid 4.6 mg/dL (3.5-7.2)
--- NOTE | 2023-10-31 09:03 | OP ---
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 3) Continued dependence on cigarette smoking. 4) Gangrenous pressure injury to digits two, three and four of the right foot. 5) Right foot pain. 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 3) Continued dependence on cigarette smoking. 4) Gangrenous pressure injury to digits two, three and four of the right foot. 5) Right foot pain. PROCEDURE: Amputation at the level of metatarsophalangeal joints of digits 2 and 3 with wound debridement to digit 4 right foot. SURGEON: Rudy Graves DPM. TORCH SOLDERER: None. HEMOSTASIS: Pressure dressing. ANESTHESIA: Monitored anesthesia care with a local block. ESTIMATED BLOOD LOSS: Approximately 5 cc. MATERIALS: 3-0 Nylon, 0.25 inch Iodoform packing. INJECTABLES: Approximately 30 cc of a 1:1 mixture of 1% lidocaine plain and 0.5% bupivacaine plain injected in an ankle block-type fashion to the right foot. INDICATION FOR SURGERY: Titus is a very pleasant 68-year-old male known to our service since late last year where he was seen at bedside in the hospital. Confoundingly the patient did have palpable pulses however did have some gangrenous toes to the right lower extremity. Given the patient's clinical history of hypertension, cigarette smoking with extreme dependence and Raynaud's clotting cascade as well as a hemophilia panel was run which identified him with a higher risk of clotting secondary to factor clotting disorder as well as elevated fibrinogen. Given his clinical history, concern over possible thromboangiitis obliterans and a thrombolic event that caused the necrosis of the toes. The patient at that time was placed on pentoxifylline, Xarelto and provided Nitro-Bid paste for application daily. To some extent, the patient was seemingly compliant indicating some improvement initially. However, further demarcation took place and the patient got discouraged and stopped taking the medication which further rapidly accelerated the demarcation as well as extent of the gangrenous changes to the toes on previous visit. The patient was having extreme pain and wished to proceed with the amputation. Seemingly the demarcation did finish at the level of the base of the proximal phalanx. Discussion was held in regards to treatment options and recommendation was made to proceed with amputation of these digits. Given that the patient does have palpable pulses, we did send a consult to cardiology. However, the patient has been unable at this time to follow up with them at the moment and will be doing so following the procedure. The patient understands all risks, complications and benefits of surgical intervention at this time including but not limited to infection, hematoma, seroma, possibility of delayed wound healing, nonwound healing and possible need for surgical intervention. It has been made imperative to discuss this surgery going forward that the patient does quit smoking. The patient does not have good confidence in himself that he will completely eliminate smoking therefore he is requested proceeding with a stay in a nursing facility. We are amenable to this and we are planning for an observation stay for pain as well as getting approval for a stay at a [facility] facility following his surgery. Plenty of time was allowed for the patient to ask questions which were answered to his apparent satisfaction. No guarantees were provided as to the outcome of surgical intervention at this time. It is with that we decided to proceed. DESCRIPTION OF PROCEDURE AND FINDINGS: The patient is brought into the OR and placed on the OR table in the supine position. At this time, monitored anesthesia care was administered until the patient was adequately sedated. Following this the right lower extremity is prepped and draped in the typical sterile fashion and lowered onto the surgical field. At this time, attention was directed to digits two and three where a marking pen was utilized to plan out the amputation site. Full thickness flaps were elevated off of the dorsal aspect and plantar aspect of the second and third digit carried down to bone and disarticulating the second and third digits handing them off of the field for pathologic assessment. At this time, attention was directed to the fourth digit where the distal tip of the toe did improve with the use of pentoxifylline initially over a small area of demarcation measuring approximately 1.2 x 0.7 x 0.4 was encountered and respected. From that standpoint, healthy bleeding was seen deep to this and chance for healing will likely take place. From that standpoint, copious amounts of sterile saline were utilized. A Pulsavac with Bactisure was utilized to cleanse the surgical site and 3 liters of sterile saline were utilized to flush the surgical site where residual infection was identified. From this standpoint, loosely a trauma suture was performed at each end of the amputation site. A 0.25 inch Iodoform packing soaked in Iodine was then packed into the deficit. Following this, a dressing consisting of Betadine, Adaptic, 4x4, Kerlix, ABD and RYAN was applied to the patient's right lower extremity. The patient was reversed from anesthesia and returned to the postoperative anesthesia care unit with vital signs stable and vascular status intact. The patient handled the anesthesia as well as the procedure without significant complication. Postoperative orders as indicated in the patient's discharge chart.
--- NOTE | 2023-10-31 09:24 | PCM.CONS ---
Podiatry HPI - Consult Date of Consultation Date: 10/30/23 Reason for Consult: gangrenous toes right foot/ Buerger's Disease Consulting Provider: ELISE SHAH DPM - [facility] History of Present Illness: is a 68 year old male with a pmhx of ETOH dependence, Tobacco dependence, Crohns, gout, anxiety, melanoma to the back, and probable thromboangitis obliterans, presented to ED initially on 10/05/23 with complaints of right foot pain, erythema, and purplish/black discoloration to plantar aspect of digits 2-4. Pulses remain Palpable to DP and PT with minimal arteriosclerotic calcifications seen on arterial doppler. Patient states pain improved with use of Pentoxyfilline and nitrobid paste however appears he has not been compliant with use of xarelto and he is confused when asked. Demarcation has completed to stop at the middle phalanx of right 2nd and 3rd digits and distal aspect of the 4th digit. Amputation was preformed yesterday. Some concern for residual infection at base of 3rd digit so intraoperative decision to leave wound open for potential infection to drain. Patient is amenable to stay in nursing facility to get better access to care and hopeful to cease tobacco/alcohol dependence in that time. Medications & Allergies Home Medications: Home Medication List Diazepam 5 mg [Valium 5 MG] 5 mg PO Q8HPRN PRN 07/27/21 [History Confirmed 10/24/23] Allopurinol 100 mg [Zyloprim 100 mg] 100 mg PO DAILY 08/03/23 [History Confirmed 10/24/23] Amlodipine Besylate [Norvasc] 10 mg PO DAILY 08/03/23 [History Confirmed 10/24/23] Potassium Chloride Tab* [Klor Con] 10 meq PO DAILY 08/03/23 [History Confirmed 10/24/23] Sildenafil Citrate [Viagra] 50 mg PO DAILY PRN PRN 08/03/23 [History Confirmed 10/24/23] Nitroglycerin [Nitro-Bid] 1 gm TD TID #1 misc 10/08/23 [Rx Confirmed 10/24/23] Oxycodone HCl/Acetaminophen [Percocet 10-325 mg Tablet] 1 each PO Q6HPRN PRN 3 Days #12 tablet MDD 4 10/08/23 [Rx Confirmed 10/24/23] Pentoxifylline 400 mg PO BID 30 Days #60 tablet 10/08/23 [Rx Confirmed 10/24/23] Rivaroxaban [Xarelto] 15 mg PO BID 21 Days #42 tablet 10/08/23 [Rx Confirmed 10/24/23] Hydralazine HCl 25 mg PO DAILY 10/24/23 [History Confirmed 10/24/23] Indomethacin 50 mg PO TID 10/24/23 [History Confirmed 10/24/23] Losartan Potassium 50 mg PO DAILY 10/24/23 [History Confirmed 10/24/23] Pantoprazole 20 mg [Protonix 20MG Tablet] 20 mg PO DAILY 10/24/23 [History Confirmed 10/24/23] Allergies/Adverse Reactions: Allergies Allergy/AdvReac Type Severity Reaction Status Date / Time shellfish derived Allergy Hives Verified 10/30/23 11:25 - Past Medical History Past Medical History: Yes Neurological History: No Pertinent History ENT History: No Pertinent History Cardiac History: Hypertension Respiratory History: No Pertinent History Endocrine Medical History: No Pertinent History Musculoskelatal History: Fractures GI Medical History: Crohns Disease, Other History: No Pertinent History Pyscho-Social History: Anxiety, Depression Male Reproductive Disorders: No Pertinent History Comment: Proctitis; 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, gout - Past Surgical History Past Surgical History: Yes Neuro Surgical History: No Pertinent History Cardiac History: No Pertinent History Respiratory Surgery: No Pertinent History GI Surgical History: No Pertinent History Genitourinary Surgical Hx: No Pertinent History Musculskeletal Surgical Hx: Orthopedic Surgery Male Surgical History: No Pertinent History Other Surgical History: R ankle, colonoscopy, melanoma to back removed - Social History Smoking Status: Current every day smoker How long have you smoked: 40+ years Exposure to second hand smoke: Yes Alcohol: Daily Drug Use: none Physical Exam - Narrative Narrative Physical Exam: Podiatry Physical Exam Results - Labs Lab/Micro Results: Lab Results-Last 24 Hours 10/30/23 10/30/23 10/30/23 Range/Units 11:29 11:29 11:29 WBC 8.8 (4.0-10.5) x10^3/uL RBC 4.03 L (4.1-5.6) x10^6/uL Hgb 14.1 (12.5-18.0) g/dL Hct 43.3 (42-50) % MCV 107.4 H (78-100) fL MCH 35.0 H (26-32) pg MCHC 32.6 (32-36) g/dL RDW 13.7 (11.5-14.0) % Plt Count 170 (150-450) x10^3/uL MPV 10.2 (7.5-11.0) fL Gran % (36.0-66.0) % Immature Gran % (Auto) (0.00-0.4) % Nucleat RBC Rel Count (0.00-0.1) % Eos # (Auto) (0-0.5) x10^3/uL Immature Gran # (Auto) (0.00-0.03) x10^3u/L Absolute Lymphs (auto) (1.0-4.6) x10^3/uL Absolute Monos (auto) (0.0-1.3) x10^3/uL Absolute Nucleated RBC (0.00-0.01) x10^3u/L Lymphocytes % (24.0-44.0) % Monocytes % (0.0-12.0) % Eosinophils % (0.00-5.0) % Basophils % (0.0-0.4) % Absolute Granulocytes (1.4-6.9) x10^3/uL Basophils # (0-0.4) x10^3/uL PT 11.0 (9.4-12.5) SECONDS INR 1.01 (0.8-3.0) APTT 27.6 (25.1-36.5) SECONDS Sodium 136 L (137-145) mmol/L Potassium 3.4 L (3.5-5.1) mmol/L Chloride 103 (98-107) mmol/L Carbon Dioxide 27 (22-30) mmol/L Anion Gap 9.5 (5-15) MEQ/L BUN 9 (9-20) mg/dL Creatinine 0.59 L (0.66-1.25) mg/dL Estimated GFR 106.3 ML/MIN Glucose 100 (74-106) mg/dL Uric Acid (3.5-7.2) mg/dL Calcium 9.3 (8.4-10.2) mg/dL Total Bilirubin 1.70 H (0.2-1.3) mg/dL AST 16 L (17-59) U/L ALT 10 (0-50) U/L Alkaline Phosphatase 99 (38-126) U/L Serum Total Protein 7.4 (6.3-8.2) g/dL Albumin 4.0 (3.5-5.0) g/dL Ethyl Alcohol < 10 (0-10) mg/dL 10/31/23 10/31/23 Range/Units 04:30 04:30 WBC 8.3 (4.0-10.5) x10^3/uL RBC 3.36 L (4.1-5.6) x10^6/uL Hgb 11.6 L (12.5-18.0) g/dL Hct 36.6 L (42-50) % MCV 108.9 H (78-100) fL MCH 34.5 H (26-32) pg MCHC 31.7 L (32-36) g/dL RDW 13.8 (11.5-14.0) % Plt Count 153 (150-450) x10^3/uL MPV 10.7 (7.5-11.0) fL Gran % 56.8 (36.0-66.0) % Immature Gran % (Auto) 1.1 H (0.00-0.4) % Nucleat RBC Rel Count 0.0 (0.00-0.1) % Eos # (Auto) 0.25 (0-0.5) x10^3/uL Immature Gran # (Auto) 0.09 H (0.00-0.03) x10^3u/L Absolute Lymphs (auto) 2.15 (1.0-4.6) x10^3/uL Absolute Monos (auto) 1.07 (0.0-1.3) x10^3/uL Absolute Nucleated RBC 0.00 (0.00-0.01) x10^3u/L Lymphocytes % 25.8 (24.0-44.0) % Monocytes % 12.8 H (0.0-12.0) % Eosinophils % 3.0 (0.00-5.0) % Basophils % 0.5 (0.0-0.4) % Absolute Granulocytes 4.74 (1.4-6.9) x10^3/uL Basophils # 0.04 (0-0.4) x10^3/uL PT (9.4-12.5) SECONDS INR (0.8-3.0) APTT (25.1-36.5) SECONDS Sodium 134 L (137-145) mmol/L Potassium 4.1 D (3.5-5.1) mmol/L Chloride 105 (98-107) mmol/L Carbon Dioxide 24 (22-30) mmol/L Anion Gap 9.3 (5-15) MEQ/L BUN 9 (9-20) mg/dL Creatinine 0.66 (0.66-1.25) mg/dL Estimated GFR 102.8 ML/MIN Glucose 117 H (74-106) mg/dL Uric Acid 4.6 (3.5-7.2) mg/dL Calcium 8.4 (8.4-10.2) mg/dL Total Bilirubin 0.90 (0.2-1.3) mg/dL AST 19 (17-59) U/L ALT 10 (0-50) U/L Alkaline Phosphatase 72 (38-126) U/L Serum Total Protein 5.9 L (6.3-8.2) g/dL Albumin 3.0 L (3.5-5.0) g/dL Ethyl Alcohol (0-10) mg/dL - Radiology Impressions Radiology Exams & Impressions: Radiology Procedures Category Date Time Status FLUOROSCOPY UP TO 1 HR Routine Exams 10/30/23 10:58 Completed FOOT (MINIMUM 3 VIEWS) Routine Exams 10/30/23 10:58 Completed Assessment/Plan (1) Alcohol abuse Current Visit: Yes Status: Acute Assessment & Plan: Patient's clinical examination is likely consistent with a vasculitis with thrombolic manifestation to the right foot. Given patient's hypertension and significant history of cigarette smoking as well as Raynaud's high suspicion for thromboangiitis obliterans. Will consult with cardiology/peripheral vascular surgery Gangreneous changes debrided to the 4th toe and amputation of the 3rd and 2nd digit to the extent of metatarsophalangeal joint. VIII and elevated fibrinogen point to clotting disorder. will order von Williband factor. 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 Smoking cessation recommended at this time as this is the only cure for resolution of symptoms. Recommendation: continue pentoxifylline 400 mg twice daily daily to increase peripheral blood f low. Xarelto 15 mg BID first 21 days. patient should be at day 21 yesterday however patient has not been compliant in use of anticoagulants. Percocet 10 mg every 6 Pat[place] will likely need stay in shelter facility for the purpose that he lives alone and will need to remain non weight bearing during the post operative period. Patient requires wound care and will need to cease smoking dur ing this time in order to be successful without complication. Dressing changes as prescribed while he remains in house. Will proceed with Delayed closure on FridayNovember 04. Code(s): F10.10 - ALCOHOL ABUSE, UNCOMPLICATED (2) Amputated toe of right foot Current Visit: Yes Status: Acute Code(s): S98.131A - COMPLETE TRAUMATIC AMPUTATION OF ONE RIGHT LESSER TOE, INIT (3) HTN (hypertension) Current Visit: Yes Status: Acute Code(s): I10 - ESSENTIAL (PRIMARY) HYPERTENSION (4) Cellulitis of right foot Current Visit: No Status: Acute Code(s): L03.115 - CELLULITIS OF RIGHT LOWER LIMB (5) Thromboangiitis obliterans (Buerger's disease) Current Visit: No Status: Acute Code(s): I73.1 - THROMBOANGIITIS OBLITERANS [BUERGER'S DISEASE] (6) Acquired clotting factor deficiency Current Visit: No Status: Chronic Code(s): D68.4 - ACQUIRED COAGULATION FACTOR DEFICIENCY (7) Arterial occlusive disease Current Visit: No Status: Chronic Code(s): I70.90 - UNSPECIFIED ATHEROSCLEROSIS (8) History of gout Current Visit: No Status: Chronic Code(s): Z87.39 - PERSONAL HISTORY OF DISEASES OF THE MS SYS AND CONN TISS (9) Raynaud's disease Current Visit: No Status: Chronic Code(s): I73.00 - RAYNAUD'S SYNDROME WITHOUT GANGRENE
[2023-10-31] MEDS: TYLENOL 325 MG PO PRN ×2 (09:49→21:22)
[2023-10-31] MEDS ORDERED: Hydromorphone 1 mg/ml Injection IV ONE (09:53)
[2023-10-31] MEDS: VITAMIN B-1 100 MG PO SCH (10:54)
[2023-10-31] MEDS: THERAGRAN MULTIVITAMIN PO SCH (10:54)
[2023-10-31] MEDS: Apresoline 25 MG TABLET PO SCH (10:54)
[2023-10-31] MEDS: NORVASC 5 MG PO SCH (10:54)
[2023-10-31] MEDS: ZYLOPRIM 100 MG PO SCH (10:55)
[2023-10-31] MEDS: Protonix 20MG Tablet PO SCH (10:55)
[2023-10-31] MEDS: FOLATE 1 MG PO SCH (10:55)
[2023-10-31] MEDS: Vibramycin 100 MG PO SCH ×2 (10:55→21:23)
[2023-10-31] MEDS: Cozaar 50 MG PO SCH (10:55)
[2023-10-31] MEDS: XARELTO 10 MG TABLET PO SCH ×2 (10:55→11:01)
[2023-10-31] MEDS: Klor Con PO SCH (10:55)
[2023-10-31] MEDS: Nicoderm CQ 21 MG TOP SCH (10:56)
[2023-10-31] MEDS ORDERED: Ativan 1 MG PO PRN (11:15)
--- NOTE | 2023-10-31 12:14 | PCM.NOTE ---
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 He had surgery today with Dr. 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 He is laying in bed with foot elevated. Foot is wrapped. Pain is a 5/10. He reports he last drank 1/2 pint of whiskey 3 days ago. He drinks this QOD. He is wanting to quit drinking and smoking he reports. Discussed alcohol withdraw protocol. Also discussed pain meds and nicotine patch. He denies CP, SOB, abd. pain, N/V/D. 10/31/23 Pt resting in bed with right foot elevated. He is asking for more Valium and his home dose restarted Q8 hours. He continues to be on alcohol withdraw protocol with ativan PRN. Dressing changed by podiatry nurse today and pt had severe pain. A 1 time order of Dilaudid was ordered by podiatry after dressing removed and pt was very tearful about this. He is concerned about his pain level with dressing changes at the [facility]. He is awaiting insurance approval for transfer to rehab. We will make a point to have him comfortable tomorrow prior to dressing change. He denies CP, SOB, abd. pain, N/V/D. - Review of Systems Constitutional: No Fever, No Chills Eyes: No Symptoms Ears, Nose, & Throat: No Symptoms Respiratory: No Cough, No Short Of Breath Cardiac: No Chest Pain, No Edema, No Syncope Abdominal/Gastrointestinal: No Abdominal Pain, No Nausea, No Vomiting, No Diarrhea Genitourinary Symptoms: No Dysuria Musculoskeletal: No Back Pain, No Neck Pain Skin: Other ( right foot pain from surgery yesterday), No Rash Neurological: No Dizziness, No Focal Weakness, No Sensory Changes Psychological: No Symptoms Endocrine: No Symptoms Hematologic/Lymphatic: No Symptoms Immunological/Allergic: No Symptoms Objective Exam General Appearance: no apparent distress, alert Neurologic Exam: alert, oriented x 3, cooperative, normal mood/affect, nml cerebellar function, sensation nml, No motor deficits Skin Exam: normal color, warm, dry Eye Exam: PERRL, EOMI, eyes nml inspection Ears, Nose, Throat Exam: normal ENT inspection, pharynx normal, moist mucous membranes Neck Exam: normal inspection, non-tender, supple, full range of motion Respiratory Exam: normal breath sounds, lungs clear, No respiratory distress Cardiovascular Exam: regular rate/rhythm, normal heart sounds Gastrointestinal/Abdomen Exam: soft, No tenderness, No mass Extremity Exam: normal inspection, normal range of motion, tenderness (right foot from surgery yesterday painful, wrapped.) Back Exam: normal inspection, normal range of motion, No CVA tenderness, No vertebral tenderness Male Genitalia Exam: deferred Rectal Exam: deferred OBJECTIVE DATA Vital Signs: Vital Signs - 24 hr Temp Pulse Resp BP Pulse Ox 10/31/23 08:00 97.5 F 62 17 136/60 93 L 10/31/23 04:00 98.0 F 67 18 112/59 96 10/31/23 02:30 74 10/30/23 23:16 96.6 F 63 20 102/68 96 10/30/23 19:55 97.0 F 70 18 84/53 96 10/30/23 16:33 72 184/89 97 10/30/23 16:00 97.1 F 71 16 151/92 96 Pain Assessment - Last Documented Pain Intensity [Anterior/ 8 Posterior] Pain Intensity 10 Pain Scale Used 0-10 Pain Scale Intake and Output: Intake & Output 10/29/23 10/30/23 10/31/23 11/01/23 11:59 11:59 11:59 11:59 Intake Total 2869 Output Total 500 Balance 2369 Weight 83.915 kg 81.2 kg Lab Results: Lab Results-Last 24 Hours 10/31/23 10/31/23 Range/Units 04:30 04:30 WBC 8.3 (4.0-10.5) x10^3/uL RBC 3.36 L (4.1-5.6) x10^6/uL Hgb 11.6 L (12.5-18.0) g/dL Hct 36.6 L (42-50) % MCV 108.9 H (78-100) fL MCH 34.5 H (26-32) pg MCHC 31.7 L (32-36) g/dL RDW 13.8 (11.5-14.0) % Plt Count 153 (150-450) x10^3/uL MPV 10.7 (7.5-11.0) fL Gran % 56.8 (36.0-66.0) % Immature Gran % (Auto) 1.1 H (0.00-0.4) % Nucleat RBC Rel Count 0.0 (0.00-0.1) % Eos # (Auto) 0.25 (0-0.5) x10^3/uL Immature Gran # (Auto) 0.09 H (0.00-0.03) x10^3u/L Absolute Lymphs (auto) 2.15 (1.0-4.6) x10^3/uL Absolute Monos (auto) 1.07 (0.0-1.3) x10^3/uL Absolute Nucleated RBC 0.00 (0.00-0.01) x10^3u/L Lymphocytes % 25.8 (24.0-44.0) % Monocytes % 12.8 H (0.0-12.0) % Eosinophils % 3.0 (0.00-5.0) % Basophils % 0.5 (0.0-0.4) % Absolute Granulocytes 4.74 (1.4-6.9) x10^3/uL Basophils # 0.04 (0-0.4) x10^3/uL Sodium 134 L (137-145) mmol/L Potassium 4.1 D (3.5-5.1) mmol/L Chloride 105 (98-107) mmol/L Carbon Dioxide 24 (22-30) mmol/L Anion Gap 9.3 (5-15) MEQ/L BUN 9 (9-20) mg/dL Creatinine 0.66 (0.66-1.25) mg/dL Estimated GFR 102.8 ML/MIN Glucose 117 H (74-106) mg/dL Uric Acid 4.6 (3.5-7.2) mg/dL Calcium 8.4 (8.4-10.2) mg/dL Total Bilirubin 0.90 (0.2-1.3) mg/dL AST 19 (17-59) U/L ALT 10 (0-50) U/L Alkaline Phosphatase 72 (38-126) U/L Serum Total Protein 5.9 L (6.3-8.2) g/dL Albumin 3.0 L (3.5-5.0) g/dL Radiology Exams: Radiology Procedures Category Date Time Status FLUOROSCOPY UP TO 1 HR Routine Exams 10/30/23 10:58 Completed FOOT (MINIMUM 3 VIEWS) Routine Exams 10/30/23 10:58 Completed Multi-Disciplinary Progress Notes: Multi-Disciplinary Progress Notes 10/31/23 11:42 Case Management Note by Tameka Schuler SPOKE WITH DOMINICK AT THE [facility], REPORTS THAT THEY ARE ACCEPTING PATIENT ONCE THEY RECEIVE APPROVAL FROM INSURANCE. DOMINICK REPORTS THAT THEY SHOULD HAVE APPROVAL BACK EITHER TODAY, 10/31/23 OR TOMORROW 11/01/23. INFORMED MARVIN HECTOR NP. Initialized on 10/31/23 11:42 - END OF NOTE 10/31/23 09:42 Case Management Note by Mona Stewart INFORMATION FAXED TO THE [facility] OF [place] FOR POSSIBLE REHAB STAY. WAITING CONFIRMATION OF ACCEPTANCE AND AFTER INSURANCE APPROVAL. Initialized on 10/31/23 09:42 - END OF NOTE 10/30/23 16:16 Pharmacy Note by Joni Bennett Please review Xarelto dose of 15mg po bid. This is a starter dose. Looks like it was written 10-08-23. Initialized on 10/30/23 16:16 - END OF NOTE Assessment/Plan (1) Amputated toe of right foot Current Visit: Yes Status: Acute Code(s): S98.131A - COMPLETE TRAUMATIC AMPUTATION OF ONE RIGHT LESSER TOE, INIT (2) HTN (hypertension) Current Visit: Yes Status: Acute Code(s): I10 - ESSENTIAL (PRIMARY) HYPERTENSION (3) History of gout Current Visit: No Status: Chronic Code(s): Z87.39 - PERSONAL HISTORY OF DISEASES OF THE MS SYS AND CONN TISS (4) Smoker Current Visit: No Status: Chronic Code(s): F17.200 - NICOTINE DEPENDENCE, UNSPECIFIED, UNCOMPLICATED (5) Hypokalemia Current Visit: Yes Status: Acute Code(s): E87.6 - HYPOKALEMIA (6) Alcohol abuse Current Visit: Yes Status: Acute Assessment & Plan: (1) Amputated toe of right foot Current Visit: Yes Status: Acute Assessment & Plan: - surgery today with podiatry for multiple toe amputations of right foot- 2nd and 3rd toe. - 2:2 blood clotting d/o which is being worked up OP- consider referral to hematology. - pain control - antibiotics gave prior to surgery- to be managed by podiatry - elevate affected extremity 10/31/23 - dressing change by podiatry - Post op day 1 Code(s): S98.131A - COMPLETE TRAUMATIC AMPUTATION OF ONE RIGHT LESSER TOE, INIT (2) HTN (hypertension) Current Visit: Yes Status: Acute Assessment & Plan: - continue home meds Code(s): I10 - ESSENTIAL (PRIMARY) HYPERTENSION (3) History of gout Current Visit: No Status: Chronic Assessment & Plan: -Does not appear to be in exacerbation - will check uric acid level- 4.6 ok -Continue home allopurinol Code(s): Z87.39 - PERSONAL HISTORY OF DISEASES OF THE MS SYS AND CONN TISS (4) Smoker Current Visit: No Status: Chronic Assessment & Plan: - Advised cessation to aide in healing - nicotine patch Code(s): F17.200 - NICOTINE DEPENDENCE, UNSPECIFIED, UNCOMPLICATED (5) Hypokalemia Current Visit: Yes Status: Acute Assessment & Plan: - K+ 3.4 replaced - trend - IVF with K+ 10/31/23 - K+ 4.1 - Stop IVF - eating and drinking well Code(s): E87.6 - HYPOKALEMIA (6) Alcohol abuse Current Visit: Yes Status: Acute Assessment & Plan: - alcohol withdraw protocol - ETOH level on admission <10 - scheduled Ativan continued as was taking at home. VTE: Xarelto PPI: Protonix Next of kin: Fady Roseanne [phone] Code status: Full Code(s): F10.10 - ALCOHOL ABUSE, UNCOMPLICATED
[2023-10-31] MEDS: Valium 5 MG PO PRN (15:43)
[2023-10-31] MEDS ORDERED: Sodium Chloride 0.9% W/ 20 mEq KCl/LITER 0 ML IV ONE (21:18)
[2023-11-01] MEDS: OXYCODONE-ACETAMINOPHEN 10-325 PO PRN ×3 (00:28→21:24)
[2023-11-01 05:57] LABS: Mean Cell Volume 111.8 fL (78-100); Mean Corpuscular Hemoglobin 35.1 pg (26-32); Mean Corpuscular Hgb Concent. 31.4 g/dL (32-36); Platelet Count 177 x10^3/uL (150-450); Red Blood Count 3.13 x10^6/uL (4.1-5.6); Red Cell Distribution Width 13.9 % (11.5-14.0); White Blood Count 7.1 x10^3/uL (4.0-10.5)
[2023-11-01 06:07] LABS: ALBUMIN 2.8 g/dL (3.5-5.0); BILIRUBIN,TOTAL 0.7 mg/dL (0.2-1.3); Calcium 8.4 mg/dL (8.4-10.2); Creatinine 1 0.59 mg/dL (0.66-1.25); EST GLOMERULAR FILTRATION RATE 106.3 ML/MIN; Potassium 3.9 mmol/L (3.5-5.1); Total Protein 5.2 g/dL (6.3-8.2)
[2023-11-01] MEDS: ZYLOPRIM 100 MG PO SCH (10:04)
[2023-11-01] MEDS: THERAGRAN MULTIVITAMIN PO SCH (10:04)
[2023-11-01] MEDS: FOLATE 1 MG PO SCH (10:04)
[2023-11-01] MEDS: Klor Con PO SCH (10:05)
[2023-11-01] MEDS: Nicoderm CQ 21 MG TOP SCH (10:05)
[2023-11-01] MEDS: Protonix 20MG Tablet PO SCH (10:05)
[2023-11-01] MEDS: Vibramycin 100 MG PO SCH ×2 (10:05→21:23)
[2023-11-01] MEDS: VITAMIN B-1 100 MG PO SCH (10:05)
[2023-11-01] MEDS: XARELTO 10 MG TABLET PO SCH (10:05)
[2023-11-01] MEDS: Apresoline 25 MG TABLET PO SCH (10:13)
[2023-11-01] MEDS: NORVASC 5 MG PO SCH (10:13)
[2023-11-01] MEDS: Cozaar 50 MG PO SCH (10:13)
[2023-11-01] MEDS ORDERED: PERCOCET TABLET 5/325MG PO PRN ×2 (10:19→15:27)
[2023-11-01] MEDS ORDERED: Narcan 0.4 MG/ML IV PRN (10:24)
--- NOTE | 2023-11-01 10:26 | PCM.NOTE ---
Date and Time: 11/01/23 1021 Subjective Assessment: 10/30/23 is a 68 year old male with PMHX of daily smoker, anxiety, HTN, Crohns, gout, melanoma to the back. He had surgery today with Dr. 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 He is laying in bed with foot elevated. Foot is wrapped. Pain is a 5/10. He reports he last drank 1/2 pint of whiskey 3 days ago. He drinks this QOD. He is wanting to quit drinking and smoking he reports. Discussed alcohol withdraw protocol. Also discussed pain meds and nicotine patch. He denies CP, SOB, abd. pain, N/V/D. 10/31/23 Pt resting in bed with right foot elevated. He is asking for more Valium and his home dose restarted Q8 hours. He continues to be on alcohol withdraw protocol with ativan PRN. Dressing changed by podiatry nurse today and pt had severe pain. A 1 time order of Dilaudid was ordered by podiatry after dressing removed and pt was very tearful about this. He is concerned about his pain level with dressing changes at the [facility]. He is awaiting insurance approval for transfer to rehab. We will make a point to have him comfortable tomorrow prior to dressing change. He denies CP, SOB, abd. pain, N/V/D. 11/01/23 Pt resting in bed. He explained the pain was very bad yesterday with dressing change. Dilaudid 2mg IV added 30 minutes before dressing change today. He also explained Percocet 10mg QID not lasting long enough. We do not carry 7.5 mg Percocet here. Therefore Percocet changed to 5mg Q4 PRN. Narcan added for resp. depression risk. Anxiety is well controlled. He reports he has had no withdraw sxs. Awaiting rehab placement and podiatry ok with d/c and f/u Op Friday for closure of wound. - Review of Systems Constitutional: No Fever, No Chills Eyes: No Symptoms Ears, Nose, & Throat: No Symptoms Respiratory: No Cough, No Short Of Breath Cardiac: No Chest Pain, No Edema, No Syncope Abdominal/Gastrointestinal: No Abdominal Pain, No Nausea, No Vomiting, No Diarrhea Genitourinary Symptoms: No Dysuria Musculoskeletal: No Back Pain, No Neck Pain Skin: Other (right foot pain from surgery), No Rash Neurological: No Dizziness, No Focal Weakness, No Sensory Changes Psychological: No Symptoms Endocrine: No Symptoms Hematologic/Lymphatic: No Symptoms Immunological/Allergic: No Symptoms Objective Exam General Appearance: no apparent distress, alert Neurologic Exam: alert, oriented x 3, cooperative, normal mood/affect, nml cerebellar function, sensation nml, No motor deficits Skin Exam: normal color, warm, dry Wound Assessment: Skin/Wound Assessment Wound/Incision Assessment Start: 10/31/23 21:57 Text: Status: Active Freq: Q4H Protocol: Document 11/01/23 08:15 JN (Rec: 11/01/23 08:25 [id number]) Wound/Incision Assessment Right Foot Wound Assessment Shift Assessment Wound Type Amputation Wound Stage Non Pressure Wound Dressing Status Dry & Intact Secondary Dressing Elastic Bandage Eye Exam: PERRL, EOMI, eyes nml inspection Ears, Nose, Throat Exam: normal ENT inspection, pharynx normal, moist mucous membranes Neck Exam: normal inspection, non-tender, supple, full range of motion Respiratory Exam: normal breath sounds, lungs clear, No respiratory distress Cardiovascular Exam: regular rate/rhythm, normal heart sounds Gastrointestinal/Abdomen Exam: soft, No tenderness, No mass Extremity Exam: normal inspection, normal range of motion, other ((right foot wrapped.)) Back Exam: normal inspection, normal range of motion, No CVA tenderness, No vertebral tenderness Male Genitalia Exam: deferred Rectal Exam: deferred OBJECTIVE DATA Vital Signs: Vital Signs - 24 hr Temp Pulse Resp BP Pulse Ox 11/01/23 10:08 70 109/60 11/01/23 06:57 97.2 F 64 16 127/62 97 11/01/23 04:00 97.8 F 69 16 105/58 95 10/31/23 23:50 98.6 F 74 19 111/56 96 10/31/23 19:47 98.8 F 78 16 104/59 95 10/31/23 16:00 97.5 F 76 17 109/58 95 10/31/23 12:00 97.7 F 85 17 110/66 96 Pain Assessment - Last Documented Pain Intensity [Anterior/ 8 Posterior] Pain Intensity 4 Pain Scale Used 0-10 Pain Scale Intake and Output: Intake & Output 10/29/23 10/30/23 10/31/23 11/01/23 11:59 11:59 11:59 11:59 Intake Total 2869 2220 Output Total 500 1125 Balance 2369 1095 Weight 83.915 kg 81.2 kg Lab Results: Lab Results-Last 24 Hours 11/01/23 11/01/23 Range/Units 05:15 05:15 WBC 7.1 (4.0-10.5) x10^3/uL RBC 3.13 L (4.1-5.6) x10^6/uL Hgb 11.0 L (12.5-18.0) g/dL Hct 35.0 L (42-50) % MCV 111.8 H (78-100) fL MCH 35.1 H (26-32) pg MCHC 31.4 L (32-36) g/dL RDW 13.9 (11.5-14.0) % Plt Count 177 (150-450) x10^3/uL MPV 11.0 (7.5-11.0) fL Sodium 135 L (137-145) mmol/L Potassium 3.9 (3.5-5.1) mmol/L Chloride 108 H (98-107) mmol/L Carbon Dioxide 25 (22-30) mmol/L Anion Gap 6.0 (5-15) MEQ/L BUN 9 (9-20) mg/dL Creatinine 0.59 L (0.66-1.25) mg/dL Estimated GFR 106.3 ML/MIN Glucose 120 H (74-106) mg/dL Calcium 8.4 (8.4-10.2) mg/dL Total Bilirubin 0.70 (0.2-1.3) mg/dL AST 16 L (17-59) U/L ALT 7 (0-50) U/L Alkaline Phosphatase 101 (38-126) U/L Serum Total Protein 5.2 L (6.3-8.2) g/dL Albumin 2.8 L (3.5-5.0) g/dL Radiology Exams: Radiology Procedures Category Date Time Status FLUOROSCOPY UP TO 1 HR Routine Exams 10/30/23 10:58 Completed FOOT (MINIMUM 3 VIEWS) Routine Exams 10/30/23 10:58 Completed Multi-Disciplinary Progress Notes: Multi-Disciplinary Progress Notes 10/31/23 11:42 Case Management Note by Tameka Schuler SPOKE WITH DOMINICK AT THE [facility], REPORTS THAT THEY ARE ACCEPTING PATIENT ONCE THEY RECEIVE APPROVAL FROM INSURANCE. DOMINICK REPORTS THAT THEY SHOULD HAVE APPROVAL BACK EITHER TODAY, 10/31/23 OR TOMORROW 11/01/23. INFORMED MARVIN HECTOR NP. Initialized on 10/31/23 11:42 - END OF NOTE Assessment/Plan (1) Amputated toe of right foot Current Visit: Yes Status: Acute Code(s): S98.131A - COMPLETE TRAUMATIC AMPUTATION OF ONE RIGHT LESSER TOE, INIT (2) HTN (hypertension) Current Visit: Yes Status: Acute Code(s): I10 - ESSENTIAL (PRIMARY) HYPERTENSION (3) History of gout Current Visit: No Status: Chronic Code(s): Z87.39 - PERSONAL HISTORY OF DISEASES OF THE MS SYS AND CONN TISS (4) Smoker Current Visit: No Status: Chronic Code(s): F17.200 - NICOTINE DEPENDENCE, UNSPECIFIED, UNCOMPLICATED (5) Hypokalemia Current Visit: Yes Status: Acute Code(s): E87.6 - HYPOKALEMIA (6) Alcohol abuse Current Visit: Yes Status: Acute Assessment & Plan: (1) Amputated toe of right foot Current Visit: Yes Status: Acute Assessment & Plan: - surgery today with podiatry for multiple toe amputations of right foot- 2nd and 3rd toe. - 2:2 blood clotting d/o which is being worked up OP- consider referral to hemat ology. - pain control - antibiotics gave prior to surgery- to be managed by podiatry - elevate affected extremity 10/31/23 - dressing change by podiatry - Post op day 1 11/01 - POD #2 - dressing change by nursing today with orders from podiatry - IV pain medication prior to dressing change added. - awaiting rehab placement - Changed Percocet to 5mg Q4 PRN as 10mg QID was not lasting long enough Code(s): S98.131A - COMPLETE TRAUMATIC AMPUTATION OF ONE RIGHT LESSER TOE, INIT (2) HTN (hypertension) Current Visit: Yes Status: Acute Assessment & Plan: - continue home meds Code(s): I10 - ESSENTIAL (PRIMARY) HYPERTENSION (3) History of gout Current Visit: No Status: Chronic Assessment & Plan: -Does not appear to be in exacerbation - will check uric acid level- 4.6 ok -Continue home allopurinol Code(s): Z87.39 - PERSONAL HISTORY OF DISEASES OF THE MS SYS AND CONN TISS (4) Smoker Current Visit: No Status: Chronic Assessment & Plan: - Advised cessation to aide in healing - nicotine patch Code(s): F17.200 - NICOTINE DEPENDENCE, UNSPECIFIED, UNCOMPLICATED (5) Hypokalemia Current Visit: Yes Status: Acute Assessment & Plan: - K+ 3.4 replaced - trend - IVF with K+ 10/31/23 - K+ 4.1 - Stop IVF - eating and drinking well - resolved Code(s): E87.6 - HYPOKALEMIA (6) Alcohol abuse Current Visit: Yes Status: Acute Assessment & Plan: - alcohol withdraw protocol with ativan PRN - ETOH level on admission <10 - scheduled Valium continued as was taking at home. VTE: Xarelto PPI: Protonix Next of kin: Fady Cronin [phone] Code status: Full Code(s): F10.10 - ALCOHOL ABUSE, UNCOMPLICATED
[2023-11-01] MEDS: Hydromorphone 1 mg/ml Injection IV PRN (10:57)
[2023-11-01] MEDS ORDERED: PERCOCET TABLET 5/325MG PO ONE (15:28)
[2023-11-01] MEDS: Valium 5 MG PO PRN (16:19)
[2023-11-01] MEDS: TYLENOL 325 MG PO PRN (19:45)
[2023-11-01] MEDS: NEURONTIN PO SCH (21:23)
[2023-11-02] MEDS: OXYCODONE-ACETAMINOPHEN 10-325 PO PRN ×4 (03:32→21:46)
[2023-11-02 06:04] LABS: Hematocrit 36.5 % (42-50); Hemoglobin 11.4 g/dL (12.5-18.0); Mean Cell Volume 111.6 fL (78-100); Mean Corpuscular Hemoglobin 34.9 pg (26-32); Mean Corpuscular Hgb Concent. 31.2 g/dL (32-36); Mean Platelet Volume 10.7 fL (7.5-11.0); Platelet Count 217 x10^3/uL (150-450); Red Blood Count 3.27 x10^6/uL (4.1-5.6); Red Cell Distribution Width 13.6 % (11.5-14.0); White Blood Count 7.9 x10^3/uL (4.0-10.5)
[2023-11-02 06:18] LABS: ALBUMIN 3.1 g/dL (3.5-5.0); ANION GAP 6.9 MEQ/L (5-15); BILIRUBIN,TOTAL 0.7 mg/dL (0.2-1.3); Creatinine 1 0.53 mg/dL (0.66-1.25); EST GLOMERULAR FILTRATION RATE 109.8 ML/MIN; Potassium 4.1 mmol/L (3.5-5.1); Total Protein 5.9 g/dL (6.3-8.2)
[2023-11-02] MEDS: Nicoderm CQ 21 MG TOP SCH (09:28)
[2023-11-02] MEDS: XARELTO 10 MG TABLET PO SCH (09:29)
[2023-11-02] MEDS: THERAGRAN MULTIVITAMIN PO SCH (09:29)
[2023-11-02] MEDS: FOLATE 1 MG PO SCH (09:30)
[2023-11-02] MEDS: NORVASC 5 MG PO SCH (09:30)
[2023-11-02] MEDS: Cozaar 50 MG PO SCH (09:30)
[2023-11-02] MEDS: ZYLOPRIM 100 MG PO SCH (09:31)
[2023-11-02] MEDS: Apresoline 25 MG TABLET PO SCH (09:31)
[2023-11-02] MEDS: VITAMIN B-1 100 MG PO SCH (09:31)
[2023-11-02] MEDS: NEURONTIN PO SCH ×3 (09:31→21:17)
[2023-11-02] MEDS: Klor Con PO SCH (09:31)
--- NOTE | 2023-11-02 09:31 | PCM.NOTE ---
Date and Time: 11/02/23926 Subjective Assessment: Seen at bedside Post op day #3. Complaints of pain particularly with dressing changes. Denies any constitutional symptoms of infection. Physical Exam - Narrative Narrative Physical Exam: Podiatry Physical Exam OBJECTIVE DATA Vital Signs: Vital Signs - 24 hr Temp Pulse Resp BP Pulse Ox 11/02/23 06:40 97.1 F 56 L 17 127/64 99 11/02/23 04:00 9705 F 62 18 136/66 98 11/02/23 00:00 97.9 F 68 17 117/65 99 11/01/23 20:00 99.2 F 76 17 118/63 96 11/01/23 14:45 97.2 F 70 16 109/60 97 11/01/23 10:08 70 109/60 Pain Assessment - Last Documented Pain Intensity [Anterior/ 8 Posterior] Pain Intensity 5 Pain Scale Used 0-10 Pain Scale Intake and Output: Intake & Output 10/30/23 10/31/23 11/01/23 11/02/23 11:59 11:59 11:59 11:59 Intake Total 2869 2220 960 Output Total 500 1125 1100 Balance 2369 1095 -140 Weight 83.915 kg 81.2 kg Lab Results: Lab Results-Last 24 Hours 11/02/23 11/02/23 Range/Units 06:05 06:05 WBC 7.9 (4.0-10.5) x10^3/uL RBC 3.27 L (4.1-5.6) x10^6/uL Hgb 11.4 L (12.5-18.0) g/dL Hct 36.5 L (42-50) % MCV 111.6 H (78-100) fL MCH 34.9 H (26-32) pg MCHC 31.2 L (32-36) g/dL RDW 13.6 (11.5-14.0) % Plt Count 217 (150-450) x10^3/uL MPV 10.7 (7.5-11.0) fL Sodium 133 L (137-145) mmol/L Potassium 4.1 (3.5-5.1) mmol/L Chloride 104 (98-107) mmol/L Carbon Dioxide 26 (22-30) mmol/L Anion Gap 6.9 (5-15) MEQ/L BUN 10 (9-20) mg/dL Creatinine 0.53 L (0.66-1.25) mg/dL Estimated GFR 109.8 ML/MIN Glucose 108 H (74-106) mg/dL Calcium 9.0 (8.4-10.2) mg/dL Total Bilirubin 0.70 (0.2-1.3) mg/dL AST 18 (17-59) U/L ALT 8 (0-50) U/L Alkaline Phosphatase 96 (38-126) U/L Serum Total Protein 5.9 L (6.3-8.2) g/dL Albumin 3.1 L (3.5-5.0) g/dL Assessment/Plan (1) Alcohol abuse Current Visit: Yes Status: Acute Code(s): F10.10 - ALCOHOL ABUSE, UNCOMPLICATED (2) Amputated toe of right foot Current Visit: Yes Status: Acute Assessment & Plan: Patient progressing without complication Patient with significant pain controlled with pain medication Will follow up Friday with Delayed closure of wound Recommend edvin nutritional supplementation. Low albumin in the setting of wound healing. Will follow up on Friday. Dressing change orders restart at assisted living facility. Will follow with you. Code(s): S98.131A - COMPLETE TRAUMATIC AMPUTATION OF ONE RIGHT LESSER TOE, INIT (3) HTN (hypertension) Current Visit: Yes Status: Acute Code(s): I10 - ESSENTIAL (PRIMARY) HYPERTENSION (4) Cellulitis of right foot Current Visit: No Status: Acute Code(s): L03.115 - CELLULITIS OF RIGHT LOWER LIMB (5) Thromboangiitis obliterans (Buerger's disease) Current Visit: No Status: Acute Code(s): I73.1 - THROMBOANGIITIS OBLITERANS [BUERGER'S DISEASE] (6) Acquired clotting factor deficiency Current Visit: No Status: Chronic Code(s): D68.4 - ACQUIRED COAGULATION FACTOR DEFICIENCY (7) Arterial occlusive disease Current Visit: No Status: Chronic Code(s): I70.90 - UNSPECIFIED ATHEROSCLEROSIS (8) History of gout Current Visit: No Status: Chronic Code(s): Z87.39 - PERSONAL HISTORY OF DISEASES OF THE MS SYS AND CONN TISS (9) Raynaud's disease Current Visit: No Status: Chronic Code(s): I73.00 - RAYNAUD'S SYNDROME WITHOUT GANGRENE
[2023-11-02] MEDS: Vibramycin 100 MG PO SCH ×2 (09:32→21:17)
[2023-11-02] MEDS: Protonix 20MG Tablet PO SCH (09:32)
[2023-11-02] MEDS: Valium 5 MG PO PRN (09:32)
--- NOTE | 2023-11-02 10:20 | PCM.NOTE ---
Date and Time: 11/02/23 1014 Subjective Assessment: 10/30/23 is a 68 year old male with PMHX of daily smoker, anxiety, HTN, Crohns, gout, melanoma to the back. He had surgery today with Dr. 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 He is laying in bed with foot elevated. Foot is wrapped. Pain is a 5/10. He reports he last drank 1/2 pint of whiskey 3 days ago. He drinks this QOD. He is wanting to quit drinking and smoking he reports. Discussed alcohol withdraw protocol. Also discussed pain meds and nicotine patch. He denies CP, SOB, abd. pain, N/V/D. 10/31/23 Pt resting in bed with right foot elevated. He is asking for more Valium and his home dose restarted Q8 hours. He continues to be on alcohol withdraw protocol with ativan PRN. Dressing changed by podiatry nurse today and pt had severe pain. A 1 time order of Dilaudid was ordered by podiatry after dressing removed and pt was very tearful about this. He is concerned about his pain level with dressing changes at the [facility]. He is awaiting insurance approval for transfer to rehab. We will make a point to have him comfortable tomorrow prior to dressing change. He denies CP, SOB, abd. pain, N/V/D. 11/01/23 Pt resting in bed. He explained the pain was very bad yesterday with dressing change. Dilaudid 2mg IV added 30 minutes before dressing change today. He also explained Percocet 10mg QID not lasting long enough. We do not carry 7.5 mg Percocet here. Therefore Percocet changed to 5mg Q4 PRN. Narcan added for resp. depression risk. Anxiety is well controlled. He reports he has had no withdraw sxs. Awaiting rehab placement and podiatry ok with d/c and f/u Op Friday for closure of wound. 11/02/23 POD day # 3. Pt resting in bed with his right foot elevated. Pt reports he is feeling better since gabapentin added. Last night be became upset that percocet was changed to 5mg q4 so he can have them more often, as pain medication was wearing off. He wanted it changed back to 10mg Q6, therefore it was done. He reports he is better today overall. Podiatry discussed with pt today he does not need a dressing change today. Dilaudid to only be given prior to dressing change per podiatry and pain meds not to be increased. Discussed pain will be better with time and healing. He is awaiting rehab placement. He denies CP, SOB, abd pain, N/V/D. - Review of Systems Constitutional: No Fever, No Chills Eyes: No Symptoms Ears, Nose, & Throat: No Symptoms Respiratory: No Cough, No Short Of Breath Cardiac: No Chest Pain, No Edema, No Syncope Abdominal/Gastrointestinal: No Abdominal Pain, No Nausea, No Vomiting, No Diarrhea Genitourinary Symptoms: No Dysuria Musculoskeletal: No Back Pain, No Neck Pain Skin: Other ((right foot pain from surgery)), No Rash Neurological: No Dizziness, No Focal Weakness, No Sensory Changes Psychological: No Symptoms Endocrine: No Symptoms Hematologic/Lymphatic: No Symptoms Immunological/Allergic: No Symptoms Objective Exam General Appearance: no apparent distress, alert Neurologic Exam: alert, oriented x 3, cooperative, normal mood/affect, nml cerebellar function, sensation nml, No motor deficits Skin Exam: normal color, warm, dry Wound Assessment: Skin/Wound Assessment Wound/Incision Assessment Start: 10/31/23 21:57 Text: Status: Active Freq: Q4H Protocol: Document 11/02/23 07:55 RB (Rec: 11/02/23 08:05 RB [id number]) Wound/Incision Assessment Right Foot Wound Assessment Shift Assessment Wound Type Amputation Wound Stage Non Pressure Wound Dressing Status Dry & Intact Drainage Amount None Secondary Dressing Elastic Bandage Comment no undressed at this time, no drainage or bleeding noted on outer dx at this time Wound Photo Photo Taken No Eye Exam: PERRL, EOMI, eyes nml inspection Ears, Nose, Throat Exam: normal ENT inspection, pharynx normal, moist mucous membranes Neck Exam: normal inspection, non-tender, supple, full range of motion Respiratory Exam: normal breath sounds, lungs clear, No respiratory distress Cardiovascular Exam: regular rate/rhythm, normal heart sounds Gastrointestinal/Abdomen Exam: soft, other (Right foot wrapped.), No tenderness, No mass Extremity Exam: normal inspection, normal range of motion Back Exam: normal inspection, normal range of motion, No CVA tenderness, No vertebral tenderness Male Genitalia Exam: deferred Rectal Exam: deferred OBJECTIVE DATA Vital Signs: Vital Signs - 24 hr Temp Pulse Resp BP Pulse Ox 11/02/23 06:40 97.1 F 56 L 17 127/64 99 11/02/23 04:00 9705 F 62 18 136/66 98 11/02/23 00:00 97.9 F 68 17 117/65 99 11/01/23 20:00 99.2 F 76 17 118/63 96 11/01/23 14:45 97.2 F 70 16 109/60 97 Pain Assessment - Last Documented Pain Intensity [Anterior/ 8 Posterior] Pain Intensity 6 Pain Scale Used 0-10 Pain Scale Intake and Output: Intake & Output 10/30/23 10/31/23 11/01/23 11/02/23 11:59 11:59 11:59 11:59 Intake Total 2869 2220 1200 Output Total 500 1125 1100 Balance 2369 1095 100 Weight 83.915 kg 81.2 kg Lab Results: Lab Results-Last 24 Hours 11/02/23 11/02/23 Range/Units 06:05 06:05 WBC 7.9 (4.0-10.5) x10^3/uL RBC 3.27 L (4.1-5.6) x10^6/uL Hgb 11.4 L (12.5-18.0) g/dL Hct 36.5 L (42-50) % MCV 111.6 H (78-100) fL MCH 34.9 H (26-32) pg MCHC 31.2 L (32-36) g/dL RDW 13.6 (11.5-14.0) % Plt Count 217 (150-450) x10^3/uL MPV 10.7 (7.5-11.0) fL Sodium 133 L (137-145) mmol/L Potassium 4.1 (3.5-5.1) mmol/L Chloride 104 (98-107) mmol/L Carbon Dioxide 26 (22-30) mmol/L Anion Gap 6.9 (5-15) MEQ/L BUN 10 (9-20) mg/dL Creatinine 0.53 L (0.66-1.25) mg/dL Estimated GFR 109.8 ML/MIN Glucose 108 H (74-106) mg/dL Calcium 9.0 (8.4-10.2) mg/dL Total Bilirubin 0.70 (0.2-1.3) mg/dL AST 18 (17-59) U/L ALT 8 (0-50) U/L Alkaline Phosphatase 96 (38-126) U/L Serum Total Protein 5.9 L (6.3-8.2) g/dL Albumin 3.1 L (3.5-5.0) g/dL Assessment/Plan (1) Amputated toe of right foot Current Visit: Yes Status: Acute Code(s): S98.131A - COMPLETE TRAUMATIC AMPUTATION OF ONE RIGHT LESSER TOE, INIT (2) HTN (hypertension) Current Visit: Yes Status: Acute Code(s): I10 - ESSENTIAL (PRIMARY) HYPERTENSION (3) History of gout Current Visit: No Status: Chronic Code(s): Z87.39 - PERSONAL HISTORY OF DISEASES OF THE MS SYS AND CONN TISS (4) Smoker Current Visit: No Status: Chronic Code(s): F17.200 - NICOTINE DEPENDENCE, UNSPECIFIED, UNCOMPLICATED (5) Hypokalemia Current Visit: Yes Status: Acute Code(s): E87.6 - HYPOKALEMIA (6) Alcohol abuse Current Visit: Yes Status: Acute Assessment & Plan: (1) Amputated toe of right foot Current Visit: Yes Status: Acute Assessment & Plan: - surgery today with podiatry for multiple toe amputations of right foot- 2nd and 3rd toe. - 2:2 blood clotting d/o which is being worked up OP- consider referral to hematology. - pain control - antibiotics gave prior to surgery- to be managed by podiatry - elevate affected extremity 10/31/23 - dressing change by podiatry - Post op day 1 11/01 - POD #2 - dressing change by nursing today with orders from podiatry - IV pain medication prior to dressing change added. - awaiting rehab placement - Changed Percocet to 5mg Q4 PRN as 10mg QID was not lasting long enough 11/02 - POD #3 - No dressing changes today per podiatry - IV Pain med prior to dressing changes only - awaiting rehab placement - Percocet changed back to 10mg Q6 per pt request - Gabapentin 300mg TID added. - don not increase pain meds - Narcan added PRN - Plan for closure with podiatry f/u OP if discharges. Code(s): S98.131A - COMPLETE TRAUMATIC AMPUTATION OF ONE RIGHT LESSER TOE, INIT (2) HTN (hypertension) Current Visit: Yes Status: Acute Assessment & Plan: - continue home meds Code(s): I10 - ESSENTIAL (PRIMARY) HYPERTENSION (3) History of gout Current Visit: No Status: Chronic Assessment & Plan: -Does not appear to be in exacerbation - will check uric acid level- 4.6 ok -Continue home allopurinol Code(s): Z87.39 - PERSONAL HISTORY OF DISEASES OF THE MS SYS AND CONN TISS (4) Smoker Current Visit: No Status: Chronic Assessment & Plan: - Advised cessation to aide in healing - nicotine patch Code(s): F17.200 - NICOTINE DEPENDENCE, UNSPECIFIED, UNCOMPLICATED (5) Hypokalemia Current Visit: Yes Status: Acute Assessment & Plan: - K+ 3.4 replaced - trend - IVF with K+ 10/31/23 - K+ 4.1 - Stop IVF - eating and drinking well - resolved Code(s): E87.6 - HYPOKALEMIA (6) Alcohol abuse Current Visit: Yes Status: Acute Assessment & Plan: - alcohol withdraw protocol - ETOH level on admission <10 - Valium continued as was taking at home if needed. VTE: Xarelto PPI: Protonix Next of kin: Fady Cronin [phone] Code status: Full D/C plan: awaiting rehab placement Code(s): F10.10 - ALCOHOL ABUSE, UNCOMPLICATED
[2023-11-03] MEDS: OXYCODONE-ACETAMINOPHEN 10-325 PO PRN ×4 (03:48→23:15)
--- NOTE | 2023-11-03 05:08 | PCM.NOTE ---
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 During his previous admission, patient was discharged home on pentoxyfilline, nitro paste, and xarelto, although compliance with these medications is questionable. Patient was re-admitted 10/30/23 for amputation of the 2nd and third digits. Per podiatry documentation, there is concern for residual infection at the base of the 3rd digit so wound has been left open for infection to drain. Patient is currently being treated with doxycycline, xarelto, pentoxifylline, and pain control. Plan for closure possibly on Friday, discharge to rehab facility following. Patient has been advised on the importance of smoking/ alcohol cessation. 11/03/23: PODS # 4. Patient endorses improvement with pain, now rating at 4/10 on numerical pain scale, burning in characteristic. Plan is for discharge to rehab facility pending approval. Planned surgical intervention for closure tomorrow. Denies fever,cough, sob, cp, abdominal pain, HANSEN, dizziness, N/V/D. - Review of Systems Constitutional: No Symptoms Eyes: No Symptoms Ears, Nose, & Throat: No Symptoms Respiratory: Wheezing Cardiac: No Symptoms Abdominal/Gastrointestinal: No Symptoms Genitourinary Symptoms: No Symptoms Musculoskeletal: Other (Pain to LLE 4/10) Skin: Other (Surgical wound (open) with dressing/asuncion bandage LLE) Neurological: No Symptoms Psychological: Alcohol Abuse, Anxiety Endocrine: No Symptoms Hematologic/Lymphatic: No Symptoms Immunological/Allergic: No Symptoms Objective Exam General Appearance: no apparent distress Neurologic Exam: alert, oriented x 3, cooperative Skin Exam: other (Surgical wound (open) to LLE, with surgical dressing CDI, no surrounding erythema/streaking) Wound Assessment: Skin/Wound Assessment Wound/Incision Assessment Start: 10/31/23 21:57 Text: Status: Active Freq: Q4H Protocol: Document 11/03/23 04:00 MM (Rec: 11/03/23 04:51 MM [id number]) Wound/Incision Assessment Right Foot Wound Assessment Shift Assessment Wound Type Amputation Wound Stage Non Pressure Wound Dressing Status Dry & Intact Drainage Amount None Drainage Odor None/Absent Secondary Dressing Elastic Bandage Comment not undressed at this time, no drainage or bleeding noted on outer dx at this time Wound Photo Photo Taken No Eye Exam: PERRL Ears, Nose, Throat Exam: normal ENT inspection Neck Exam: normal inspection Respiratory Exam: wheezing Cardiovascular Exam: regular rate/rhythm, normal heart sounds Gastrointestinal/Abdomen Exam: soft, normal bowel sounds Extremity Exam: other (see skin exam) Back Exam: normal inspection Male Genitalia Exam: deferred Rectal Exam: deferred OBJECTIVE DATA Vital Signs: Vital Signs - 24 hr Temp Pulse Resp BP Pulse Ox 11/03/23 03:39 99.8 F 68 20 105/63 95 11/02/23 23:40 99.1 F 79 18 101/60 97 11/02/23 19:59 97.9 F 80 16 93/50 95 11/02/23 16:00 97.7 F 85 17 111/57 94 L 11/02/23 11:27 98.6 F 80 17 121/75 96 11/02/23 06:40 97.1 F 56 L 17 127/64 99 Pain Assessment - Last Documented Pain Intensity [Anterior/ 8 Posterior] Pain Intensity 2 Pain Scale Used 0-10 Pain Scale Intake and Output: Intake & Output 10/31/23 11/01/23 11/02/23 11/03/23 11:59 11:59 11:59 11:59 Intake Total 2869 2220 1200 1200 Output Total 500 1125 1100 1850 Balance 2369 1095 100 -650 Weight 81.2 kg Lab Results: Lab Results-Last 24 Hours 11/02/23 11/02/23 Range/Units 06:05 06:05 WBC 7.9 (4.0-10.5) x10^3/uL RBC 3.27 L (4.1-5.6) x10^6/uL Hgb 11.4 L (12.5-18.0) g/dL Hct 36.5 L (42-50) % MCV 111.6 H (78-100) fL MCH 34.9 H (26-32) pg MCHC 31.2 L (32-36) g/dL RDW 13.6 (11.5-14.0) % Plt Count 217 (150-450) x10^3/uL MPV 10.7 (7.5-11.0) fL Sodium 133 L (137-145) mmol/L Potassium 4.1 (3.5-5.1) mmol/L Chloride 104 (98-107) mmol/L Carbon Dioxide 26 (22-30) mmol/L Anion Gap 6.9 (5-15) MEQ/L BUN 10 (9-20) mg/dL Creatinine 0.53 L (0.66-1.25) mg/dL Estimated GFR 109.8 ML/MIN Glucose 108 H (74-106) mg/dL Calcium 9.0 (8.4-10.2) mg/dL Total Bilirubin 0.70 (0.2-1.3) mg/dL AST 18 (17-59) U/L ALT 8 (0-50) U/L Alkaline Phosphatase 96 (38-126) U/L Serum Total Protein 5.9 L (6.3-8.2) g/dL Albumin 3.1 L (3.5-5.0) g/dL Assessment/Plan (1) Amputated toe of right foot Current Visit: Yes Status: Acute Assessment & Plan: - surgery today with podiatry for multiple toe amputations of right foot- 2nd and 3rd toe. - 2:2 blood clotting d/o which is being worked up OP- consider referral to hematology. - pain control - antibiotics gave prior to surgery- to be managed by podiatry - elevate affected extremity 10/31/23 - dressing change by podiatry - Post op day 1 11/01 - POD #2 - dressing change by nursing today with orders from podiatry - IV pain medication prior to dressing change added. - awaiting rehab placement - Changed Percocet to 5mg Q4 PRN as 10mg QID was not lasting long enough 11/02 - POD #3 - No dressing changes today per podiatry - IV Pain med prior to dressing changes only - awaiting rehab placement - Percocet changed back to 10mg Q6 per pt request - Gabapentin 300mg TID added. - don not increase pain meds - Narcan added PRN - Plan for closure with podiatry Friday, f/u OP if discharges. 11/03/23: POD#4 -placement pending -Continue Doxycycline, pain regimen, xarelto, pentoxifylline per podiatry Code(s): S98.131A - COMPLETE TRAUMATIC AMPUTATION OF ONE RIGHT LESSER TOE, INIT (2) HTN (hypertension) Current Visit: Yes Status: Acute Assessment & Plan: - continue home meds Code(s): I10 - ESSENTIAL (PRIMARY) HYPERTENSION (3) History of gout Current Visit: No Status: Chronic Assessment & Plan: -Does not appear to be in exacerbation - will check uric acid level- 4.6 ok -Continue home allopurinol Code(s): Z87.39 - PERSONAL HISTORY OF DISEASES OF THE MS SYS AND CONN TISS (4) Smoker Current Visit: No Status: Chronic Assessment & Plan: - Advised cessation to aide in healing - nicotine patch Code(s): F17.200 - NICOTINE DEPENDENCE, UNSPECIFIED, UNCOMPLICATED (5) Hypokalemia Current Visit: Yes Status: Acute Assessment & Plan: - K+ 3.4 replaced - trend - IVF with K+ 10/31/23 - K+ 4.1 - Stop IVF - eating and drinking well - resolved 11/03/23: - labs reviewed, potassium WNL, continue to monitor Code(s): E87.6 - HYPOKALEMIA (6) Alcohol abuse Current Visit: Yes Status: Acute Assessment & Plan: - alcohol withdraw protocol - ETOH level on admission <10 - Valium continued as was taking at home if needed. VTE: Xarelto PPI: Protonix Next of kin: Fady Cronin [phone] Code status: Full D/C plan: awaiting rehab placement Code(s): S98.131A - COMPLETE TRAUMATIC AMPUTATION OF ONE RIGHT LESSER TOE, INIT (2) Alcohol abuse Current Visit: Yes Status: Acute Code(s): F10.10 - ALCOHOL ABUSE, UNCOMPLICATED (3) HTN (hypertension) Current Visit: Yes Status: Acute Code(s): I10 - ESSENTIAL (PRIMARY) HYPERTENSION (4) Hypokalemia Current Visit: No Status: Acute Code(s): E87.6 - HYPOKALEMIA (5) History of gout Current Visit: No Status: Chronic Code(s): Z87.39 - PERSONAL HISTORY OF DISEASES OF THE MS SYS AND CONN TISS (6) Smoker Current Visit: No Status: Chronic Code(s): F17.200 - NICOTINE DEPENDENCE, UNSPECIFIED, UNCOMPLICATED
[2023-11-03] MEDS: Hydromorphone 1 mg/ml Injection IV PRN (07:56)
[2023-11-03] MEDS: Nicoderm CQ 21 MG TOP SCH (09:31)
[2023-11-03] MEDS: Klor Con PO SCH (09:32)
[2023-11-03] MEDS: XARELTO 10 MG TABLET PO SCH (09:32)
[2023-11-03] MEDS: THERAGRAN MULTIVITAMIN PO SCH (09:32)
[2023-11-03] MEDS: ZYLOPRIM 100 MG PO SCH (09:32)
[2023-11-03] MEDS: NEURONTIN PO SCH ×3 (09:32→21:59)
[2023-11-03] MEDS: VITAMIN B-1 100 MG PO SCH (09:32)
[2023-11-03] MEDS: Vibramycin 100 MG PO SCH ×2 (09:32→21:59)
[2023-11-03] MEDS: Protonix 20MG Tablet PO SCH (09:32)
[2023-11-03] MEDS: FOLATE 1 MG PO SCH (09:32)
[2023-11-03] MEDS: NORVASC 5 MG PO SCH (09:58)
[2023-11-03] MEDS: Cozaar 50 MG PO SCH (09:58)
[2023-11-03] MEDS: Apresoline 25 MG TABLET PO SCH (09:58)
[2023-11-03] MEDS ORDERED: Sodium Chloride 0.9% 500 ML 500 ML IV ONE ×2 (11:51→13:20)
[2023-11-03 19:23] VITALS: RESP 16
--- NOTE | 2023-11-04 05:09 | PCM.NOTE ---
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 During his previous admission, patient was discharged home on pentoxyfilline, nitro paste, and xarelto, although compliance with these medications is questionable. Patient was re-admitted 10/30/23 for amputation of the 2nd and third digits. Per podiatry documentation, there is concern for residual infection at the base of the 3rd digit so wound has been left open for infection to drain. Patient is currently being treated with doxycycline, xarelto, pentoxifylline, and pain control. Plan for closure possibly on Friday, discharge to rehab facility following. Patient has been advised on the importance of smoking/ alcohol cessation. 11/03/23: PODS # 4. Patient endorses improvement with pain, now rating at 4/10 on numerical pain scale, burning in characteristic. Plan is for discharge to rehab facility pending approval. Planned surgical intervention for closure tomorrow. Denies fever,cough, sob, cp, abdominal pain, HANSEN, dizziness, N/V/D. 11/04/23: PODS#5. Met with patient bedside. Patient refusing labs this morning. States they had to stick him multiple times. Is agreeable to try again later. Plans for surgical closure of LLE with podiatry. Patient endorsing increased pain today, now at 6/10 sharp/stinging. Will increase his gabapentin. Plan is for d/c to rehab facility when approval is obtained. - Review of Systems Constitutional: No Symptoms Eyes: No Symptoms Ears, Nose, & Throat: No Symptoms Respiratory: No Symptoms Cardiac: No Symptoms Abdominal/Gastrointestinal: No Symptoms Genitourinary Symptoms: No Symptoms Musculoskeletal: Other (6/10 pain to LLE at surgical site) Skin: Other (LLE amputation (open) with surgical dressing, no surrounding erythema/streaking) Neurological: No Symptoms Psychological: No Symptoms Endocrine: No Symptoms Hematologic/Lymphatic: No Symptoms Immunological/Allergic: No Symptoms Objective Exam General Appearance: no apparent distress Neurologic Exam: alert, oriented x 3, cooperative Skin Exam: normal color Wound Assessment: Skin/Wound Assessment Wound/Incision Assessment Start: 10/31/23 21:57 Text: Status: Active Freq: Q4H Protocol: Document 11/04/23 04:00 MM (Rec: 11/04/23 04:26 MM [id number]) Wound/Incision Assessment Right Foot Wound Assessment Shift Assessment Wound Type Amputation Wound Stage Non Pressure Wound Dressing Status Dry & Intact Drainage Amount None Drainage Odor None/Absent Secondary Dressing Elastic Bandage Comment not undressed at this time, no drainage or bleeding noted on outer dx at this time, remains true dressing change completed on previous shift per Dr. Grant 11/03/23 Wound Photo Photo Taken No Eye Exam: PERRL Ears, Nose, Throat Exam: normal ENT inspection, moist mucous membranes Neck Exam: normal inspection Respiratory Exam: wheezing Cardiovascular Exam: regular rate/rhythm, normal heart sounds Gastrointestinal/Abdomen Exam: soft, normal bowel sounds Extremity Exam: normal inspection, amputations (Left 2nd/3rd digits (open) with surgical dressing, CDI, no surrounding erythema/streaking), limited range of motion (LLE) Back Exam: normal inspection Male Genitalia Exam: deferred Rectal Exam: deferred OBJECTIVE DATA Vital Signs: Vital Signs - 24 hr Temp Pulse Resp BP Pulse Ox 11/04/23 04:56 98.4 F 74 16 98/63 94 L 11/04/23 04:14 98.4 F 74 16 98/63 94 L 11/03/23 23:34 98.2 F 85 16 106/68 94 L 11/03/23 19:23 99.0 F 80 16 119/65 96 11/03/23 14:52 75 93/55 11/03/23 13:18 79 86/59 11/03/23 12:05 70 84/52 11/03/23 09:36 64 90/53 11/03/23 07:55 64 18 100/59 94 L Pain Assessment - Last Documented Pain Intensity [Anterior/ 8 Posterior] Pain Intensity 5 Pain Scale Used 0-10 Pain Scale Intake and Output: Intake & Output 11/01/23 11/02/23 11/03/23 11/04/23 11:59 11:59 11:59 11:59 Intake Total 2220 1200 1320 240 Output Total 1125 1100 1850 700 Balance 1095 100 -530 -460 Weight 81.2 kg Multi-Disciplinary Progress Notes: Multi-Disciplinary Progress Notes 11/03/23 12:35 Case Management Note by Faviola Blake S/Yeimi WYNN AT [facility]- STILL NO APPROVAL AT THIS TIME Initialized on 11/03/23 12:35 - END OF NOTE 11/03/23 10:45 (created 11/03/23 12:34) Case Management Note by Faviola Blake S/Yeimi PATIENT- HE IS STILL AGREEABLE TO GO TO REHAB AT [facility] AT TIME OF DC. S/W JOSE THIS AM- SHE REPORTS INSURANCE REQUESTING ADDITIONAL INFORMATION AT THIS TIME. ADDITIONAL CLINICAL FAXED AT THIS TIME Initialized on 11/03/23 12:34 - END OF NOTE Assessment/Plan (1) Amputated toe of right foot Current Visit: Yes Status: Acute Assessment & Plan: - surgery today with podiatry for multiple toe amputations of right foot- 2nd and 3rd toe. - 2:2 blood clotting d/o which is being worked up OP- consider referral to hematology. - pain control - antibiotics gave prior to surgery- to be managed by podiatry - elevate affected extremity 10/31/23 - dressing change by podiatry - Post op day 1 11/01 - POD #2 - dressing change by nursing today with orders from podiatry - IV pain medication prior to dressing change added. - awaiting rehab placement - Changed Percocet to 5mg Q4 PRN as 10mg QID was not lasting long enough 11/02 - POD #3 - No dressing changes today per podiatry - IV Pain med prior to dressing changes only - awaiting rehab placement - Percocet changed back to 10mg Q6 per pt request - Gabapentin 300mg TID added. - don not increase pain meds - Narcan added PRN - Plan for closure with podiatry Friday, f/u OP if discharges. 11/03/23: POD#4 -placement pending -Continue Doxycycline, pain regimen, xarelto, pentoxifylline per podiatry 11/04: -PODS#5 -Surgical closure planned for today -consider increase of percocet to Q4h if pain persist Code(s): S98.131A - COMPLETE TRAUMATIC AMPUTATION OF ONE RIGHT LESSER TOE, INIT (2) HTN (hypertension) Current Visit: Yes Status: Acute Assessment & Plan: - continue home meds Code(s): I10 - ESSENTIAL (PRIMARY) HYPERTENSION (3) History of gout Current Visit: No Status: Chronic Assessment & Plan: -Does not appear to be in exacerbation - will check uric acid level- 4.6 ok -Continue home allopurinol Code(s): Z87.39 - PERSONAL HISTORY OF DISEASES OF THE MS SYS AND CONN TISS (4) Smoker Current Visit: No Status: Chronic Assessment & Plan: - Advised cessation to aide in healing - nicotine patch Code(s): F17.200 - NICOTINE DEPENDENCE, UNSPECIFIED, UNCOMPLICATED (5) Hypokalemia Current Visit: Yes Status: Acute Assessment & Plan: - K+ 3.4 replaced - trend - IVF with K+ 10/31/23 - K+ 4.1 - Stop IVF - eating and drinking well - resolved 11/03/23: - labs reviewed, potassium WNL, continue to monitor 11/04: -Pt refusing labs this morning, will attempt this afternoon Code(s): E87.6 - HYPOKALEMIA (6) Alcohol abuse Current Visit: Yes Status: Acute Assessment & Plan: - alcohol withdraw protocol - ETOH level on admission <10 - Valium continued as was taking at home if needed. VTE: Xarelto PPI: Protonix Next of kin: Fady Cronin [phone] Code status: Full D/C plan: awaiting rehab placement Code(s): S98.131A - COMPLETE TRAUMATIC AMPUTATION OF ONE RIGHT LESSER TOE, INIT (2) Alcohol abuse Current Visit: Yes Status: Acute Code(s): F10.10 - ALCOHOL ABUSE, UNCOMPLICATED (3) HTN (hypertension) Current Visit: Yes Status: Acute Code(s): I10 - ESSENTIAL (PRIMARY) HYPERTENSION (4) Hypokalemia Current Visit: No Status: Acute Code(s): E87.6 - HYPOKALEMIA (5) History of gout Current Visit: No Status: Chronic Code(s): Z87.39 - PERSONAL HISTORY OF DISEASES OF THE MS SYS AND CONN TISS (6) Smoker Current Visit: No Status: Chronic Code(s): F17.200 - NICOTINE DEPENDENCE, UNSPECIFIED, UNCOMPLICATED
[2023-11-04] MEDS ORDERED: Hydromorphone 1 mg/ml Injection IV ONE (05:10)
[2023-11-04] MEDS: Lactated Ringers 1,000 ML IV SCH ×2 (05:43→10:27)
[2023-11-04] MEDS ORDERED: CEFAZOLIN 2 GM-D5W BAG** 2 GM/50 ML ML IV SCH (08:00)
[2023-11-04] MEDS ORDERED: DIPRIVAN 200 MG/20 ML IV ONE (08:08)
[2023-11-04] MEDS ORDERED: SUBLIMAZE 100 MCG/2 ML ONE ×3 (08:08→09:19)
[2023-11-04] MEDS ORDERED: Versed 2 MG/2 ML Injection ONE (08:08)
[2023-11-04] MEDS ORDERED: Xylocaine 1% Vial 30 ML PF IJ ONE (08:18)
[2023-11-04] MEDS ORDERED: Marcaine Mpf 0.5% Vial 30 Ml ONE (08:18)
[2023-11-04] MEDS ORDERED: Xylocaine-Mpf 2% 5 Ml Vial ONE (08:29)
[2023-11-04] MEDS: Nicoderm CQ 21 MG TOP SCH (10:19)
[2023-11-04] MEDS: FOLATE 1 MG PO SCH (10:21)
[2023-11-04] MEDS: THERAGRAN MULTIVITAMIN PO SCH (10:21)
[2023-11-04] MEDS: Protonix 20MG Tablet PO SCH (10:21)
[2023-11-04] MEDS: NEURONTIN PO SCH (10:21)
[2023-11-04] MEDS: ZYLOPRIM 100 MG PO SCH (10:21)
[2023-11-04] MEDS: Klor Con PO SCH (10:21)
[2023-11-04] MEDS: VITAMIN B-1 100 MG PO SCH (10:21)
[2023-11-04] MEDS: XARELTO 10 MG TABLET PO SCH (10:21)
[2023-11-04] MEDS: Vibramycin 100 MG PO SCH (10:21)
[2023-11-04 10:23] VITALS: BP 111/68; PULSE 82; TEMP 99.6; O2SAT 94
[2023-11-04] MEDS: Cozaar 50 MG PO SCH (10:23)
[2023-11-04] MEDS: Apresoline 25 MG TABLET PO SCH (10:23)
[2023-11-04] MEDS: NORVASC 5 MG PO SCH (10:24)
[2023-11-04] MEDS: OXYCODONE-ACETAMINOPHEN 10-325 PO PRN (10:32)
--- NOTE | 2023-11-04 11:43 | PCM.DS ---
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 During his previous admission, patient was discharged home on pentoxyfilline, nitro paste, and xarelto, although compliance with these medications is questionable. Patient was re-admitted 10/30/23 for amputation of the 2nd and third digits. Per podiatry documentation, there is concern for residual infection at the base of the 3rd digit so wound has been left open for infection to drain. Patient is currently being treated with doxycycline, xarelto, pentoxifylline, and pain control. Plan for closure possibly on Friday, discharge to rehab facility following. Patient has been advised on the importance of smoking/ alcohol cessation. 11/03/23: PODS # 4. Patient endorses improvement with pain, now rating at 4/10 on numerical pain scale, burning in characteristic. Plan is for discharge to rehab facility pending approval. Planned surgical intervention for closure tomorrow. Denies fever,cough, sob, cp, abdominal pain, HANSEN, dizziness, N/V/D. 11/04/23: PODS#5. Met with patient bedside. Patient refusing labs this morning. States they had to stick him multiple times. Is agreeable to try again later. Plans for surgical closure of LLE with podiatry. Patient endorsing increased pain today, now at 6/10 sharp/stinging. Will increase his gabapentin. Plan is for d/c to r ab facility when approval is obtained. Discharge Note New Diagnosis: Buerger's Disease Latest Assessment & Plan (1)Thromboangiitis obliterans (Buerger's disease) (1) Amputated toe of right foot Current Visit: Yes Status: Acute Assessment & Plan: - surgery today with podiatry for multiple toe amputations of right foot- 2nd and 3rd toe. - 2:2 blood clotting d/o which is being worked up OP- consider referral to hematology. - pain control - antibiotics gave prior to surgery- to be managed by podiatry - elevate affected extremity 10/31/23 - dressing change by podiatry - Post op day 1 11/01 - POD #2 - dressing change by nursing today with orders from podiatry - IV pain medication prior to dressing change added. - awaiting rehab placement - Changed Percocet to 5mg Q4 PRN as 10mg QID was not lasting long enough 11/02 - POD #3 - No dressing changes today per podiatry - IV Pain med prior to dressing changes only - awaiting rehab placement - Percocet changed back to 10mg Q6 per pt request - Gabapentin 300mg TID added. - don not increase pain meds - Narcan added PRN - Plan for closure with podiatry Friday, f/u OP if discharges. 11/03/23: POD#4 -placement pending -Continue Doxycycline, pain regimen, xarelto, pentoxifylline per podiatry 11/04: -PODS#5 -Surgical closure planned for today -consider increase of percocet to Q4h if pain persist Code(s): S98.131A - COMPLETE TRAUMATIC AMPUTATION OF ONE RIGHT LESSER TOE, INIT (2) HTN (hypertension) Current Visit: Yes Status: Acute Assessment & Plan: - continue home meds Code(s): I10 - ESSENTIAL (PRIMARY) HYPERTENSION (3) History of gout Current Visit: No Status: Chronic Assessment & Plan: -Does not appear to be in exacerbation - will check uric acid level- 4.6 ok -Continue home allopurinol Code(s): Z87.39 - PERSONAL HISTORY OF DISEASES OF THE MS SYS AND CONN TISS (4) Smoker Current Visit: No Status: Chronic Assessment & Plan: - Advised cessation to aide in healing - nicotine patch Code(s): F17.200 - NICOTINE DEPENDENCE, UNSPECIFIED, UNCOMPLICATED (5) Hypokalemia Current Visit: Yes Status: Acute Assessment & Plan: - K+ 3.4 replaced - trend - IVF with K+ 10/31/23 - K+ 4.1 - Stop IVF - eating and drinking well - resolved 11/03/23: - labs reviewed, potassium WNL, continue to monitor 11/04: -Pt refusing labs this morning, will attempt this afternoon Code(s): E87.6 - HYPOKALEMIA (6) Alcohol abuse Current Visit: Yes Status: Acute Assessment & Plan: - alcohol withdraw protocol - ETOH level on admission <10 - Valium continued as was taking at home if needed. VTE: Xarelto PPI: Protonix Next of kin: Fady Cronin [phone] Code status: Full D/C plan: awaiting rehab placement I spent 35 minutes [id number] with the patient on the day of discharge performing discharge exam, discussing hospital stay and discharge instructions with patient and caregivers, preparation of discharge records, prescriptions & referral forms and addressing any questions/concerns the patient had as docu mented above. - Vitals & Intake/Output Vital Signs: Vital Signs Temperature 99.6 F 11/04/23 10:22 Pulse Rate 82 11/04/23 10:22 Respiratory Rate 16 11/04/23 10:22 Blood Pressure 111/68 11/04/23 10:22 O2 Sat by Pulse Oximetry 94 L 11/04/23 10:22 Intake & Output: Intake & Output 11/01/23 11/02/23 11/03/23 11/04/23 11:59 11:59 11:59 11:59 Intake Total 2220 1200 1320 240 Output Total 1125 1100 1850 1725 Balance 1095 100 -530 -1485 Weight 81.2 kg - Lab Result Diagrams: 11/02/23 06:05 11/02/23 06:05 - Procedures and Test Procedures and Tests throughout Hospitalization: Therapy Orders & Screens 10/30/23 11:10 EKG STAT Comment: Discharge Exam General Appearance: no apparent distress Neurologic Exam: alert, oriented x 3, cooperative Eye Exam: PERRL Ears, Nose, Throat Exam: normal ENT inspection Neck Exam: normal inspection Respiratory Exam: wheezing Cardiovascular Exam: regular rate/rhythm, normal heart sounds Gastrointestinal/Abdomen Exam: soft, normal bowel sounds Male Genitalia Exam: deferred Rectal Exam: deferred Back Exam: normal inspection Extremity Exam: other (amputations (Left 2nd/3rd digits (open) with surgical dressing, CDI, no surrounding erythema/streaking), limited range of motion (LLE)) Wound Assessment: Skin/Wound Assessment Wound/Incision Assessment Start: 01/19/24 21:57 Text: Status: Active Freq: Q4H Protocol: Document 11/04/23 08:00 [facility] (Rec: 11/04/23 08:16 [facility] [id number]) Wound/Incision Assessment Right Foot Wound Assessment Shift Assessment Wound Type Amputation Wound Stage Non Pressure Wound Dressing Status Dry & Intact Drainage Amount None Drainage Odor None/Absent Secondary Dressing Elastic Bandage Comment Dressing C/D/I, no drainage noted at this time. Dr. Grant to provide dressing changes. Staff not to alter dressing. Wound Photo Photo Taken No Final Diagnosis/Problem List - Final Discharge Diagnosis/Problem (1) Thromboangiitis obliterans (Buerger's disease) Current Visit: Yes Status: Acute Code(s): I73.1 - THROMBOANGIITIS OBLITERANS [BUERGER'S DISEASE] (2) Amputated toe of right foot Current Visit: Yes Status: Acute Code(s): S98.131A - COMPLETE TRAUMATIC AMPUTATION OF ONE RIGHT LESSER TOE, INIT (3) Alcohol abuse Current Visit: Yes Status: Acute Code(s): F10.10 - ALCOHOL ABUSE, UNCOMPLICATED (4) HTN (hypertension) Current Visit: Yes Status: Acute Code(s): I10 - ESSENTIAL (PRIMARY) HYPERTENSION (5) Hypokalemia Current Visit: No Status: Acute Code(s): E87.6 - HYPOKALEMIA (6) History of gout Current Visit: No Status: Chronic Code(s): Z87.39 - PERSONAL HISTORY OF DISEASES OF THE MS SYS AND CONN TISS (7) Smoker Current Visit: No Status: Chronic Code(s): F17.200 - NICOTINE DEPENDENCE, UNSPECIFIED, UNCOMPLICATED - Discharge Disposition: DC TO ANY "OTHER" ASSISTED Condition: Stable Prescriptions: New Folic Acid 1 mg [Folate 1 mg] 1 mg PO DAILY tablet Naloxone HCl 0.4 mg/ml [Narcan 0.4 MG/ML] 0.4 mg IV PRN PRN PRN Reason: Respiratory Depression Gabapentin [Neurontin ] 300 mg PO TID cap Nicotine 21 mg [Nicoderm CQ 21 MG] 21 mg TOP Q24H10 patch Multivitamins,Therapeutic Tab* [Theragran Multivitamin] 1 tab PO QAM tablet Doxycycline Hyclate 100 mg [Vibramycin 100 MG] 100 mg PO BID tablet Thiamine HCl 100 mg [Vitamin B-1 100 mg] 100 mg PO DAILY tablet Rivaroxaban 10 mg Tablet [Xarelto 10 mg Tablet] 10 mg PO DAILY tablet Continue Amlodipine Besylate [Norvasc] 10 mg PO DAILY Potassium Chloride Tab* [Klor Con] 10 meq PO DAILY Allopurinol 100 mg [Zyloprim 100 mg] 100 mg PO DAILY Sildenafil Citrate [Viagra] 50 mg PO DAILY PRN PRN PRN Reason: Erectile Dysfunction Nitroglycerin [Nitro-Bid] 1 gm TD TID #1 misc Pantoprazole 20 mg [Protonix 20MG Tablet] 20 mg PO DAILY Losartan Potassium 50 mg PO DAILY Indomethacin 50 mg PO TID Hydralazine HCl 25 mg PO DAILY Diazepam 5 mg [Valium 5 MG] 5 mg PO Q8HPRN PRN 3 Days #9 tablet PRN Reason: Anxiety Discontinued Pentoxifylline 400 mg PO BID 30 Days #60 tablet Rivaroxaban [Xarelto] 15 mg PO BID 21 Days #42 tablet No Action Oxycodone HCl/Acetaminophen [Percocet 10-325 mg Tablet] 1 each PO Q6HPRN PRN 3 Days #12 tablet MDD 4 PRN Reason: Pain Additional Instructions: ADMIT TO [facility]: [facility] Follow up with: ELISE SHAH DPM [ACTIVE STAFF] - 11/06/23 10:30 am LEILANI ATKINS MD [Primary Care Provider] -
--- NOTE | 2023-11-05 11:07 | OP ---
SURGERY DATE/TIME: 11/04/2023 PREOPERATIVE DIAGNOSES: 1) Gangrenous toes digits two, three and four of the right foot. 2) Suspected thromboangiitis obliterans. 3) Tobacco dependence. 4) Alcohol dependence. POSTOPERATIVE DIAGNOSES: 1) Gangrenous toes digits two, three and four of the right foot. 2) Suspected thromboangiitis obliterans. 3) Tobacco dependence. 4) Alcohol dependence. PROCEDURE: This is the second stage of a procedure. Delayed primary closure of right foot wound as well as debridement of fourth digit. SURGEON: Rudy Graves DPM. EDUCATIONAL RECRUITER: None. ANESTHESIA: Monitored anesthesia care with intraoperative local block consisting of 10 cc of a 1:1 mixture of 1% lidocaine plain and 0.5% bupivacaine plain injected in metatarsal block-type fashion. HEMOSTASIS: Pressure dressing. ESTIMATED BLOOD LOSS: Approximately 5 cc. MATERIALS: 4-0 Monocryl, 3-0 Nylon. INJECTABLES: 10 cc of 1:1 mixture of 1% lidocaine plain and 0.5% bupivacaine plain injected in a metatarsal block-type fashion. INDICATION FOR SURGERY: Titus is back for second stage of the procedure as there was some cellulitis and purulent drainage to the base of the digits where they were necrotic. This was encountered on the initial procedure with amputation. From that standpoint, decision was made to leave the wound open while he was given antibiotics in house. From this standpoint, the patient has looked to clear the infection pretty successfully at this time and decision was made to proceed with delayed primary closure as well as debridement of fourth toe wound which does seemingly appear to be doing much better than initially seen. At this time, the patient understands all risks, complications and benefits of surgical intervention at this time including but not limited to infection, hematoma, seroma, possibility of delayed wound healing, nonwound healing and possible further amputation at a later date. No guarantees were provided as to the outcome. It is with that we decided to proceed. DESCRIPTION OF PROCEDURE AND FINDINGS: The patient is brought into the OR and placed on the OR table in the supine position. At this time, monitored anesthesia care was administered until the patient was sedated. At this time, the right lower extremity is prepped and draped in the typical sterile fashion and lowered onto the surgical field. At this time, a block consisting of 10 cc of a 1:1 mixture of 1% lidocaine plain and 0.5% bupivacaine plain was injected in a metatarsal block-type fashion to the right second and third metatarsal. From that standpoint, a 15 blade is utilized to incise the edge of the wound demonstrating healthy bleeding edge. Debridement of the soft tissue beneath was carried out until healthy bleeding was seen at the anterior surface of the wound. Copious amounts of sterile saline. Copious amounts of sterile saline were utilized in a Pulsavac to flush the surgical site. 4-0 Monocryl was then utilized in a simple buried interrupted-type fashion to coapt the subcutaneous edges and then a 3-0 Nylon was utilized in a horizontal mattress-type fashion to coapt the skin edges in an everted-type fashion. Wound debridement took place to the fourth toe demonstrating a wound of 0.6 x 0.9 x 0.1 postoperatively. A dressing consisting of Betadine, Adaptic, 4x4, Kerlix and RYAN were then applied to the patient's right lower extremity. The patient was reversed from anesthesia and returned to the postoperative anesthesia care unit with vital signs stable and vascular status intact. The patient handled the anesthesia as well as procedure without significant complication. Postoperative orders as indicated in the patient's discharge chart.
== END 2023-11-04 13:15 ==
LOC: EDSTATUS 10:58 → MED SURG 10:59
PROVIDERS: ADMIT Internal Medicine; ATTEND Podiatrist Foot & Ankle Surgery
DX: I73.1 Thromboangiitis obliterans [Buerger's disease] (principal); I10 Essential (primary) hypertension; Z87.39 Personal history of other diseases of the musculoskeletal system and connective tissue; F17.200 Nicotine dependence, unspecified, uncomplicated; E87.6 Hypokalemia; F10.10 Alcohol abuse, uncomplicated; F41.9 Anxiety disorder, unspecified; M79.671 Pain in right foot; D68.9 Coagulation defect, unspecified; I73.00 Raynaud's syndrome without gangrene; C43.59 Malignant melanoma of other part of trunk; Z79.01 Long term (current) use of anticoagulants; Z79.899 Other long term (current) drug therapy; Z20.828 Contact with and (suspected) exposure to other viral communicable diseases
CPT/HCPCS: 13160; 28003; 28820; 36415; 73630; 76000; 80053; 82077; 84550; 85025; 85027; 85247; 85610; 85730; 93005; 99232; G0378; Q3014; A6260; J0690; J1170; J2001; J2250; J2371; J2704; J3010; J3360; A9270-GY

== ENCOUNTER 2023-12-18 10:20 | Emergency (ER) | payer MEDICARE ==
[2023-12-18 11:13] VITALS: RESP 20; TEMP 99.3; O2SAT 100
--- NOTE | 2023-12-18 11:38 | ERPHSYRPT ---
- History of Present Illness Time Seen by Provider: 12/18/23 11:22 Patient Subjective Stated Complaint: pt states he is having vomiting and diarrhea. pt states that abd pain started last night Triage Nursing Assessment: pt ambulated into the er; pt is axo x4; c/o abd pain; pt states 9/10 pain to abd; pt states pain is burning; active bowel sounds in all quads; tenderness in all quads; c/o N/V/D; skin PDW; no respiratory distress present; hypertensive; tachycardic Physician History: 68-year-old male with multiple medical problems including peripheral vascular disease with recent toe amputations on Xarelto presented in the ER with complains of generalized abdominal pain with associated nausea vomiting initially followed by dry heaving now. Also reports having multiple loose stools watery and foul-smelling. Patient is worried about having C. difficile. Does have history of C. difficile colitis in the past. No fever or chills reported. Abdominal pain is more of a cramping without any significant aggravating or relieving factors. Denies any known sick contacts. Timing/Duration: yesterday Activities at Onset: rest Quality: cramping Abdominal Pain Onset Location: generalized abdomen Pain Radiation: no radiation Severity of Pain-Max: moderate Severity of Pain-Current: moderate Allergies/Adverse Reactions: shellfish derived Allergy (Verified 12/18/23 11:03) Hives Home Medications: Allopurinol 100 mg [Zyloprim 100 mg] 100 mg PO DAILY 08/03/23 [History] Amlodipine Besylate [Norvasc] 10 mg PO DAILY 08/03/23 [History] Potassium Chloride Tab* [Klor Con] 10 meq PO DAILY 08/03/23 [History] Sildenafil Citrate [Viagra] 50 mg PO DAILY PRN PRN 08/03/23 [History] Hydralazine HCl 25 mg PO DAILY 10/24/23 [History] Indomethacin 50 mg PO TID 10/24/23 [History] Losartan Potassium 50 mg PO DAILY 10/24/23 [History] Pantoprazole 20 mg [Protonix 20MG Tablet] 20 mg PO DAILY 10/24/23 [History] Oxycodone / APAP 10/325 mg [Oxycodone-Acetaminophen 10-325] 1 tab PO Q8HPRN PRN 12/18/23 [History] Pentoxifylline 400 mg PO BID 12/18/23 [History] Hx Tetanus, Diphtheria Vaccination/Date Given: No Hx Influenza Vaccination/Date Given: Yes Hx Pneumococcal Vaccination/Date Given: Yes Travel Risk - International Travel Have you traveled outside of the country in past 3 weeks: No - Coronavirus Screening Are you exhibiting any of the following symptoms?: Yes Symptoms: Vomiting/Diarrhea Close contact with a COVID-19 positive Pt in past 14-21 Days: No - Vaccine Status Have you recieved a Covid-19 vaccination: Yes Molder Setter: Unknown - Vaccination Dates Dates if Unknown: UNKNOWN - Review of Systems Constitutional: Fatigue, Weakness Eyes: No Symptoms Ears, Nose, & Throat: No Symptoms Respiratory: No Symptoms Cardiac: No Symptoms Abdominal/Gastrointestinal: Abdominal Pain, Nausea, Vomiting, Diarrhea Genitourinary Symptoms: No Symptoms Musculoskeletal: No Symptoms Skin: Skin Lesions Neurological: No Symptoms Psychological: No Symptoms Endocrine: No Symptoms Hematologic/Lymphatic: No Symptoms - Past Medical History Pertinent Past Medical History: Yes Neurological History: No Pertinent History ENT History: No Pertinent History Cardiac History: Hypertension Respiratory History: No Pertinent History Endocrine Medical History: No Pertinent History Musculoskeletal History: Fractures GI Medical History: Crohns Disease, Other History: No Pertinent History Psycho-Social History: Anxiety, Depression Male Reproductive Disorders: No Pertinent History Other Medical History: Proctitis; 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, gout - Past Surgical History Past Surgical History: Yes Neuro Surgical History: No Pertinent History Cardiac: No Pertinent History Respiratory: No Pertinent History Gastrointestinal: No Pertinent History Genitourinary: No Pertinent History Musculoskeletal: Orthopedic Surgery Male Surgical History: No Pertinent History Other Surgical History: R ankle, colonoscopy, melanoma to back removed - Social History Smoking Status: Current every day smoker How long have you smoked: 40+ years Exposure to second hand smoke: Yes Drug Use: none Patient Lives Alone: Yes - Nursing Vital Signs Nursing Vital Signs: Initial Vital Signs Pulse Rate 103 H 12/18/23 11:02 Blood Pressure 171/96 12/18/23 11:02 O2 Sat by Pulse Oximetry 100 12/18/23 11:02 Pain Scale Pain Intensity 9 - Physical Exam General Appearance: no apparent distress, alert Eye Exam: PERRL/EOMI Ears, Nose, Throat Exam: normal ENT inspection Neck Exam: normal inspection, full range of motion Respiratory Exam: normal breath sounds, lungs clear Cardiovascular Exam: regular rate/rhythm, normal heart sounds Gastrointestinal/Abdomen Exam: soft, normal bowel sounds, tenderness (Mild generalized) Back Exam: normal inspection Extremity Exam: normal inspection, normal range of motion Neurologic Exam: alert, oriented x 3, cooperative Skin Exam: normal color SpO2 Interpretation: normal SpO2: 100 O2 Delivery: Room Air Ordered Tests: Active Orders 24 hr Category Date Time Status IV Insertion STAT Care 12/18/23 11:32 Active NPO (ED) STAT Care 12/18/23 11:32 Active ABDOMEN AND PELVIS W/0 CONTRAS [CT] Stat Exams 12/18/23 11:33 Completed CBC W DIFF Stat Lab 12/18/23 11:45 Completed CMP Stat Lab 12/18/23 11:45 Completed LIPASE Stat Lab 12/18/23 11:45 Completed UA W/RFX UR CULTURE Stat Lab 12/18/23 11:40 Completed Medication Summary Discontinued Medications Generic Name Dose Route Start Last Admin Trade Name Freq PRN Reason Stop Dose Admin Sodium Chloride 1,000 mls @ 999 mls/hr 12/18/23 11:32 12/18/23 12:48 Sodium Chloride 0.9% 1000 Ml IV 12/18/23 12:32 Infused .Q1H1M STA Infusion Sodium Chloride Confirm 12/18/23 11:41 Sodium Chloride 0.9% 1000 Ml Administered 12/18/23 11:42 Dose 1,000 mls @ ud .ROUTE .STK-MED ONE Morphine Sulfate 4 mg 12/18/23 11:32 12/18/23 11:43 Morphine Sulfate 4 Mg/Ml Injection IV 12/18/23 11:33 4 mg STAT ONE Administration Morphine Sulfate Confirm 12/18/23 11:41 Morphine Sulfate 4 Mg/Ml Injection Administered 12/18/23 11:42 Dose 4 mg .ROUTE .STK-MED ONE Ondansetron HCl 4 mg 12/18/23 11:32 12/18/23 11:43 Ondansetron Hcl 4 Mg/2 Ml Vial IV 12/18/23 11:33 4 mg STAT ONE Administration Ondansetron HCl Confirm 12/18/23 11:41 Ondansetron Hcl 4 Mg/2 Ml Vial Administered 12/18/23 11:42 Dose 4 mg .ROUTE .STK-MED ONE Oxycodone/Acetaminophen 1 tab 12/18/23 15:25 Oxycodone / Apap 10/325 Mg 1 Tablet PO 12/18/23 15:26 STAT STA Lab/Rad Data: Laboratory Result Diagrams 12/18/23 11:45 12/18/23 11:45 Laboratory Results 12/18/23 12/18/23 12/18/23 Range/Units 11:45 11:45 11:40 WBC 10.5 (4.0-10.5) x10^3/uL RBC 3.83 L (4.1-5.6) x10^6/uL Hgb 12.9 (12.5-18.0) g/dL Hct 40.2 L (42-50) % MCV 105.0 H (78-100) fL MCH 33.7 H (26-32) pg MCHC 32.1 (32-36) g/dL RDW 13.7 (11.5-14.0) % Plt Count 194 (150-450) x10^3/uL MPV 10.9 (7.5-11.0) fL Gran % 86.6 H (36.0-66.0) % Immature Gran % (Auto) 0.4 (0.00-0.4) % Nucleat RBC Rel Count 0.0 (0.00-0.1) % Eos # (Auto) 0 (0-0.5) x10^3/uL Immature Gran # (Auto) 0.04 H (0.00-0.03) x10^3u/L Absolute Lymphs (auto) 0.74 L (1.0-4.6) x10^3/uL Absolute Monos (auto) 0.56 (0.0-1.3) x10^3/uL Absolute Nucleated RBC 0.00 (0.00-0.01) x10^3u/L Lymphocytes % 7.1 L (24.0-44.0) % Monocytes % 5.4 (0.0-12.0) % Eosinophils % 0.0 (0.00-5.0) % Basophils % 0.5 (0.0-0.4) % Absolute Granulocytes 9.06 H (1.4-6.9) x10^3/uL Basophils # 0.05 (0-0.4) x10^3/uL Sodium 141 (135-145) mmol/L Potassium 3.2 L (3.5-5.1) mmol/L Chloride 112 H (98-107) mmol/L Carbon Dioxide 19 L (22-30) mmol/L Anion Gap 13.5 (5-15) MEQ/L BUN 10 (9-20) mg/dL Creatinine 0.63 L (0.66-1.25) mg/dL Estimated GFR 104.3 ML/MIN Glucose 166 H (74-106) mg/dL Calcium 9.0 (8.4-10.2) mg/dL Total Bilirubin 3.00 H (0.2-1.3) mg/dL AST 31 (17-59) U/L ALT 23 (0-50) U/L Alkaline Phosphatase 137 H (38-126) U/L Serum Total Protein 7.0 (6.3-8.2) g/dL Albumin 4.1 (3.5-5.0) g/dL Lipase 155 (23-300) U/L Urine Color Dark Yellow (Yellow) Urine Appearance Cloudy A (Clear) Urine pH 5.5 (4.6-8.0) Ur Specific [place] 1.025 (1.005-1.030) Urine Protein 100 A (Negative) Urine Glucose (UA) Negative (Negative) mg/dL Urine Ketones Negative (Negative) Urine Blood Negative (Negative) Urine Nitrite Negative (Negative) Urine Bilirubin Small A (Negative) Urine Urobilinogen 1.0 A (0.2) mg/dL Ur Leukocyte Esterase Negative (Negative) U Hyaline Cast (Auto) 0-2 (0-2) /LPF Urine Microscopic RBC 0-2 (0-5) /HPF Urine Microscopic WBC 0-2 (0-5) /HPF Ur Epithelial Cells Rare (None Seen) /HPF Urine Bacteria Rare A (None Seen) /HPF Urine Culture Reflexed NO (NO) - Progress Progress: improved, pain not gone completely Progress Note: 12/18/23 15:31 68-year-old with multiple [place] problems including Crohn's and history of C. difficile is evaluated in the ER for abdominal pain with nausea vomiting and diarrhea. Patient has no vomiting since morning, nauseated. He is given fluids and symptomatic treatment, on reevaluation his pain is better but not completely resolved. Patient has no peritoneal signs. Workup showed normal white count, chemistries showed total bili of 3.0 with normal transaminases. Patient does not look jaundiced. Has no right upper quadrant tenderness, no acute findings on CT abdomen pelvis without contrast. Patient has elevated bilirubin in the same range in the past as well. I have ordered C. difficile but patient could not have any bowel movement for so many hours. I believe this is possible viral gastroenteritis, recommended supportive care and outpatient follow-up. Discussed signs symptoms of worsening needing return to ER which she seems understanding. Stable for discharge. Counseled pt/family regarding: lab results, diagnosis, need for follow-up, rad results Medical Desision Making - Diagnostic Testing Diagnostic test were ordered, analyzed, and reviewed by me: Yes Radiological Interpretation: Reviewed by me - Risk of complications The pt has a mod risk of morbidity or mortality based on: Need for prescription drug management - Departure Departure Disposition: Home Clinical Impression: Generalized abdominal pain, Gastroenteritis Condition: Stable Critical Care Time: No Referrals: LEILANI ATKINS MD [Primary Care Provider] - Follow up with PCP 1 day Instructions: Abdominal pain, Viral Gastroenteritis, Adult (DC) Additional Instructions: Drink plenty of fluids to keep yourself well-hydrated. Take pain medications which you have at home as recommended. Take Zofran as needed. Follow-up with primary care for reevaluation. Return to ER for intractable abdominal pain vomiting/diarrhea/fever chills etc. Prescriptions: Ondansetron ODT 4 MG [Zofran Odt 4 mg] 1 ea PO QIDPRN PRN #7 tablet PRN Reason: n/v
[2023-12-18] MEDS ORDERED: Sodium Chloride 0.9% 1000 ML 1,000 ML ONE (11:41)
[2023-12-18] MEDS ORDERED: Zofran 4 MG/2 ML VIAL ONE (11:41)
[2023-12-18] MEDS ORDERED: MORPHINE SULFATE 4 MG INJ ONE (11:41)
[2023-12-18] MEDS: MORPHINE SULFATE 4 MG INJ IV ONE (11:43)
[2023-12-18] MEDS: Zofran 4 MG/2 ML VIAL IV ONE (11:43)
[2023-12-18] MEDS: Sodium Chloride 0.9% 1000 ML 1,000 ML IV STA (11:43)
[2023-12-18 11:52] LABS: Absolute Neutrophil Ct (ANC) 9.06 x10^3/uL (1.4-6.9); BASOPHIL % 0.5 % (0.0-0.4); Basophil (Absolute #) 0.05 x10^3/uL (0-0.4); Eosinophil (Absolute #) 0 x10^3/uL (0-0.5); Hematocrit 40.2 % (42-50); Hemoglobin 12.9 g/dL (12.5-18.0); IMMATURE GRAN # 0.04 x10^3u/L (0.00-0.03); IMMATURE GRAN % 0.4 % (0.00-0.4); Lymphocyte (Absolute #) 0.74 x10^3/uL (1.0-4.6); Lymphocytes % 7.1 % (24.0-44.0); Mean Corpuscular Hemoglobin 33.7 pg (26-32); Mean Corpuscular Hgb Concent. 32.1 g/dL (32-36); Mean Platelet Volume 10.9 fL (7.5-11.0); Monocyte (Absolute #) 0.56 x10^3/uL (0.0-1.3); Monocytes % 5.4 % (0.0-12.0); Neutrophil % 86.6 % (36.0-66.0); Platelet Count 194 x10^3/uL (150-450); Red Blood Count 3.83 x10^6/uL (4.1-5.6); Red Cell Distribution Width 13.7 % (11.5-14.0); White Blood Count 10.5 x10^3/uL (4.0-10.5)
[2023-12-18 12:05] LABS: ALBUMIN 4.1 g/dL (3.5-5.0); ANION GAP 13.5 MEQ/L (5-15); Creatinine 1 0.63 mg/dL (0.66-1.25); EST GLOMERULAR FILTRATION RATE 104.3 ML/MIN; Potassium 3.2 mmol/L (3.5-5.1)
[2023-12-18 12:18] LABS: Appearance Cloudy (Clear); Bacteria Rare /HPF (None Seen); Bilirubin Small (Negative); Blood Negative (Negative); Epithelial Cells Rare /HPF (None Seen); Glucose, Urine Negative (Negative); Hyaline Casts 0-2 /LPF (0-2); Ketones Negative (Negative); Leukocyte Esterase Negative (Negative); Nitrite Negative (Negative); Ph 5.5 (4.6-8.0); Protein,Urine Dip 100 (Negative); RBC 0-2 /HPF (0-5); Specific Gravity 1.025 (1.005-1.030); WBC 0-2 /HPF (0-5)
[2023-12-18 12:19] LABS: ADD URINE CULTURE? NO (NO)
--- NOTE | 2023-12-18 12:41 | XRAY ---
Indication: Abdomen pain and diarrhea 2 days. Multiple contiguous axial images obtained through the abdomen and pelvis without contrast. Comparison: August 03, 2023 Lung bases again clear. Heart not enlarged. Stable small hiatal hernia. Noncontrasted stomach and bowel loops appear nonobstructed with normal appendix. Again mild scattered descending colonic diverticulosis without diverticulitis. No free fluid/air. Remaining liver, gallbladder, pancreas, spleen, adrenal glands, kidneys, ureters, and bladder are unremarkable for noncontrast exam. There remains mild scattered aortoiliac calcifications without AAA. Osseous structures intact again with osteopenia, mild degenerative changes throughout thoracolumbar spine, and remote L1/L2/L5 superior endplate fractures. Impression: 1. Again chronic findings including hiatal hernia, colonic diverticulosis, arteriosclerotic disease, chronic bony findings. 2. Remaining CT abdomen/pelvis without contrast exam continues to be negative.
[2023-12-18] MEDS: OXYCODONE-ACETAMINOPHEN 10-325 PO STA (15:37)
[2023-12-18] MEDS ORDERED: OXYCODONE-ACETAMINOPHEN 10-325 ONE (15:37)
[2023-12-18 16:07] VITALS: BP 151/98; PULSE 91
== END 2023-12-18 16:07 | disposition home or self-care (01) ==
LOC: ED 10:20
DX: K52.9 Noninfective gastroenteritis and colitis, unspecified (principal); R10.84 Generalized abdominal pain; K50.90 Crohn's disease, unspecified, without complications; F17.200 Nicotine dependence, unspecified, uncomplicated; Z20.828 Contact with and (suspected) exposure to other viral communicable diseases; Z86.19 Personal history of other infectious and parasitic diseases; Z79.899 Other long term (current) drug therapy
CPT/HCPCS: 36000; 36415; 74176; 80053; 81001; 83690; 85025; 96374; 96375; 99284; J2270; J2405; A9270-GY

== ENCOUNTER 2023-12-22 17:14 | Emergency (ER) | payer MEDICARE ==
[2023-12-22 18:54] VITALS: BP 128/110; PULSE 78; RESP 19; TEMP 98.4; O2SAT 100
--- NOTE | 2023-12-22 20:27 | ERPHSYRPT ---
- History of Present Illness Time Seen by Provider: 12/22/23 19:27 Source: patient Exam Limitations: no limitations Patient Subjective Stated Complaint: Patient is c/o right foot pain. States his home health nurse came to dress/wrap it today and it has hurt ever since then. He is out of most of his medications at home. States he has an appointment to see Dr. Mcarthur on 12/24/23 for his right foot. Triage Nursing Assessment: Patient ambulated back to ER wearing a walking shoe on his right foot. He is alert and oriented. Clean dressing applied to RLE. Dressing removed to assess area. Open area to lateral great toe measuring 1.2cm X 2cm X 0.2cm. Holes present where 2nd and 3rd toes were amputed (patient states this was done a few months ago). Slough noted. Pedal pulse present. Physician History: Patient here with right foot pain. Patient has had a previous second and third toe amputation. This was done with Dr. Grant here in [facility]. Patient had labs drawn on Friday, 4 days prior to arrival to the emergency department.States that home health nurse came and examined wrapped it today. They did not see any worsening infection, drainage. However after wrapping it patient developed some worsening foot pain. Therefore arrives to the emergency department today. Patient has no fever here, tachycardia. Allergies/Adverse Reactions: shellfish derived Allergy (Verified 12/22/23 18:42) Hives Home Medications: Allopurinol 100 mg [Zyloprim 100 mg] 100 mg PO DAILY 08/03/23 [History] Amlodipine Besylate [Norvasc] 10 mg PO DAILY 08/03/23 [History] Potassium Chloride Tab* [Klor Con] 10 meq PO DAILY 08/03/23 [History] Sildenafil Citrate [Viagra] 50 mg PO DAILY PRN PRN 08/03/23 [History] Hydralazine HCl 25 mg PO DAILY 10/24/23 [History] Indomethacin 50 mg PO TID 10/24/23 [History] Losartan Potassium 50 mg PO DAILY 10/24/23 [History] Pantoprazole 20 mg [Protonix 20MG Tablet] 20 mg PO DAILY 10/24/23 [History] Oxycodone / APAP 10/325 mg [Oxycodone-Acetaminophen 10-325] 1 tab PO Q8HPRN PRN 12/18/23 [History] Pentoxifylline 400 mg PO BID 12/18/23 [History] Hx Tetanus, Diphtheria Vaccination/Date Given: Yes Hx Influenza Vaccination/Date Given: Yes Hx Pneumococcal Vaccination/Date Given: Yes Immunizations Up to Date: Yes Travel Risk - International Travel Have you traveled outside of the country in past 3 weeks: No - Coronavirus Screening Are you exhibiting any of the following symptoms?: No Close contact with a COVID-19 positive Pt in past 14-21 Days: No - Vaccine Status Have you recieved a Covid-19 vaccination: No Human Projectile: Unknown - Vaccination Dates Dates if Unknown: UNKNOWN - Past Medical History Pertinent Past Medical History: Yes Neurological History: No Pertinent History ENT History: No Pertinent History Cardiac History: Hypertension Respiratory History: No Pertinent History Endocrine Medical History: No Pertinent History Musculoskeletal History: Fractures GI Medical History: Crohns Disease, Other History: No Pertinent History Psycho-Social History: Anxiety, Depression Male Reproductive Disorders: No Pertinent History Other Medical History: Proctitis; 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, gout - Past Surgical History Past Surgical History: Yes Neuro Surgical History: No Pertinent History Cardiac: No Pertinent History Respiratory: No Pertinent History Gastrointestinal: No Pertinent History Genitourinary: No Pertinent History Musculoskeletal: Amputation, Orthopedic Surgery Male Surgical History: No Pertinent History Other Surgical History: R ankle, colonoscopy, melanoma to back removed, 2 toes amputated - Social History Smoking Status: Current every day smoker How long have you smoked: 40+ years Exposure to second hand smoke: Yes Drug Use: none Patient Lives Alone: Yes - Nursing Vital Signs Nursing Vital Signs: Initial Vital Signs Temperature 98.4 F 12/22/23 18:44 Pulse Rate 78 12/22/23 18:44 Respiratory Rate 19 12/22/23 18:44 Blood Pressure 128/110 12/22/23 18:44 O2 Sat by Pulse Oximetry 100 12/22/23 18:44 Pain Scale Pain Intensity 8 - Physical Exam SpO2: 100 Comments: 12/23/23 01:13 Review of Systems Constitutional: Negative for fever. HENT: Negative for congestion. Respiratory: Negative for shortness of breath. Cardiovascular: Negative for chest pain. Gastrointestinal: Negative for abdominal pain. Genitourinary: Negative for dysuria. Musculoskeletal: Negative for back pain. Skin: Negative for rash. Neurological: Negative for headaches. Psychiatric/Behavioral: Negative for behavioral problems. All other systems reviewed and are negative. Physical Exam Vitals signs and nursing note reviewed. Constitutional: Appearance: Patient is well-developed. HENT: Head: Normocephalic and atraumatic. Eyes: Conjunctiva/sclera: Conjunctivae normal. Neck: Musculoskeletal: Normal range of motion. Trachea: No tracheal deviation. Cardiovascular: Rate and Rhythm: Normal rate. Pulmonary: Effort: Pulmonary effort is normal. No respiratory distress. Abdominal: Palpations: Abdomen is soft. Musculoskeletal: General: Right foot was appropriately unwrapped. Clean dressing. No drainage. Patient has an open area to lateral to the great toe measuring 1.2 x 2 cm x 0.2 cm. Second third toes have been amputated. No overwhelming infection, foul smell, drainage, pulses are intact. No overall deformity, no crepitus, obvious subcutaneous gas on physical exam, sensation intact, 2+ capillary refill on remaining toes, 2 point tactile discrimination intact. 5 out of 5 strength. Full range of motion without pain. Compartments are soft, nontender. Overlying skin shows no tenting, bruising, ecchymosis. Skin: General: Skin is warm and dry. Neurological/ Psychiatric: Mental Status: Mental status, behavior, interaction with environment is appropriate for patient's age and condition 12/23/23 01:14 - Course Nursing assessment & vital signs reviewed: Yes Ordered Tests: Active Orders 24 hr Category Date Time Status AMA [Release AMA] OM.NOW Care 12/22/23 20:42 Completed IV Insertion STAT Care 12/22/23 20:17 Completed Lactic Acid Stat Lab 12/22/23 20:17 Ordered - Progress Progress: improved Progress Note: 12/23/23 01:15 Differential diagnosis includes osteomyelitis, worsening infection, Sepsis, necrotizing fasciitis I did explain to the patient we most likely need to x-ray tonight looking for subcutaneous gas, osteomyelitis. We also should insert an IV, basic labs, check for sepsis, leukocytosis, lactate, procalcitonin levels. Patient stated he just wanted pain medication and to go home. States he has follow-up with Dr. Grant in 2 days. He stated that he is now out of his pain medication and is only here for Pain medication. While I do understand the patient's pain, I stated that patient needed to have a full evaluation in conjunction with pain medication. We would be happy to give him pain medication here while we did the workup. Patient ultimately declined stating that he just had labs done and did not want to repeating these labs. I did explain to the patient that he did not have pain when these labs were drawn. Therefore, infection could have developed. Patient was adamant that he did not want to stay for an evaluation. I did explain the risks and benefits of staying including potential necrotizing fasciitis or patient could lose his life or limb. Patient could also have worsening osteomyelitis and need another amputation. Patient states his understanding and would still like to sign out AGAINST MEDICAL ADVICE. Counseled pt/family regarding: diagnosis, need for follow-up - Departure Departure Disposition: AMA Clinical Impression: Right foot pain Condition: Stable Critical Care Time: No Referrals: LEILANI ATKINS MD [Primary Care Provider] - Follow up/PCP as directed Instructions: Chronic Pain (DC)
== END 2023-12-22 20:42 | disposition left against medical advice (07) ==
LOC: ED 17:14
DX: M79.671 Pain in right foot (principal); R00.0 Tachycardia, unspecified; F17.200 Nicotine dependence, unspecified, uncomplicated
CPT/HCPCS: 99281

== ENCOUNTER 2023-12-25 09:56 | Day surgery (SDC) | payer MEDICARE ==
[2023-12-25] MEDS: Lactated Ringers 1,000 ML IV SCH (10:16)
[2023-12-25] MEDS: CEFAZOLIN 2 GM-D5W BAG** 2 GM/50 ML ML IV SCH (10:17)
[2023-12-25] MEDS ORDERED: Sodium Chloride 3 ML UD NEBULES IH ONE (10:35)
[2023-12-25] MEDS ORDERED: Xopenex 1.25 MG/0.5 ML UD NEBULE IH ONE (10:35)
[2023-12-25] MEDS: Xopenex 1.25 MG/0.5 ML UD NEBULE IH ONE (10:36)
[2023-12-25] MEDS: Sodium Chloride 3 ML UD NEBULES IH ONE (10:36)
[2023-12-25 10:41] VITALS: RESP 18
[2023-12-25 10:42] LABS: Absolute Neutrophil Ct (ANC) 7.47 x10^3/uL (1.4-6.9); BASOPHIL % 0.8 % (0.0-0.4); Basophil (Absolute #) 0.08 x10^3/uL (0-0.4); Eosinophil % 1.6 % (0.00-5.0); Eosinophil (Absolute #) 0.17 x10^3/uL (0-0.5); Hematocrit 41.1 % (42-50); Hemoglobin 13.4 g/dL (12.5-18.0); IMMATURE GRAN # 0.04 x10^3u/L (0.00-0.03); IMMATURE GRAN % 0.4 % (0.00-0.4); Lymphocyte (Absolute #) 1.77 x10^3/uL (1.0-4.6); Lymphocytes % 16.9 % (24.0-44.0); Mean Cell Volume 105.4 fL (78-100); Mean Corpuscular Hemoglobin 34.4 pg (26-32); Mean Corpuscular Hgb Concent. 32.6 g/dL (32-36); Mean Platelet Volume 10.6 fL (7.5-11.0); Monocyte (Absolute #) 0.93 x10^3/uL (0.0-1.3); Monocytes % 8.9 % (0.0-12.0); Neutrophil % 71.4 % (36.0-66.0); Platelet Count 210 x10^3/uL (150-450); Red Cell Distribution Width 14.2 % (11.5-14.0); White Blood Count 10.5 x10^3/uL (4.0-10.5)
[2023-12-25 10:50] LABS: INR 1.62 (0.8-3.0); PROTIME 17.1 SECONDS (9.4-12.5)
[2023-12-25 11:12] LABS: ALBUMIN 4.2 g/dL (3.5-5.0); BILIRUBIN,TOTAL 0.4 mg/dL (0.2-1.3); Calcium 8.9 mg/dL (8.4-10.2); Creatinine 1 0.75 mg/dL (0.66-1.25); Direct Bilirubin 0.1 mg/dL (0.0-0.4); EST GLOMERULAR FILTRATION RATE 98.9 ML/MIN; Potassium 3.1 mmol/L (3.5-5.1)
[2023-12-25 11:13] LABS: ANION GAP 15.1 MEQ/L (5-15)
[2023-12-25] MEDS ORDERED: DIPRIVAN 200 MG/20 ML IV ONE ×2 (11:57→13:01)
[2023-12-25] MEDS ORDERED: Marcaine Mpf 0.5% Vial 30 Ml ONE (12:07)
[2023-12-25] MEDS ORDERED: Xylocaine 1% Vial 30 ML PF IJ ONE (12:07)
[2023-12-25] MEDS ORDERED: Versed 2 MG/2 ML Injection ONE (12:34)
[2023-12-25] MEDS ORDERED: DEXMEDETOMIDINE 80 MCG/20ML-NS IV ONE (12:34)
[2023-12-25] MEDS ORDERED: SUBLIMAZE 100 MCG/2 ML ONE ×2 (12:34→13:31)
[2023-12-25] MEDS ORDERED: Xylocaine-Mpf 2% 5 Ml Vial ONE (12:39)
[2023-12-25] MEDS ORDERED: Hydromorphone 1 mg/ml Injection ONE (13:58)
[2023-12-25 14:51] VITALS: BP 157/99
[2023-12-25] MEDS ORDERED: OXYCODONE-ACETAMINOPHEN 10-325 PO PRN (14:54)
[2023-12-25 15:02] VITALS: PULSE 80; TEMP 98.6; O2SAT 98
[2023-12-25] MEDS ORDERED: Oxy-IR 5 MG ONE (15:02)
[2023-12-25] MEDS: Oxy-IR 5 MG PO PRN (15:07)
--- NOTE | 2023-12-31 11:32 | OP ---
SURGERY DATE/TIME: 12/25/2023 1239 PREOPERATIVE DIAGNOSES: 1) Methicillin-resistant Staphylococcus aureus infection right foot. 2) Surgical wound dehiscence. 3) Noncompliance of treatment. 4) Alcohol dependence. 5) Tobacco dependence. POSTOPERATIVE DIAGNOSES: 1) Methicillin-resistant Staphylococcus aureus infection right foot. 2) Surgical wound dehiscence. 3) Noncompliance of treatment. 4) Alcohol dependence. 5) Tobacco dependence. PROCEDURE: Incision and drainage with bone debridement of the right foot. SURGEON: Rudy Graves DPM. MEDICAID BUSINESS ANALYST: None. ANESTHESIA: Monitored anesthesia care with intraoperative local block. HEMOSTASIS: Pressure dressing. ESTIMATED BLOOD LOSS: Approximately 5 cc. MATERIALS: 3-0 Nylon, 0.25 inch Iodoform packing. INJECTABLES: 30 cc of 1:1 mixture of 1% lidocaine plain and 0.5% bupivacaine plain injected in ankle block-type fashion to the right ankle. INDICATION FOR SURGERY: Titus is a very pleasant 68-year-old male very known to my service for amputation of digits 2 and 3 to the right foot secondary to gangrenous and osteomyelitic changes. As a result, the patient was doing adequately when he was in the senior care. However, concern was for his alcoholism and his extreme dependence with tobacco that this would lead to a complication of his wounds healing. The patient does have palpable pulses. However, he is noncompliant with the treatment as soon as he got out of the nursing facility he suffered a significant wound dehiscence and then developed Methicillin-resistant Staphylococcus aureus infection that has not been responding to conservative treatment. At this time, the patient is agreeable to proceed with incision and drainage and possible bone debridement. The patient understands all risks, complications and benefits of surgical intervention at this time including but not limited to infection, hematoma, seroma, possibility of delayed wound healing, nonwound healing and possible need for surgical intervention at a later date. The patient understands that there are no guarantees provided as to the outcome however, his noncompliance is the worst enemy in these cases and he understands a return to an assisted-living facility is in his best interest. It is with that we decided to proceed at this time. DESCRIPTION OF PROCEDURE AND FINDINGS: The patient is brought into the OR and placed on the OR table in the supine position. At this time, monitored anesthesia care was administered until the patient was adequately sedated. The right lower extremity was prepped and aped in the typical sterile fashion and lowered onto the surgical field. At this time, utilizing a combination of 15 blade, curette and rongeurs the wound was debrided down to the level of bone. Curettes were utilized to remove the cartilaginous surface off of the second and third metatarsal head and taking a bone biopsy from both the second and third metatarsal head as well. From that standpoint, 1,000 ml of Bactisure was utilized to flush the surgical site. Pathology was handed off the field and sent for permanent. At this time, 3 liters of sterile saline were utilized to flush the surgical site. Iodine soaked 0.25 inch Iodoform packing was then packed into the deficit which was partially with the exception of the aspect at the lateral portion of the wound. Following this, a dressing consisting of Betadine, Adaptic, 4x4, Kerlix, ABD and RYAN was applied to the patient's right lower extremity. The patient was then reversed from anesthesia and returned to the postoperative anesthesia care unit with vital signs stable and vascular status intact. The patient handled the anesthesia as well as the procedure without significant complication. Postoperative orders as indicated in the patient's discharge chart.
== END 2023-12-25 15:30 | disposition home or self-care (01) ==
LOC: SDC 09:56
PROVIDERS: ATTEND Podiatrist Foot & Ankle Surgery
DX: M00.071 Staphylococcal arthritis, right ankle and foot (principal); B95.62 Methicillin resistant Staphylococcus aureus infection as the cause of diseases classified elsewhere; T81.30XA Disruption of wound, unspecified, initial encounter; Z91.148 Patient's other noncompliance with medication regimen for other reason; F10.20 Alcohol dependence, uncomplicated; F17.200 Nicotine dependence, unspecified, uncomplicated; I10 Essential (primary) hypertension; Z79.899 Other long term (current) drug therapy; Z79.01 Long term (current) use of anticoagulants
CPT/HCPCS: 28005; 36415; 80048; 80076; 85025; 85610; 88307; 88311; 94640; A6260; J0690; J1170; J2001; J2250; J2704; J3010; A9270-GY

== ENCOUNTER 2024-01-06 07:30 | Day surgery (SDC) | payer MEDICARE ==
[2024-01-06] MEDS ORDERED: Lactated Ringers 1,000 ML IV ONE ×2 (07:49→10:16)
[2024-01-06] MEDS ORDERED: CEFAZOLIN 2 GM-D5W BAG** 2 GM/50 ML ML IV ONE (07:49)
[2024-01-06] MEDS: CEFAZOLIN 2 GM-D5W BAG** 2 GM/50 ML ML IV ONE (08:10)
[2024-01-06] MEDS: Lactated Ringers 1,000 ML IV SCH (08:10)
[2024-01-06] MEDS ORDERED: Marcaine Mpf 0.5% Vial 30 Ml ONE (08:24)
[2024-01-06] MEDS ORDERED: Xylocaine 1% Vial 30 ML PF IJ ONE (08:24)
[2024-01-06 08:25] LABS: Mean Cell Volume 105.6 fL (78-100); Mean Corpuscular Hemoglobin 33.3 pg (26-32); Mean Corpuscular Hgb Concent. 31.6 g/dL (32-36); Mean Platelet Volume 10.3 fL (7.5-11.0); Platelet Count 314 x10^3/uL (150-450); Red Cell Distribution Width 13.9 % (11.5-14.0); White Blood Count 6.3 x10^3/uL (4.0-10.5)
[2024-01-06 08:33] LABS: ALBUMIN 3.2 g/dL (3.5-5.0); ANION GAP 12.6 MEQ/L (5-15); BILIRUBIN,TOTAL 0.1 mg/dL (0.2-1.3); Calcium 8.6 mg/dL (8.4-10.2); Creatinine 1 0.75 mg/dL (0.66-1.25); EST GLOMERULAR FILTRATION RATE 98.9 ML/MIN; Potassium 3.4 mmol/L (3.5-5.1); Total Protein 6.2 g/dL (6.3-8.2)
[2024-01-06] MEDS ORDERED: Versed 2 MG/2 ML Injection ONE (09:56)
[2024-01-06] MEDS ORDERED: SUBLIMAZE 100 MCG/2 ML ONE ×2 (09:56→11:08)
[2024-01-06] MEDS ORDERED: DIPRIVAN 200 MG/20 ML IV ONE ×2 (09:56→10:29)
[2024-01-06] MEDS ORDERED: Xylocaine-Mpf 2% 5 Ml Vial ONE (10:01)
[2024-01-06] MEDS ORDERED: Hydromorphone 1 mg/ml Injection ONE (11:02)
[2024-01-06] MEDS ORDERED: APRESOLINE 20 MG/ML INJ ONE (11:50)
[2024-01-06] MEDS ORDERED: NORCO 5/325 MG ONE (12:21)
[2024-01-06 12:43] VITALS: RESP 18; TEMP 97.8
[2024-01-06 13:02] VITALS: BP 161/87; PULSE 79; O2SAT 98
--- NOTE | 2024-01-08 09:31 | OP ---
SURGERY DATE/TIME: 01/06/2024 0954 PREOPERATIVE DIAGNOSES: 1) Surgical wound dehiscence right foot. 2) Peripheral vascular disease. 3) Buerger disease/thromboangiitis obliterans. 4) Methicillin-resistant Staphylococcus aureus infection, resolved. 5) Pain right foot. POSTOPERATIVE DIAGNOSES: 1) Surgical wound dehiscence right foot. 2) Peripheral vascular disease. 3) Buerger disease/thromboangiitis obliterans. 4) Methicillin-resistant Staphylococcus aureus infection, resolved. 5) Pain right foot. PROCEDURES: 1) Incision and drainage with bone debridement right foot. 2) Delayed complex closure, right foot. SURGEON: Rudy Graves DPM. [employer] W[employer]ING TECHNICIAN: None. ANESTHESIA: Monitored anesthesia care. HEMOSTASIS: Pressure dressing. ESTIMATED BLOOD LOSS: Approximately 5 cc. MATERIALS: 2-0 Monocryl, 3-0 Nylon. INJECTABLES: 20 cc of 1:1 mixture of 1% lidocaine plain and 0.5% bupivacaine plain injected in an ankle block-type fashion to the right lower extremity. INDICATION FOR SURGERY: Titus is a very pleasant 68-year-old male very well known to my service for suffering dry gangrene of the second and third digits of the right foot. The patient had been doing well until he was discharged from his nursing facility and returned to his old habits with alcohol abuse and tobacco dependence. As a result of his noncompliance, the wound that was healing dehisced and then developed a Methicillin-resistant Staphylococcus aureus infection. The patient was on antibiotics and did resolve this based on cultures in clinic. The decision was made to proceed with a delayed primary closure. At this time once again discussion of cessation of smoking for the immediate future and eliminating alcohol from his daily life would help to get this healed. The patient did request to return to the [facility] as he knows that he would do better in this situation. The patient understands all risks, complications and benefits of surgical intervention at this time including but not limited to infection, hematoma, seroma, possibility of delayed wound healing, nonwound healing and possible failure of surgical intervention leading to possible loss of limb or possible loss of life. The patient understands all of this and wishes to proceed. Plenty of time was allowed for the patient to ask questions which were answered to the patient's apparent satisfaction. It is at this time we decided to proceed. DESCRIPTION OF PROCEDURE AND FINDINGS: The patient is brought into the OR and placed on the OR table in the supine position. At this time, monitored anesthesia care was administered until the patient was adequately sedated. The right lower extremity prepped and draped in the typical sterile fashion and lowered onto the surgical field. At this time, attention was directed to the right foot where the incision was once again opened. A 15 blade was utilized to incise the edge to look for healthy bleeding which was encountered approximately 3 mm each dorsal and plantar aspects of the wound. A curette was utilized to resect any nonviable and necrotic tissue over the metatarsal bases and the metatarsal heads until improved. At this time, copious amounts of sterile saline were utilized flush the surgical site. 2-0 Monocryl was utilized to coapt the subcutaneous skin edges in a simple interrupted buried-type fashion and then horizontal mattress in alternating simple interrupted 3-0 Nylon was utilized to coapt the skin in everted-type fashion. A dressing consisting of Betadine, Adaptic, 4x4, Kerlix and RYAN were then applied to the patient's right lower extremity. The patient was returned to the postoperative anesthesia care unit with vital signs stable and vascular status intact. The patient handled the anesthesia as well as procedure without significant complication. Postoperative orders as indicated in the patient's discharge chart.
== END 2024-01-06 13:09 | disposition home or self-care (01) ==
LOC: SDC 07:30
PROVIDERS: ATTEND Podiatrist Foot & Ankle Surgery
DX: T81.30XA Disruption of wound, unspecified, initial encounter (principal); I73.9 Peripheral vascular disease, unspecified; I73.1 Thromboangiitis obliterans [Buerger's disease]; M79.671 Pain in right foot; B95.62 Methicillin resistant Staphylococcus aureus infection as the cause of diseases classified elsewhere; I10 Essential (primary) hypertension; Z79.899 Other long term (current) drug therapy
CPT/HCPCS: 13160; 28005; 36415; 80053; 85027; 87070; J0360; J0690; J1170; J2001; J2250; J2704; J3010; A9270-GY

== ENCOUNTER 2024-01-27 09:52 | Day surgery (SDC) | payer MEDICARE ==
[2024-01-27] MEDS: Lactated Ringers 1,000 ML IV SCH (10:03)
[2024-01-27] MEDS: CEFAZOLIN 2 GM-D5W BAG** 2 GM/50 ML ML IV SCH (10:04)
[2024-01-27] MEDS ORDERED: Marcaine Mpf 0.5% Vial 30 Ml ONE (10:07)
[2024-01-27] MEDS ORDERED: Xylocaine 1% Vial 30 ML PF IJ ONE (10:07)
[2024-01-27] MEDS ORDERED: CEFAZOLIN 2 GM-D5W BAG** 2 GM/50 ML ML IV ONE (10:10)
[2024-01-27 10:26] LABS: Hematocrit 46.1 % (42-50); Hemoglobin 14.8 g/dL (12.5-18.0); Mean Cell Volume 102.7 fL (78-100); Mean Corpuscular Hgb Concent. 32.1 g/dL (32-36); Mean Platelet Volume 11.1 fL (7.5-11.0); Platelet Count 164 x10^3/uL (150-450); Red Blood Count 4.49 x10^6/uL (4.1-5.6); Red Cell Distribution Width 14.6 % (11.5-14.0); White Blood Count 6.2 x10^3/uL (4.0-10.5)
[2024-01-27 10:29] VITALS: RESP 18
[2024-01-27] MEDS ORDERED: Xylocaine-Mpf 2% 5 Ml Vial ONE (10:41)
[2024-01-27] MEDS ORDERED: DIPRIVAN 200 MG/20 ML IV ONE ×2 (10:41→11:17)
[2024-01-27] MEDS ORDERED: Versed 2 MG/2 ML Injection ONE (10:42)
[2024-01-27] MEDS ORDERED: SUBLIMAZE 100 MCG/2 ML ONE ×2 (10:42→12:04)
[2024-01-27 10:48] LABS: ALBUMIN 3.6 g/dL (3.5-5.0); BILIRUBIN,TOTAL 1.5 mg/dL (0.2-1.3); Calcium 9.3 mg/dL (8.4-10.2); Creatinine 1 0.72 mg/dL (0.66-1.25); EST GLOMERULAR FILTRATION RATE 100.1 ML/MIN; Potassium 4.2 mmol/L (3.5-5.1); Total Protein 6.9 g/dL (6.3-8.2)
[2024-01-27] MEDS ORDERED: Ephedrine Sulfate 50 MG/ML ONE (11:22)
[2024-01-27] MEDS ORDERED: Lactated Ringers 1,000 ML IV ONE (11:36)
[2024-01-27] MEDS ORDERED: Hydromorphone 1 mg/ml Injection ONE (12:25)
--- NOTE | 2024-01-27 12:25 | XRAY ---
Indication: Right 2nd/3rd metatarsal resection. Intraoperative fluoroscopy provided for 11 seconds. 5 digital spot images submitted for interpretation demonstrates partial surgical resection heads 2nd/3rd metatarsals. Previous total amputation 2nd/3rd toes. Correlate with intraoperative findings/report.
[2024-01-27] MEDS ORDERED: TRANDATE 20 MG/4 ML SYRINGE IV ONE (12:32)
[2024-01-27 13:22] VITALS: PULSE 60; O2SAT 98
--- NOTE | 2024-01-27 13:34 | OP ---
SURGERY DATE/TIME: 01/27/2024 1054 PREOPERATIVE DIAGNOSES: 1) Peripheral vascular disease with gangrenous changes right foot. 2) Chronic nonhealing wound right foot. 3) Peripheral vascular disease. 4) Chronic foot wound. 5) Exposed bone. POSTOPERATIVE DIAGNOSES: 1) Peripheral vascular disease with gangrenous changes right foot. 2) Chronic nonhealing wound right foot. 3) Peripheral vascular disease. 4) Chronic foot wound. 5) Exposed bone. PROCEDURE: Partial metatarsal resection incision and drainage with bone debridement right foot and delayed closure of complex wound. SURGEON: Rudy Graves DPM. PBX REPAIRER: None. ANESTHESIA: Monitored anesthesia care with a local block. HEMOSTASIS: Pressure dressing. QUANTITATIVE BLOOD LOSS: Approximately 5 cc. MATERIALS: 2-0 Monocryl, 4-0 Monocryl, 2-0 Nylon, 3-0 Nylon and one Suturegard. INJECTABLES: 20 cc of 1:1 mixture of 1% lidocaine plain and 0.5% bupivacaine plain injected in a metatarsal block-type fashion to the right foot. INDICATION FOR SURGERY: Titus is a very pleasant 68-year-old male who secondary to noncompliance suffered a dehiscence of his right foot wound. He had gangrenous changes to the toes two and three of the right foot and was diagnosed with thromboangiitis obliterans/Buerger's disease. The patient has since not stopped snuff and as a result we have had a hard time healing this wound. The patient has also been noncompliant with weight bearing status and a lot of the venous insufficiency suffers has led to a further dehiscence with necrosis of the wound edges. In order to get the wound healed, we have decided to go forward with partial resection of the metatarsal heads two and three along with bone debridement as well as a delayed closure of the wound. The patient understands all risks, complications and benefits of surgical intervention at this time including but not limited to infection, hematoma, seroma, possibility of delayed wound healing, nonwound healing and possible failure of surgical intervention. The patient understands that there is a potential risk that this will lead to further amputation if left alone and no matter what we do at this point. The patient has had a chronic wound. Bone biopsies will be taken to determine if there is residual infection. From that standpoint the patient has agreed to going forward and will be placed in a custodial facility in order to better be compliant in this period of time. The patient understands all of this and wishes to proceed. DESCRIPTION OF PROCEDURE AND FINDINGS: The patient is brought into the OR and placed on the OR table in the supine position. At this time, monitored anesthesia care was administered until the patient was adequately sedated. The right lower extremity was prepped and draped in the typical sterile fashion and lowered onto to the surgical field. At this time, attention was directed to the surgical wound dehiscence. A 15 blade was utilized under direct visualization with 3.5 magnification loupes in order to perform selective debridement of the wound until fibrotic necrotic tissue was relieved from the wound surface and there was a healthy bleeding edge. Following this, the bone quality was assessed. Cartilage at the second and third metatarsal heads were denuded off of the bone this was removed and 18 mm sagittal saw was utilized to resect the metatarsal head at the level of the metatarsal neck. Aggressive bone debridement took place at this time. 3 liters of sterile saline were utilized to flush the surgical site. Soft tissue was mobilized into a position where the plantar lateral flap was rotated into the corner of the fourth digit. From that standpoint, a soft tissue rearrangement was held in place utilizing 2-0 Monocryl and a Suturegard with 2-0 Nylon. Once the corner was coapted, 3-0 Nylon was utilized in a simple interrupted and horizontal mattress-type fashion to coapt the skin edges in adequate approximation. From that standpoint, the foot was cleansed and dressing consisting of Betadine, Adaptic, 4x4, Kerlix, ABD and RYAN was applied to the patient's right lower extremity. The patient was then reversed from anesthesia and returned to the postoperative anesthesia care unit with vital signs stable and vascular status intact. The patient handled the anesthesia as well as the procedure without significant complication. Postoperative orders as indicated in the patient's discharge chart.
[2024-01-27 13:51] VITALS: BP 164/85; TEMP 97.7
--- NOTE | 2024-01-27 15:05 | XRAY ---
11 seconds of fluoroscopy was used in surgery for a right 2nd/3rd metatarsal resection.
== END 2024-01-27 13:32 ==
LOC: SDC 09:52
PROVIDERS: ATTEND Podiatrist Foot & Ankle Surgery
DX: I73.9 Peripheral vascular disease, unspecified (principal); S91.301A Unspecified open wound, right foot, initial encounter
CPT/HCPCS: 13160; 14040; 28005; 36415; 73630; 76000; 80053; 85027; 87046; 87070; 87075; 87116; 87206; J0690; J1170; J2001; J2250; J2704; J3010

== ENCOUNTER 2024-04-05 05:05 | Inpatient (IN) | payer MEDICARE ==
[2024-04-05] MEDS: OXYCODONE-ACETAMINOPHEN 10-325 PO PRN ×2 (12:19→20:13)
[2024-04-05 13:15] LABS: Hematocrit 42.4 % (40.1-51.0); Mean Cell Volume 104.7 fL (79.0-92.2); Mean Corpuscular Hemoglobin 34.6 pg (25.7-32.2); Mean Platelet Volume 10.3 fL (9.4-12.4); Platelet Count 279 x10^3/uL (163-337); Red Blood Count 4.05 x10^6/uL (4.63-6.08); Red Cell Distribution Width 15.1 % (11.6-14.4); White Blood Count 8.1 x10^3/uL (4.23-9.07)
[2024-04-05 13:37] LABS: ALBUMIN 3.7 g/dL (3.5-5.0); ANION GAP 10.1 MEQ/L (5-15); Calcium 9.4 mg/dL (8.4-10.2); Creatinine 1 0.8 mg/dL (0.66-1.25); EST GLOMERULAR FILTRATION RATE 96.4 ML/MIN; Potassium 4.2 mmol/L (3.5-5.1)
--- NOTE | 2024-04-05 13:37 | PCM.HP ---
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 Grant (podiatry) direct admitted for evaluation and treatment of osteomyelitis on metatarsals of the right foot. MRI of the RLE showing Diffuse forefoot soft tissue swelling/edema, probable cellulitis. Suspect osteomyelitis on metatarsals with pathologic fractures as detailed. Lesser osteomyelitis proximal 1st/4th/5th phalanges. Patient endorses pain to the RLE rating 8/10 on numerical pain scale but otherwise no complaints.Labs and vitals stable. Patient does not wish to amputate. Plan is to have PICC line placed for IV abx. Vanc/Cefepime. Podiatry following. Denies fever,cough, sob, cp, abdominal pain, HANSEN, dizziness, N/V/D. - Review of Systems Constitutional: No Symptoms Eyes: No Symptoms Ears, Nose, & Throat: No Symptoms Respiratory: No Symptoms Cardiac: No Symptoms Abdominal/Gastrointestinal: No Symptoms Genitourinary Symptoms: No Symptoms Musculoskeletal: Joint Pain (right foot/ankle) Skin: No Symptoms Neurological: No Symptoms Psychological: No Symptoms Endocrine: No Symptoms Hematologic/Lymphatic: No Symptoms Medications & Allergies Home Medications: Home Medication List Allopurinol 100 mg [Zyloprim 100 mg] 100 mg PO DAILY 08/03/23 [History Confirmed 04/05/24] Potassium Chloride Tab* [Klor Con] 10 meq PO DAILY 08/03/23 [History Confirmed 04/05/24] Indomethacin 50 mg PO BID 10/24/23 [History Confirmed 04/05/24] Losartan Potassium 50 mg PO DAILY 10/24/23 [History Confirmed 04/05/24] Oxycodone / APAP 10/325 mg [Oxycodone-Acetaminophen 10-325] 1 tab PO Q8HPRN PRN 12/18/23 [History Confirmed 04/05/24] Diazepam 5 mg [Valium 5 MG] 5 mg PO TID PRN 04/05/24 [History Confirmed 04/05/24] Allergies/Adverse Reactions: Allergies Allergy/AdvReac Type Severity Reaction Status Date / Time shellfish derived Allergy Hives Verified 01/27/24 10:11 - Past Medical History Past Medical History: Yes Neurological History: No Pertinent History ENT History: No Pertinent History Cardiac History: Deep Vein Thrombosis, Hypertension Respiratory History: No Pertinent History Endocrine Medical History: No Pertinent History Musculoskelatal History: Arthritis, Fractures GI Medical History: Crohns Disease, Other History: No Pertinent History Pyscho-Social History: Anxiety, Depression Male Reproductive Disorders: No Pertinent History Comment: 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, gout - Past Surgical History Past Surgical History: Yes Neuro Surgical History: No Pertinent History Cardiac History: No Pertinent History Respiratory Surgery: No Pertinent History GI Surgical History: No Pertinent History Genitourinary Surgical Hx: No Pertinent History Musculskeletal Surgical Hx: Amputation, Orthopedic Surgery Male Surgical History: No Pertinent History Other Surgical History: R ankle, colonoscopy, melanoma to back removed, 2 toes amputated. right foot surgery. i&d RIGHT FOOT - Social History Smoking Status: Current every day smoker How long have you smoked: 50 Exposure to second hand smoke: No Alcohol: Occasionally Drug Use: none - Social Determinants of Health Will the patient participate in the screening: Yes Do you worry about a steady place to live?: No Do you have any problems with any of the following?: No known problems In the past 12 months,have you had to go without utilities?: No Have you or anyone in your house had to go without enough: No Transportation Issues: No Has anyone in your support network made you feel unsafe?: No Does the patient want assistance with any of the above?: No - Physical Exam Vital Signs: Vital Signs - 24 hr Temp Pulse Resp BP Pulse Ox 04/05/24 12:00 97.2 F 82 17 182/84 99 General Appearance: no apparent distress Neurologic Exam: alert, oriented x 3, cooperative Eye Exam: PERRL/EOMI Ears, Nose, Throat Exam: normal ENT inspection Neck Exam: normal inspection Respiratory Exam: normal breath sounds, lungs clear Cardiovascular Exam: regular rate/rhythm, normal heart sounds Gastrointestinal/Abdomen Exam: soft, normal bowel sounds Rectal Exam: deferred Back Exam: normal inspection Extremity Exam: other (RLE with dressing) Skin Exam: normal color Results - Labs Lab/Micro Results: Lab Results-Last 24 Hours 04/05/24 Range/Units 13:00 WBC 8.1 (4.23-9.07) x10^3/uL RBC 4.05 L (4.63-6.08) x10^6/uL Hgb 14.0 (13.7-17.5) g/dL Hct 42.4 (40.1-51.0) % MCV 104.7 H (79.0-92.2) fL MCH 34.6 H (25.7-32.2) pg MCHC 33.0 (32.3-36.5) g/dL RDW 15.1 H (11.6-14.4) % Plt Count 279 (163-337) x10^3/uL MPV 10.3 (9.4-12.4) fL Assessment/Plan (1) Osteomyelitis of right foot Current Visit: Yes Status: Acute Assessment & Plan: -Podiatry following - pt requesting no amputation -Images reviewed MRI right foot from 04/02/24, showing diffuse forefoot soft tissue swelling/edema, probable cellulitis. Suspect osteomyelitis on metatarsals with pathologic fractures as detailed. Lesser osteomyelitis proximal 1st/4th/5th phalanges. -Vanc/cefepime pharm to dose -PICC placement Code(s): M86.9 - OSTEOMYELITIS, UNSPECIFIED (2) Alcohol abuse Current Visit: No Status: Acute Assessment & Plan: -obtain alcohol level -[facility] protocol Code(s): F10.10 - ALCOHOL ABUSE, UNCOMPLICATED (3) HTN (hypertension) Current Visit: Yes Status: Acute Assessment & Plan: -continue home meds Code(s): I10 - ESSENTIAL (PRIMARY) HYPERTENSION (4) History of gout Current Visit: No Status: Chronic Assessment & Plan: -Does not appear to be in exacerbation - will check uric acid level -Continue home allopurinol Code(s): Z87.39 - PERSONAL HISTORY OF DISEASES OF THE MS SYS AND CONN TISS (5) Smoker Current Visit: Yes Status: Acute Assessment & Plan: -vapes -advised cessation -nicotine patch Code(s): F17.200 - NICOTINE DEPENDENCE, UNSPECIFIED, UNCOMPLICATED <SYMONE FONG - Last Filed: 04/05/24 22:46> History of Present Illness - Chief Complaint History of Present Illness: is a 69 year old male. - Physical Exam Vital Signs: Vital Signs - 24 hr Temp Pulse Resp BP Pulse Ox 04/05/24 19:53 97.9 F 74 16 114/63 93 L 04/05/24 16:00 97.2 F 82 17 182/84 99 04/05/24 12:00 97.2 F 82 17 182/84 99 Wound Assessment: Skin/Wound Assessment Wound/Incision Assessment Start: 04/05/24 11:25 Text: Status: Active Freq: Q6H Protocol: Document 04/05/24 20:00 MP (Rec: 04/05/24 20:23 MP [id number]) Wound/Incision Assessment Right Foot Wound Assessment Shift Assessment Comment dressing C,D,I unable to assess due to being wrapped and ordered not to remove Results - Labs Lab/Micro Results: Lab Results-Last 24 Hours 04/05/24 04/05/24 04/05/24 Range/Units 13:00 13:00 13:00 WBC 8.1 (4.23-9.07) x10^3/uL RBC 4.05 L (4.63-6.08) x10^6/uL Hgb 14.0 (13.7-17.5) g/dL Hct 42.4 (40.1-51.0) % MCV 104.7 H (79.0-92.2) fL MCH 34.6 H (25.7-32.2) pg MCHC 33.0 (32.3-36.5) g/dL RDW 15.1 H (11.6-14.4) % Plt Count 279 (163-337) x10^3/uL MPV 10.3 (9.4-12.4) fL Sodium 141 (135-145) mmol/L Potassium 4.2 (3.5-5.1) mmol/L Chloride 106 (98-107) mmol/L Carbon Dioxide 30 (22-30) mmol/L Anion Gap 10.1 (5-15) MEQ/L BUN 9 (9-20) mg/dL Creatinine 0.80 (0.66-1.25) mg/dL Estimated GFR 96.4 ML/MIN Glucose 110 H (74-106) mg/dL Uric Acid (3.5-7.2) mg/dL Calcium 9.4 (8.4-10.2) mg/dL Total Bilirubin 1.00 (0.2-1.3) mg/dL AST 20 (17-59) U/L ALT 10 (0-50) U/L Alkaline Phosphatase 124 (38-126) U/L Serum Total Protein 7.0 (6.3-8.2) g/dL Albumin 3.7 (3.5-5.0) g/dL Prealbumin 17.75 (17.6-36.0) mg/dL Procalcitonin (0.030-0.080) ng/mL 04/05/24 04/05/24 Range/Units 13:00 13:12 WBC (4.23-9.07) x10^3/uL RBC (4.63-6.08) x10^6/uL Hgb (13.7-17.5) g/dL Hct (40.1-51.0) % MCV (79.0-92.2) fL MCH (25.7-32.2) pg MCHC (32.3-36.5) g/dL RDW (11.6-14.4) % Plt Count (163-337) x10^3/uL MPV (9.4-12.4) fL Sodium (135-145) mmol/L Potassium (3.5-5.1) mmol/L Chloride (98-107) mmol/L Carbon Dioxide (22-30) mmol/L Anion Gap (5-15) MEQ/L BUN (9-20) mg/dL Creatinine (0.66-1.25) mg/dL Estimated GFR ML/MIN Glucose (74-106) mg/dL Uric Acid 6.5 (3.5-7.2) mg/dL Calcium (8.4-10.2) mg/dL Total Bilirubin (0.2-1.3) mg/dL AST (17-59) U/L ALT (0-50) U/L Alkaline Phosphatase (38-126) U/L Serum Total Protein (6.3-8.2) g/dL Albumin (3.5-5.0) g/dL Prealbumin (17.6-36.0) mg/dL Procalcitonin 0.066 (0.030-0.080) ng/mL FREDA Encounter - FREDA Encounter Attestation FREDA Encounter Attestation: "IhavepersonallyseenandexamineJOLEEN Gray andhavediscussed pertinent aspects of their care with Duarte Diaz agree with the history, physical exam (any modifications based on my personal exam will be noted below), assessment, and plan as outlined in original note. Please see immediately below for my summary of findings and additional assessment and plan along with any meaningful corrections/explanations to the Subjective/Objective portions of the FREDA note will be noted." My portion of the encounter took place via telemedicine. -Patient complained of pain and his Percocet increased to every 6 hours which is his home dose. Patient started on IV antibiotics for right foot OM as patient not agreeable for amputation. Podiatry requested admission and following.
[2024-04-05] MEDS: VANCOMYCIN 1 GRAM/200 ML BAG 1 GM/200 ML PIGGYBACK IV SCH (15:10)
[2024-04-05] MEDS: Maxipime 2 GM** 2 G in Sodium Chloride 0.9% 100 ML IV SCH (16:34)
[2024-04-05] MEDS: PHARMACY DOSING REQUEST MC ONE (18:38)
[2024-04-05] MEDS ORDERED: CEFAZOLIN 2 GM-D5W BAG** 2 GM/50 ML ML IV SCH (22:00)
[2024-04-05] MEDS ORDERED: Indocin 25 MG PO SCH (22:00)
[2024-04-05] MEDS: Valium 5 MG PO PRN (22:06)
[2024-04-06] MEDS: OXYCODONE-ACETAMINOPHEN 10-325 PO PRN (03:02)
--- NOTE | 2024-04-06 05:06 | PCM.NOTE ---
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 Grant (podiatry) direct admitted for evaluation and treatment of osteomyelitis on m etatarsals of the right foot. MRI of the RLE showing Diffuse forefoot soft tissue swelling/edema, probable cellulitis. Suspect osteomyelitis on metatarsals with pathologic fractures as detailed. Lesser osteomyelitis proximal 1st/4th/5th phalanges. Patient endorses pain to the RLE rating 8/10 on numerical pain scale but otherwise no complaints.Labs and vitals stable. Patient does not wish to amputate. Plan is to have PICC line placed for IV abx. Vanc/Cefepime. Podiatry following. 04/06: Met with patient bedside. Endorses pain is controlled with current medication regimen. Patient has refused labs this morning. Plan for PICC placement today. Patient would like placement on discharge at [facility]. working for approval. Per podiatry, patient okay for limited weight bearing. Plan to continue with cefepime as culture from 03/22 showing pseudomonas. Per podiatry, patient may need bone biopsy to ensure OM. He continues to decline amputation. - Review of Systems Constitutional: No Symptoms Eyes: No Symptoms Ears, Nose, & Throat: No Symptoms Respiratory: No Symptoms Cardiac: No Symptoms Abdominal/Gastrointestinal: No Symptoms Genitourinary Symptoms: No Symptoms Musculoskeletal: Joint Pain Skin: Other (RLE with dressing CDI) Neurological: No Symptoms Psychological: No Symptoms Endocrine: No Symptoms Hematologic/Lymphatic: No Symptoms Immunological/Allergic: No Symptoms Objective Exam General Appearance: no apparent distress Neurologic Exam: alert, oriented x 3, cooperative Skin Exam: normal color Wound Assessment: Skin/Wound Assessment Wound/Incision Assessment Start: 04/05/24 11:25 Text: Status: Active Freq: Q6H Protocol: Document 04/06/24 02:00 MP (Rec: 04/06/24 02:41 MP [id number]) Wound/Incision Assessment Right Foot Wound Assessment Shift Assessment Comment dressing C,D,I unable to assess due to being wrapped and ordered not to remove Wound Photo Photo Taken No Eye Exam: PERRL Ears, Nose, Throat Exam: normal ENT inspection Neck Exam: normal inspection Respiratory Exam: normal breath sounds, lungs clear Cardiovascular Exam: normal heart sounds Gastrointestinal/Abdomen Exam: soft, normal bowel sounds Extremity Exam: other (RLE with dressing per podiatry, CDI) Back Exam: normal inspection Male Genitalia Exam: deferred Rectal Exam: deferred Objective Data Vital Signs: Vital Signs - 24 hr Temp Pulse Resp BP Pulse Ox 04/06/24 00:00 97.4 F 59 L 16 163/79 95 04/05/24 19:53 97.9 F 74 16 114/63 93 L 04/05/24 16:00 97.2 F 82 17 182/84 99 04/05/24 12:00 97.2 F 82 17 182/84 99 Pain Assessment - Last Documented Pain Intensity 5 Pain Scale Used 0-10 Pain Scale Intake and Output: Intake & Output 04/03/24 04/04/24 04/05/24 04/06/24 11:59 11:59 11:59 11:59 Intake Total 240 Balance 240 Weight 85.5 kg Lab Results: Lab Results-Last 24 Hours 04/05/24 04/05/24 04/05/24 Range/Units 13:00 13:00 13:00 WBC 8.1 (4.23-9.07) x10^3/uL RBC 4.05 L (4.63-6.08) x10^6/uL Hgb 14.0 (13.7-17.5) g/dL Hct 42.4 (40.1-51.0) % MCV 104.7 H (79.0-92.2) fL MCH 34.6 H (25.7-32.2) pg MCHC 33.0 (32.3-36.5) g/dL RDW 15.1 H (11.6-14.4) % Plt Count 279 (163-337) x10^3/uL MPV 10.3 (9.4-12.4) fL Sodium 141 (135-145) mmol/L Potassium 4.2 (3.5-5.1) mmol/L Chloride 106 (98-107) mmol/L Carbon Dioxide 30 (22-30) mmol/L Anion Gap 10.1 (5-15) MEQ/L BUN 9 (9-20) mg/dL Creatinine 0.80 (0.66-1.25) mg/dL Estimated GFR 96.4 ML/MIN Glucose 110 H (74-106) mg/dL Uric Acid (3.5-7.2) mg/dL Calcium 9.4 (8.4-10.2) mg/dL Total Bilirubin 1.00 (0.2-1.3) mg/dL AST 20 (17-59) U/L ALT 10 (0-50) U/L Alkaline Phosphatase 124 (38-126) U/L Serum Total Protein 7.0 (6.3-8.2) g/dL Albumin 3.7 (3.5-5.0) g/dL Prealbumin 17.75 (17.6-36.0) mg/dL Procalcitonin (0.030-0.080) ng/mL 04/05/24 04/05/24 Range/Units 13:00 13:12 WBC (4.23-9.07) x10^3/uL RBC (4.63-6.08) x10^6/uL Hgb (13.7-17.5) g/dL Hct (40.1-51.0) % MCV (79.0-92.2) fL MCH (25.7-32.2) pg MCHC (32.3-36.5) g/dL RDW (11.6-14.4) % Plt Count (163-337) x10^3/uL MPV (9.4-12.4) fL Sodium (135-145) mmol/L Potassium (3.5-5.1) mmol/L Chloride (98-107) mmol/L Carbon Dioxide (22-30) mmol/L Anion Gap (5-15) MEQ/L BUN (9-20) mg/dL Creatinine (0.66-1.25) mg/dL Estimated GFR ML/MIN Glucose (74-106) mg/dL Uric Acid 6.5 (3.5-7.2) mg/dL Calcium (8.4-10.2) mg/dL Total Bilirubin (0.2-1.3) mg/dL AST (17-59) U/L ALT (0-50) U/L Alkaline Phosphatase (38-126) U/L Serum Total Protein (6.3-8.2) g/dL Albumin (3.5-5.0) g/dL Prealbumin (17.6-36.0) mg/dL Procalcitonin 0.066 (0.030-0.080) ng/mL Assessment/Plan (1) Osteomyelitis of right foot Current Visit: Yes Status: Acute Assessment & Plan: -Podiatry following - pt requesting no amputation -Images reviewed MRI right foot from 04/02/24, showing diffuse forefoot soft tissue swelling/edema, probable cellulitis. Suspect osteomyelitis on metatarsals with pathologic fractures as detailed. Lesser osteomyelitis proximal 1st/4th/5th phalanges. -Vanc/cefepime pharm to dose -PICC placement 04/06: -Agree with podiatry recommendations for bone scan (Thurs), cefepime.PICC placement today- may need bone biopsy -PT eval -CM to work on placement at [facility] Code(s): M86.9 - OSTEOMYELITIS, UNSPECIFIED (2) Alcohol abuse Current Visit: No Status: Acute Assessment & Plan: -obtain alcohol level -[facility] protocol Code(s): F10.10 - ALCOHOL ABUSE, UNCOMPLICATED (3) HTN (hypertension) Current Visit: Yes Status: Acute Assessment & Plan: -continue home meds Code(s): I10 - ESSENTIAL (PRIMARY) HYPERTENSION (4) History of gout Current Visit: No Status: Chronic Assessment & Plan: -Does not appear to be in exacerbation - will check uric acid level -Continue home allopurinol Code(s): Z87.39 - PERSONAL HISTORY OF DISEASES OF THE MS SYS AND CONN TISS (5) Smoker Current Visit: Yes Status: Acute Assessment & Plan: -vapes -advised cessation -nicotine patch Code(s): F17.200 - NICOTINE DEPENDENCE, UNSPECIFIED, UNCOMPLICATED Code(s): M86.9 - OSTEOMYELITIS, UNSPECIFIED (2) Alcohol abuse Current Visit: No Status: Acute Code(s): F10.10 - ALCOHOL ABUSE, UNCOMPLICATED (3) HTN (hypertension) Current Visit: Yes Status: Acute Code(s): I10 - ESSENTIAL (PRIMARY) HYPERTENSION (4) History of gout Current Visit: No Status: Chronic Code(s): Z87.39 - PERSONAL HISTORY OF DISEASES OF THE MS SYS AND CONN TISS (5) Smoker Current Visit: Yes Status: Acute Code(s): F17.200 - NICOTINE DEPENDENCE, UNSPECIFIED, UNCOMPLICATED
[2024-04-06] MEDS: Nicoderm CQ 21 MG TOP SCH (09:40)
[2024-04-06] MEDS: Cozaar 50 MG PO SCH (09:40)
[2024-04-06] MEDS: Klor Con PO SCH (09:41)
[2024-04-06] MEDS: ZYLOPRIM 100 MG PO SCH (09:41)
--- NOTE | 2024-04-06 14:46 | XRAY ---
Indication: PICC placement. Comparison: August 03, 2023 Portable chest demonstrates new right arm PICC line with tip looped in SVC. Recommend readjustment. Remaining heart and lungs normal. Bony thorax intact again with osteopenia and mild degenerative changes.
--- NOTE | 2024-04-06 14:46 | XRAY ---
Indication: Adjustment PICC line. Comparison: Taken earlier in the day. Portable chest again demonstrates right arm PICC line with tip now straight and projecting over SVC. Heart and lungs remain normal. No new/acute findings.
--- NOTE | 2024-04-06 14:46 | XRAY ---
Indication: Adjustment of PICC line. Comparison: Taken earlier in the day. Portable chest unchanged again demonstrating right arm PICC line with tip looped in SVC. Heart and lungs remain normal. No new/acute findings.
[2024-04-06] MEDS ORDERED: TROUGH DRUG LEVELS IJ ONE (21:30)
[2024-04-07 05:11] LABS: Absolute Neutrophil Ct (ANC) 5.24 x10^3/uL (1.78-5.38); BASOPHIL % 0.7 % (0.2-1.2); Basophil (Absolute #) 0.06 x10^3/uL (0.01-0.08); Eosinophil % 8.3 % (0.8-7.0); Eosinophil (Absolute #) 0.69 x10^3/uL (0.04-0.54); Hematocrit 37.4 % (40.1-51.0); Hemoglobin 12.3 g/dL (13.7-17.5); IMMATURE GRAN # 0.05 x10^3u/L (0.001-0.031); IMMATURE GRAN % 0.6 % (0.001-0.429); Lymphocyte (Absolute #) 1.62 x10^3/uL (1.32-3.57); Lymphocytes % 19.4 % (21.8-53.1); Mean Cell Volume 104.8 fL (79.0-92.2); Mean Corpuscular Hemoglobin 34.5 pg (25.7-32.2); Mean Corpuscular Hgb Concent. 32.9 g/dL (32.3-36.5); Mean Platelet Volume 10.4 fL (9.4-12.4); Monocytes % 8.4 % (5.3-12.2); Neutrophil % 62.6 % (34.0-67.9); Platelet Count 232 x10^3/uL (163-337); Red Blood Count 3.57 x10^6/uL (4.63-6.08); Red Cell Distribution Width 14.9 % (11.6-14.4); White Blood Count 8.4 x10^3/uL (4.23-9.07)
[2024-04-07 05:34] LABS: ALBUMIN 3.1 g/dL (3.5-5.0); ANION GAP 8.5 MEQ/L (5-15); BILIRUBIN,TOTAL 0.7 mg/dL (0.2-1.3); Creatinine 1 0.66 mg/dL (0.66-1.25); EST GLOMERULAR FILTRATION RATE 102.2 ML/MIN; Potassium 4.1 mmol/L (3.5-5.1)
--- NOTE | 2024-04-07 05:35 | PCM.NOTE ---
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 Olivares (podiatry) direct admitted for evaluation and treatment of osteomyelitis on m etatarsals of the right foot. MRI of the RLE showing Diffuse forefoot soft tissue swelling/edema, probable cellulitis. Suspect osteomyelitis on metatarsals with pathologic fractures as detailed. Lesser osteomyelitis proximal 1st/4th/5th phalanges. Patient endorses pain to the RLE rating 8/10 on numerical pain scale but otherwise no complaints.Labs and vitals stable. Patient does not wish to amputate. Plan is to have PICC line placed for IV abx. Vanc/Cefepime. Podiatry following. 04/06: Met with patient bedside. Endorses pain is controlled with current medication regimen. Patient has refused labs this morning. Plan for PICC placement today. Patient would like placement on discharge at [facility]. CM working for approval. Per podiatry, patient okay for limited weight bearing. Plan to continue with cefepime as culture from 03/22 showing pseudomonas. Per podiatry, patient may need bone biopsy to ensure OM. He continues to decline amputation. 04/07: Met with patient bedside. S/P debridemet of RLE wound. Non-compliant with dressings, keeps removing them. Patient states the iodine is burning. Pain is controlled with current pain regimen per pt report. Podiatry note reviewed with recs for amputation which patient is not agreeable to. Patient would like to try 6-8 week course of antibiotics first. PICC has been placed. Continue weight bearing protocol and dressing changes per podiatry. Placement pending for [facility]. Bone scan scheduled for tomorrow. May need bone biopsy. Denies fever,cough, sob, cp, abdominal pain, HANSEN, dizziness, N/V/D. - Review of Systems Constitutional: No Symptoms Eyes: No Symptoms Ears, Nose, & Throat: No Symptoms Respiratory: No Symptoms Cardiac: No Symptoms Abdominal/Gastrointestinal: No Symptoms Genitourinary Symptoms: No Symptoms Musculoskeletal: Joint Pain (RLE) Skin: Skin Lesions (Open wound to medial 1st MPJ) Neurological: No Symptoms Psychological: No Symptoms Endocrine: No Symptoms Hematologic/Lymphatic: No Symptoms Immunological/Allergic: No Symptoms Objective Exam General Appearance: no apparent distress Neurologic Exam: alert, oriented x 3, cooperative Skin Exam: normal color, other (Open wound to medial 1st MPJ) Wound Assessment: Skin/Wound Assessment Wound/Incision Assessment Start: 04/05/24 11:25 Text: Status: Active Freq: Q6H Protocol: Document 04/07/24 02:00 MP (Rec: 04/07/24 02:35 MP [id number]) Wound/Incision Assessment Right Foot Wound Assessment Shift Assessment Comment UNABLE TO ASSESS\ EDER BOOT IN PLACE PER BRISA ROLLINS TODAY Wound Photo Photo Taken No Eye Exam: PERRL Ears, Nose, Throat Exam: normal ENT inspection Neck Exam: normal inspection Respiratory Exam: normal breath sounds, lungs clear Cardiovascular Exam: regular rate/rhythm, normal heart sounds Gastrointestinal/Abdomen Exam: soft, normal bowel sounds Extremity Exam: other (see skin exam) Back Exam: normal inspection Male Genitalia Exam: deferred Rectal Exam: deferred Objective Data Vital Signs: Vital Signs - 24 hr Temp Pulse Resp BP Pulse Ox 04/07/24 04:00 97.5 F 65 17 165/83 97 04/07/24 00:00 97.9 F 63 18 156/77 99 04/06/24 19:49 98.3 F 62 18 159/83 95 04/06/24 16:00 98.2 F 59 L 18 173/81 96 04/06/24 11:44 97.1 F 55 L 18 153/70 98 04/06/24 07:02 98.1 F 63 17 141/73 96 Pain Assessment - Last Documented Pain Intensity 8 Pain Scale Used 0-10 Pain Scale Intake and Output: Intake & Output 04/04/24 04/05/24 04/06/24 04/07/24 11:59 11:59 11:59 11:59 Intake Total 700 770 Output Total 600 1400 Balance 100 -630 Weight 85.5 kg Lab Results: Lab Results-Last 24 Hours 04/07/24 Range/Units 04:14 WBC 8.4 (4.23-9.07) x10^3/uL RBC 3.57 L (4.63-6.08) x10^6/uL Hgb 12.3 L (13.7-17.5) g/dL Hct 37.4 L (40.1-51.0) % MCV 104.8 H (79.0-92.2) fL MCH 34.5 H (25.7-32.2) pg MCHC 32.9 (32.3-36.5) g/dL RDW 14.9 H (11.6-14.4) % Plt Count 232 (163-337) x10^3/uL MPV 10.4 (9.4-12.4) fL Gran % 62.6 (34.0-67.9) % Immature Gran % (Auto) 0.6 H (0.001-0.429) % Nucleat RBC Rel Count 0.0 (0.00-0.2) % Eos # (Auto) 0.69 H (0.04-0.54) x10^3/uL Immature Gran # (Auto) 0.05 H (0.001-0.031) x10^3u/L Absolute Lymphs (auto) 1.62 (1.32-3.57) x10^3/uL Absolute Monos (auto) 0.70 (0.30-0.82) x10^3/uL Absolute Nucleated RBC 0.00 (0.00-0.012) x10^3u/L Lymphocytes % 19.4 L (21.8-53.1) % Monocytes % 8.4 (5.3-12.2) % Eosinophils % 8.3 H (0.8-7.0) % Basophils % 0.7 (0.2-1.2) % Absolute Granulocytes 5.24 (1.78-5.38) x10^3/uL Basophils # 0.06 (0.01-0.08) x10^3/uL Radiology Exams: Radiology Procedures Category Date Time Status BONE THREE PHASE [NUCMED] Urgent Exams 04/08/24 10:00 Ordered CHEST 1 VIEW (PORTABLE) Stat Exams 04/06/24 14:05 Completed Portable Chest [CHEST 1 VIEW (PORTABLE)] Stat Exams 04/06/24 14:13 Completed Portable Chest [CHEST 1 VIEW (PORTABLE)] Stat Exams 04/06/24 14:34 Completed Multi-Disciplinary Progress Notes: Multi-Disciplinary Progress Notes 04/06/24 19:47 Physical Therapy Note by Karolyn(Basil#[id number]),Sandra ATTEMPTED P.T. EVAL THIS P.M. PT. ALCIRAF PICC LINE PLACED AND THEN HAD CXR ORDER. WILL ATTEMPT TOMORROW. PER KESHA Jalloh/ DR. OLIVARES, PT. IS TO BE MIN WB ON INVOLVED FOOT. Initialized on 04/06/24 19:47 - END OF NOTE 04/06/24 11:25 Case Management Note by Tameka Schuler DISCUSSION WITH PATIENT REGARDING DISCHARGE NEEDS. PT HAS NOW DECIDED THAT HE SHOULD GO FOR A REHAB STAY WHEN HE IS MEDICALLY READY FOR DISCHARGE. REPORTS THAT IT WOULD BE A DEFINITE HARDSHIP TO COME BACK AND FORTH TO THE HOSPITAL FOR IV ANTIBIOTICS, ALSO REPORTS THAT HOME HEALTH CARE IS NOT AN OPTION BECAUSE HE DOES NOT FEEL CONFIDENT TO LEARN HOW TO SELF ADMINISTER AND CARE FOR HIS PICC LINE. REQUEST REFERRAL TO [facility]. CALL TO [facility] - SPOKE WITH DUARTE. FAXED REFERRAL PACKET PER THEIR REQUEST. INSURANCE WILL REQUIRE AUTHORIZATION FOR REHAB STAY. Initialized on 04/06/24 11:25 - END OF NOTE 04/06/24 11:20 (created 04/06/24 11:27) Case Management Note by Tameka Schuler PAPERWORK COMPLETE, COPY SENT IN PACKET TO [place] Initialized on 04/06/24 11:27 - END OF NOTE Assessment/Plan (1) Osteomyelitis of right foot Current Visit: Yes Status: Acute Assessment & Plan: -Podiatry following - pt requesting no amputation -Images reviewed MRI right foot from 04/02/24, showing diffuse forefoot soft tissue swelling/edema, probable cellulitis. Suspect osteomyelitis on metatarsals with pathologic fractures as detailed. Lesser osteomyelitis proximal 1st/4th/5th phalanges. -Vanc/cefepime pharm to dose -PICC placement 04/06: -Agree with podiatry recommendations for bone scan (), cefepime.PICC placement today- may need bone biopsy -PT eval -CM to work on placement at [facility] 04/07: -Pain controlled -continue weight bearing protocol -Podiatry note reviewed, agree with plan for 6-8 weeks of cefepime/may need bone biopsy -Bone scan scheduled for tomorrow -Current wound cultures negative -Placement pending Code(s): M86.9 - OSTEOMYELITIS, UNSPECIFIED (2) Alcohol abuse Current Visit: No Status: Acute Assessment & Plan: -obtain alcohol level -[facility] protocol 04/07: -No symptoms of w/d Code(s): F10.10 - ALCOHOL ABUSE, UNCOMPLICATED (3) HTN (hypertension) Current Visit: Yes Status: Acute Assessment & Plan: -continue home meds Code(s): I10 - ESSENTIAL (PRIMARY) HYPERTENSION (4) History of gout Current Visit: No Status: Chronic Assessment & Plan: -Does not appear to be in exacerbation - will check uric acid level -Continue home allopurinol Code(s): Z87.39 - PERSONAL HISTORY OF DISEASES OF THE MS SYS AND CONN TISS (5) Smoker Current Visit: Yes Status: Acute Assessment & Plan: -vapes -advised cessation -nicotine patch Code(s): M86.9 - OSTEOMYELITIS, UNSPECIFIED (2) Alcohol abuse Current Visit: No Status: Acute Code(s): F10.10 - ALCOHOL ABUSE, UNCOMPLICATED (3) HTN (hypertension) Current Visit: Yes Status: Acute Code(s): I10 - ESSENTIAL (PRIMARY) HYPERTENSION (4) History of gout Current Visit: No Status: Chronic Code(s): Z87.39 - PERSONAL HISTORY OF DISEASES OF THE MS SYS AND CONN TISS (5) Smoker Current Visit: Yes Status: Acute Code(s): F17.200 - NICOTINE DEPENDENCE, UNSPECIFIED, UNCOMPLICATED
--- NOTE | 2024-04-07 07:26 | PCM.CONS ---
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 MRI of the RLE showing Diffuse forefoot soft tissue swelling/edema, probable cellulitis. Suspect osteomyelitis on metatarsals with pathologic fractures as detailed. Lesser osteomyelitis proximal 1st/4th/5th phalanges. Patient endorses pain to the RLE rating 8/10 on numerical pain scale but otherwise no complaints.Labs and vitals stable. Patient does not wish to amputate. Plan is to have PICC line placed for IV abx. Vanc/Cefepime. Medications & Allergies Home Medications: Home Medication List Allopurinol 100 mg [Zyloprim 100 mg] 100 mg PO DAILY 08/03/23 [History Confirmed 04/05/24] Potassium Chloride Tab* [Klor Con] 10 meq PO DAILY 08/03/23 [History Confirmed 0 04/05/24] Indomethacin 50 mg PO BID 10/24/23 [History Confirmed 04/05/24] Losartan Potassium 50 mg PO DAILY 10/24/23 [History Confirmed 04/05/24] Oxycodone / APAP 10/325 mg [Oxycodone-Acetaminophen 10-325] 1 tab PO Q8HPRN PRN 12/18/23 [History Confirmed 04/05/24] Diazepam 5 mg [Valium 5 MG] 5 mg PO TID PRN 04/05/24 [History Confirmed 04/05/24] Allergies/Adverse Reactions: Allergies Allergy/AdvReac Type Severity Reaction Status Date / Time shellfish derived Allergy Hives Verified 01/27/24 10:11 - Past Medical History Past Medical History: Yes Neurological History: No Pertinent History ENT History: No Pertinent History Cardiac History: Deep Vein Thrombosis, Hypertension Respiratory History: No Pertinent History Endocrine Medical History: No Pertinent History Musculoskelatal History: Arthritis, Fractures GI Medical History: Crohns Disease, Other History: No Pertinent History Pyscho-Social History: Anxiety, Depression Male Reproductive Disorders: No Pertinent History Comment: 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, gout - Past Surgical History Past Surgical History: Yes Neuro Surgical History: No Pertinent History Cardiac History: No Pertinent History Respiratory Surgery: No Pertinent History GI Surgical History: No Pertinent History Genitourinary Surgical Hx: No Pertinent History Musculskeletal Surgical Hx: Amputation, Orthopedic Surgery Male Surgical History: No Pertinent History Other Surgical History: R ankle, colonoscopy, melanoma to back removed, 2 toes amputated. right foot surgery. i&d RIGHT FOOT - Social History Smoking Status: Current every day smoker How long have you smoked: 50 Exposure to second hand smoke: No Alcohol: Occasionally Drug Use: none - Social Determinants of Health Will the patient participate in the screening: Yes Do you worry about a steady place to live?: No Do you have any problems with any of the following?: No known problems In the past 12 months,have you had to go without utilities?: No Have you or anyone in your house had to go without enough: No Transportation Issues: No Has anyone in your support network made you feel unsafe?: No Does the patient want assistance with any of the above?: No Physical Exam - Narrative Narrative Physical Exam: Podiatry Physical Exam Results - Labs Lab/Micro Results: Lab Results-Last 24 Hours 04/07/24 04/07/24 Range/Units 04:14 04:14 WBC 8.4 (4.23-9.07) x10^3/uL RBC 3.57 L (4.63-6.08) x10^6/uL Hgb 12.3 L (13.7-17.5) g/dL Hct 37.4 L (40.1-51.0) % MCV 104.8 H (79.0-92.2) fL MCH 34.5 H (25.7-32.2) pg MCHC 32.9 (32.3-36.5) g/dL RDW 14.9 H (11.6-14.4) % Plt Count 232 (163-337) x10^3/uL MPV 10.4 (9.4-12.4) fL Gran % 62.6 (34.0-67.9) % Immature Gran % (Auto) 0.6 H (0.001-0.429) % Nucleat RBC Rel Count 0.0 (0.00-0.2) % Eos # (Auto) 0.69 H (0.04-0.54) x10^3/uL Immature Gran # (Auto) 0.05 H (0.001-0.031) x10^3u/L Absolute Lymphs (auto) 1.62 (1.32-3.57) x10^3/uL Absolute Monos (auto) 0.70 (0.30-0.82) x10^3/uL Absolute Nucleated RBC 0.00 (0.00-0.012) x10^3u/L Lymphocytes % 19.4 L (21.8-53.1) % Monocytes % 8.4 (5.3-12.2) % Eosinophils % 8.3 H (0.8-7.0) % Basophils % 0.7 (0.2-1.2) % Absolute Granulocytes 5.24 (1.78-5.38) x10^3/uL Basophils # 0.06 (0.01-0.08) x10^3/uL Sodium 138 (135-145) mmol/L Potassium 4.1 (3.5-5.1) mmol/L Chloride 108 H (98-107) mmol/L Carbon Dioxide 26 (22-30) mmol/L Anion Gap 8.5 (5-15) MEQ/L BUN 10 (9-20) mg/dL Creatinine 0.66 (0.66-1.25) mg/dL Estimated GFR 102.2 ML/MIN Glucose 111 H (74-106) mg/dL Calcium 9.0 (8.4-10.2) mg/dL Total Bilirubin 0.70 (0.2-1.3) mg/dL AST 25 (17-59) U/L ALT 8 (0-50) U/L Alkaline Phosphatase 96 (38-126) U/L Serum Total Protein 6.0 L (6.3-8.2) g/dL Albumin 3.1 L (3.5-5.0) g/dL - Radiology Impressions Radiology Exams & Impressions: Radiology Procedures Category Date Time Status BONE THREE PHASE [NUCMED] Urgent Exams 04/08/24 10:00 Ordered CHEST 1 VIEW (PORTABLE) Stat Exams 04/06/24 14:05 Completed Portable Chest [CHEST 1 VIEW (PORTABLE)] Stat Exams 04/06/24 14:13 Completed Portable Chest [CHEST 1 VIEW (PORTABLE)] Stat Exams 04/06/24 14:34 Completed Assessment/Plan (1) Cellulitis of foot Current Visit: No Status: Ruled-out Assessment & Plan: Patient examination and evaluation Patient is being extremely non-compliant and has a significant dependence on alcohol as well as cigarette smoking which is led to another wound dehiscence Continue weight bearing protocol as prescribed. Continue Infection prophylaxis as prescribed. Continue DVT prophylaxis as prescribed. Patient has been warned in regards to continued weightbearing, alcohol dependence and cigarette smoking. Ulcer debrided as described in the procedure section of the note Patient with significant leg swelling to the right and to a lesser degree the left. Patient has complaints of calf pain at this time decision was made to proceed with venous Doppler which was negative MRI assessment demonstrating increased signal with uptake of T2 and dropout of T1 concerning for OM. Patient refuses amputation WBC labelled bone scan to better assess Culture obtained- negative to soft tissue I discussed with the patient the etiology and treatment options for their bone infection. Treatment options include removal of the infected tissue (amputation) vs. 6-8 weeks of IV antibiotics. They were educated that IV antibiotics may or may not be effective, and that bone remineralization is never certain. In addition to this, IV antibiotics would require a PICC line and daily infusions. Amputation is a more definitive approach, however there is a chance that the infection may still recur; antibiotics may still be used even after the amputation. Judging by the exam and patient's history, I recommended amputation however becky norman wishes to try abx as a first-line approach. Patient is in agreement. Derbidement of wounds preformed: Ulcer Debridement: Attention was directed to the medial 1st MPJ wound Verbal consent was obtained prior to the procedure. Sharp, excisional debridement was performed of the _1st mpj wound with loop curette. Removal of nonviable tissue was performed with the debridement: fibrotic and necrotic tissue Depth of debridement: skin and subcutaneous tissue Hemostasis was obtained a using pressure dressing. Pre- and post- debridement measurements as follows: Pre-Debridement: Size - 1.2 x 0.4 x 0.4 Post-Debridement: Size - 1.3 x 0.6 x 0.4 Attention was directed to the Surgical wound dehiscence Verbal consent was obtained prior to the procedure. Sharp, excisional debridement was performed of the Surgical history wound with loop curette. Removal of nonviable tissue was performed with the debridement: fibrotic and necrotic tissue1 Depth of debridement: skin and subcutaneous tissue Hemostasis was obtained a using pressure dressing. Pre- and post- debridement measurements as follows: Pre-Debridement: Size - 0.6x 1.5 x0.1 Post-Debridement: Size - 0.8 x 1.5 x .0.2 Dressings applied to the bilateral lower extremity to the right Aquacel iodine 4 x 4 and Unna boot to the right lower extremity and Unna boot multilayer compression dressing to the left lower extremity Patient has been advised to call with any concerns regarding edema, erythema, drainage, or any other local or constitutional signs of infection. venous insufficiency and swelling noted to the right with worsening of wound. Wi ll add unna boot to coincide with wound care to prevent dehiscence of surgical wound. non compliance discussed. lifestyle modifications recommended. Code(s): L03.119 - CELLULITIS OF UNSPECIFIED PART OF LIMB (2) Cellulitis of right foot Current Visit: No Status: Acute Code(s): L03.115 - CELLULITIS OF RIGHT LOWER LIMB (3) Smoker Current Visit: No Status: Chronic Code(s): F17.200 - NICOTINE DEPENDENCE, UNSPECIFIED, UNCOMPLICATED (4) Buerger's disease Current Visit: No Status: Chronic Code(s): I73.1 - THROMBOANGIITIS OBLITERANS [BUERGER'S DISEASE] (5) Amputated toe of right foot Current Visit: No Status: Acute Code(s): S98.131A - COMPLETE TRAUMATIC AMPUTATION OF ONE RIGHT LESSER TOE, INIT (6) Right foot pain Current Visit: No Status: Acute Code(s): M79.671 - PAIN IN RIGHT FOOT (7) Osteomyelitis of right foot Current Visit: Yes Status: Acute Code(s): M86.9 - OSTEOMYELITIS, UNSPECIFIED (8) HTN (hypertension) Current Visit: Yes Status: Acute Code(s): I10 - ESSENTIAL (PRIMARY) HYPERTENSION
[2024-04-07] MEDS: ENOXAPARIN SODIUM SQ SCH (09:24)
[2024-04-07 12:16] LABS: Appearance Clear (Clear); Bacteria None Seen /HPF (None Seen); Bilirubin Negative (Negative); Blood Negative (Negative); Epithelial Cells None Seen /HPF (None Seen); Glucose, Urine Negative (Negative); Hyaline Casts NONE SEEN /LPF (0-2); Ketones Negative (Negative); Leukocyte Esterase Negative (Negative); Nitrite Negative (Negative); Protein,Urine Dip Negative (Negative); RBC 0-2 /HPF (0-5); Urobilinogen 0.2 mg/dL (0.2); WBC 0-2 /HPF (0-5)
[2024-04-07 12:20] LABS: ADD URINE CULTURE? NO (NO)
--- NOTE | 2024-04-07 18:00 | PCM.NOTE ---
Date and Time: 04/07/24 9446 Subjective Assessment: seen at chairside this afternoon. pain tolerated. PICC line paced. awaiting bone scan. will determine if we proceed with bone biopsy if confirmed. Physical Exam - Narrative Narrative Physical Exam: Podiatry Physical Exam Objective Data Vital Signs: Vital Signs - 24 hr Temp Pulse Resp BP Pulse Ox 04/07/24 16:00 97.7 F 62 16 155/73 93 L 04/07/24 12:00 98.4 F 73 16 148/78 92 L 04/07/24 07:32 97.5 F 59 L 16 148/62 92 L 04/07/24 04:00 97.5 F 65 17 165/83 97 04/07/24 00:00 97.9 F 63 18 156/77 99 04/06/24 19:49 98.3 F 62 18 159/83 95 Pain Assessment - Last Documented Pain Intensity 7 Pain Scale Used 0-10 Pain Scale Intake and Output: Intake & Output 04/05/24 04/06/24 04/07/24 04/08/24 11:59 11:59 11:59 11:59 Intake Total 700 1010 120 Output Total 600 1600 200 Balance 100 -590 -80 Weight 85.5 kg Lab Results: Lab Results-Last 24 Hours 04/07/24 04/07/24 04/07/24 Range/Units 04:14 04:14 Unknown WBC 8.4 (4.23-9.07) x10^3/uL RBC 3.57 L (4.63-6.08) x10^6/uL Hgb 12.3 L (13.7-17.5) g/dL Hct 37.4 L (40.1-51.0) % MCV 104.8 H (79.0-92.2) fL MCH 34.5 H (25.7-32.2) pg MCHC 32.9 (32.3-36.5) g/dL RDW 14.9 H (11.6-14.4) % Plt Count 232 (163-337) x10^3/uL MPV 10.4 (9.4-12.4) fL Gran % 62.6 (34.0-67.9) % Immature Gran % (Auto) 0.6 H (0.001-0.429) % Nucleat RBC Rel Count 0.0 (0.00-0.2) % Eos # (Auto) 0.69 H (0.04-0.54) x10^3/uL Immature Gran # (Auto) 0.05 H (0.001-0.031) x10^3u/L Absolute Lymphs (auto) 1.62 (1.32-3.57) x10^3/uL Absolute Monos (auto) 0.70 (0.30-0.82) x10^3/uL Absolute Nucleated RBC 0.00 (0.00-0.012) x10^3u/L Lymphocytes % 19.4 L (21.8-53.1) % Monocytes % 8.4 (5.3-12.2) % Eosinophils % 8.3 H (0.8-7.0) % Basophils % 0.7 (0.2-1.2) % Absolute Granulocytes 5.24 (1.78-5.38) x10^3/uL Basophils # 0.06 (0.01-0.08) x10^3/uL Sodium 138 (135-145) mmol/L Potassium 4.1 (3.5-5.1) mmol/L Chloride 108 H (98-107) mmol/L Carbon Dioxide 26 (22-30) mmol/L Anion Gap 8.5 (5-15) MEQ/L BUN 10 (9-20) mg/dL Creatinine 0.66 (0.66-1.25) mg/dL Estimated GFR 102.2 ML/MIN Glucose 111 H (74-106) mg/dL Calcium 9.0 (8.4-10.2) mg/dL Total Bilirubin 0.70 (0.2-1.3) mg/dL AST 25 (17-59) U/L ALT 8 (0-50) U/L Alkaline Phosphatase 96 (38-126) U/L Serum Total Protein 6.0 L (6.3-8.2) g/dL Albumin 3.1 L (3.5-5.0) g/dL Urine Color Yellow (Yellow) Urine Appearance Clear (Clear) Urine pH 6.0 (4.6-8.0) Ur Specific [place] 1.020 (1.005-1.030) Urine Protein Negative (Negative) Urine Glucose (UA) Negative (Negative) mg/dL Urine Ketones Negative (Negative) Urine Blood Negative (Negative) Urine Nitrite Negative (Negative) Urine Bilirubin Negative (Negative) Urine Urobilinogen 0.2 (0.2) mg/dL Ur Leukocyte Esterase Negative (Negative) U Hyaline Cast (Auto) NONE SEEN (0-2) /LPF Urine Microscopic RBC 0-2 (0-5) /HPF Urine Microscopic WBC 0-2 (0-5) /HPF Ur Epithelial Cells None Seen (None Seen) /HPF Urine Bacteria None Seen (None Seen) /HPF Urine Culture Reflexed NO (NO) Radiology Exams: Radiology Procedures Category Date Time Status BONE THREE PHASE [NUCMED] Urgent Exams 04/08/24 09:15 Ordered CHEST 1 VIEW (PORTABLE) Stat Exams 04/06/24 14:05 Completed Portable Chest [CHEST 1 VIEW (PORTABLE)] Stat Exams 04/06/24 14:13 Completed Portable Chest [CHEST 1 VIEW (PORTABLE)] Stat Exams 04/06/24 14:34 Completed Multi-Disciplinary Progress Notes: Multi-Disciplinary Progress Notes 04/07/24 09:21 Case Management Note by Mona Stewart PENDING AT [facility]. PATIENT STILL AGREEABLE FOR REHAB STAY AT [facility] Initialized on 04/07/24 09:21 - END OF NOTE 04/06/24 19:47 Physical Therapy Note by Karolyn(L#[id number])Sandra ATTEMPTED P.T. EVAL THIS P.M. PT. HAVIBF PICC LINE PLACED AND THEN HAD CXR ORDER. WILL ATTEMPT TOMORROW. PER KESHA Jalloh/ DR. OLIVARES, PT. IS TO BE MIN WB ON INVOLVED FOOT. 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 Continue DVT prophylaxis as prescribed. Patient with significant leg swelling to the right and to a lesser degree the left. Patient has complaints of calf pain at this time decision was made to proceed with venous Doppler which was negative MRI assessment demonstrating increased signal with uptake of T2 and dropout of T1 concerning for OM. Patient refuses amputation WBC labelled bone scan to better assess Patient is in agreement. Derbidement of wounds preformed: Ulcer Debridement: Attention was directed to the medial 1st MPJ wound Verbal consent was obtained prior to the procedure. Sharp, excisional debridement was performed of the _1st mpj wound with loop curette. Removal of nonviable tissue was performed with the debridement: fibrotic and necrotic tissue Depth of debridement: skin and subcutaneous tissue Hemostasis was obtained a using pressure dressing. Pre- and post- debridement measurements as follows: Pre-Debridement: Size - 1.5 x 0.4 x 0.4 Post-Debridement: Size - 1.5 x 0.6 x 0.4 Attention was directed to the Surgical wound dehiscence Verbal consent was obtained prior to the procedure. Sharp, excisional debridement was performed of the Surgical history wound with loop curette. Removal of nonviable tissue was performed with the debridement: fibrotic and necrotic tissue1 Depth of debridement: skin and subcutaneous tissue Hemostasis was obtained a using pressure dressing. Pre- and post- debridement measurements as follows: Pre-Debridement: Size - 0.8x 1.3 x0.1 Post-Debridement: Size - 0.8 x 1.5 x .0.2 Dressings applied to the bilateral lower extremity to the right Aquacel iodine 4 x 4 and Unna boot to the right lower extremity and Unna boot multilayer compression dressing to the left lower extremity Patient has been advised to call with any concerns regarding edema, erythema, drainage, or any other local or constitutional signs of infection. venous insufficiency and swelling noted to the right with worsening of wound. Will add unna boot to coincide with wound care to prevent dehiscence of surgical wound. non compliance discussed. lifestyle modifications recommended. Code(s): M86.9 - OSTEOMYELITIS, UNSPECIFIED (8) HTN (hypertension) Current Visit: Yes Status: Acute Code(s): I10 - ESSENTIAL (PRIMARY) HYPERTENSION
[2024-04-08 04:40] LABS: Absolute Neutrophil Ct (ANC) 4.68 x10^3/uL (1.78-5.38); BASOPHIL % 0.6 % (0.2-1.2); Basophil (Absolute #) 0.05 x10^3/uL (0.01-0.08); Eosinophil % 7.2 % (0.8-7.0); Eosinophil (Absolute #) 0.58 x10^3/uL (0.04-0.54); Hematocrit 36.7 % (40.1-51.0); Hemoglobin 12.3 g/dL (13.7-17.5); IMMATURE GRAN # 0.14 x10^3u/L (0.001-0.031); IMMATURE GRAN % 1.7 % (0.001-0.429); Lymphocyte (Absolute #) 1.72 x10^3/uL (1.32-3.57); Lymphocytes % 21.4 % (21.8-53.1); Mean Cell Volume 103.4 fL (79.0-92.2); Mean Corpuscular Hemoglobin 34.6 pg (25.7-32.2); Mean Corpuscular Hgb Concent. 33.5 g/dL (32.3-36.5); Mean Platelet Volume 10.9 fL (9.4-12.4); Monocyte (Absolute #) 0.87 x10^3/uL (0.30-0.82); Monocytes % 10.8 % (5.3-12.2); Neutrophil % 58.3 % (34.0-67.9); Platelet Count 241 x10^3/uL (163-337); Red Blood Count 3.55 x10^6/uL (4.63-6.08); Red Cell Distribution Width 14.9 % (11.6-14.4)
[2024-04-08 05:04] LABS: ALBUMIN 3.2 g/dL (3.5-5.0); ANION GAP 8.6 MEQ/L (5-15); BILIRUBIN,TOTAL 0.7 mg/dL (0.2-1.3); Calcium 9.1 mg/dL (8.4-10.2); Creatinine 1 0.64 mg/dL (0.66-1.25); EST GLOMERULAR FILTRATION RATE 103.1 ML/MIN; Potassium 4.1 mmol/L (3.5-5.1); Total Protein 6.1 g/dL (6.3-8.2)
--- NOTE | 2024-04-08 05:17 | PCM.NOTE ---
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 Grant (podiatry) direct admitted for evaluation and treatment of osteomyelitis on m etatarsals of the right foot. MRI of the RLE showing Diffuse forefoot soft tissue swelling/edema, probable cellulitis. Suspect osteomyelitis on metatarsals with pathologic fractures as detailed. Lesser osteomyelitis proximal 1st/4th/5th phalanges. Patient endorses pain to the RLE rating 8/10 on numerical pain scale but otherwise no complaints.Labs and vitals stable. Patient does not wish to amputate. Plan is to have PICC line placed for IV abx. Vanc/Cefepime. Podiatry following. 04/06: Met with patient bedside. Endorses pain is controlled with current medication regimen. Patient has refused labs this morning. Plan for PICC placement today. Patient would like placement on discharge at [facility]. CM working for approval. Per podiatry, patient okay for limited weight bearing. Plan to continue with cefepime as culture from 03/22 showing pseudomonas. Per podiatry, patient may need bone biopsy to ensure OM. He continues to decline amputation. 04/07: Met with patient bedside. S/P debridemet of RLE wound. Non-compliant with dressings, keeps removing them. Patient states the iodine is burning. Pain is controlled with current pain regimen per pt report. Podiatry note reviewed with recs for amputation which patient is not agreeable to. Patient would like to try 6-8 week course of antibiotics first. PICC has been placed. Continue weight bearing protocol and dressing changes per podiatry. Placement pending for ENVIVE. Bone scan scheduled for tomorrow. May need bone biopsy. Denies fever,cough, sob, cp, abdominal pain, HANSEN, dizziness, N/V/D. 04/08/24: No overnight events noted. Endorses 4/10 RLE pain, controlled with current pain regimen. Plan for bone scan today and possible biopsy pending results. ENVIVE precert pending. - Review of Systems Constitutional: No Fever, No Chills Eyes: No Symptoms Ears, Nose, & Throat: No Symptoms Respiratory: No Cough, No Short Of Breath Cardiac: No Chest Pain, No Edema, No Syncope Abdominal/Gastrointestinal: No Abdominal Pain, No Nausea, No Vomiting, No Diarrhea Genitourinary Symptoms: No Dysuria Musculoskeletal: Joint Pain Skin: No Rash Neurological: No Dizziness, No Focal Weakness, No Sensory Changes Psychological: No Symptoms Endocrine: No Symptoms Hematologic/Lymphatic: No Symptoms Immunological/Allergic: No Symptoms Objective Exam General Appearance: no apparent distress Neurologic Exam: alert, oriented x 3, cooperative Skin Exam: normal color, other (Open wound to medial 1st MPJ - with dressing CDI) Wound Assessment: Skin/Wound Assessment Wound/Incision Assessment Start: 04/05/24 11:25 Text: Status: Active Freq: Q6H Protocol: Document 04/08/24 02:00 (Rec: 04/08/24 05:01 [email or web address]) Wound/Incision Assessment Right Foot Wound Assessment Shift Assessment Secondary Dressing Gauze Roll/Wrap Comment unable to assess Eye Exam: PERRL Ears, Nose, Throat Exam: normal ENT inspection Neck Exam: normal inspection Respiratory Exam: normal breath sounds, lungs clear Cardiovascular Exam: regular rate/rhythm, normal heart sounds Gastrointestinal/Abdomen Exam: soft, normal bowel sounds Extremity Exam: normal range of motion, amputations Back Exam: normal inspection Male Genitalia Exam: deferred Objective Data Vital Signs: Vital Signs - 24 hr Temp Pulse Resp BP Pulse Ox 04/08/24 04:00 97.4 F 59 L 17 175/85 97 04/08/24 00:00 98.0 F 56 L 16 169/68 98 04/07/24 20:00 98.3 F 62 18 144/70 96 04/07/24 16:00 97.7 F 62 16 155/73 93 L 04/07/24 12:00 98.4 F 73 16 148/78 92 L 04/07/24 07:32 97.5 F 59 L 16 148/62 92 L Pain Assessment - Last Documented Pain Intensity 8 Pain Scale Used 0-10 Pain Scale Intake and Output: Intake & Output 04/05/24 04/06/24 04/07/24 04/08/24 11:59 11:59 11:59 11:59 Intake Total 700 1010 820 Output Total 600 1600 1250 Balance 100 -590 -430 Weight 85.5 kg Lab Results: Lab Results-Last 24 Hours 04/07/24 04/07/24 04/08/24 Range/Units 04:14 Unknown 04:12 WBC 8.0 (4.23-9.07) x10^3/uL RBC 3.55 L (4.63-6.08) x10^6/uL Hgb 12.3 L (13.7-17.5) g/dL Hct 36.7 L (40.1-51.0) % MCV 103.4 H (79.0-92.2) fL MCH 34.6 H (25.7-32.2) pg MCHC 33.5 (32.3-36.5) g/dL RDW 14.9 H (11.6-14.4) % Plt Count 241 (163-337) x10^3/uL MPV 10.9 (9.4-12.4) fL Gran % 58.3 (34.0-67.9) % Immature Gran % (Auto) 1.7 H (0.001-0.429) % Nucleat RBC Rel Count 0.0 (0.00-0.2) % Eos # (Auto) 0.58 H (0.04-0.54) x10^3/uL Immature Gran # (Auto) 0.14 H (0.001-0.031) x10^3u/L Absolute Lymphs (auto) 1.72 (1.32-3.57) x10^3/uL Absolute Monos (auto) 0.87 H (0.30-0.82) x10^3/uL Absolute Nucleated RBC 0.00 (0.00-0.012) x10^3u/L Lymphocytes % 21.4 L (21.8-53.1) % Monocytes % 10.8 (5.3-12.2) % Eosinophils % 7.2 H (0.8-7.0) % Basophils % 0.6 (0.2-1.2) % Absolute Granulocytes 4.68 (1.78-5.38) x10^3/uL Basophils # 0.05 (0.01-0.08) x10^3/uL Sodium 138 (135-145) mmol/L Potassium 4.1 (3.5-5.1) mmol/L Chloride 108 H (98-107) mmol/L Carbon Dioxide 26 (22-30) mmol/L Anion Gap 8.5 (5-15) MEQ/L BUN 10 (9-20) mg/dL Creatinine 0.66 (0.66-1.25) mg/dL Estimated GFR 102.2 ML/MIN Glucose 111 H (74-106) mg/dL Calcium 9.0 (8.4-10.2) mg/dL Total Bilirubin 0.70 (0.2-1.3) mg/dL AST 25 (17-59) U/L ALT 8 (0-50) U/L Alkaline Phosphatase 96 (38-126) U/L Serum Total Protein 6.0 L (6.3-8.2) g/dL Albumin 3.1 L (3.5-5.0) g/dL Urine Color Yellow (Yellow) Urine Appearance Clear (Clear) Urine pH 6.0 (4.6-8.0) Ur Specific [place] 1.020 (1.005-1.030) Urine Protein Negative (Negative) Urine Glucose (UA) Negative (Negative) mg/dL Urine Ketones Negative (Negative) Urine Blood Negative (Negative) Urine Nitrite Negative (Negative) Urine Bilirubin Negative (Negative) Urine Urobilinogen 0.2 (0.2) mg/dL Ur Leukocyte Esterase Negative (Negative) U Hyaline Cast (Auto) NONE SEEN (0-2) /LPF Urine Microscopic RBC 0-2 (0-5) /HPF Urine Microscopic WBC 0-2 (0-5) /HPF Ur Epithelial Cells None Seen (None Seen) /HPF Urine Bacteria None Seen (None Seen) /HPF Urine Culture Reflexed NO (NO) 04/08/24 Range/Units 04:12 WBC (4.23-9.07) x10^3/uL RBC (4.63-6.08) x10^6/uL Hgb (13.7-17.5) g/dL Hct (40.1-51.0) % MCV (79.0-92.2) fL MCH (25.7-32.2) pg MCHC (32.3-36.5) g/dL RDW (11.6-14.4) % Plt Count (163-337) x10^3/uL MPV (9.4-12.4) fL Gran % (34.0-67.9) % Immature Gran % (Auto) (0.001-0.429) % Nucleat RBC Rel Count (0.00-0.2) % Eos # (Auto) (0.04-0.54) x10^3/uL Immature Gran # (Auto) (0.001-0.031) x10^3u/L Absolute Lymphs (auto) (1.32-3.57) x10^3/uL Absolute Monos (auto) (0.30-0.82) x10^3/uL Absolute Nucleated RBC (0.00-0.012) x10^3u/L Lymphocytes % (21.8-53.1) % Monocytes % (5.3-12.2) % Eosinophils % (0.8-7.0) % Basophils % (0.2-1.2) % Absolute Granulocytes (1.78-5.38) x10^3/uL Basophils # (0.01-0.08) x10^3/uL Sodium 137 (135-145) mmol/L Potassium 4.1 (3.5-5.1) mmol/L Chloride 108 H (98-107) mmol/L Carbon Dioxide 25 (22-30) mmol/L Anion Gap 8.6 (5-15) MEQ/L BUN 12 (9-20) mg/dL Creatinine 0.64 L (0.66-1.25) mg/dL Estimated GFR 103.1 ML/MIN Glucose 100 (74-106) mg/dL Calcium 9.1 (8.4-10.2) mg/dL Total Bilirubin 0.70 (0.2-1.3) mg/dL AST 22 (17-59) U/L ALT 8 (0-50) U/L Alkaline Phosphatase 91 (38-126) U/L Serum Total Protein 6.1 L (6.3-8.2) g/dL Albumin 3.2 L (3.5-5.0) g/dL Urine Color (Yellow) Urine Appearance (Clear) Urine pH (4.6-8.0) Ur Specific [place] (1.005-1.030) Urine Protein (Negative) Urine Glucose (UA) (Negative) mg/dL Urine Ketones (Negative) Urine Blood (Negative) Urine Nitrite (Negative) Urine Bilirubin (Negative) Urine Urobilinogen (0.2) mg/dL Ur Leukocyte Esterase (Negative) U Hyaline Cast (Auto) (0-2) /LPF Urine Microscopic RBC (0-5) /HPF Urine Microscopic WBC (0-5) /HPF Ur Epithelial Cells (None Seen) /HPF Urine Bacteria (None Seen) /HPF Urine Culture Reflexed (NO) Radiology Exams: Radiology Procedures Category Date Time Status BONE THREE PHASE [NUCMED] Urgent Exams 04/08/24 09:15 Ordered CHEST 1 VIEW (PORTABLE) Stat Exams 04/06/24 14:05 Completed Portable Chest [CHEST 1 VIEW (PORTABLE)] Stat Exams 04/06/24 14:13 Completed Portable Chest [CHEST 1 VIEW (PORTABLE)] Stat Exams 04/06/24 14:34 Completed Multi-Disciplinary Progress Notes: Multi-Disciplinary Progress Notes 04/07/24 09:21 Case Management Note by Mona Stewart PENDING AT [facility]. PATIENT STILL AGREEABLE FOR REHAB STAY AT [facility] Initialized on 04/07/24 09:21 - END OF NOTE Assessment/Plan (1) Osteomyelitis of right foot Current Visit: Yes Status: Acute Assessment & Plan: -Podiatry following - pt requesting no amputation -Images reviewed MRI right foot from 04/02/24, showing diffuse forefoot soft tissue swelling/edema, probable cellulitis. Suspect osteomyelitis on metatarsals with pathologic fractures as detailed. Lesser osteomyelitis proximal 1st/4th/5th phalanges. -Vanc/cefepime pharm to dose -PICC placement 04/06: -Agree with podiatry recommendations for bone scan (), cefepime.PICC placement today- may need bone biopsy -PT eval -CM to work on placement at [facility] 04/07: -Pain controlled -continue weight bearing protocol -Podiatry note reviewed, agree with plan for 6-8 weeks of cefepime/may need bone biopsy -Bone scan scheduled for tomorrow -Current wound cultures negative -Placement pending 04/08: -Bone scan today, pending results possible bone biopsy -continue cefepime 6-8 weeks per podiatry -placement pending -pain controlled - continue current management Code(s): M86.9 - OSTEOMYELITIS, UNSPECIFIED (2) Alcohol abuse Current Visit: No Status: Acute Assessment & Plan: -obtain alcohol level -CIWA protocol 04/07: -No symptoms of w/d Code(s): F10.10 - ALCOHOL ABUSE, UNCOMPLICATED (3) HTN (hypertension) Current Visit: Yes Status: Acute Assessment & Plan: -continue home meds Code(s): I10 - ESSENTIAL (PRIMARY) HYPERTENSION (4) History of gout Current Visit: No Status: Chronic Assessment & Plan: -Does not appear to be in exacerbation - will check uric acid level -Continue home allopurinol Code(s): Z87.39 - PERSONAL HISTORY OF DISEASES OF THE MS SYS AND CONN TISS (5) Smoker Current Visit: Yes Status: Acute Assessment & Plan: -vapes -advised cessation -nicotine patch Code(s): M86.9 - OSTEOMYELITIS, UNSPECIFIED Code(s): M86.9 - OSTEOMYELITIS, UNSPECIFIED (2) Alcohol abuse Current Visit: No Status: Acute Code(s): F10.10 - ALCOHOL ABUSE, UNCOMPLI CATED (3) HTN (hypertension) Current Visit: Yes Status: Acute Code(s): I10 - ESSENTIAL (PRIMARY) HYPERTE NSION (4) History of gout Current Visit: No Status: Chronic Code(s): Z87.39 - PERSONAL HISTORY OF DISEASES OF THE MS SYS AND CONN TISS (5) Smoker Current Visit: Yes Status: Acute Code(s): F17.200 - NICOTINE DEPENDENCE, UNSPECIFIED, UNCOMPLICATED
--- NOTE | 2024-04-08 12:55 | XRAY ---
Indication: Right foot open wound infection. Osteomyelitis. Amputation right 2nd/3rd toes. Comparison: None Patient received 27.6 mCi technetium 99 MDP. Immediate blood flow and blood pool images obtained both feet in the plantar plane. 3 hour delayed images obtained in the plantar, medial, and lateral planes. Blood flow and blood pool images demonstrate symmetric radiopharmaceutical activity to both feet. Delayed images demonstrates osteodegenerative activity both mid feet and both 1st MTP. Amputation right 2nd/3rd toes. Impression: 1. Osteodegenerative both feet as detailed. 2. Remaining nuclear medicine three-phase bone scan is negative.
[2024-04-09 04:48] LABS: Absolute Neutrophil Ct (ANC) 3.55 x10^3/uL (1.78-5.38); BASOPHIL % 0.8 % (0.2-1.2); Basophil (Absolute #) 0.05 x10^3/uL (0.01-0.08); Eosinophil % 7.3 % (0.8-7.0); Eosinophil (Absolute #) 0.48 x10^3/uL (0.04-0.54); Hematocrit 36.9 % (40.1-51.0); Hemoglobin 11.9 g/dL (13.7-17.5); IMMATURE GRAN # 0.04 x10^3u/L (0.001-0.031); IMMATURE GRAN % 0.6 % (0.001-0.429); Lymphocyte (Absolute #) 1.77 x10^3/uL (1.32-3.57); Lymphocytes % 26.8 % (21.8-53.1); Mean Cell Volume 103.9 fL (79.0-92.2); Mean Corpuscular Hemoglobin 33.5 pg (25.7-32.2); Mean Corpuscular Hgb Concent. 32.2 g/dL (32.3-36.5); Mean Platelet Volume 11.2 fL (9.4-12.4); Monocyte (Absolute #) 0.71 x10^3/uL (0.30-0.82); Monocytes % 10.8 % (5.3-12.2); Neutrophil % 53.7 % (34.0-67.9); Platelet Count 196 x10^3/uL (163-337); Red Blood Count 3.55 x10^6/uL (4.63-6.08); Red Cell Distribution Width 15.1 % (11.6-14.4); White Blood Count 6.6 x10^3/uL (4.23-9.07)
[2024-04-09 05:28] LABS: ALBUMIN 3.1 g/dL (3.5-5.0); ANION GAP 8.7 MEQ/L (5-15); BILIRUBIN,TOTAL 0.7 mg/dL (0.2-1.3); Creatinine 1 0.54 mg/dL (0.66-1.25); EST GLOMERULAR FILTRATION RATE 108.6 ML/MIN; Potassium 4.2 mmol/L (3.5-5.1); Total Protein 6.1 g/dL (6.3-8.2)
[2024-04-09 06:40] VITALS: RESP 16
--- NOTE | 2024-04-09 09:25 | PCM.DS ---
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 Olivares (podiatry) direct admitted for evaluation and treatment of osteomyelitis on metatarsals of the right foot. MRI of the RLE showing Diffuse forefoot soft tissue swelling/edema, probable cellulitis. Suspect osteomyelitis on metatarsal s with pathologic fractures as detailed. Lesser osteomyelitis proximal 1st/4th/5th phalanges. Patient endorses pain to the RLE rating 8/10 on numerical pain scale but otherwise no complaints.Labs and vitals stable. Patient does not wish to amputate. Plan is to have PICC line placed for IV abx. Vanc/Cefepime. Podiatry following. 04/06: Met with patient bedside. Endorses pain is controlled with current medication regimen. Patient has refused labs this morning. Plan for PICC placement today. Patient would like placement on discharge at [facility]. CM working for approval. Per podiatry, patient okay for limited weight bearing. Plan to continue with cefepime as culture from 03/22 showing pseudomonas. Per podiatry, patient may need bone biopsy to ensure OM. He continues to decline amputation. 04/07: Met with patient bedside. S/P debridemet of RLE wound. Non-compliant with dressings, keeps removing them. Patient states the iodine is burning. Pain is controlled with current pain regimen per pt report. Podiatry note reviewed with recs for amputation which patient is not agreeable to. Patient would like to try 6-8 week course of antibiotics first. PICC has been placed. Continue weight bearing protocol and dressing changes per podiatry. Placement pending for [facility]. Bone scan scheduled for tomorrow. May need bone biopsy. Denies fever,cough, sob, cp, abdominal pain, HANSEN, dizziness, N/V/D. 04/08/24: No overnight events noted. Endorses 4/10 RLE pain, controlled with current pain regimen. Plan for bone scan today and possible biopsy pending results. ENVIVE precert pending. 04/09: Patient doing well. Per podiatry he will need 6 weeks of cefepime, dressing changes M-W-F, and minimal weight bearing. Follow up OP with podiatry as scheduled. Discharge Note Latest Assessment & Plan (1) Osteomyelitis of right foot Current Visit: Yes Status: Acute Assessment & Plan: -Podiatry following - pt requesting no amputation -Images reviewed MRI right foot from 04/02/24, showing diffuse forefoot soft tissue swelling/edema, probable cellulitis. Suspect osteomyelitis on metatarsals with pathologic fractures as detailed. Lesser osteomyelitis proximal 1st/4th/5th phalanges. -Vanc/cefepime pharm to dose -PICC placement 04/06: -Agree with podiatry recommendations for bone scan (), cefepime.PICC placement today- may need bone biopsy -PT eval -CM to work on placement at [facility] 04/07: -Pain controlled -continue weight bearing protocol -Podiatry note reviewed, agree with plan for 6-8 weeks of cefepime/may need bone biopsy -Bone scan scheduled for tomorrow -Current wound cultures negative -Placement pending 04/08: -Bone scan today, pending results possible bone biopsy -continue cefepime 6-8 weeks per podiatry -placement pending -pain controlled - continue current management Code(s): M86.9 - OSTEOMYELITIS, UNSPECIFIED (2) Alcohol abuse Current Visit: No Status: Acute Assessment & Plan: -obtain alcohol level -[facility] protocol 04/07: -No symptoms of w/d Code(s): F10.10 - ALCOHOL ABUSE, UNCOMPLICATED (3) HTN (hypertension) Current Visit: Yes Status: Acute Assessment & Plan: -continue home meds Code(s): I10 - ESSENTIAL (PRIMARY) HYPERTENSION (4) History of gout Current Visit: No Status: Chronic Assessment & Plan: -Does not appear to be in exacerbation - will check uric acid level -Continue home allopurinol Code(s): Z87.39 - PERSONAL HISTORY OF DISEASES OF THE MS SYS AND CONN TISS (5) Smoker Current Visit: Yes Status: Acute Assessment & Plan: -vapes -advised cessation -nicotine patch Code(s): M86.9 - OSTEOMYELITIS, UNSPECIFIED Code(s): M86.9 - OSTEOMYELITIS, UNSPECIFIED I spent 35 minutes [id number] with the patient on the day of discharge performing discharge exam, discussing hospital stay and discharge instructions with patient and caregivers, preparation of discharge records, prescriptions & referral forms and addressing any questions/concerns the patient had as documented above. - Vitals & Intake/Output Vital Signs: Vital Signs Temperature 97.5 F 04/09/24 06:39 Pulse Rate 56 L 04/09/24 06:39 Respiratory Rate 16 04/09/24 06:39 Blood Pressure 138/76 04/09/24 06:39 O2 Sat by Pulse Oximetry 92 L 04/09/24 06:39 Intake & Output: Intake & Output 04/06/24 04/07/24 04/08/24 04/09/24 11:59 11:59 11:59 11:59 Intake Total 700 5327 113 1935 Output Total 600 1600 1450 975 Balance 100 -590 -510 655 Weight 85.5 kg - Lab Result Diagrams: 04/09/24 04:25 04/09/24 04:25 Lab Results-Last 24 Hrs: Lab Results-Last 24 Hours 04/09/24 04/09/24 Range/Units 04:25 04:25 WBC 6.6 (4.23-9.07) x10^3/uL RBC 3.55 L (4.63-6.08) x10^6/uL Hgb 11.9 L (13.7-17.5) g/dL Hct 36.9 L (40.1-51.0) % MCV 103.9 H (79.0-92.2) fL MCH 33.5 H (25.7-32.2) pg MCHC 32.2 L (32.3-36.5) g/dL RDW 15.1 H (11.6-14.4) % Plt Count 196 (163-337) x10^3/uL MPV 11.2 (9.4-12.4) fL Gran % 53.7 (34.0-67.9) % Immature Gran % (Auto) 0.6 H (0.001-0.429) % Nucleat RBC Rel Count 0.0 (0.00-0.2) % Eos # (Auto) 0.48 (0.04-0.54) x10^3/uL Immature Gran # (Auto) 0.04 H (0.001-0.031) x10^3u/L Absolute Lymphs (auto) 1.77 (1.32-3.57) x10^3/uL Absolute Monos (auto) 0.71 (0.30-0.82) x10^3/uL Absolute Nucleated RBC 0.00 (0.00-0.012) x10^3u/L Lymphocytes % 26.8 (21.8-53.1) % Monocytes % 10.8 (5.3-12.2) % Eosinophils % 7.3 H (0.8-7.0) % Basophils % 0.8 (0.2-1.2) % Absolute Granulocytes 3.55 (1.78-5.38) x10^3/uL Basophils # 0.05 (0.01-0.08) x10^3/uL Sodium 137 (135-145) mmol/L Potassium 4.2 (3.5-5.1) mmol/L Chloride 108 H (98-107) mmol/L Carbon Dioxide 25 (22-30) mmol/L Anion Gap 8.7 (5-15) MEQ/L BUN 12 (9-20) mg/dL Creatinine 0.54 L (0.66-1.25) mg/dL Estimated GFR 108.6 ML/MIN Glucose 101 (74-106) mg/dL Calcium 9.0 (8.4-10.2) mg/dL Total Bilirubin 0.70 (0.2-1.3) mg/dL AST 24 (17-59) U/L ALT 9 (0-50) U/L Alkaline Phosphatase 71 (38-126) U/L Serum Total Protein 6.1 L (6.3-8.2) g/dL Albumin 3.1 L (3.5-5.0) g/dL - Radiology Exams Ordered Rad Exams-Entire Visit: Radiology Procedures Category Date Time Status BONE THREE PHASE [NUCMED] Urgent Exams 04/08/24 09:15 Completed - Procedures and Test Procedures and Tests throughout Hospitalization: Therapy Orders & Screens 04/06/24 11:24 PT Eval & Treat ( Order) ONCE Reason for Eval:: unsteady gait Diagnosis: OSTEOMYELITIS, CELLULITIS Discharge Exam General Appearance: no apparent distress Neurologic Exam: alert, oriented x 3, cooperative Eye Exam: PERRL Ears, Nose, Throat Exam: normal ENT inspection Neck Exam: normal inspection Respiratory Exam: normal breath sounds, lungs clear Cardiovascular Exam: regular rate/rhythm, normal heart sounds Gastrointestinal/Abdomen Exam: soft, normal bowel sounds Male Genitalia Exam: deferred Rectal Exam: deferred Skin Exam: other (see wound assessment) Wound Assessment: Skin/Wound Assessment Wound/Incision Assessment Start: 04/05/24 11:25 Text: Status: Active Freq: Q6H Protocol: Document 04/09/24 07:37 RB (Rec: 04/09/24 08:17 RB [id number]) Wound/Incision Assessment Right Foot Wound Assessment Shift Assessment Primary Dressing Non-Adherent Gauze Pads Secondary Dressing Gauze Roll/Wrap Comment LOOSE GAUZE AROUND THE ANKLE AT THIS TIME, PT REMOVED DRESSING LAST NIGHT, NON ADHEARANT PADS COVERING THE WOUND, WILL NOTIFY DR OLIVARES AND BRISA ROLLINS Wound Photo Photo Taken No Final Diagnosis/Problem List - Final Discharge Diagnosis/Problem (1) Osteomyelitis of right foot Current Visit: Yes Status: Acute Code(s): M86.9 - OSTEOMYELITIS, UNSPECIFIED (2) Alcohol abuse Current Visit: No Status: Acute Code(s): F10.10 - ALCOHOL ABUSE, UNCOMPLICATED (3) HTN (hypertension) Current Visit: Yes Status: Acute Code(s): I10 - ESSENTIAL (PRIMARY) HYPERTENSION (4) History of gout Current Visit: No Status: Chronic Code(s): Z87.39 - PERSONAL HISTORY OF DISEASES OF THE MS SYS AND CONN TISS (5) Smoker Current Visit: Yes Status: Acute Code(s): F17.200 - NICOTINE DEPENDENCE, UNSPECIFIED, UNCOMPLICATED - Discharge Disposition: DC TO ANY "OTHER" GROUP HOME Condition: Stable Prescriptions: New Cefepime HCl 2 gm [Maxipime 2 GM] 2 g IV BID Nicotine 21 mg [Nicoderm CQ 21 MG] 21 mg TOP DAILY patch Oxycodone / APAP 10/325 mg [Oxycodone-Acetaminophen 10-325] 1 tab PO Q6H PRN PRN 4 Days #12 tablet MDD 4 PRN Reason: Pain Continue Potassium Chloride Tab* [Klor Con] 10 meq PO DAILY Allopurinol 100 mg [Zyloprim 100 mg] 100 mg PO DAILY Losartan Potassium 50 mg PO DAILY Indomethacin 50 mg PO BID Oxycodone / APAP 10/325 mg [Oxycodone-Acetaminophen 10-325] 1 tab PO Q8HPRN PRN PRN Reason: Pain Diazepam 5 mg [Valium 5 MG] 5 mg PO TID PRN PRN Reason: Anxiety Follow up with: ELISE SHAH DPM [Family Provider] - 04/14/24 10:30 am LEILANI ATKINS MD [Primary Care Provider] - 04/26/24 11:45 am ([phone])
[2024-04-09 11:48] VITALS: BP 142/79; PULSE 82; TEMP 97.7; O2SAT 94
== END 2024-04-09 12:35 | DRG 540 ==
LOC: MED SURG 05:05 → OBSVTOIN 04-06 05:05
PROVIDERS: ADMIT Internal Medicine; ATTEND Internal Medicine
DX: M86.9 Osteomyelitis, unspecified (principal); K50.90 Crohn's disease, unspecified, without complications; L03.115 Cellulitis of right lower limb; F10.10 Alcohol abuse, uncomplicated; I10 Essential (primary) hypertension; Z87.39 Personal history of other diseases of the musculoskeletal system and connective tissue; F17.200 Nicotine dependence, unspecified, uncomplicated; I73.1 Thromboangiitis obliterans [Buerger's disease]; S98.131A Complete traumatic amputation of one right lesser toe, initial encounter; M79.671 Pain in right foot; F41.9 Anxiety disorder, unspecified; Z86.718 Personal history of other venous thrombosis and embolism; Z79.899 Other long term (current) drug therapy
CPT/HCPCS: 11042; 29580; 36415; 36569; 71045; 78315; 80053; 81001; 84134; 84145; 84550; 85025; 85027; 97161; 99232; A9503; G0378; J0692; J1650; A9270-GY; J3370

== ENCOUNTER 2024-04-20 07:15 | Day surgery (SDC) | payer MEDICARE ==
[~2024-04-20 07:15] MED LIST changes: +MINERAL OIL LIGHT 10 ML FOR SURGERY ONE; -Marcaine Mpf 0.5% Vial 30 Ml ONE; +Thrombin-JMI 5000 UNITS TP ONE; +XYLOCAINE 1%/Epi 1:100000 MDV 20 ML ONE; -Xylocaine 1% Vial 30 ML PF IJ ONE
[2024-04-20] MEDS ORDERED: Lactated Ringers 1,000 ML IV ONE (07:25)
[2024-04-20] MEDS: Lactated Ringers 1,000 ML IV SCH (07:31)
[2024-04-20] MEDS ORDERED: TYLENOL EXTRA STRENGTH 500 MG ONE (07:32)
[2024-04-20] MEDS ORDERED: celeBREX 100 MG ONE (07:33)
[2024-04-20] MEDS ORDERED: Decadron 4 MG ONE (07:33)
[2024-04-20] MEDS ORDERED: NEURONTIN ONE (07:33)
[2024-04-20] MEDS: Decadron 4 MG PO ONE (07:33)
[2024-04-20] MEDS: TYLENOL EXTRA STRENGTH 500 MG PO ONE (07:33)
[2024-04-20] MEDS: NEURONTIN PO ONE (07:34)
[2024-04-20] MEDS: celeBREX 100 MG PO ONE (07:34)
[2024-04-20 07:45] LABS: Hematocrit 40.1 % (40.1-51.0); Hemoglobin 12.8 g/dL (13.7-17.5); Mean Cell Volume 105.8 fL (79.0-92.2); Mean Corpuscular Hemoglobin 33.8 pg (25.7-32.2); Mean Corpuscular Hgb Concent. 31.9 g/dL (32.3-36.5); Mean Platelet Volume 11.1 fL (9.4-12.4); Platelet Count 180 x10^3/uL (163-337); Red Blood Count 3.79 x10^6/uL (4.63-6.08); Red Cell Distribution Width 13.8 % (11.6-14.4); White Blood Count 5.7 x10^3/uL (4.23-9.07)
[2024-04-20 07:48] VITALS: RESP 16
[2024-04-20 07:58] LABS: ALBUMIN 3.6 g/dL (3.5-5.0); BILIRUBIN,TOTAL 0.5 mg/dL (0.2-1.3); Creatinine 1 0.63 mg/dL (0.66-1.25); EST GLOMERULAR FILTRATION RATE 103.6 ML/MIN; Potassium 4.7 mmol/L (3.5-5.1); Total Protein 6.5 g/dL (6.3-8.2)
[2024-04-20] MEDS ORDERED: CEFAZOLIN 2 GM/100 ML NaCl 2 GM/100 ML IVPB IV ONE (08:03)
[2024-04-20] MEDS: CEFAZOLIN 2 GM/100 ML NaCl 2 GM/100 ML IVPB IV SCH (08:04)
[2024-04-20] MEDS ORDERED: Xylocaine-Mpf 2% 5 Ml Vial ONE ×2 (10:09→13:57)
[2024-04-20] MEDS ORDERED: DIPRIVAN 200 MG/20 ML IV ONE (10:09)
[2024-04-20] MEDS ORDERED: SUBLIMAZE 100 MCG/2 ML ONE ×2 (10:09→11:54)
[2024-04-20] MEDS ORDERED: Zofran 4 MG/2 ML VIAL ONE (10:09)
[2024-04-20] MEDS ORDERED: Versed 2 MG/2 ML Injection ONE (10:09)
[2024-04-20] MEDS ORDERED: Decadron 4 MG INJ ONE (10:09)
[2024-04-20] MEDS ORDERED: TORAdol 30 mg Injection ONE (10:10)
[2024-04-20] MEDS ORDERED: Ephedrine Sulfate 50 MG/ML ONE (10:31)
[2024-04-20] MEDS ORDERED: Sodium Chloride 0.9% 1000 ML 1,000 ML ONE (10:44)
[2024-04-20] MEDS ORDERED: Hydromorphone 1 mg/ml Injection ONE ×2 (11:54→12:46)
[2024-04-20] MEDS ORDERED: MORPHINE SULFATE 2 MG INJ ONE (12:22)
[2024-04-20] MEDS ORDERED: Naropin 0.5% 30 ML VIAL ONE (13:57)
[2024-04-20] MEDS ORDERED: Marcaine 0.5%/Epinephrine 10 ML ONE (13:57)
[2024-04-20 15:05] VITALS: BP 149/91; PULSE 99; TEMP 97.9; O2SAT 97
--- NOTE | 2024-04-23 13:16 | OP ---
SURGERY DATE/TIME: 04/20/2024 6609 - [id number] PREOPERATIVE DIAGNOSES: 1) Chronic nonhealing wound. 2) Buerger disease. 3) Nicotine dependence. 4) Alcoholism. 5) Noncompliance with treatment. POSTOPERATIVE DIAGNOSES: 1) Chronic nonhealing wound. 2) Buerger disease. 3) Nicotine dependence. 4) Alcoholism. 5) Noncompliance with treatment. PROCEDURES: 1) Incision and drainage with debridement of bone, right foot, 2 locations. 2) Two split-thickness skin grafts from right thigh to right foot. SURGEON: Rudy Graves MD SETTER OFF: None. ANESTHESIA: General with LMA. HEMOSTASIS: Pressure dressing. ESTIMATED BLOOD LOSS: Approximately 2 mL. MATERIALS: 3-0 nylon. INJECTABLES: 1) 10 mL of 1% lidocaine with epinephrine to the right thigh. 2) 10 mL of 1:1 mixture of 1% lidocaine plain and 0.5% bupivacaine plain injected in an intermetatarsal block-type fashion. INDICATIONS FOR PROCEDURE: Titus is a very pleasant, 69-year-old male with chronic history of gangrenous toes to the right foot with amputation to digits 2 and 3. Following his procedure, the patient was noncompliant and continued to smoke despite his Buerger disease as well as ambulate and consumed alcohol. As a result, he has had a wound dehiscence for which we have been trying to heal from a conservative modality. The patient, at this time, did have a recent concern over infection of the right foot. An MRI was taken suggestive of osteomyelitis. However, when a bone scan was performed, demonstrated less of a concern for this. There is a small amount of exposed bone at the dorsal aspect of the wound laterally in between the fourth and first digits. As a result, we have decided to proceed with more aggressive measures consisting of a bone debridement and split-thickness skin graft. Patient understands all risks, complications, and benefits of surgical intervention at this time including but not limited to infection, hematoma, seroma, possibility of delayed wound healing, non-wound healing and possible need for further surgical intervention at a later date. No guarantees were provided as to the outcome of surgical intervention. At this time, we decided to proceed. DESCRIPTION OF PROCEDURE AND FINDINGS: Patient was brought into the operating room and placed on the operating room table in the supine position at this time. General anesthesia was administered until the patient was adequately sedated. Following this, the right lower extremity was prepped and draped in the typical sterile fashion and lowered onto the surgical field. Attention was directed to the right foot where 2 wounds were encountered. At this time, a block took place consisting of a 1:1 mixture of 1% lidocaine plain and 0.5% bupivacaine plain to the right intermetatarsal area. Following this, debridement took place utilizing a combination of rongeur, curette, and a 15 blade. Healthy bleeding edge was identified as well as largely granulation tissue throughout the wound. From that standpoint, the proposed bone was resected utilizing a rongeur and handed off the field for pathological assessment. Following this, the wound at the medial aspect of the foot was debrided utilizing a curette and rongeurs. Healthy bleeding edge was once again identified. Following this, 10 mL injection of 1% lidocaine with epinephrine was injected at the thigh of the right lower extremity. Mineral oil was placed on the leg after cleansing with alcohol and sterile saline and then the dermatome was run at 0.016 inch with pneumatic pressure. A split-thickness skin graft measuring approximately 3 cm was then run through the 1 x 1.5 mesher and then sutured to the wounds after being split into 2 pieces, covering the wound in total with bolstering the graft adequately. Following this, a dressing consisting of Betadine, Adaptic, 4 x 4, Kerlix, and Clint was applied to the patient's right lower extremity. The patient was then reversed from anesthesia and returned to the postoperative care unit with vital signs stable and vascular status intact. The patient handled the anesthesia as well as the procedure without significant complication. Postoperative orders as indicated in the patient's discharge chart.
== END 2024-04-20 15:25 | disposition home or self-care (01) ==
LOC: SDC 07:15
PROVIDERS: ATTEND Podiatrist Foot & Ankle Surgery
DX: L97.818 Non-pressure chronic ulcer of other part of right lower leg with other specified severity (principal); I73.1 Thromboangiitis obliterans [Buerger's disease]; F17.200 Nicotine dependence, unspecified, uncomplicated; F10.20 Alcohol dependence, uncomplicated; Z91.148 Patient's other noncompliance with medication regimen for other reason
CPT/HCPCS: 36415; 76937; 80053; 85027; 93005; J0690; J1100; J1170; J1642; J1885; J2250; J2270; J2405; J2704; J2795; J3010; A9270-GY

== ENCOUNTER 2024-05-01 16:49 | Emergency (ER) | payer MEDICARE ==
[2024-05-01 17:09] VITALS: TEMP 98.3
--- NOTE | 2024-05-01 17:13 | ERPHSYRPT ---
- History of Present Illness Time Seen by Provider: 05/01/24 17:13 Source: patient Exam Limitations: no limitations Patient Subjective Stated Complaint: Pt gets infusions 2/day for amputated toes and has been doing them for a couple of weeks and thinks he has 4-6 weeks to go, pt has become overly weak and tired and all over body aches Triage Nursing Assessment: Pt brought self to the ER, hypertensive, denies any new pain but has generalized aching, 2 toes on the right foot has been amputated and are wrapped, pt is receiving antibiotics twice daily for the foot, pt reports eating 3 sloppy joes yesterday and nothing else and has not eaten today, states that he has food where he is staying but hasn't had the energy to make anything, pulses normal, skin n/w/d, has a PICC line in his right upper arm, no difficulty with breathing, uses a walker but is supposed to be using a wheelchair Physician History: The patient, with a history of hypertension, Crohn's disease, and recent foot amputations, presents with generalized body aches, nausea, and high blood pressure. The onset of these symptoms was earlier in the day. The patient denies any respiratory symptoms, fever, chest pain, headache, blurry vision, or diarr hea. He reports a recent episode of sneezing, which he attributes to his Crohn's disease. The patient has been on ibuprofen for foot pain following the amputation of two toes in December. The last dose was taken two days ago. The patient also mentions a skin graft on his thigh, the dressing of which was last changed a week ago by another physician, with no concerns reported at that time. The patient's mobility is limited, with his living space allowing only a few steps to his bed or couch. He reports a loss of appetite but denies any recent changes in bowel habits related to his Crohn's disease. For his arthritis, the patient has been taking oxycodone and Percocet, with the last dose taken earlier in the day. He reports being due for another dose. Timing/Duration: today Severity: moderate Modifying Factors: Improves With: nothing Associated Symptoms: nausea, loss of appetite, weakness, No vomiting, No abdominal pain, No shortness of breath, No diaphoresis, No cough, No chest pain, No fever Allergies/Adverse Reactions: shellfish derived Allergy (Verified 05/01/24 21:57) Hives Home Medications: Diazepam 5 mg [Valium 5 MG] 5 mg PO TID 05/01/24 [History] Gabapentin 300 mg PO TID 05/01/24 [History] Oxycodone HCl/Acetaminophen [Percocet 10-325 mg Tablet] 1 tab PO Q6H PRN PRN 05/01/24 [History] Cefepime in Iso-Osm Dextrose [Cefepime 2 gm Injection] 2 g IV BID 05/02/24 [History] Losartan Potassium 50 mg [Cozaar 50 MG] 50 mg PO DAILY 05/02/24 [History] Hx Tetanus, Diphtheria Vaccination/Date Given: Yes Hx Influenza Vaccination/Date Given: Yes Hx Pneumococcal Vaccination/Date Given: Yes Travel Risk - International Travel Have you traveled outside of the country in past 3 weeks: No - Emerging Infectious Disease Are you exhibiting symptoms associated with any current EIDs: No - Review of Systems All Other Systems: Reviewed and Negative - Past Medical History Pertinent Past Medical History: Yes Neurological History: No Pertinent History ENT History: No Pertinent History Cardiac History: Deep Vein Thrombosis, Hypertension Respiratory History: No Pertinent History Endocrine Medical History: No Pertinent History Musculoskeletal History: Arthritis, Fractures GI Medical History: Crohns Disease, Other History: No Pertinent History Psycho-Social History: Anxiety, Depression Male Reproductive Disorders: No Pertinent History 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 right foot surgery. i&d RIGHT FOOT - Social History Smoking Status: Current every day smoker How long have you smoked: 50 Exposure to second hand smoke: Yes Drug Use: none Patient Lives Alone: Yes - Social Determinants of Health Will the patient participate in the screening: Yes Do you worry about a steady place to live?: No Do you have any problems with any of the following?: No known problems In the past 12 months,have you had to go without utilities?: No Transportation Issues: No Has anyone in your support network made you feel unsafe?: No Have you or anyone in your house had to go without enough: No - Nursing Vital Signs Nursing Vital Signs: Initial Vital Signs Temperature 98.3 F 05/01/24 16:54 Pulse Rate 94 H 05/01/24 16:54 Blood Pressure 237/120 05/01/24 16:54 O2 Sat by Pulse Oximetry 98 05/01/24 16:54 Pain Scale Pain Intensity 8 - Physical Exam General Appearance: no apparent distress Eye Exam: eyes nml inspection Ears, Nose, Throat Exam: normal ENT inspection Neck Exam: normal inspection, supple, full range of motion Respiratory Exam: airway intact, diminished breath sounds, No respiratory distress Cardiovascular Exam: regular rate/rhythm, normal heart sounds, capillary refill <2 sec, No edema Gastrointestinal/Abdomen Exam: soft, No tenderness, No distention, No mass, No guarding Extremity Exam: other (RLE bandaged) Neurologic Exam: alert, oriented x 3, cooperative, normal mood/affect Skin Exam: normal color, warm, dry SpO2 Interpretation: normal SpO2: 98 O2 Delivery: Room Air - Course Nursing assessment & vital signs reviewed: Yes EKG Interpreted by Me: RATE (89), Sinus Rhythm, NORMAL AXIS, Right Bundle Branch Block, Other (qtc [id number]) Ordered Tests: Active Orders 24 hr Category Date Time Status EKG-ER Only STAT Care 05/01/24 17:24 Completed IV Insertion STAT Care 05/01/24 17:24 Completed CBC W DIFF Stat Lab 05/01/24 17:43 Completed CK-Creatinine Phosphokinase Stat Lab 05/01/24 17:43 Completed CMP Stat Lab 05/01/24 17:43 Completed CULTURE,URINE Stat Lab 05/01/24 19:57 Received LIPASE Stat Lab 05/01/24 17:43 Completed Lactic Acid Stat Lab 05/01/24 17:35 Completed Lactic Acid Stat Lab 05/01/24 19:41 Completed MAGNESIUM Stat Lab 05/01/24 17:43 Completed TROPONIN Q4H Lab 05/01/24 17:43 Completed TROPONIN Q4H Lab 05/01/24 20:24 Completed TSH [TSH, 3RD Generation] Stat Lab 05/01/24 17:43 Completed UA W/RFX UR CULTURE Stat Lab 05/01/24 19:57 Completed Medication Summary Discontinued Medications Generic Name Dose Route Start Last Admin Trade Name Freq PRN Reason Stop Dose Admin Enalaprilat 2.5 mg 05/01/24 18:46 05/01/24 19:15 Enalaprilat 2.5 Mg Injection IV 05/01/24 18:47 2.5 mg STAT ONE Administration Enalaprilat Confirm 05/01/24 19:11 Enalaprilat 2.5 Mg Injection Administered 05/01/24 19:12 Dose 2.5 mg IV .STK-MED ONE Heparin Sodium (Beef Lung) 500 units 05/01/24 21:09 05/01/24 21:10 Heparin Lock Flush Pf 500 Units/5 Ml Syringe PICC 05/01/24 21:10 500 units STAT ONE Administration Heparin Sodium (Beef Lung) Confirm 05/01/24 21:10 Heparin Lock Flush Pf 500 Units/5 Ml Syringe Administered 05/01/24 21:11 Dose 500 units .ROUTE .STK-MED ONE Hydrochlorothiazide 50 mg 05/02/24 18:45 05/01/24 19:57 Hydrochlorothiazide 25 Mg Tablet PO 05/02/24 18:46 50 mg ONCE ONE Administration Hydrochlorothiazide Confirm 05/01/24 19:52 Hydrochlorothiazide 25 Mg Tablet Administered 05/01/24 19:53 Dose 50 mg .ROUTE .STK-MED ONE Sodium Chloride 1,000 mls @ 999 mls/hr 05/01/24 17:24 05/01/24 19:13 Sodium Chloride 0.9% 1000 Ml IV 05/01/24 18:24 Infused .Q1H1M STA Infusion Sodium Chloride Confirm 05/01/24 18:01 Sodium Chloride 0.9% 1000 Ml Administered 05/01/24 18:02 Dose 1,000 mls @ ud .ROUTE .STK-MED ONE Magnesium Sulfate/Dextrose 100 mls @ 100 mls/hr 05/01/24 19:00 05/01/24 19:49 Magnesium 1 Gm / 100 Ml D5w IV 05/01/24 20:59 100 mls/hr Q1H MARIELY Administration Magnesium Sulfate/Dextrose Confirm 05/01/24 19:11 Magnesium 1 Gm / 100 Ml D5w Administered 05/01/24 19:12 Dose 100 mls @ ud IV .STK-MED ONE Magnesium Sulfate/Dextrose Confirm 05/01/24 19:49 Magnesium 1 Gm / 100 Ml D5w Administered 05/01/24 19:50 Dose 100 mls @ ud IV .STK-MED ONE Labetalol HCl 20 mg 05/01/24 17:24 05/01/24 18:15 Labetalol Hcl 20 Mg/4 Ml Disp.Syringe IV 05/01/24 17:25 20 mg STAT ONE Administration Labetalol HCl Confirm 05/01/24 18:01 Labetalol Hcl 20 Mg/4 Ml Disp.Syringe Administered 05/01/24 18:02 Dose 20 mg IV .STK-MED ONE Labetalol HCl 20 mg 05/01/24 18:59 05/01/24 19:16 Labetalol Hcl 20 Mg/4 Ml Disp.Syringe IV 05/01/24 19:00 20 mg STAT ONE Administration Labetalol HCl Confirm 05/01/24 19:11 Labetalol Hcl 20 Mg/4 Ml Disp.Syringe Administered 05/01/24 19:12 Dose 20 mg IV .STK-MED ONE Labetalol HCl 10 mg 05/01/24 20:06 05/01/24 20:08 Labetalol Hcl 20 Mg/4 Ml Disp.Syringe IV 05/01/24 20:07 10 mg STAT ONE Administration Labetalol HCl Confirm 05/01/24 20:05 Labetalol Hcl 20 Mg/4 Ml Disp.Syringe Administered 05/01/24 20:06 Dose 20 mg IV .STK-MED ONE Morphine Sulfate 2 mg 05/01/24 17:24 05/01/24 18:15 Morphine Sulfate 2 Mg/Ml Inj IV 05/01/24 17:25 2 mg STAT ONE Administration Morphine Sulfate Confirm 05/01/24 18:01 Morphine Sulfate 2 Mg/Ml Inj Administered 05/01/24 18:02 Dose 2 mg .ROUTE .STK-MED ONE Morphine Sulfate 2 mg 05/01/24 20:31 05/01/24 20:34 Morphine Sulfate 2 Mg/Ml Inj IV 05/01/24 20:32 2 mg STAT ONE Administration Morphine Sulfate Confirm 05/01/24 20:32 Morphine Sulfate 2 Mg/Ml Inj Administered 05/01/24 20:33 Dose 2 mg .ROUTE .STK-MED ONE Ondansetron HCl 4 mg 05/01/24 17:31 05/01/24 18:12 Ondansetron Hcl 4 Mg/2 Ml Vial IV 05/01/24 17:32 4 mg STAT ONE Administration Ondansetron HCl Confirm 05/01/24 18:00 Ondansetron Hcl 4 Mg/2 Ml Vial Administered 05/01/24 18:01 Dose 4 mg .ROUTE .STK-MED ONE Lab/Rad Data: Laboratory Result Diagrams 05/01/24 17:43 05/01/24 17:43 Laboratory Results 05/01/24 05/01/24 05/01/24 Range/Units 20:24 19:57 19:41 WBC (4.23-9.07) x10^3/uL RBC (4.63-6.08) x10^6/uL Hgb (13.7-17.5) g/dL Hct (40.1-51.0) % MCV (79.0-92.2) fL MCH (25.7-32.2) pg MCHC (32.3-36.5) g/dL RDW (11.6-14.4) % Plt Count (163-337) x10^3/uL MPV (9.4-12.4) fL Gran % (34.0-67.9) % Immature Gran % (Auto) (0.001-0.429) % Nucleat RBC Rel Count (0.00-0.2) % Eos # (Auto) (0.04-0.54) x10^3/uL Immature Gran # (Auto) (0.001-0.031) x10^3u/L Absolute Lymphs (auto) (1.32-3.57) x10^3/uL Absolute Monos (auto) (0.30-0.82) x10^3/uL Absolute Nucleated RBC (0.00-0.012) x10^3u/L Lymphocytes % (21.8-53.1) % Monocytes % (5.3-12.2) % Eosinophils % (0.8-7.0) % Basophils % (0.2-1.2) % Absolute Granulocytes (1.78-5.38) x10^3/uL Basophils # (0.01-0.08) x10^3/uL Sodium (135-145) mmol/L Potassium (3.5-5.1) mmol/L Chloride (98-107) mmol/L Carbon Dioxide (22-30) mmol/L Anion Gap (5-15) MEQ/L BUN (9-20) mg/dL Creatinine (0.66-1.25) mg/dL Estimated GFR ML/MIN Glucose (74-106) mg/dL Lactic Acid 2.5 H (0.4-2.0) Calcium (8.4-10.2) mg/dL Magnesium (1.6-2.3) mg/dL Total Bilirubin (0.2-1.3) mg/dL AST (17-59) U/L ALT (0-50) U/L Alkaline Phosphatase (38-126) U/L Creatine Kinase (55-170) U/L Troponin I < 0.012 (0.000-0.033) ng/mL Serum Total Protein (6.3-8.2) g/dL Albumin (3.5-5.0) g/dL Lipase (23-300) U/L TSH 3rd Generation (0.470-4.680) mIU/L Urine Color Yellow (Yellow) Urine Appearance Clear (Clear) Urine pH 6.0 (4.6-8.0) Ur Specific Hartley 1.015 (1.005-1.030) Urine Protein Trace A (Negative) Urine Glucose (UA) Negative (Negative) mg/dL Urine Ketones Negative (Negative) Urine Blood Negative (Negative) Urine Nitrite Negative (Negative) Urine Bilirubin Negative (Negative) Urine Urobilinogen 0.2 (0.2) mg/dL Ur Leukocyte Esterase Trace A (Negative) U Hyaline Cast (Auto) NONE SEEN (0-2) /LPF Urine Microscopic RBC 0-2 (0-5) /HPF Urine Microscopic WBC 3-5 (0-5) /HPF Ur Epithelial Cells None Seen (None Seen) /HPF Urine Bacteria None Seen (None Seen) /HPF Urine Culture Reflexed YES (NO) 05/01/24 05/01/24 05/01/24 Range/Units 17:43 17:43 17:43 WBC (4.23-9.07) x10^3/uL RBC (4.63-6.08) x10^6/uL Hgb (13.7-17.5) g/dL Hct (40.1-51.0) % MCV (79.0-92.2) fL MCH (25.7-32.2) pg MCHC (32.3-36.5) g/dL RDW (11.6-14.4) % Plt Count (163-337) x10^3/uL MPV (9.4-12.4) fL Gran % (34.0-67.9) % Immature Gran % (Auto) (0.001-0.429) % Nucleat RBC Rel Count (0.00-0.2) % Eos # (Auto) (0.04-0.54) x10^3/uL Immature Gran # (Auto) (0.001-0.031) x10^3u/L Absolute Lymphs (auto) (1.32-3.57) x10^3/uL Absolute Monos (auto) (0.30-0.82) x10^3/uL Absolute Nucleated RBC (0.00-0.012) x10^3u/L Lymphocytes % (21.8-53.1) % Monocytes % (5.3-12.2) % Eosinophils % (0.8-7.0) % Basophils % (0.2-1.2) % Absolute Granulocytes (1.78-5.38) x10^3/uL Basophils # (0.01-0.08) x10^3/uL Sodium 141 (135-145) mmol/L Potassium 4.1 (3.5-5.1) mmol/L Chloride 108 H (98-107) mmol/L Carbon Dioxide 25 (22-30) mmol/L Anion Gap 12.5 (5-15) MEQ/L BUN 11 (9-20) mg/dL Creatinine 0.57 L (0.66-1.25) mg/dL Estimated GFR 106.8 ML/MIN Glucose 117 H (74-106) mg/dL Lactic Acid (0.4-2.0) Calcium 9.3 (8.4-10.2) mg/dL Magnesium 1.4 L (1.6-2.3) mg/dL Total Bilirubin 0.70 (0.2-1.3) mg/dL AST 70 H (17-59) U/L ALT 32 (0-50) U/L Alkaline Phosphatase 109 (38-126) U/L Creatine Kinase 36 L (55-170) U/L Troponin I < 0.012 (0.000-0.033) ng/mL Serum Total Protein 6.5 (6.3-8.2) g/dL Albumin 3.8 (3.5-5.0) g/dL Lipase 66 (23-300) U/L TSH 3rd Generation 0.830 (0.470-4.680) mIU/L Urine Color (Yellow) Urine Appearance (Clear) Urine pH (4.6-8.0) Ur Specific Hartley (1.005-1.030) Urine Protein (Negative) Urine Glucose (UA) (Negative) mg/dL Urine Ketones (Negative) Urine Blood (Negative) Urine Nitrite (Negative) Urine Bilirubin (Negative) Urine Urobilinogen (0.2) mg/dL Ur Leukocyte Esterase (Negative) U Hyaline Cast (Auto) (0-2) /LPF Urine Microscopic RBC (0-5) /HPF Urine Microscopic WBC (0-5) /HPF Ur Epithelial Cells (None Seen) /HPF Urine Bacteria (None Seen) /HPF Urine Culture Reflexed (NO) 05/01/24 05/01/24 Range/Units 17:43 17:35 WBC 6.7 (4.23-9.07) x10^3/uL RBC 4.14 L (4.63-6.08) x10^6/uL Hgb 13.9 (13.7-17.5) g/dL Hct 41.8 (40.1-51.0) % MCV 101.0 H (79.0-92.2) fL MCH 33.6 H (25.7-32.2) pg MCHC 33.3 (32.3-36.5) g/dL RDW 13.2 (11.6-14.4) % Plt Count 194 (163-337) x10^3/uL MPV 11.5 (9.4-12.4) fL Gran % 68.4 H (34.0-67.9) % Immature Gran % (Auto) 0.3 (0.001-0.429) % Nucleat RBC Rel Count 0.0 (0.00-0.2) % Eos # (Auto) 0.12 (0.04-0.54) x10^3/uL Immature Gran # (Auto) 0.02 (0.001-0.031) x10^3u/L Absolute Lymphs (auto) 1.40 (1.32-3.57) x10^3/uL Absolute Monos (auto) 0.51 (0.30-0.82) x10^3/uL Absolute Nucleated RBC 0.00 (0.00-0.012) x10^3u/L Lymphocytes % 21.0 L (21.8-53.1) % Monocytes % 7.6 (5.3-12.2) % Eosinophils % 1.8 (0.8-7.0) % Basophils % 0.9 (0.2-1.2) % Absolute Granulocytes 4.56 (1.78-5.38) x10^3/uL Basophils # 0.06 (0.01-0.08) x10^3/uL Sodium (135-145) mmol/L Potassium (3.5-5.1) mmol/L Chloride (98-107) mmol/L Carbon Dioxide (22-30) mmol/L Anion Gap (5-15) MEQ/L BUN (9-20) mg/dL Creatinine (0.66-1.25) mg/dL Estimated GFR ML/MIN Glucose (74-106) mg/dL Lactic Acid 2.2 H (0.4-2.0) Calcium (8.4-10.2) mg/dL Magnesium (1.6-2.3) mg/dL Total Bilirubin (0.2-1.3) mg/dL AST (17-59) U/L ALT (0-50) U/L Alkaline Phosphatase (38-126) U/L Creatine Kinase (55-170) U/L Troponin I (0.000-0.033) ng/mL Serum Total Protein (6.3-8.2) g/dL Albumin (3.5-5.0) g/dL Lipase (23-300) U/L TSH 3rd Generation (0.470-4.680) mIU/L Urine Color (Yellow) Urine Appearance (Clear) Urine pH (4.6-8.0) Ur Specific Hart[place] (1.005-1.030) Urine Protein (Negative) Urine Glucose (UA) (Negative) mg/dL Urine Ketones (Negative) Urine Blood (Negative) Urine Nitrite (Negative) Urine Bilirubin (Negative) Urine Urobilinogen (0.2) mg/dL Ur Leukocyte Esterase (Negative) U Hyaline Cast (Auto) (0-2) /LPF Urine Microscopic RBC (0-5) /HPF Urine Microscopic WBC (0-5) /HPF Ur Epithelial Cells (None Seen) /HPF Urine Bacteria (None Seen) /HPF Urine Culture Reflexed (NO) - Progress Progress: improved Progress Note: CBC within normal limits, lactate 2.5, magnesium 1.4, AST 70, CK 36, troponin negative x 2 lipase within normal limits, TSH within normal limits, UA showed trace protein and trace leukocyte Esterace. Given 2 g of magnesium and 1 L of normal saline. Infusion center brought down his IV antibiotics and ran to completion while he was in the emergency room. Patient's blood pressure was difficult to bring down to an acceptable range. He was given enalapril, hydrochlorothiazide and labetalol to get down to the 140s over upper 80s. I will prescribe hydrochlorothiazide 25 mg daily and have him follow-up with his primary care physician. Counseled pt/family regarding: lab results, diagnosis, need for follow-up, rad results Medical Desision Making - Diagnostic Testing Diagnostic test were ordered, analyzed, and reviewed by me: Yes Radiological Interpretation: Interpreted by me - Risk of complications The pt has a mod risk of morbidity or mortality based on: Need for prescription drug management - Departure Departure Disposition: Home Clinical Impression: Malignant hypertensive urgency, Uncontrolled hypertension, Nausea, Elevated lactic acid level, Weakness Condition: Good Critical Care Time: No Referrals: LEILANI ATKINS MD [Primary Care Provider] - Follow up/PCP as directed Instructions: High Blood Pressure ED
[2024-05-01 17:46] LABS: Absolute Neutrophil Ct (ANC) 4.56 x10^3/uL (1.78-5.38); BASOPHIL % 0.9 % (0.2-1.2); Basophil (Absolute #) 0.06 x10^3/uL (0.01-0.08); Eosinophil % 1.8 % (0.8-7.0); Eosinophil (Absolute #) 0.12 x10^3/uL (0.04-0.54); Hematocrit 41.8 % (40.1-51.0); Hemoglobin 13.9 g/dL (13.7-17.5); IMMATURE GRAN # 0.02 x10^3u/L (0.001-0.031); IMMATURE GRAN % 0.3 % (0.001-0.429); Mean Corpuscular Hemoglobin 33.6 pg (25.7-32.2); Mean Corpuscular Hgb Concent. 33.3 g/dL (32.3-36.5); Mean Platelet Volume 11.5 fL (9.4-12.4); Monocyte (Absolute #) 0.51 x10^3/uL (0.30-0.82); Monocytes % 7.6 % (5.3-12.2); Neutrophil % 68.4 % (34.0-67.9); Platelet Count 194 x10^3/uL (163-337); Red Blood Count 4.14 x10^6/uL (4.63-6.08); Red Cell Distribution Width 13.2 % (11.6-14.4); White Blood Count 6.7 x10^3/uL (4.23-9.07)
[2024-05-01] MEDS ORDERED: Zofran 4 MG/2 ML VIAL ONE (18:00)
[2024-05-01 18:01] LABS: ALBUMIN 3.8 g/dL (3.5-5.0); ANION GAP 12.5 MEQ/L (5-15); BILIRUBIN,TOTAL 0.7 mg/dL (0.2-1.3); Calcium 9.3 mg/dL (8.4-10.2); Creatinine 1 0.57 mg/dL (0.66-1.25); EST GLOMERULAR FILTRATION RATE 106.8 ML/MIN; MAGNESIUM 1.4 mg/dL (1.6-2.3); Potassium 4.1 mmol/L (3.5-5.1); Total Protein 6.5 g/dL (6.3-8.2)
[2024-05-01] MEDS ORDERED: TRANDATE 20 MG/4 ML SYRINGE IV ONE ×3 (18:01→20:05)
[2024-05-01] MEDS ORDERED: Sodium Chloride 0.9% 1000 ML 1,000 ML ONE (18:01)
[2024-05-01] MEDS ORDERED: MORPHINE SULFATE 2 MG INJ ONE ×2 (18:01→20:32)
[2024-05-01] MEDS: Sodium Chloride 0.9% 1000 ML 1,000 ML IV STA (18:12)
[2024-05-01] MEDS: Zofran 4 MG/2 ML VIAL IV ONE (18:12)
[2024-05-01] MEDS: MORPHINE SULFATE 2 MG INJ IV ONE ×2 (18:15→20:34)
[2024-05-01] MEDS: TRANDATE 20 MG/4 ML SYRINGE IV ONE ×3 (18:15→20:08)
[2024-05-01 18:29] VITALS: RESP 16
[2024-05-01] MEDS ORDERED: ENALAPRILAT 2.5 MG INJECTION IV ONE (19:11)
[2024-05-01] MEDS ORDERED: Magnesium 1 Gm / 100 Ml D5W*** 100 ML IV ONE ×2 (19:11→19:49)
[2024-05-01] MEDS: ENALAPRILAT 2.5 MG INJECTION IV ONE (19:15)
[2024-05-01] MEDS: Magnesium 1 Gm / 100 Ml D5W*** 100 ML IV SCH (19:16)
[2024-05-01] MEDS ORDERED: hydroDIURIL 25 MG ONE (19:52)
[2024-05-01] MEDS: hydroDIURIL 25 MG PO ONE (19:57)
[2024-05-01 20:06] LABS: Appearance Clear (Clear); Bacteria None Seen /HPF (None Seen); Bilirubin Negative (Negative); Blood Negative (Negative); Epithelial Cells None Seen /HPF (None Seen); Glucose, Urine Negative (Negative); Hyaline Casts NONE SEEN /LPF (0-2); Ketones Negative (Negative); Leukocyte Esterase Trace (Negative); Nitrite Negative (Negative); Protein,Urine Dip Trace (Negative); RBC 0-2 /HPF (0-5); Specific Gravity 1.015 (1.005-1.030); Urobilinogen 0.2 mg/dL (0.2)
[2024-05-01 20:12] LABS: ADD URINE CULTURE? YES (NO)
[2024-05-01 21:14] VITALS: BP 179/89; PULSE 70
[2024-05-02 03:43] VITALS: O2SAT 98
== END 2024-05-01 21:23 | disposition home or self-care (01) ==
LOC: ED 16:49
DX: I16.0 Hypertensive urgency (principal); I10 Essential (primary) hypertension; R11.0 Nausea; E87.20 Acidosis, unspecified; R53.1 Weakness; M79.10 Myalgia, unspecified site; Z79.891 Long term (current) use of opiate analgesic; Z79.899 Other long term (current) drug therapy; Z72.0 Tobacco use
CPT/HCPCS: 36000; 36415; 80053; 81001; 82550; 83605; 83690; 83735; 84443; 84484; 85025; 87086; 93005; 96365; 96374; 96375; 96376; 99285; J1642; J2270; J2405; J3475; A9270-GY

== ENCOUNTER 2024-05-01 21:34 | Observation (INO) | payer MEDICARE ==
[2024-05-01] MEDS ORDERED: KEFLEX 500 MG ONE (21:48)
[2024-05-01] MEDS ORDERED: ZOFRAN ODT 4 MG ONE (21:48)
[2024-05-01] MEDS: KEFLEX 500 MG PO ONE (21:51)
[2024-05-01] MEDS: ZOFRAN ODT 4 MG PO ONE (21:51)
--- NOTE | 2024-05-01 21:51 | ERPHSYRPT ---
- History of Present Illness Time Seen by Provider: 05/01/24 21:47 Source: patient Exam Limitations: no limitations Physician History: Patient was discharged from the hospital walked outside and felt like he was going to get sick so he turned around and came back inside. He has not vomited and has no new pain. No other new complaints at this time. Timing/Duration: today Severity: moderate Modifying Factors: Improves With: other (being hot) Associated Symptoms: nausea, diaphoresis, loss of appetite, No vomiting, No abdominal pain, No shortness of breath, No heartburn, No cough, No chills, No chest pain, No fever Allergies/Adverse Reactions: shellfish derived Allergy (Verified 05/01/24 21:57) Hives Home Medications: Diazepam 5 mg [Valium 5 MG] 5 mg PO TID 05/01/24 [History] Gabapentin 300 mg PO TID 05/01/24 [History] Oxycodone HCl/Acetaminophen [Percocet 10-325 mg Tablet] 1 tab PO Q6H PRN PRN 0 05/01/24 [History] Cefepime in Iso-Osm Dextrose [Cefepime 2 gm Injection] 2 g IV BID 05/02/24 [History] Losartan Potassium 50 mg [Cozaar 50 MG] 50 mg PO DAILY 05/02/24 [History] Hx Tetanus, Diphtheria Vaccination/Date Given: Yes Hx Influenza Vaccination/Date Given: Yes Hx Pneumococcal Vaccination/Date Given: Yes Travel Risk - Emerging Infectious Disease Are you exhibiting symptoms associated with any current EIDs: No - Review of Systems All Other Systems: Reviewed and Negative - Past Medical History Pertinent Past Medical History: Yes Neurological History: No Pertinent History ENT History: No Pertinent History Cardiac History: Deep Vein Thrombosis, Hypertension Respiratory History: No Pertinent History Endocrine Medical History: No Pertinent History Musculoskeletal History: Arthritis, Fractures GI Medical History: Crohns Disease, Other History: No Pertinent History Psycho-Social History: Anxiety, Depression Male Reproductive Disorders: No Pertinent History 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 right foot surgery. i&d RIGHT FOOT - Social History Smoking Status: Current every day smoker How long have you smoked: 50 Exposure to second hand smoke: Yes Drug Use: none Patient Lives Alone: Yes - Social Determinants of Health Will the patient participate in the screening: Yes Do you worry about a steady place to live?: No In the past 12 months,have you had to go without utilities?: No Transportation Issues: No Has anyone in your support network made you feel unsafe?: No Have you or anyone in your house had to go without enough: No - Nursing Vital Signs Nursing Vital Signs: Initial Vital Signs Temperature 98.1 F 05/01/24 21:42 Pulse Rate 74 05/01/24 21:42 Respiratory Rate 18 05/01/24 21:42 Blood Pressure 190/103 05/01/24 21:42 O2 Sat by Pulse Oximetry 96 05/01/24 21:42 Pain Scale Pain Intensity 6 - Physical Exam General Appearance: no apparent distress Respiratory Exam: normal breath sounds, airway intact, No respiratory distress Cardiovascular Exam: regular rate/rhythm, capillary refill <2 sec SpO2 Interpretation: normal O2 Delivery: Room Air - Course Nursing assessment & vital signs reviewed: Yes Ordered Tests: Active Orders 24 hr Category Date Time Status Heart-Healthy Diet Diet 05/02/24 Breakfast Active Medication Summary Generic Name Dose Route Start Last Admin Trade Name Freq PRN Reason Stop Dose Admin Gabapentin 300 mg 05/02/24 10:00 05/02/24 21:10 Gabapentin 300 Mg Capsule PO 06/01/24 09:59 300 mg TID MARIELY Administration Hydralazine HCl 50 mg 05/02/24 17:00 05/02/24 21:09 Hydralazine Hcl 25 Mg Tablet PO 06/01/24 16:59 50 mg QID MARIELY Administration Cefepime HCl 2 g/ Dextrose 100 mls @ 200 mls/hr 05/02/24 10:00 05/02/24 21:10 IV 06/01/24 09:59 200 mls/hr Q12HT MARIELY Administration Losartan Potassium 50 mg 05/02/24 10:00 05/02/24 09:11 Losartan Potassium 50 Mg Tablet PO 06/01/24 09:59 50 mg DAILY MARIELY Administration Naloxone HCl 0.4 mg 05/02/24 08:01 Naloxone Hcl 0.4 Mg/Ml Ml IV 06/01/24 08:00 PRN PRN RESPIRATORY DEPRESSION Nicotine 21 mg 05/02/24 14:00 05/02/24 13:44 Nicotine 21 Mg/Patch Patch TOP 06/01/24 13:59 21 mg DAILY MARIELY Administration Oxycodone/Acetaminophen 1 tab 05/02/24 08:00 05/02/24 17:18 Oxycodone / Apap 10/325 Mg 1 Tablet PO 05/07/24 07:59 1 tab TID PRN PRN Administration PAIN Prochlorperazine Edisylate 10 mg 05/02/24 13:17 Prochlorperazine Edisylate 10 Mg/2 Ml Vial IV 06/01/24 13:16 Q6H PRN PRN NAUSEA/VOMITING Sodium Chloride 10 ml 05/02/24 22:00 05/02/24 21:10 Normal Saline 10 Ml Flush PICC 06/01/24 21:59 10 ml BID MARIELY Administration Discontinued Medications Generic Name Dose Route Start Last Admin Trade Name Freq PRN Reason Stop Dose Admin Hydrocodone Bitart/Acetaminophen 1 tab 05/02/24 03:19 05/02/24 03:23 Hydrocodone/Apap 5/325 1 Tab Tablet PO 05/07/24 03:18 1 tab Q6H PRN PRN Administration PAIN Cephalexin HCl 500 mg 05/01/24 21:46 05/01/24 21:51 Cephalexin Mh500 Mg Capsule PO 05/01/24 21:47 500 mg STAT ONE Administration Cephalexin HCl Confirm 05/01/24 21:48 Cephalexin Mh500 Mg Capsule Administered 05/01/24 21:49 Dose 500 mg .ROUTE .STK-MED ONE Diazepam 5 mg 05/02/24 10:00 Diazepam 5 Mg Tablet PO 06/01/24 09:59 TID MARIELY Hydralazine HCl 25 mg 05/02/24 10:00 Hydralazine Hcl 25 Mg Tablet PO 06/01/24 09:59 QID MARIELY Hydralazine HCl 25 mg 05/02/24 00:00 05/02/24 11:59 Hydralazine Hcl 25 Mg Tablet PO 06/01/24 00:00 25 mg QID MARIELY Administration Hydralazine HCl 50 mg 05/02/24 13:00 05/02/24 13:35 Hydralazine Hcl 25 Mg Tablet PO 06/01/24 12:59 Not Given QID MARIELY Losartan Potassium 50 mg 05/02/24 10:00 Losartan Potassium 50 Mg Tablet PO 06/01/24 09:59 DAILY MARIELY Ondansetron HCl 8 mg 05/01/24 21:45 05/01/24 21:51 Zofran 4 Mg/Udtablet Orally Disintegrating PO 05/01/24 21:46 8 mg STAT ONE Administration Ondansetron HCl Confirm 05/01/24 21:48 Zofran 4 Mg/Udtablet Orally Disintegrating Administered 05/01/24 21:49 Dose 8 mg .ROUTE .STK-MED ONE Oxycodone/Acetaminophen 1 tab 05/02/24 07:20 Oxycodone / Apap 10/325 Mg 1 Tablet PO 05/07/24 07:29 TID PRN PRN PAIN Lab/Rad Data: Laboratory Results 05/01/24 Range/Units 20:00 Prealbumin 28.02 (17.6-36.0) mg/dL - Progress Progress: unchanged Progress Note: Patient returns back immediately after discharge, BP 190s/100s after being 140s/80s on discharge. Patient feels safer staying at this time. 05/01/24 22:04 Dr. Augustin accepts for admission at 2202 for hypertensive urgency. Discussed with : Other (Shruti Augustin) Will see patient in: hospital (observation) Counseled pt/family regarding: lab results, diagnosis, need for follow-up Medical Desision Making - Diagnostic Testing Diagnostic test were ordered, analyzed, and reviewed by me: No - Risk of complications The pt has a high risk of morbidity or mortality based on: Decision regarding hospitilization or escalation of hosp level of care - Departure Departure Disposition: Observation Clinical Impression: UTI (urinary tract infection), Nausea, Uncontrolled hypertension, Malignant hypertensive urgency, Weakness, Elevated lactic acid level Condition: Good Critical Care Time: No
--- NOTE | 2024-05-01 23:11 | PCM.HP ---
History of Present Illness - Chief Complaint Chief Complaint: hypertensive urgency History of Present Illness: is a 69 year old male with HTN who presents with elevated BP, 180- 190s SBP. He takes losartan at home daily but no other BP medications. He initially came to the ED and was given several BP meds and discharged and became nauseated (BP 120-130s), likely from a quick drop from his BP. Denies chest pain, fevers, shortness of breath, vomiting. - Review of Systems Constitutional: No Fever, No Chills Eyes: No Symptoms Ears, Nose, & Throat: No Symptoms Respiratory: No Cough, No Short Of Breath Cardiac: No Chest Pain, No Edema, No Syncope Abdominal/Gastrointestinal: No Abdominal Pain, No Nausea, No Vomiting, No Diarrhea Genitourinary Symptoms: No Dysuria Musculoskeletal: No Back Pain, No Neck Pain Skin: No Rash Neurological: No Dizziness, No Focal Weakness, No Sensory Changes Psychological: No Symptoms Endocrine: No Symptoms Hematologic/Lymphatic: No Symptoms Immunological/Allergic: No Symptoms Medications & Allergies Home Medications: Home Medication List Losartan Potassium 50 mg PO DAILY 10/24/23 [History Confirmed 05/01/24] Cefepime HCl 2 gm [Maxipime 2 GM] 2 g IV BID 05/01/24 [History] Diazepam 5 mg [Valium 5 MG] 5 mg PO TID 05/01/24 [History Confirmed 05/01/24] Gabapentin 300 mg PO TID 05/01/24 [History Confirmed 05/01/24] Oxycodone HCl/Acetaminophen [Percocet 10-325 mg Tablet] 1 tab PO Q6H PRN PRN 05/01/24 [History Confirmed 05/01/24] ondansetron HCL [Zofran] 8 mg PO TID PRN 4 Days #12 tablet 05/01/24 [Rx] Allergies/Adverse Reactions: Allergies Allergy/AdvReac Type Severity Reaction Status Date / Time shellfish derived Allergy Hives Verified 05/01/24 21:57 - Past Medical History Past Medical History: Yes Neurological History: No Pertinent History ENT History: No Pertinent History Cardiac History: Deep Vein Thrombosis, Hypertension Respiratory History: No Pertinent History Endocrine Medical History: No Pertinent History Musculoskelatal History: Arthritis, Fractures GI Medical History: Crohns Disease, Other History: No Pertinent History Pyscho-Social History: Anxiety, Depression Male Reproductive Disorders: No Pertinent History Comment: 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, gout - Past Surgical History Past Surgical History: Yes Neuro Surgical History: No Pertinent History Cardiac History: No Pertinent History Respiratory Surgery: No Pertinent History GI Surgical History: No Pertinent History Genitourinary Surgical Hx: No Pertinent History Musculskeletal Surgical Hx: Amputation, Orthopedic Surgery Male Surgical History: No Pertinent History Other Surgical History: R ankle, colonoscopy, melanoma to back removed, 2 toes amputated. right foot surgery. i&d RIGHT FOOT - Social History Smoking Status: Current every day smoker How long have you smoked: 35 years Exposure to second hand smoke: Yes Alcohol: Occasionally Drug Use: none - Social Determinants of Health Will the patient participate in the screening: Yes Do you worry about a steady place to live?: No Do you have any problems with any of the following?: No known problems In the past 12 months,have you had to go without utilities?: No Have you or anyone in your house had to go without enough: No Transportation Issues: No Has anyone in your support network made you feel unsafe?: No Does the patient want assistance with any of the above?: No - Physical Exam Vital Signs: Vital Signs - 24 hr Temp Pulse Resp BP Pulse Ox 05/01/24 22:24 97.7 F 77 18 183/88 98 05/01/24 21:42 98.1 F 74 18 190/103 96 General Appearance: no apparent distress, alert Neurologic Exam: alert, oriented x 3, cooperative, normal mood/affect, nml cerebellar function, nml station & gait, sensation nml, No motor deficits Eye Exam: PERRL/EOMI, eyes nml inspection Ears, Nose, Throat Exam: normal ENT inspection, TMs normal, pharynx normal, moist mucous membranes Neck Exam: normal inspection, non-tender, supple, full range of motion Respiratory Exam: normal breath sounds, lungs clear, No respiratory distress Cardiovascular Exam: regular rate/rhythm, normal heart sounds, normal peripheral pulses Gastrointestinal/Abdomen Exam: soft, normal bowel sounds, No tenderness, No mass Back Exam: normal inspection, normal range of motion, No CVA tenderness, No vert ebral tenderness Extremity Exam: normal inspection, normal range of motion, pelvis stable Skin Exam: normal color, warm, dry, No rash Lymphatic Exam: No adenopathy Results - Other Procedures and Tests Respiratory Therapy 05/01/24 23:01 Smoking Cessation Education ONCE Assessment/Plan (1) Uncontrolled hypertension Current Visit: Yes Status: Acute Assessment & Plan: 1. Continue home losartan 2. Start hydralazine 25 mg QID while in the hospital. 3. Goal BP is 160 SBP for now (from baseline 180-190 SBPs) Code(s): I10 - ESSENTIAL (PRIMARY) HYPERTENSION Telemedicine Encounter - Telemedicine Encounter Telemedicine Encounter: "The entirety of this encounter was performed via Telemedicine" This visit was performed using real-time audio and video connection between my location and thepatients locationwith the assistance of a surrogateat the patients location. Written or verbal consent was obtained from the patient/guardian to perform this visit [id number] technology. Any patient questions regarding the telemedicine interaction were answered.
[2024-05-02] MEDS: Apresoline 25 MG TABLET PO SCH ×3 (00:19→17:18)
[2024-05-02] MEDS: NORCO 5/325 MG PO PRN (03:23)
[2024-05-02] MEDS ORDERED: OXYCODONE-ACETAMINOPHEN 10-325 PO PRN (07:20)
[2024-05-02 07:34] LABS: Hemoglobin 12.6 g/dL (13.7-17.5); Mean Cell Volume 102.6 fL (79.0-92.2); Mean Corpuscular Hemoglobin 33.2 pg (25.7-32.2); Mean Corpuscular Hgb Concent. 32.3 g/dL (32.3-36.5); Mean Platelet Volume 12.5 fL (9.4-12.4); Platelet Count 157 x10^3/uL (163-337); Red Cell Distribution Width 13.3 % (11.6-14.4); White Blood Count 8.9 x10^3/uL (4.23-9.07)
[2024-05-02 07:41] LABS: ALBUMIN 3.4 g/dL (3.5-5.0); ANION GAP 10.5 MEQ/L (5-15); BILIRUBIN,TOTAL 1.8 mg/dL (0.2-1.3); Calcium 8.8 mg/dL (8.4-10.2); Creatinine 1 0.58 mg/dL (0.66-1.25); EST GLOMERULAR FILTRATION RATE 106.2 ML/MIN; Potassium 4.2 mmol/L (3.5-5.1); Total Protein 5.8 g/dL (6.3-8.2)
[2024-05-02] MEDS ORDERED: Narcan 0.4 MG/ML IV PRN (08:01)
[2024-05-02] MEDS: NEURONTIN PO SCH (09:11)
[2024-05-02] MEDS: Cozaar 50 MG PO SCH (09:11)
[2024-05-02] MEDS: OXYCODONE-ACETAMINOPHEN 10-325 PO PRN (09:12)
[2024-05-02] MEDS: Maxipime 2 GM** 2 G in Dextrose 5%/Water IV Soln. 100ML PLUS BAG 100 ML IV SCH (09:12)
[2024-05-02] MEDS ORDERED: Cozaar 50 MG PO SCH (10:00)
[2024-05-02] MEDS ORDERED: Valium 5 MG PO SCH (10:00)
[2024-05-02] MEDS ORDERED: Apresoline 25 MG TABLET PO SCH (10:00)
--- NOTE | 2024-05-02 13:11 | PCM.NOTE ---
Date and Time: 05/02/24 1258 Subjective Assessment: 05/02/24 is a 69 year old male with PMHX of HTN, DVT, HTN, OA, Chrons, Anxiety, Depression, Melanoma, gout, and multiple foot surgeries. With one recently by Dr. Grant, receiving Op antibiotics. He presented to the ER on 05/01/24 with elevated BP, 180-190s SBP. He reports he missed some doses of his meds. He takes losartan at home daily but no other BP medications. He initially came to the ED and was given several BP meds and discharged and became nauseated (BP 120-130s), likely from a quick drop from his BP and then admitted. His Bp remains elevated today and hydralizine increased to 50mg QID. Will continue hi P antibiotics IP. he has a f/u appointment with Dr. Grant Aishwarya so will consult as he will likely be here. He wants to go back to [facility]. This is where he was previously and walked out as he thought they were stealing his narcotic pain meds. INSPECT reviewed and he has Percocet 10/325mg, ninety filled for 30 days on 04/18/[address] Bunn. He states he is out of medication. In March he had Valium filled. He will need a Narcan Rx at d/c. He reports continued pain f rom skin graft and foot surgery. Home medication dose restarted. He denies Cp, SOb, abd. pain , N/V/D. - Review of Systems Constitutional: No Fever, No Chills Eyes: No Symptoms Ears, Nose, & Throat: No Symptoms Respiratory: No Cough, No Short Of Breath Cardiac: No Chest Pain, No Edema, No Syncope Abdominal/Gastrointestinal: No Abdominal Pain, No Nausea, No Vomiting, No Diarrhea Genitourinary Symptoms: No Dysuria Musculoskeletal: No Back Pain, No Neck Pain Skin: Skin Lesions (RLE wrapped, Right thigh covered with dressing. ), No Rash Neurological: No Dizziness, No Focal Weakness, No Sensory Changes Psychological: No Symptoms Endocrine: No Symptoms Hematologic/Lymphatic: No Symptoms Immunological/Allergic: No Symptoms Objective Exam General Appearance: no apparent distress, alert Neurologic Exam: alert, oriented x 3, cooperative, normal mood/affect, nml cerebellar function, sensation nml, No motor deficits Skin Exam: normal color, warm, dry Wound Assessment: Skin/Wound Assessment Wound/Incision Assessment Start: 05/01/24 23:01 Text: Status: Active Freq: Q6H Protocol: Document 05/02/24 08:00 [facility] (Rec: 05/02/24 08:04 [facility] [id number]) Wound/Incision Assessment Right Toe Wound Assessment Shift Assessment Wound Type Amputation Wound Stage Non Pressure Wound Dressing Status Dry & Intact Length (cm) (cm) 2 Width (cm) (cm) 1 Primary Dressing Non-Adherent Gauze Pads Secondary Dressing Gauze Pads Comment Dressing remains C/D/I Right Medial Foot Wound Assessment Shift Assessment Wound Type ulceration Wound Stage Non Pressure Wound Dressing Status Dry & Intact Length (cm) (cm) 2 Width (cm) (cm) 1 Primary Dressing Non-Adherent Gauze Pads Secondary Dressing Gauze Pads Comment Dressing remains C/D/I. Right Upper Thigh Wound Assessment Shift Assessment Wound Type skin graft donation site Wound Stage Non Pressure Wound Dressing Status Dry & Intact Length (cm) (cm) 3.5 Width (cm) (cm) 2 Primary Dressing Non-Adherent Gauze Pads Secondary Dressing mepilex Comment Dressing remains C/D/I. Wound Photo Photo Taken No Date: 05/01/24 Time: 23:45 Comment: see paper chart Eye Exam: PERRL, EOMI, eyes nml inspection Ears, Nose, Throat Exam: normal ENT inspection, pharynx normal, moist mucous membranes Neck Exam: normal inspection, non-tender, supple, full range of motion Respiratory Exam: normal breath sounds, lungs clear, No respiratory distress Cardiovascular Exam: regular rate/rhythm, normal heart sounds Gastrointestinal/Abdomen Exam: soft, No tenderness, No mass Extremity Exam: normal inspection, normal range of motion, other (RLE wrapped, Right thigh covered with dressing.) Back Exam: normal inspection, normal range of motion, No CVA tenderness, No vertebral tenderness Male Genitalia Exam: deferred Rectal Exam: deferred Objective Data Vital Signs: Vital Signs - 24 hr Temp Pulse Resp BP Pulse Ox 05/02/24 11:10 97.6 F 67 21 162/74 95 05/02/24 07:29 96 05/02/24 06:59 96.9 F 68 23 177/93 95 05/02/24 04:33 156/78 05/02/24 04:00 97.7 F 75 25 H 188/86 94 L 05/02/24 00:00 170/95 05/01/24 23:43 94 L 05/01/24 22:30 97 05/01/24 22:24 97.7 F 77 18 183/88 98 05/01/24 21:42 98.1 F 74 18 190/103 96 Pain Assessment - Last Documented Pain Intensity 5 Pain Scale Used 0-10 Pain Scale Intake and Output: Intake & Output 04/30/24 05/01/24 05/02/24 05/03/24 11:59 11:59 11:59 11:59 Intake Total 450 Output Total 1525 Balance -1075 Weight 88.4 kg Lab Results: Lab Results-Last 24 Hours 05/01/24 05/02/24 05/02/24 Range/Units 20:00 05:58 05:59 WBC 8.9 (4.23-9.07) x10^3/uL RBC 3.80 L (4.63-6.08) x10^6/uL Hgb 12.6 L (13.7-17.5) g/dL Hct 39.0 L (40.1-51.0) % MCV 102.6 H (79.0-92.2) fL MCH 33.2 H (25.7-32.2) pg MCHC 32.3 (32.3-36.5) g/dL RDW 13.3 (11.6-14.4) % Plt Count 157 L (163-337) x10^3/uL MPV 12.5 H (9.4-12.4) fL Sodium (135-145) mmol/L Potassium (3.5-5.1) mmol/L Chloride (98-107) mmol/L Carbon Dioxide (22-30) mmol/L Anion Gap (5-15) MEQ/L BUN (9-20) mg/dL Creatinine (0.66-1.25) mg/dL Estimated GFR ML/MIN Glucose (74-106) mg/dL Lactic Acid 1.8 (0.4-2.0) Calcium (8.4-10.2) mg/dL Total Bilirubin (0.2-1.3) mg/dL AST (17-59) U/L ALT (0-50) U/L Alkaline Phosphatase (38-126) U/L Serum Total Protein (6.3-8.2) g/dL Albumin (3.5-5.0) g/dL Prealbumin 28.02 (17.6-36.0) mg/dL 05/02/24 Range/Units 05:59 WBC (4.23-9.07) x10^3/uL RBC (4.63-6.08) x10^6/uL Hgb (13.7-17.5) g/dL Hct (40.1-51.0) % MCV (79.0-92.2) fL MCH (25.7-32.2) pg MCHC (32.3-36.5) g/dL RDW (11.6-14.4) % Plt Count (163-337) x10^3/uL MPV (9.4-12.4) fL Sodium 138 (135-145) mmol/L Potassium 4.2 (3.5-5.1) mmol/L Chloride 107 (98-107) mmol/L Carbon Dioxide 24 (22-30) mmol/L Anion Gap 10.5 (5-15) MEQ/L BUN 8 L (9-20) mg/dL Creatinine 0.58 L (0.66-1.25) mg/dL Estimated GFR 106.2 ML/MIN Glucose 117 H (74-106) mg/dL Lactic Acid (0.4-2.0) Calcium 8.8 (8.4-10.2) mg/dL Total Bilirubin 1.80 H (0.2-1.3) mg/dL AST 63 H (17-59) U/L ALT 38 (0-50) U/L Alkaline Phosphatase 89 (38-126) U/L Serum Total Protein 5.8 L (6.3-8.2) g/dL Albumin 3.4 L (3.5-5.0) g/dL Prealbumin (17.6-36.0) mg/dL Assessment/Plan (1) Malignant hypertensive urgency Current Visit: Yes Status: Acute Assessment & Plan: - increased Hydralazine to 50mg QID - Tele - Continue losartan - May be increased 2:2 pain and not having any pain meds Op Code(s): I16.0 - HYPERTENSIVE URGENCY (2) Nausea Current Visit: Yes Status: Resolved Assessment & Plan: - resolved - Compazine PRN Code(s): R11.0 - NAUSEA (3) Smoker Current Visit: Yes Status: Chronic Assessment & Plan: - nicotine patch - advised cessation Code(s): F17.200 - NICOTINE DEPENDENCE, UNSPECIFIED, UNCOMPLICATED (4) Right foot pain Current Visit: No Status: Chronic Assessment & Plan: - Percocet restarted - podiatry consulted - Continue cefepime as was receiving Op for recent foot surgery - Wants to go back to [facility] for Op antibiotics and rehab. VTE: Heparin Next of KIN: Fady Cronin [phone] D/C plan: 1-2 days Code status: Full Code(s): M79.671 - PAIN IN RIGHT FOOT
[2024-05-02] MEDS ORDERED: Compazine 10 MG/2 ML IV PRN (13:17)
[2024-05-02] MEDS: Nicoderm CQ 21 MG TOP SCH (13:44)
[2024-05-02] MEDS: Sodium Chloride 0.9% 10 ML FLUSH Syringe PICC SCH (21:10)
[2024-05-03 05:13] LABS: Hematocrit 41.6 % (40.1-51.0); Hemoglobin 13.6 g/dL (13.7-17.5); Mean Corpuscular Hgb Concent. 32.7 g/dL (32.3-36.5); Mean Platelet Volume 11.1 fL (9.4-12.4); Platelet Count 108 x10^3/uL (163-337); Red Cell Distribution Width 13.4 % (11.6-14.4); White Blood Count 7.7 x10^3/uL (4.23-9.07)
--- NOTE | 2024-05-03 05:21 | PCM.NOTE ---
Date and Time: 05/03/24 0517 Subjective Assessment: Mr. 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 Grant (podiatry), and recent admission 04/08-04/09/24 for osteomyelitis of the right foot for which he has been receiving a 6-8 week course of Cefepime at [facility] but left as he reports he felt they were stealing his narcotic pain medications. Patient presented to ED 05/01/24 for elevated blood pressure after missing several dosage of his prescribed Losartan. Patient is requesting placement at [facility] on discharge for continuation of antibiotics and rehab. Podiatry has been consulted. 05/03/24: Met with patient bedside. BP is still elevated today at 183/98, will increase losartan to 100mg daily. Patient is doing well otherwise, requesting pain med timing increased to Q6H as prescribed - meds wearing off before 8 hours. Plan for continued Cefepime for 6-8 weeks as prescribed by podiatry - this was started on 04/05/24. Patient requesting discharge to [facility] for continued rehab and IV antibiotics as he is not able to care for himself at home or get to appointments. Denies fever,cough, sob, cp, abdominal pain, HANSEN, dizziness, N/V/D. - Review of Systems Constitutional: No Symptoms Eyes: No Symptoms Ears, Nose, & Throat: No Symptoms Respiratory: No Symptoms Cardiac: No Symptoms Abdominal/Gastrointestinal: No Symptoms Genitourinary Symptoms: No Symptoms Musculoskeletal: Joint Pain (RLE ) Skin: Other (RLE wound with surgical dressing) Neurological: No Symptoms Psychological: No Symptoms Endocrine: No Symptoms Hematologic/Lymphatic: No Symptoms Immunological/Allergic: No Symptoms Objective Exam General Appearance: no apparent distress Neurologic Exam: alert, oriented x 3, cooperative Skin Exam: other (RLE wound with surgical dressing) Wound Assessment: Skin/Wound Assessment Wound/Incision Assessment Start: 05/01/24 23:01 Text: Status: Active Freq: Q6H Protocol: Document 05/03/24 02:00 INDU (Rec: 05/03/24 02:05 INDU [id number]) Wound/Incision Assessment Right Toe Wound Assessment Shift Assessment Wound Type Amputation Wound Stage Non Pressure Wound Dressing Status Dry & Intact Length (cm) (cm) 2 Width (cm) (cm) 1 Primary Dressing Non-Adherent Gauze Pads Secondary Dressing Gauze Pads Comment Dressing remains CDI - AMEENA wound - remains true Right Medial Foot Wound Assessment Shift Assessment Wound Type ulceration Wound Stage Non Pressure Wound Dressing Status Dry & Intact Length (cm) (cm) 2 Width (cm) (cm) 1 Primary Dressing Non-Adherent Gauze Pads Secondary Dressing Gauze Pads Comment Dressing remains CDI - AMEENA wound - remains true Right Upper Thigh Wound Assessment Shift Assessment Wound Type skin graft donation site Wound Stage Non Pressure Wound Dressing Status Dry & Intact Length (cm) (cm) 3.5 Width (cm) (cm) 2 Primary Dressing Non-Adherent Gauze Pads Secondary Dressing mepilex Comment Dressing remains CDI - AMEENA wound - remains true Eye Exam: PERRL Ears, Nose, Throat Exam: normal ENT inspection Neck Exam: normal inspection Respiratory Exam: normal breath sounds, lungs clear Cardiovascular Exam: regular rate/rhythm, normal heart sounds Gastrointestinal/Abdomen Exam: soft, normal bowel sounds Extremity Exam: amputations, other (RLE wound with surgical dressing) Back Exam: normal inspection Objective Data Vital Signs: Vital Signs - 24 hr Temp Pulse Resp BP Pulse Ox 05/03/24 03:00 97.3 F 55 L 19 156/74 95 05/02/24 23:59 98.6 F 59 L 20 146/78 95 05/02/24 21:09 148/76 05/02/24 20:00 97.8 F 62 17 171/77 96 05/02/24 16:00 97.5 F 65 20 157/73 95 05/02/24 11:10 97.6 F 67 21 162/74 95 05/02/24 07:29 96 05/02/24 06:59 96.9 F 68 23 177/93 95 Pain Assessment - Last Documented Pain Intensity 0 Pain Scale Used 0-10 Pain Scale Intake and Output: Intake & Output 04/30/24 05/01/24 05/02/24 05/03/24 11:59 11:59 11:59 11:59 Intake Total 450 960 Output Total 1525 875 Balance -1075 85 Weight 88.4 kg Lab Results: Lab Results-Last 24 Hours 05/02/24 05/02/24 05/02/24 Range/Units 05:58 05:59 05:59 WBC 8.9 (4.23-9.07) x10^3/uL RBC 3.80 L (4.63-6.08) x10^6/uL Hgb 12.6 L (13.7-17.5) g/dL Hct 39.0 L (40.1-51.0) % MCV 102.6 H (79.0-92.2) fL MCH 33.2 H (25.7-32.2) pg MCHC 32.3 (32.3-36.5) g/dL RDW 13.3 (11.6-14.4) % Plt Count 157 L (163-337) x10^3/uL MPV 12.5 H (9.4-12.4) fL Sodium 138 (135-145) mmol/L Potassium 4.2 (3.5-5.1) mmol/L Chloride 107 (98-107) mmol/L Carbon Dioxide 24 (22-30) mmol/L Anion Gap 10.5 (5-15) MEQ/L BUN 8 L (9-20) mg/dL Creatinine 0.58 L (0.66-1.25) mg/dL Estimated GFR 106.2 ML/MIN Glucose 117 H (74-106) mg/dL Lactic Acid 1.8 (0.4-2.0) Calcium 8.8 (8.4-10.2) mg/dL Total Bilirubin 1.80 H (0.2-1.3) mg/dL AST 63 H (17-59) U/L ALT 38 (0-50) U/L Alkaline Phosphatase 89 (38-126) U/L Serum Total Protein 5.8 L (6.3-8.2) g/dL Albumin 3.4 L (3.5-5.0) g/dL Assessment/Plan (1) Malignant hypertensive urgency Current Visit: Yes Status: Acute Assessment & Plan: -Multifactoral with right foot pain and non-compliance with home medications - increased Hydralazine to 50mg QID/home losartan increased to 100mg -Tele Code(s): I16.0 - HYPERTENSIVE URGENCY (2) Osteomyelitis of right foot Current Visit: Yes Status: Acute Assessment & Plan: -Continue current antibiotics per Podiatry - Cefepime - patient to complete 6-8 week course (start date 04/05/24) -podiatry consulted - follows OP with Dr. Grant -CM to work on placement to rehab for continued treatment with IV cefepime and rehab Code(s): M86.9 - OSTEOMYELITIS, UNSPECIFIED (3) Smoker Current Visit: Yes Status: Chronic Assessment & Plan: - advised cessation Code(s): F17.200 - NICOTINE DEPENDENCE, UNSPECIFIED, UNCOMPLICATED (4) Nausea Current Visit: Yes Status: Resolved Assessment & Plan: - resolved - Compazine PRN Code(s): R11.0 - NAUSEA (5) Right foot pain Current Visit: Yes Status: Acute Assessment & Plan: - Percocet restarted Q6H - podiatry consulted - follows with Rudy OP - Continue cefepime (6-8 week course) as was receiving Op for recent foot surgery VTE: Heparin Next of KIN: Fady Whittaker [phone] D/C plan: 1-2 days Code status: Full Code(s): M79.671 - PAIN IN RIGHT FOOT
[2024-05-03 05:32] LABS: ALBUMIN 3.6 g/dL (3.5-5.0); BILIRUBIN,TOTAL 1.9 mg/dL (0.2-1.3); Creatinine 1 0.55 mg/dL (0.66-1.25); MAGNESIUM 1.6 mg/dL (1.6-2.3); Potassium 3.8 mmol/L (3.5-5.1); Total Protein 6.3 g/dL (6.3-8.2)
--- NOTE | 2024-05-03 07:40 | PCM.CONS ---
Podiatry HPI - Consult Date of Consultation Date: 05/03/24 Reason for Consult: Wound right foot. post surgical STSG Consulting Provider: ELISE SHAH DPM - [facility] History of Present Illness: admission for hyper tensive urgency. Patient extremely non compliant with medical regimen. Recent STSG preformed from right thigh to right foot for chronic non healing ulcers. Doing well at 1 week post op. Patient left assisted living facility AMA however would like to return. Medications & Allergies Home Medications: Home Medication List Diazepam 5 mg [Valium 5 MG] 5 mg PO TID 05/01/24 [History Confirmed 05/01/24] Gabapentin 300 mg PO TID 05/01/24 [History Confirmed 05/01/24] Oxycodone HCl/Acetaminophen [Percocet 10-325 mg Tablet] 1 tab PO Q6H PRN PRN 05/01/24 [History Confirmed 05/01/24] ondansetron HCL [Zofran] 8 mg PO TID PRN 4 Days #12 tablet 05/01/24 [Rx] Cefepime in Iso-Osm Dextrose [Cefepime 2 gm Injection] 2 g IV BID 05/02/24 [History Confirmed 05/02/24] Losartan Potassium 50 mg [Cozaar 50 MG] 50 mg PO DAILY 05/02/24 [History Confirmed 05/02/24] Allergies/Adverse Reactions: Allergies Allergy/AdvReac Type Severity Reaction Status Date / Time shellfish derived Allergy Hives Verified 05/01/24 21:57 - Past Medical History Past Medical History: Yes Neurological History: No Pertinent History ENT History: No Pertinent History Cardiac History: Deep Vein Thrombosis, Hypertension Respiratory History: No Pertinent History Endocrine Medical History: No Pertinent History Musculoskelatal History: Arthritis, Fractures GI Medical History: Crohns Disease, Other History: No Pertinent History Pyscho-Social History: Anxiety, Depression Male Reproductive Disorders: No Pertinent History Comment: 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, gout - Past Surgical History Past Surgical History: Yes Neuro Surgical History: No Pertinent History Cardiac History: No Pertinent History Respiratory Surgery: No Pertinent History GI Surgical History: No Pertinent History Genitourinary Surgical Hx: No Pertinent History Musculskeletal Surgical Hx: Amputation, Orthopedic Surgery Male Surgical History: No Pertinent History Other Surgical History: R ankle, colonoscopy, melanoma to back removed, 2 toes amputated. right foot surgery. i&d RIGHT FOOT - Social History Smoking Status: Current every day smoker How long have you smoked: 50 Exposure to second hand smoke: Yes Alcohol: Occasionally Drug Use: none - Social Determinants of Health Will the patient participate in the screening: Yes Do you worry about a steady place to live?: No Do you have any problems with any of the following?: No known problems In the past 12 months,have you had to go without utilities?: No Have you or anyone in your house had to go without enough: No Transportation Issues: No Has anyone in your support network made you feel unsafe?: No Does the patient want assistance with any of the above?: No Physical Exam - Narrative Narrative Physical Exam: Podiatry Physical Exam Results - Labs Lab/Micro Results: Lab Results-Last 24 Hours 05/02/24 05/03/24 05/03/24 Range/Units 05:59 05:07 05:07 WBC 7.7 (4.23-9.07) x10^3/uL RBC 4.00 L (4.63-6.08) x10^6/uL Hgb 13.6 L (13.7-17.5) g/dL Hct 41.6 (40.1-51.0) % MCV 104.0 H (79.0-92.2) fL MCH 34.0 H (25.7-32.2) pg MCHC 32.7 (32.3-36.5) g/dL RDW 13.4 (11.6-14.4) % Plt Count 108 L (163-337) x10^3/uL MPV 11.1 (9.4-12.4) fL Sodium 138 137 (135-145) mmol/L Potassium 4.2 3.8 (3.5-5.1) mmol/L Chloride 107 105 (98-107) mmol/L Carbon Dioxide 24 28 (22-30) mmol/L Anion Gap 10.5 8.0 (5-15) MEQ/L BUN 8 L 11 (9-20) mg/dL Creatinine 0.58 L 0.55 L (0.66-1.25) mg/dL Estimated GFR 106.2 108.0 ML/MIN Glucose 117 H 119 H (74-106) mg/dL Calcium 8.8 9.0 (8.4-10.2) mg/dL Magnesium 1.6 (1.6-2.3) mg/dL Total Bilirubin 1.80 H 1.90 H (0.2-1.3) mg/dL AST 63 H 34 (17-59) U/L ALT 38 28 (0-50) U/L Alkaline Phosphatase 89 86 (38-126) U/L Serum Total Protein 5.8 L 6.3 (6.3-8.2) g/dL Albumin 3.4 L 3.6 (3.5-5.0) g/dL Assessment/Plan (1) Malignant hypertensive urgency Current Visit: Yes Status: Acute Code(s): I16.0 - HYPERTENSIVE URGENCY (2) Osteomyelitis of right foot Current Visit: Yes Status: Acute Assessment & Plan: STSG site assessed Partial failure with some evidence of draiange Culture obtained Patient historically extremely non compliant Unna boot applied for venous insufficiency Will follow with you Return to Assisted living. 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
[2024-05-03] MEDS: OXYCODONE-ACETAMINOPHEN 10-325 PO PRN (15:15)
--- NOTE | 2024-05-04 05:18 | PCM.DS ---
Discharge Summary Date of Admission: 05/01/24 22:24 Date of Discharge: 05/04/24 Admitting Physician: XAVIER DOW MD Consults: Consults on Case 05/02/24 13:07 Consult Podiatry ROUTINE Primary Care Provider: LEILANI ATKINS Allergies Allergies shellfish derived Allergy (Verified 05/01/24 21:57) [facility] Summary - Hospital Course Hospital Course: Mr. 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 Grant (podiatry), and recent admission 04/08-04/09/24 for osteomyelitis of the right foot for which he has been receiving a 6-8 week course of Cefepime at [facility] but left as he reports he felt they were stealing his narcotic pain medications. Patient presented to ED 05/01/24 for elevated blood pressure after missing several dosage of his prescribed Losartan. Patient is requesting placement at [facility] and has been accepted. BP - Losartan increased to 100mg daily/hydralazine 50mg QID. Blood pressure has remained stable with these changes. Patient will remain on Cefepime for 6-8 weeks per podiatry (start date 04/05/24), dressing changes per podiatry. Discharge Note New Diagnosis:Hypertensive urgency New Medications:changes as stated above Follow Up: podiatry/pcp Latest Assessment & Plan (1) Malignant hypertensive urgency Current Visit: Yes Status: Acute Assessment & Plan: -Multifactoral with right foot pain and non-compliance with home medications - increased Hydralazine to 50mg QID/home losartan increased to 100mg -Tele Code(s): I16.0 - HYPERTENSIVE URGENCY (2) Osteomyelitis of right foot Current Visit: Yes Status: Acute Assessment & Plan: -Continue current antibiotics per Podiatry - Cefepime - patient to complete 6-8 week course (start date 04/05/24) -podiatry consulted - follows OP with Dr. Grant -CM to work on placement to rehab for continued treatment with IV cefepime and rehab Code(s): M86.9 - OSTEOMYELITIS, UNSPECIFIED (3) Smoker Current Visit: Yes Status: Chronic Assessment & Plan: - advised cessation Code(s): F17.200 - NICOTINE DEPENDENCE, UNSPECIFIED, UNCOMPLICATED (4) Nausea Current Visit: Yes Status: Resolved Assessment & Plan: - resolved - Compazine PRN Code(s): R11.0 - NAUSEA (5) Right foot pain Current Visit: Yes Status: Acute Assessment & Plan: - Percocet restarted Q6H - podiatry consulted - follows with Elise OP - Continue cefepime (6-8 week course) as was receiving Op for recent foot surgery VTE: Heparin Next of KIN: Fady Whittaker [phone] D/C plan: 1-2 days Code status: Full I spent 35 minutes [id number] with the patient on the day of discharge performing discharge exam, discussing hospital stay and discharge instructions with patient and caregivers, preparation of discharge records, prescriptions & referral forms and addressing any questions/concerns the patient had as documented above. - Vitals & Intake/Output Vital Signs: Vital Signs Temperature 96.9 F 05/04/24 04:00 Pulse Rate 73 05/04/24 04:00 Respiratory Rate 16 05/04/24 04:00 Blood Pressure 134/79 05/04/24 04:00 O2 Sat by Pulse Oximetry 96 05/04/24 04:00 Intake & Output: Intake & Output 05/01/24 05/02/24 05/03/24 05/04/24 11:59 11:59 11:59 11:59 Intake Total 450 1080 720 Output Total 1525 875 700 Balance -1075 205 20 Weight 88.4 kg 90.1 kg - Lab Result Diagrams: 05/03/24 05:07 05/03/24 05:07 Lab Results-Last 24 Hrs: Lab Results-Last 24 Hours 05/03/24 05/03/24 Range/Units 05:07 05:07 WBC 7.7 (4.23-9.07) x10^3/uL RBC 4.00 L (4.63-6.08) x10^6/uL Hgb 13.6 L (13.7-17.5) g/dL Hct 41.6 (40.1-51.0) % MCV 104.0 H (79.0-92.2) fL MCH 34.0 H (25.7-32.2) pg MCHC 32.7 (32.3-36.5) g/dL RDW 13.4 (11.6-14.4) % Plt Count 108 L (163-337) x10^3/uL MPV 11.1 (9.4-12.4) fL Sodium 137 (135-145) mmol/L Potassium 3.8 (3.5-5.1) mmol/L Chloride 105 (98-107) mmol/L Carbon Dioxide 28 (22-30) mmol/L Anion Gap 8.0 (5-15) MEQ/L BUN 11 (9-20) mg/dL Creatinine 0.55 L (0.66-1.25) mg/dL Estimated GFR 108.0 ML/MIN Glucose 119 H (74-106) mg/dL Calcium 9.0 (8.4-10.2) mg/dL Magnesium 1.6 (1.6-2.3) mg/dL Total Bilirubin 1.90 H (0.2-1.3) mg/dL AST 34 (17-59) U/L ALT 28 (0-50) U/L Alkaline Phosphatase 86 (38-126) U/L Serum Total Protein 6.3 (6.3-8.2) g/dL Albumin 3.6 (3.5-5.0) g/dL - Procedures and Test Procedures and Tests throughout Hospitalization: Therapy Orders & Screens 05/01/24 23:01 OT Screen per Nursing Assess ONCE Comment: Protocol Order Physician Instructions: Greater than 3 points order OT Admission Screening Reason For Exam: Triggered on Admission Diagnosis: hypertensive urgency Open Wound/Cellutlitis/Pressure Ulcers: Yes Acute Fx/ORIF/Change in wt bearing status: No Severe MUSCULOSKELETAL pain: No ADL Dysfunction: No Acute CVA w/Hemiparesis/Hemiplegia: No Decreased Functional Mobility/Strength: No Sprain/Strain: No Acute Post-op Mobility Dysfunction: No Total Points: 5 PT Screen per Nursing Assess ONCE Comment: Protocol Order Physician Instructions: Greater than 3 points order PT Admission Screenin Reason For Exam: Triggered on Admission Diagnosis: hypertensive urgency Open Wound/Cellutlitis/Pressure Ulcers: Yes Acute Fx/ORIF/Change in wt bearing status: No Severe MUSCULOSKELETAL pain: No ADL Dysfunction: No Acute CVA w/Hemiparesis/Hemiplegia: No Decreased Functional Mobility/Strength: No Sprain/Strain: No Acute Post-op Mobility Dysfunction: No Total Points: 5 Smoking Cessation Education ONCE Comment: Diagnosis: hypertensive urgency Smoking Status: Current every day smoker How long have you smoked: 35 years Have you smoked in the past 12 months: Yes Approximately how many cigarettes per day: 1 pack per day Do you dip or chew tobacco: No 05/03/24 11:09 PT Eval & Treat (MD Order) ONCE Reason for Eval:: REHAB PLACEMENT Diagnosis: hypertensive urgency Discharge Exam General Appearance: no apparent distress Neurologic Exam: alert, oriented x 3, cooperative Eye Exam: PERRL Ears, Nose, Throat Exam: normal ENT inspection Neck Exam: normal inspection Respiratory Exam: normal breath sounds, lungs clear Cardiovascular Exam: regular rate/rhythm, normal heart sounds Gastrointestinal/Abdomen Exam: soft, normal bowel sounds Male Genitalia Exam: deferred Rectal Exam: deferred Back Exam: normal inspection Extremity Exam: other (SEE WOUND ASSESSMENT) Skin Exam: normal color Wound Assessment: Skin/Wound Assessment Wound/Incision Assessment Start: 05/01/24 23:01 Text: Status: Active Freq: Q6H Protocol: Document 05/04/24 02:00 WALT (Rec: 05/04/24 02:07 WALT [id number]) Wound/Incision Assessment Right Toe Wound Assessment Shift Assessment Wound Type Amputation Wound Stage Non Pressure Wound Dressing Status Dry & Intact Comment UNNABOOT IS IN PLACE, UNABLE TO ASSESS WOUND Right Medial Foot Wound Assessment Shift Assessment Wound Type ULCERATION Wound Stage Non Pressure Wound Dressing Status Dry & Intact Comment UNNABOOT IS IN PLACE, UNABLE TO ASSESS WOUND Right Upper Thigh Wound Assessment Shift Assessment Wound Type SKIN GRAFT Wound Stage Non Pressure Wound Dressing Status Dry & Intact Drainage Amount None Primary Dressing Non-Adherent Gauze Pads Secondary Dressing Tegaderm Final Diagnosis/Problem List - Final Discharge Diagnosis/Problem (1) Malignant hypertensive urgency Current Visit: Yes Status: Resolved Code(s): I16.0 - HYPERTENSIVE URGENCY (2) Osteomyelitis of right foot Current Visit: Yes Status: Chronic Code(s): M86.9 - OSTEOMYELITIS, UNSPECIFIED (3) Smoker Current Visit: Yes Status: Chronic Code(s): F17.200 - NICOTINE DEPENDENCE, UNSPECIFIED, UNCOMPLICATED (4) Nausea Current Visit: Yes Status: Resolved Code(s): R11.0 - NAUSEA (5) Right foot pain Current Visit: Yes Status: Chronic Code(s): M79.671 - PAIN IN RIGHT FOOT - Discharge Discharge Date: 05/04/24 (DC to [facility]) Disposition: XFER OTHER Condition: Good Prescriptions: New ondansetron HCL [Zofran] 8 mg PO TID PRN 4 Days #12 tablet PRN Reason: Nausea/Vomiting HydrALAzine HCL 25 MG TAB [Apresoline 25 MG TABLET] 50 mg PO QID tablet Losartan Potassium 50 mg [Cozaar 50 MG] 100 mg PO DAILY tablet Naloxone HCl 0.4 mg/ml [Narcan 0.4 MG/ML] 0.4 mg IV PRN PRN PRN Reason: Respiratory Depression Nicotine 21 mg [Nicoderm CQ 21 MG] 21 mg TOP DAILY patch Oxycodone / APAP 10/325 mg [Oxycodone-Acetaminophen 10-325] 1 tab PO Q6H PRN PRN 3 Days #12 tablet MDD 4 PRN Reason: Pain Continue Gabapentin 300 mg PO TID Diazepam 5 mg [Valium 5 MG] 5 mg PO TID Cefepime in Iso-Osm Dextrose [Cefepime 2 gm Injection] 2 g IV BID Discontinued Oxycodone HCl/Acetaminophen [Percocet 10-325 mg Tablet] 1 tab PO Q6H PRN PRN PRN Reason: Pain Losartan Potassium 50 mg [Cozaar 50 MG] 50 mg PO DAILY Additional Instructions: EN[facility]IVE [facility] ORDERS: heart healthy diet non wtbearing status on right foot pt/ot eval and treat- see wt bearing status Dressing changes by [facility] 3 times a week as follows: Cleanse wounds on right foot with sterile saline only. Apply adaptic to wound on right medial foot and second toe site. Apply aquacel and sterile 4x4 gauze to both sites. Apply unna boot to level of tibial tuberosity. Wrap with kerlix, covering toes with this layer. Wrap with coban with 50% compression. KEEP SCHEDULED F/U APPTS Follow up with: ELISE SHAH DPM [ACTIVE STAFF] - 05/10/24 8:00 am LEILANI ATKINS MD [Primary Care Provider] -
[2024-05-04] MEDS: Cozaar 50 MG PO SCH (10:03)
[2024-05-04 12:39] VITALS: BP 143/80; PULSE 76; RESP 18; TEMP 98.2; O2SAT 97
== END 2024-05-04 14:03 ==
LOC: ED 21:34 → MED SURG 22:24
PROVIDERS: ADMIT Student in an Organized Health Care Education/Training Program; ATTEND Student in an Organized Health Care Education/Training Program
DX: I16.0 Hypertensive urgency (principal); M86.9 Osteomyelitis, unspecified; M79.671 Pain in right foot; F10.10 Alcohol abuse, uncomplicated; S98.131A Complete traumatic amputation of one right lesser toe, initial encounter; L03.115 Cellulitis of right lower limb; F17.200 Nicotine dependence, unspecified, uncomplicated; I73.1 Thromboangiitis obliterans [Buerger's disease]; F41.9 Anxiety disorder, unspecified; K50.90 Crohn's disease, unspecified, without complications; R11.0 Nausea; Z79.899 Other long term (current) drug therapy; Z86.718 Personal history of other venous thrombosis and embolism
CPT/HCPCS: 29580; 36415; 80053; 83605; 83735; 84134; 85027; 87070; 93268; 94760; 94762; 99221; 99285; J0692; Q0162; Q3014; A9270-GY; G0378

== ENCOUNTER 2024-12-25 09:54 | Emergency (ER) | payer MEDICARE ==
--- NOTE | 2024-12-25 10:03 | ERPHSYRPT ---
- History of Present Illness Time Seen by Provider: 12/25/24 09:57 Source: patient, EMS Exam Limitations: clinical condition Physician History: Pt had onset of unable to eat and weak past three days with Hx of Crohns. could not get up and family called 911 . initial BP 80s on EMS then 140 now 59. No reported vomiting. Discussed with pt and available family risks and benefits of testing/Tx including CBC, CMP, EKG, Trop, UA, Amylase, Lipase, CT ABD , CXR, swabs for Covid, RSV, Flu and Strep, IVF bolus Rocephin , meropenim, flagyl, Antibiotic and they wish to proceed so these are ordered. Results discussed with pt and available family. Left Ext Jug IV access obtained in ER by Paramedics. Timing/Duration: day(s) Severity: severe Associated Symptoms: nausea, shortness of breath, malaise, weakness Allergies/Adverse Reactions: shellfish derived Allergy (Verified 12/25/24 10:42) Hives Home Medications: Diazepam 5 mg [Valium 5 MG] 5 mg PO TID 05/01/24 [History] Gabapentin 300 mg PO TID 05/01/24 [History] Cefepime in Iso-Osm Dextrose [Cefepime 2 gm Injection] 2 g IV BID 05/02/24 [History] Hx Tetanus, Diphtheria Vaccination/Date Given: Yes Hx Influenza Vaccination/Date Given: Yes Hx Pneumococcal Vaccination/Date Given: Yes Travel Risk - Emerging Infectious Disease Are you exhibiting symptoms associated with any current EIDs: No - Review of Systems Constitutional: Fatigue, Lethargy, Malaise, Weakness, No Fever, No Chills Eyes: No Symptoms Ears, Nose, & Throat: No Symptoms Respiratory: Dyspnea, No Cough Cardiac: No Chest Pain, No Edema, No Syncope Abdominal/Gastrointestinal: Abdominal Pain, Nausea, No Vomiting, No Diarrhea Genitourinary Symptoms: No Dysuria Musculoskeletal: No Back Pain, No Neck Pain Skin: No Rash Neurological: No Dizziness, No Focal Weakness, No Sensory Changes Psychological: No Symptoms Endocrine: No Symptoms Hematologic/Lymphatic: No Symptoms Immunological/Allergic: No Symptoms All Other Systems: Reviewed and Negative - Past Medical History Pertinent Past Medical History: Yes Neurological History: No Pertinent History ENT History: No Pertinent History Cardiac History: Deep Vein Thrombosis, Hypertension Respiratory History: No Pertinent History Endocrine Medical History: No Pertinent History Musculoskeletal History: Arthritis, Fractures GI Medical History: Crohns Disease, Other History: No Pertinent History Psycho-Social History: Anxiety, Depression Male Reproductive Disorders: No Pertinent History 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 right foot surgery. i&d RIGHT FOOT - Social History Smoking Status: Current every day smoker How long have you smoked: 50 Exposure to second hand smoke: Yes Drug Use: none - Social Determinants of Health Will the patient participate in the screening: Yes Do you worry about a steady place to live?: No In the past 12 months,have you had to go without utilities?: No Transportation Issues: No Has anyone in your support network made you feel unsafe?: No Have you or anyone in your house had to go w/o enough food: No - Nursing Vital Signs Nursing Vital Signs: Initial Vital Signs Temperature 97.1 F 12/25/24 09:56 Pulse Rate 87 12/25/24 09:56 Respiratory Rate 16 12/25/24 09:56 Blood Pressure 59/41 12/25/24 09:56 Pain Scale Pain Intensity 8 - Physical Exam General Appearance: moderate distress, alert, lethargy Eye Exam: PERRL/EOMI, eyes nml inspection Ears, Nose, Throat Exam: normal ENT inspection, TMs normal, pharynx normal, moist mucous membranes Neck Exam: normal inspection, non-tender, supple, full range of motion Respiratory Exam: normal breath sounds, lungs clear, No respiratory distress Cardiovascular Exam: regular rate/rhythm, normal heart sounds, normal peripheral pulses Gastrointestinal/Abdomen Exam: soft, normal bowel sounds, tenderness, guarding, No mass, No rebound Rectal Exam: deferred Back Exam: normal inspection, normal range of motion, No CVA tenderness, No vertebral tenderness Extremity Exam: normal inspection, normal range of motion, pelvis stable Neurologic Exam: alert, oriented x 3, cooperative, normal mood/affect, nml cerebellar function, nml station & gait, sensation nml, No motor deficits Skin Exam: normal color, warm, dry, No rash Lymphatic Exam: No adenopathy SpO2 Interpretation: borderline oxygenation, O2 applied SpO2: 93 O2 Delivery: Nasal Cannula - Course Nursing assessment & vital signs reviewed: Yes EKG Interpreted by Me: Sinus Rhythm, Left Finley Deviation, LAFB, prolonged QT interval, Right Bundle Branch Block, Non-specific ST Changes - Radiology Exams Chest X-ray Interpretation: Interpreted by me, No Pneumothorax (mild interstitial changes) Ordered Tests: Active Orders 24 hr Category Date Time Status EKG-ER Only STAT Care 12/25/24 10:00 Active IV Insertion STAT Care 12/25/24 10:00 Active NPO (ED) STAT Care 12/25/24 10:00 Active ABDOMEN AND PELVIS W/0 CONTRAS [CT] Stat Exams 12/25/24 10:01 Ordered CHEST 1 VIEW (PORTABLE) Stat Exams 12/25/24 10:01 Taken AMYLASE Stat Lab 12/25/24 10:30 Completed BLOOD CULTURE Stat Lab 12/25/24 10:30 Received CBC W DIFF Stat Lab 12/25/24 10:30 Completed CMP Stat Lab 12/25/24 10:30 Completed LIPASE Stat Lab 12/25/24 10:30 Completed Lactic Acid Stat Lab 12/25/24 10:00 Completed Manual Differential NC Stat Lab 12/25/24 10:30 Completed TROPONIN Q4H Lab 12/25/24 10:30 Completed TROPONIN Q4H Lab 12/25/24 14:00 Ordered TROPONIN Q4H Lab 12/25/24 18:00 Ordered UA W/RFX UR CULTURE Stat Lab 12/25/24 10:00 Ordered VBG [VENOUS BLOOD GAS] Stat Lab 12/25/24 10:35 Completed Medication Summary Generic Name Dose Route Start Last Admin Trade Name Freq PRN Reason Stop Dose Admin Norepinephrine/Dextrose 8 mg in 250 mls @ 15 mls/hr 12/25/24 11:40 Norepinephrine 8 Mg/250 Ml-D5w IV 01/24/25 11:39 .[id number] PRN HYPOTENSION Protocol 8 MCG/MIN Sodium Chloride 1,000 mls @ 999 mls/hr 12/25/24 11:41 Sodium Chloride 0.9% 1000 Ml IV 12/25/24 12:41 .Q1H1M STA Discontinued Medications Generic Name Dose Route Start Last Admin Trade Name Freq PRN Reason Stop Dose Admin Sodium Chloride 1,000 mls @ 999 mls/hr 12/25/24 10:00 12/25/24 11:29 Sodium Chloride 0.9% 1000 Ml IV 12/25/24 11:00 Infused .Q1H1M STA Infusion Ceftriaxone Sodium 1 gm in 100 mls @ 200 mls/hr 12/25/24 10:03 12/25/24 11:17 Rocephin 1 Gm / 100 Ml Nacl IV 12/25/24 10:32 Infused STAT ONE Infusion Sodium Chloride Confirm 12/25/24 10:11 Sodium Chloride 0.9% 1000 Ml Administered 12/25/24 10:12 Dose 1,000 mls @ ud .ROUTE .STK-MED ONE Meropenem 1 gm/ Sodium 100 mls @ 200 mls/hr 12/25/24 10:16 12/25/24 11:29 Chloride IV 12/25/24 10:45 Infused STAT ONE Infusion Metronidazole 500 mg in 100 mls @ 200 mls/hr 12/25/24 10:17 12/25/24 11:17 Flagyl 500 Mg Ivpb IV 12/25/24 10:46 200 mls/hr STAT STA 200 mls/hr Administration Sodium Chloride 1,000 mls @ 999 mls/hr 12/25/24 10:39 12/25/24 10:50 Sodium Chloride 0.9% 1000 Ml IV 12/25/24 11:39 999 mls/hr .Q1H1M STA Administration Sodium Chloride Confirm 12/25/24 10:40 Sodium Chloride 100ml Mini-Bag Plus Administered 12/25/24 10:41 Dose 100 mls @ ud IV .STK-MED ONE Sodium Chloride Confirm 12/25/24 10:40 Sodium Chloride 0.9% 1000 Ml Administered 12/25/24 10:41 Dose 1,000 mls @ ud .ROUTE .STK-MED ONE Ceftriaxone Sodium Confirm 12/25/24 10:40 Rocephin 1 Gm / 100 Ml Nacl Administered 12/25/24 10:41 Dose 1 gm in 100 mls @ ud IV .STK-MED ONE Metronidazole Confirm 12/25/24 11:13 Flagyl 500 Mg Ivpb Administered 12/25/24 11:14 Dose 500 mg in 100 mls @ ud IV .STK-MED ONE Sodium Chloride Confirm 12/25/24 11:38 Sodium Chloride 0.9% 1000 Ml Administered 12/25/24 11:39 Dose 1,000 mls @ ud .ROUTE .STK-MED ONE Meropenem Confirm 12/25/24 10:40 Meropenem 1 Gm Vial Administered 12/25/24 10:41 Dose 1 gm IV .STK-MED ONE Lab/Rad Data: Laboratory Result Diagrams 12/25/24 10:30 12/25/24 10:30 Laboratory Results 12/25/24 12/25/24 12/25/24 Range/Units 10:35 10:30 10:30 WBC (4.23-9.07) x10^3/uL RBC (4.63-6.08) x10^6/uL Hgb (13.7-17.5) g/dL Hct (40.1-51.0) % MCV (79.0-92.2) fL MCH (25.7-32.2) pg MCHC (32.3-36.5) g/dL RDW (11.6-14.4) % Plt Count (163-337) x10^3/uL MPV (9.4-12.4) fL pO2/FiO2 Ratio 28.0 % VBG pH 7.19 L* (7.32-7.42) VBG pCO2 at Pat Temp 40 L (42-55) mm/Hg VBG pO2 at Pat Temp 38 (25-40) mm/Hg VBG HCO3 15.3 L* (22-28) meq/L VBG O2 Sat (Chase) 56.5 L (95-100) VBG Base Excess -12.4 L (-2.0-2.0) VBG Hemoglobin 15.6 VBG Carboxyhemoglobin 2.6 (0.0-6.9) % T HGB POC Potassium 3.4 L (3.5-5.1) Sodium 131 L (135-145) mmol/L Potassium 3.3 L (3.5-5.1) mmol/L Chloride 92 L (98-107) mmol/L Carbon Dioxide 11 L* (22-30) mmol/L Anion Gap 32.0 H (5-15) MEQ/L BUN 71 H (9-20) mg/dL Creatinine 10.38 H (0.66-1.25) mg/dL Estimated GFR 5.0 ML/MIN Glucose 144 H (74-106) mg/dL Lactic Acid (0.4-2.0) Calcium 6.7 L (8.4-10.2) mg/dL Total Bilirubin 1.10 (0.2-1.3) mg/dL AST 38 (17-59) U/L ALT 27 (0-50) U/L Alkaline Phosphatase 136 H (38-126) U/L Troponin I < 0.012 (0.000-0.033) ng/mL Serum Total Protein 7.0 (6.3-8.2) g/dL Albumin 3.8 (3.5-5.0) g/dL Amylase 71 (30-110) U/L Lipase 431 H (23-300) U/L Influenza Type A Ag NEGATIVE (NEGATIVE) Influenza Type B Ag NEGATIVE (NEGATIVE) RSV (PCR) NEGATIVE (NEGATIVE) SARS-CoV-2 (PCR) NEGATIVE (NEGATIVE) 12/25/24 12/25/24 Range/Units 10:30 10:00 WBC 16.3 H (4.23-9.07) x10^3/uL RBC 4.22 L (4.63-6.08) x10^6/uL Hgb 15.0 (13.7-17.5) g/dL Hct 44.5 (40.1-51.0) % MCV 105.5 H (79.0-92.2) fL MCH 35.5 H (25.7-32.2) pg MCHC 33.7 (32.3-36.5) g/dL RDW 13.8 (11.6-14.4) % Plt Count 243 (163-337) x10^3/uL MPV 12.1 (9.4-12.4) fL pO2/FiO2 Ratio % VBG pH (7.32-7.42) VBG pCO2 at Pat Temp (42-55) mm/Hg VBG pO2 at Pat Temp (25-40) mm/Hg VBG HCO3 (22-28) meq/L VBG O2 Sat (Chase) (95-100) VBG Base Excess (-2.0-2.0) VBG Hemoglobin VBG Carboxyhemoglobin (0.0-6.9) % T HGB POC Potassium (3.5-5.1) Sodium (135-145) mmol/L Potassium (3.5-5.1) mmol/L Chloride (98-107) mmol/L Carbon Dioxide (22-30) mmol/L Anion Gap (5-15) MEQ/L BUN (9-20) mg/dL Creatinine (0.66-1.25) mg/dL Estimated GFR ML/MIN Glucose (74-106) mg/dL Lactic Acid 4.0 H (0.4-2.0) Calcium (8.4-10.2) mg/dL Total Bilirubin (0.2-1.3) mg/dL AST (17-59) U/L ALT (0-50) U/L Alkaline Phosphatase (38-126) U/L Troponin I (0.000-0.033) ng/mL Serum Total Protein (6.3-8.2) g/dL Albumin (3.5-5.0) g/dL Amylase (30-110) U/L Lipase (23-300) U/L Influenza Type A Ag (NEGATIVE) Influenza Type B Ag (NEGATIVE) RSV (PCR) (NEGATIVE) SARS-CoV-2 (PCR) (NEGATIVE) - Progress Progress: improved, re-examined Progress Note: 12/25/24 11:43 pt continued critical with hypotension ARF, and consulted Dr. Harding at [facility] ER and all agree best to transfer for dialysis and higher level of care and pt also advised and agreed. . levofed drip begun to sustain BP. Pulse ox improving. Discussed with Dr.: Other (Dr. Harding [facility]) Will see patient in: ED Counseled pt/family regarding: lab results, diagnosis, need for follow-up, rad results Medical Desision Making - Independent Historian Additional History obtained from: EMS - Discussion of managment Care discussed with:: specialist Reviewed:: Test results, Need for additional workup Agreed on:: Treatment plan, need for follow-up Will see patient: in ED - Diagnostic Testing Diagnostic test were ordered, analyzed, and reviewed by me: Yes Radiological Interpretation: Interpreted by me, Teleradiologist Report - Risk of complications The pt has a mod risk of morbidity or mortality based on: Need for prescription drug management The pt has a high risk of morbidity or mortality based on: Decision regarding hospitilization or escalation of hosp level of care - Departure Departure Disposition: Transfer Clinical Impression: Sepsis, ARF (acute renal failure), Pancreatitis, Crohn's disease Condition: Critical Critical Care Time: Yes Critical Care Time(excluding separately billable procedures): Critical 105-134 mins (resusc for hypotension - Ext Jug placed by PM left side. IVF. Levo drip - 115 minutes) Referrals: LEILANI ATKINS MD [Primary Care Provider] - Follow up/PCP as directed
[2024-12-25] MEDS ORDERED: Sodium Chloride 0.9% 1000 ML 1,000 ML ONE ×3 (10:11→11:38)
[2024-12-25] MEDS: Sodium Chloride 0.9% 1000 ML 1,000 ML IV STA ×3 (10:12→11:44)
[2024-12-25 10:36] LABS: VBG BASE EXCESS -12.4 (-2.0-2.0); VBG CARBOXYHEMOGLOBIN 2.6 % T HGB (0.0-6.9); VBG HCO3- 15.3 meq/L (22-28); VBG HEMOGLOBIN 15.6; VBG O2 SATURATION 56.5 (95-100); VBG POTASSIUM 3.4 (3.5-5.1)
[2024-12-25 10:37] LABS: VBG pH 7.19 (7.32-7.42)
[2024-12-25 10:40] VITALS: TEMP 97.1
[2024-12-25] MEDS ORDERED: Sodium Chloride 100ML MINI-BAG PLUS 100 ML IV ONE (10:40)
[2024-12-25] MEDS ORDERED: Merrem IV ONE (10:40)
[2024-12-25] MEDS ORDERED: ROCEPHIN 1 GM / 100 ML NaCl 1 GM/100 ML IVPB IV ONE (10:40)
[2024-12-25 10:41] LABS: Hematocrit 44.5 % (40.1-51.0); Mean Cell Volume 105.5 fL (79.0-92.2); Mean Corpuscular Hemoglobin 35.5 pg (25.7-32.2); Mean Corpuscular Hgb Concent. 33.7 g/dL (32.3-36.5); Mean Platelet Volume 12.1 fL (9.4-12.4); Platelet Count 243 x10^3/uL (163-337); Red Blood Count 4.22 x10^6/uL (4.63-6.08); Red Cell Distribution Width 13.8 % (11.6-14.4); White Blood Count 16.3 x10^3/uL (4.23-9.07)
[2024-12-25] MEDS: ROCEPHIN 1 GM / 100 ML NaCl 1 GM/100 ML IVPB IV ONE (10:50)
[2024-12-25] MEDS: Merrem 1 GM in Sodium Chloride 100ML MINI-BAG PLUS 100 ML IV ONE (10:51)
[2024-12-25 11:00] LABS: ALBUMIN 3.8 g/dL (3.5-5.0); ALKALINE PHOSPHATASE 136 U/L (38-126); AMYLASE 71 U/L (30-110); BLOOD UREA NITROGEN 71 mg/dL (9-20); CHLORIDE 92 mmol/L (98-107); Calcium 6.7 mg/dL (8.4-10.2); Creatinine 1 10.38 mg/dL (0.66-1.25); Glucose 144 mg/dL (74-106); LIPASE 431 U/L (23-300); Potassium 3.3 mmol/L (3.5-5.1); SGOT/AST 38 U/L (17-59); SGPT/ALT 27 U/L (0-50); SODIUM 131 mmol/L (135-145); TROPONIN < 0.012 ng/mL (0.000-0.033)
[2024-12-25 11:02] LABS: Carbon Dioxide 11 mmol/L (22-30)
[2024-12-25] MEDS ORDERED: FLAGYL 500 MG IVPB 500 MG/100 ML BAG IV ONE (11:13)
[2024-12-25] MEDS: FLAGYL 500 MG IVPB 500 MG/100 ML BAG IV STA (11:17)
[2024-12-25 11:25] LABS: INFLUENZA A NEGATIVE (NEGATIVE); INFLUENZA B NEGATIVE (NEGATIVE); RESPIRATORY SYNCTIAL VIRUS NEGATIVE (NEGATIVE); SARS-CoV-2 Xpert Express NEGATIVE (NEGATIVE)
[2024-12-25] MEDS ORDERED: NOREPINEPHRINE 8 MG/250 ML-D5W 8 MG/250 ML PLAST..BAG IV ONE (11:38)
[2024-12-25] MEDS: NOREPINEPHRINE 8 MG/250 ML-D5W 8 MG/250 ML PLAST..BAG IV PRN (11:41)
[2024-12-25 11:45] VITALS: BP 69/42; PULSE 78; RESP 13
[2024-12-25 11:47] VITALS: O2SAT 93
[2024-12-25 11:59] LABS: BAND 14 % (0.0-2.0); Eosinophil 1 % (0.8-7.0); Lymphocytes 6 % (21.8-53.1); Monocyte 3 % (5.3-12.2); Neutrophils 76 % (34.0-67.9); Total Cells Counted 100
[2024-12-25 12:00] LABS: Macrocytosis 1+; Platelet Estimate NORMAL (NORMAL)
--- NOTE | 2024-12-25 20:26 | XRAY ---
Indication: Short of breath. Comparison: April 06, 2024 Portable chest inflated and clear. Heart borderline enlarged. Bony thorax intact. No new/acute findings.
== END 2024-12-25 12:00 | disposition short-term general hospital (02) ==
LOC: ED 09:54
DX: K85.90 Acute pancreatitis without necrosis or infection, unspecified (principal); A41.9 Sepsis, unspecified organism; R65.20 Severe sepsis without septic shock; N17.9 Acute kidney failure, unspecified; K50.90 Crohn's disease, unspecified, without complications; I95.9 Hypotension, unspecified; R53.1 Weakness; I10 Essential (primary) hypertension; Z79.899 Other long term (current) drug therapy; Z72.0 Tobacco use; Z86.718 Personal history of other venous thrombosis and embolism
CPT/HCPCS: 0241U; 36415; 71045; 80053; 82150; 82805; 83605; 83690; 84484; 85025; 87040; 93005; 96365; 96368; 96375; 99291; 99292; 99285; J0696

== ENCOUNTER 2025-02-04 20:31 | Emergency (ER) | payer MEDICARE ==
--- NOTE | 2025-02-04 20:50 | ERPHSYRPT ---
- History of Present Illness Historian: patient Exam Limitations: no limitations Physician History: Patient has abdominal pain and cramping. He has had some diarrhea multiple times a day and is thrown up 2 or 3 times. He has a history of Crohn's. Says this feels like his Crohn's disease. His abdomen is soft he does not have any obstructive symptoms. He does not have any fever or chills. Nothing really makes his symptoms better or worse.He does not have any chest pain or shortness of breath.He says this feels like his usual Crohn's flareups. He usually gets prednisone for this. The pain is diffuse and cramping Allergies/Adverse Reactions: shellfish derived Allergy (Verified 02/04/25 20:50) Hives Home Medications: Diazepam 5 mg [Valium 5 MG] 5 mg PO TID 05/01/24 [History] Gabapentin 300 mg PO TID 05/01/24 [History] Budesonide [Budesonide EC] 1 cap PO DAILY 02/04/25 [History] Furosemide 40 mg PO DAILY 02/04/25 [History] Hx Tetanus, Diphtheria Vaccination/Date Given: Yes Hx Influenza Vaccination/Date Given: Yes Hx Pneumococcal Vaccination/Date Given: Yes Travel Risk - Emerging Infectious Disease Are you exhibiting symptoms associated with any current EIDs: No Symptoms: Abdominal Pain - Review of Systems Constitutional: No Symptoms Eyes: No Symptoms Ears, Nose, & Throat: No Symptoms Musculoskeletal: No Symptoms Skin: No Symptoms All Other Systems: Reviewed and Negative - Past Medical History Pertinent Past Medical History: Yes Neurological History: No Pertinent History ENT History: No Pertinent History Cardiac History: Deep Vein Thrombosis, Hypertension Respiratory History: No Pertinent History Endocrine Medical History: No Pertinent History Musculoskeletal History: Arthritis, Fractures GI Medical History: Crohns Disease, Other History: No Pertinent History Psycho-Social History: Anxiety, Depression Male Reproductive Disorders: No Pertinent History 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 right foot surgery. i&d RIGHT FOOT - Social History Smoking Status: Current every day smoker How long have you smoked: 50 Exposure to second hand smoke: Yes Drug Use: none - Social Determinants of Health Will the patient participate in the screening: Yes Do you worry about a steady place to live?: No In the past 12 months,have you had to go without utilities?: No Transportation Issues: No Has anyone in your support network made you feel unsafe?: No Have you or anyone in your house had to go w/o enough food: No - Nursing Vital Signs Nursing Vital Signs: Initial Vital Signs Temperature 97.3 F 02/04/25 20:33 Pulse Rate 96 H 02/04/25 20:33 Respiratory Rate 18 02/04/25 20:33 Blood Pressure 148/103 02/04/25 20:33 O2 Sat by Pulse Oximetry 97 02/04/25 20:33 Pain Scale Pain Intensity 7 - Physical Exam General Appearance: no apparent distress Eye Exam: PERRL/EOMI Respiratory Exam: normal breath sounds, lungs clear, No chest tenderness Cardiovascular Exam: regular rate/rhythm, normal heart sounds Gastrointestinal/Abdomen Exam: soft, normal bowel sounds, No tenderness, No distention Extremity Exam: normal inspection, normal range of motion Neurologic Exam: alert, oriented x 3 Skin Exam: normal color, warm, dry SpO2: 97 - Course Nursing assessment & vital signs reviewed: Yes Ordered Tests: Active Orders 24 hr Category Date Time Status Telemetry q4h Care 02/04/25 21:23 Active CBC W DIFF Stat Lab 02/04/25 21:00 Completed CMP Stat Lab 02/04/25 21:00 Completed LIPASE Stat Lab 02/04/25 21:00 Completed MAG [MAGNESIUM] Stat Lab 02/04/25 21:00 Completed Manual Differential NC Stat Lab 02/04/25 21:00 Completed Medication Summary Discontinued Medications Generic Name Dose Route Start Last Admin Trade Name Freq PRN Reason Stop Dose Admin Methylprednisolone Sodium 0 mg 02/04/25 20:56 02/04/25 21:21 Succinate 125 mg/ Sterile IV 02/04/25 20:57 125 mg Water 2 ml STAT ONE Administration Hydromorphone HCl 1 mg 02/04/25 21:35 02/04/25 21:41 Hydromorphone 1 Mg/1ml Inj IV 02/04/25 21:36 1 mg STAT ONE Administration Hydromorphone HCl Confirm 02/04/25 21:37 Hydromorphone 1 Mg/1ml Inj Administered 02/04/25 21:38 Dose 1 mg .ROUTE .STK-MED ONE Hydromorphone HCl 1 mg 02/04/25 23:40 02/04/25 23:44 Hydromorphone 1 Mg/1ml Inj IV 02/04/25 23:41 1 mg STAT ONE Administration Sodium Chloride 1,000 mls @ 999 mls/hr 02/04/25 20:46 02/04/25 23:24 Sodium Chloride 0.9% 1000 Ml IV 02/04/25 21:46 Infused .Q1H1M STA Infusion Sodium Chloride Confirm 02/04/25 21:17 Sodium Chloride 0.9% 1000 Ml Administered 02/04/25 21:18 Dose 1,000 mls @ ud .ROUTE .STK-MED ONE Potassium Chloride 20 meq in 100 mls @ 50 mls/hr 02/04/25 21:23 02/04/25 23:24 Potassium Chloride 20 Meq In Water 100ml IV 02/04/25 23:22 Infused STAT ONE Infusion Potassium Chloride Confirm 02/04/25 21:26 Potassium Chloride 20 Meq In Water 100ml Administered 02/04/25 21:27 Dose 100 mls @ ud IV .STK-MED ONE Methylprednisolone Sodium Succinate Confirm 02/04/25 21:17 Methylprednis Sod Succ 125 Mg/2 Ml Vial Administered 02/04/25 21:18 Dose 125 mg .ROUTE .STK-MED ONE Ondansetron HCl 4 mg 02/04/25 20:46 02/04/25 21:20 Ondansetron Hcl 4 Mg/2 Ml Vial IV 02/04/25 20:47 4 mg STAT ONE Administration Ondansetron HCl Confirm 02/04/25 21:17 Ondansetron Hcl 4 Mg/2 Ml Vial Administered 02/04/25 21:18 Dose 4 mg .ROUTE .STK-MED ONE Potassium Chloride 40 meq 02/04/25 21:23 02/04/25 21:30 Potassium Chloride Tab 10 Meq Tab PO 02/04/25 21:24 40 meq STAT ONE Administration Potassium Chloride Confirm 02/04/25 21:26 Potassium Chloride Tab 10 Meq Tab Administered 02/04/25 21:27 Dose 40 meq .ROUTE .STK-MED ONE Sterile Water Confirm 02/04/25 21:18 Water For Injection,Sterile 10 Ml Vial Administered 02/04/25 21:19 Dose 10 ml IJ .[employer]MED ONE Lab/Rad Data: Laboratory Result Diagrams 02/04/25 21:00 02/04/25 21:00 Laboratory Results 02/04/25 02/04/25 Range/Units 21:00 21:00 WBC 17.0 H (4.23-9.07) x10^3/uL RBC 4.34 L (4.63-6.08) x10^6/uL Hgb 15.1 (13.7-17.5) g/dL Hct 44.3 (40.1-51.0) % MCV 102.1 H (79.0-92.2) fL MCH 34.8 H (25.7-32.2) pg MCHC 34.1 (32.3-36.5) g/dL RDW 15.1 H (11.6-14.4) % Plt Count 280 (163-337) x10^3/uL MPV 9.7 (9.4-12.4) fL Segmented Neutrophils 89 H (34.0-67.9) % Lymphocytes (Manual) 8 L (21.8-53.1) % Monocytes (Manual) 3 L (5.3-12.2) % Platelet Estimate NORMAL (NORMAL) RBC Morphology ABNORMAL Macrocytosis 1+ Sodium 139 (135-145) mmol/L Potassium 3.0 L* (3.5-5.1) mmol/L Chloride 96 L (98-107) mmol/L Carbon Dioxide 30 (22-30) mmol/L Anion Gap 15.9 H (5-15) MEQ/L BUN 5 L (9-20) mg/dL Creatinine 0.64 L (0.66-1.25) mg/dL Estimated GFR 103.1 ML/MIN Glucose 189 H (74-106) mg/dL Calcium 8.0 L (8.4-10.2) mg/dL Magnesium 1.3 L (1.6-2.3) mg/dL Total Bilirubin 1.40 H (0.2-1.3) mg/dL AST 33 (17-59) U/L ALT 17 (0-50) U/L Alkaline Phosphatase 152 H (38-126) U/L Serum Total Protein 6.4 (6.3-8.2) g/dL Albumin 3.2 L (3.5-5.0) g/dL Lipase 52 (23-300) U/L - Progress Progress: improved Progress Note: .Patient was stable throughout stay. He had a elevated white count but the rest of his blood work looked good. His abdominal exam was benign. I do not think he needs a CT he required some pain medicine we gave him 2 mg of Dilaudid.I also gave him some Solu-Medrol IV. Going to send him home with prednisone and some [place]. He is to return if symptoms worsen. I think that he is just having an exacerbation of his Crohn's. 02/04/25 23:45 - Departure Departure Disposition: Home Clinical Impression: Exacerbation of Crohn's disease Condition: Stable Critical Care Time: No Referrals: MARISEL CARRASCO MD [Primary Care Provider, [facility]] - Follow up/PCP as directed Instructions: Crohn disease in adults Prescriptions: Prednisone 20 mg [Deltasone 20 mg] 20 mg PO TID #12 tablet Prednisone 20 mg [Deltasone 20 mg] 20 mg PO TID #12 tablet Potassium Chloride 20 meq PO BID #20 tablet Potassium Chloride 20 meq PO BID #30
[2025-02-04 20:57] VITALS: TEMP 97.3
[2025-02-04 21:04] LABS: Hematocrit 44.3 % (40.1-51.0); Hemoglobin 15.1 g/dL (13.7-17.5); Mean Cell Volume 102.1 fL (79.0-92.2); Mean Corpuscular Hemoglobin 34.8 pg (25.7-32.2); Mean Corpuscular Hgb Concent. 34.1 g/dL (32.3-36.5); Mean Platelet Volume 9.7 fL (9.4-12.4); Platelet Count 280 x10^3/uL (163-337); Red Blood Count 4.34 x10^6/uL (4.63-6.08); Red Cell Distribution Width 15.1 % (11.6-14.4)
[2025-02-04] MEDS ORDERED: Sodium Chloride 0.9% 1000 ML 1,000 ML ONE (21:17)
[2025-02-04] MEDS ORDERED: solu-MEDROL ONE (21:17)
[2025-02-04] MEDS ORDERED: Zofran 4 MG/2 ML VIAL ONE (21:17)
[2025-02-04] MEDS ORDERED: Sterile H2O 10 ml IJ ONE (21:18)
[2025-02-04 21:19] LABS: ALBUMIN 3.2 g/dL (3.5-5.0); ANION GAP 15.9 MEQ/L (5-15); BILIRUBIN,TOTAL 1.4 mg/dL (0.2-1.3); Creatinine 1 0.64 mg/dL (0.66-1.25); EST GLOMERULAR FILTRATION RATE 103.1 ML/MIN; MAGNESIUM 1.3 mg/dL (1.6-2.3); Total Protein 6.4 g/dL (6.3-8.2)
[2025-02-04] MEDS: Sodium Chloride 0.9% 1000 ML 1,000 ML IV STA (21:20)
[2025-02-04] MEDS: Zofran 4 MG/2 ML VIAL IV ONE (21:20)
[2025-02-04] MEDS: solu-MEDROL 125 MG, Sterile H2O 10 ml 2 ML IV ONE (21:21)
[2025-02-04] MEDS ORDERED: Klor Con ONE (21:26)
[2025-02-04] MEDS ORDERED: POTASSIUM CHLORIDE 20 mEq IN WATER 100ML 100 ML IV ONE (21:26)
[2025-02-04] MEDS: Klor Con PO ONE (21:30)
[2025-02-04] MEDS: POTASSIUM CHLORIDE 20 mEq IN WATER 100ML 20 MEQ/100 ML BAG IV ONE (21:32)
[2025-02-04] MEDS ORDERED: Hydromorphone 1 mg/ml Injection ONE ×2 (21:37→23:43)
[2025-02-04] MEDS: Hydromorphone 1 mg/ml Injection IV ONE ×2 (21:41→23:44)
[2025-02-04 21:50] LABS: Lymphocytes 8 % (21.8-53.1); Monocyte 3 % (5.3-12.2); Neutrophils 89 % (34.0-67.9); Platelet Estimate NORMAL (NORMAL); Total Cells Counted 100
[2025-02-04 21:51] LABS: Macrocytosis 1+
[2025-02-05 00:07] VITALS: BP 145/91; PULSE 83; RESP 34; O2SAT 95
== END 2025-02-05 00:30 | disposition home or self-care (01) ==
LOC: ED 20:31
DX: K50.90 Crohn's disease, unspecified, without complications (principal); R10.9 Unspecified abdominal pain; R19.7 Diarrhea, unspecified; I10 Essential (primary) hypertension; Z79.52 Long term (current) use of systemic steroids; Z79.899 Other long term (current) drug therapy; Z72.0 Tobacco use
CPT/HCPCS: 36415; 80053; 83690; 83735; 85025; 96365; 96366; 96374; 96375; 96376; 99284; J1171; J2405; J2919; J3480; A9270-GY